=== PATIENT | female | born 1955 | race Caucasian/White ===

== ENCOUNTER 2023-10-30 12:30 | Outpatient (RCR) | payer MEDICARE, OTHER, SELFPAY | END 2023-11-16 16:36 | disposition home or self-care (01) | LOC: PT 12:30 | PROVIDERS: PCP Family Medicine; Visit Provider Family Medicine | DX: G35 Multiple sclerosis (principal) | CPT/HCPCS: 97110; 97162 ==

== ENCOUNTER 2024-06-26 13:40 | Inpatient (IN) | payer MEDICARE, OTHER, SELFPAY ==
[2024-06-26] VITALS (8 sets, daily range): BP systolic 122–129; BP diastolic 72–87; PULSE 62–93; TEMP 36.6–36.7; O2SAT 69–99; BMI 18.8; BMI 18.6
--- OUTSIDE RECORDS SUMMARY | 2024-06-26 13:50 | XMS_ITS | CCD ---
Author Organization [facility] Care Team Providers Care Laundry Folder Name Role Phone Susan Boucher MD Primary Care Provider SUSAN BOUCHER Primary Care Unavailable Tj Garcia Attending Unavailable Tj Garcia Admitting Unavailable DEFRANCE, SUSAN Matute Primary Care Unavailable Susan Gordon Unavailable Tj Garcia Attending Unavailable Tj Garcia Admitting Unavailable Tj Garcia Admitting Unavailable DEFBREANN, SUSAN Matute Primary Care Unavailable Tj Garcia Attending Unavailable SUSAN BOUCHER Attending Unavailable DEFSUSAN CRAIN Referring Unavailable DEFRANCE, SUSAN Matute Primary Care Unavailable DEFRANCE, SUSAN Matute Attending Unavailable DEFRANCE, SUSAN Matute Referring Unavailable DEFRANCE, SUSAN Matute Primary Care Unavailable DEFRANCE, SUSAN Matute Attending Unavailable DEFRANCE, SUSAN Matute Referring Unavailable DEFRANCE, SUSAN Matute Primary Care Unavailable DEFRANCE, SUSAN Matute Attending Unavailable DEFRANCE, SUSAN Matute Referring Unavailable DEFRANCE, SUSAN Matute Primary Care Unavailable DEFRANCE, SUSAN Matute Referring Unavailable DEFRANCE, SUSAN Matute Primary Care Unavailable DEFRANCE, SUSAN Matute Attending Unavailable DEFRANCE, SUSAN Matute Referring Unavailable DEFRANCE, SUSAN Matute Primary Care Unavailable LOOMERICA RAI Attending Unavailable DEFRANCE, SUSAN Matute Referring Unavailable DEFRANCE, SUSAN Matute Primary Care Unavailable Defrance Susan ESQUIVEL Primary Care Provider SUSAN BOUCHER Primary Care Unavailable MARKO DOUGLAS Attending Unavailable DEFBREANN, SUSAN Matute Referring Unavailable DEFRANCE, SUSAN Matute Primary Care Unavailable GLADYS FABIAN Attending Unavailable DEFRANCE, SUSAN Matute Referring Unavailable DEFRANCE, SUSAN Matute Primary Care Unavailable GLADYS FABIAN Attending Unavailable DEFRANCE, SUSAN Matute Referring Unavailable DEFRANCE, SUSAN Matute Primary Care Unavailable DEFRANCE, SUSAN Matute Referring Unavailable DEFRANCE, SUSAN Matute Primary Care Unavailable DEFRANCE, SUSAN Matute Referring Unavailable DEFRANCE, SUSAN Matute Primary Care Unavailable TJ GARCIA Referring Unavailable DEFRANCE, SUSAN Matute Primary Care Unavailable DEFRANCE, SUSAN Matute Referring Unavailable SUSAN BOUCHER Primary Care Unavailable DEFSUSAN CRAIN Referring Unavailable SUSAN BOUCHER Primary Care Unavailable DEFSUSAN CRAIN Primary Care Unavailable Defrance Susan ESQUIVEL Primary Care Provider HERMES MCBRIDE Attending Unavailable HERMES MCBRIDE Attending Unavailable HERMES MCBRIDE Attending Unavailable HERMES MCBRIDE Attending Unavailable Allergies Allergy Classification Reported Allergen(s) Allergy Type Date of Onset Reaction(s) Facility (20 sources) Prochlorperazine; Translations: [PROCHLORPERAZINE] Drug Allergy 10-11-19 18 [facility] (20 sources) Sulfamethoxazole; Translations: [SULFAMETHOXAZOLE] Drug Allergy 03-26-20 [facility] (20 sources) Sulfamethoxazole / Trimethoprim; Translations: [SULFAMETHOXAZOLE-T RIMETHOPRIM] Drug Allergy 03-08-20 Dizziness, Unknown [facility] (1 source) Sulfamethoxazole / Trimethoprim; Translations: [Bactrim] Drug Allergy [facility] (3 sources) Sulfamethoxazole Propensity to adverse reactions 03-26-20 [facility] Healthcare Medications Current Medications Medication Drug Class(es) Dates Sig (Normalized) Sig (Original) aspirin 81 mg delayed release oral tablet (20 sources) Platelet Aggregation Inhibitor, Nonsteroidal Anti-inflammatory Drug Start: 08-23-2023 take 1 tablet by mouth in the morning aspirin 81 mg Take 1 tablet (81 mg total) by mouth in the morning. 08/23/2023 Active atorvastatin 10 mg oral tablet (20 sources) HMG-CoA Reductase Inhibitor Start: 08-08-2022 atorvastatin (LIPITOR) 10 mg tablet TAKE 1 TABLET EVERY NIGHT 90 tablet 2 11/26/2023 Active donepezil hydrochloride 10 mg oral tablet (20 sources) Start: 06-07-2021 donepezil (Aricept) 10 MG tablet Indications: Multiple sclerosis (CMS/HCC) TAKE 1 TABLET EVERY DAY 90 tablet 3 05/27/2024 Active doxycycline hyclate 100 mg oral capsule (5 sources) Tetracycline-clas s Drug Start: 06-18-2024 End: 06-28-2024 take 1 capsule by mouth in the morning, then take 1 capsule by mouth at bedtime doxycycline (VIBRAMYCIN) 100 mg capsule Take 1 capsule (100 mg total) by mouth in the morning and 1 capsule (100 mg total) before bedtime. Do all this for 7 days. 14 capsule 06/21/2024 06/28/2024 Active fluconazole 100 mg oral tablet (20 sources) Azole Antifungal Start: 01-25-2023 fluconazole (DIFLUCAN) 100 mg tablet hydroCHLOROthiazide 25 mg / triamterene 37.5 mg oral capsule (20 sources) Potassium-sparing Diuretic, Thiazide Diuretic Start: 11-27-2023 take 1 capsule by mouth once daily in the morning triamterene-hydro CHLOROthiazide (DYAZIDE) 37.5-25 mg per capsule Take 1 capsule by mouth every morning. 90 capsule 2 11/27/2023 Active Start: 08-20-2023 take 1 capsule by mouth once daily in the morning triamterene-hydroCHLOROthiazide (DYAZIDE ) 37.5-25 mg per capsule Take 1 capsule by mouth every morning. 30 capsule 5 08/20/2023 Active hyoscyamine sulfate 0.125 mg sublingual tablet (20 sources) Start: 05-29-2023 take 1 tablet under the tongue every four hours hyoscyamine (LEVSIN) 0.125 mg SL tablet 1 tablet EVERY 4 HOURS (route: sublingual) 05/29/2023 Active lisinopril 10 mg oral tablet (20 sources) Angiotensin Converting Enzyme Inhibitor Start: 06-18-2024 take 1 tablet by mouth in the morning, then take 1 tablet by mouth at bedtime lisinopriL (PRINIVIL,ZESTRIL) 10 mg tablet Take 1 tablet (10 mg total) by mouth in the morning and 1 tablet (10 mg total) before bedtime. 180 tablet 1 06/18/2024 Active Start: 06-18-2024 take 1 tablet by debora th in the morning, then take 1 tablet by mouth at bedtime lisinopriL (PRINIVIL,ZESTRIL) 10 mg tablet Take 1 tablet (10 mg total) by mouth in the morning and 1 tablet (10 mg total) before bedtime. 180 tablet 1 06/18/2024 Active Start: 06-11-2024 End: 06-18-2024 take 0.5 tablet by mouth in the morning, then take 0.5 tablet by mouth at bedtime lisinopriL (PRINIVIL,ZESTRIL) 20 mg tablet Take 0.5 tablets (10 mg total) by mouth in the morning and 0.5 tablets (10 mg total) before bedtime. 06/11/2024 06/18/2024 Discontinued (Alternate therapy) Start: 11-27-2023 End: 06-11-2024 take 1 tablet by mouth in the morning, then take 1 tablet by mouth at bedtime lisinopriL (PRINIVIL,ZESTRIL) 20 mg tablet Take 1 tablet (20 mg total) by mouth in the morning and 1 tablet (20 mg total) before bedtime. 180 tablet 2 11/27/2023 06/11/2024 Discontinued Start: 08-12-2023 End: 09-03-2023 take 1 tablet by mouth in the morning, then take 1 tablet by mouth at bedtime lisinopriL (PRINIVIL,ZESTRIL) 20 mg tablet Take 1 tablet (20 mg total) by mouth in the morning and 1 tablet (20 mg total) before bedtime. 180 tablet 1 09/03/2023 Active loperamide hydrochloride 2 mg oral capsule (20 sources) Opioid Agonist Start: 08-08-2022 End: 05-14-2024 loperamide (Imodium) 2 MG capsule TAKE 1 CAPSULE IN THE MORNING AND TAKE 1 CAPSULE BEFORE BEDTIME. 08/08/2022 Active 24 hr memantine hydrochloride 28 mg extended release oral capsule (20 sources) N-byrwnj-Z-aspartate Receptor Antagonist Start: 03-09-2024 memantine (NAMENDA XR) 28 mg capsule,sprinkle,ER 24hr TAKE 1 CAPSULE EVERY DAY 90 capsule 1 03/09/2024 Active Start: 04-30-2023 memantine (NAM ENDA XR) 28 mg capsule,sprinkle,ER 24hr TAKE 1 CAPSULE EVERY DAY 90 capsule 1 04/30/2023 Active Start: 12-20-2022 take 1 capsule by [facility] every twenty-four hours in the morning Memantine HCl ER 28 MG capsule sustained-release 24 hr Take 1 capsule by mouth in the morning. 12/20/2022 Active metoprolol tartrate 50 mg oral tablet (20 sources) beta-Adrenergic Heather Start: 02-20-2024 metopr olol tartrate (LOPRESSOR) 50 mg tablet TAKE 1 TABLET IN THE MORNING AND 1 TABLET BEFORE BEDTIME. 180 tablet 3 02/20/2024 Active Start: 08-26-2023 End: 09-27-2023 take 1 tablet by mouth in the morning, then take 1 tablet by mouth at bedtime metoprolol tartrate (LOPRESSOR) 50 mg tablet Take 1 tablet (50 mg total) by mouth in the morning and 1 tablet (50 mg total) before bedtime. 180 tablet 1 09/27/2023 Active Start: 12-20-2022 End: 10-07-2023 take 1 tablet by mouth in the morning metoprolol tartrate (Lopressor) 100 MG tablet Take 1 tablet by mouth in the morning and 1 tablet before bedtime. 12/20/2022 Active mineral oil-hydrophil dorina (mineral oil-hydrophilic petrolatum) ointment (15 sources) Start: 12-03-2023 mineral oil-hydrophil dorina (mineral oil-hydrophilic petrolatum) ointment Indications: Pressure injury of right buttock, stage 2 (CMS-HCC) Apply 1 Application topically in the morning and 1 Application before bedtime. 113 g 12/03/2023 Active pantoprazole 40 mg delayed release oral tablet (20 sources) Proton Pump Inhibitor Start: 10-30-2022 pantoprazole (PROTONIX) 40 mg EC tablet take 1 tablet every day 90 tablet 2 11/26/2023 Active potassium chloride 10 meq extended release oral capsule (20 sources) Start: 09-10-2022 End: 05-14-2024 take 1 capsule by mouth in the morning potassium chloride ER (Micro-K) 10 MEQ ER capsule Take 1 capsule by mouth in the morning and 1 capsule before bedtime. 09/10/2022 Active teriflunomide 14 mg oral tablet (20 sources) Pyrimidine Synthesis Inhibitor Start: 03-31-2024 take 1 tablet by mouth in the morning teriflunomide (AUBAGIO) 14 mg tablet Indications: Multiple sclerosis (CMS-HCC) Take 1 tablet (14 mg total) by mouth in the morning. 90 tablet 1 03/31/2024 Active Start: 08-14-2022 End: 09-02-2023 take 1 tablet by mouth in the morning teriflunomide (AUBAGIO) 14 mg tablet Indications: Multiple sclerosis (CMS-HCC) Take 1 tablet (14 mg total) by mouth in the morning. 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] Onset: 12-03-2023 06-23-2024 Chronic Disorders of lipid metabolism (20 sources) Hyperlipidemia; Translations: [Hyperlipidemia, unspecified] Onset: 10-10-2017 10-10-2017 Chronic Essential hypertension (20 sources) Hypertensive disorder; Translations: [Essential (primary) hypertension] Onset: 08-11-2023 Resolved: 08-12-2023 10-10-2017 Chronic Genitourinary symptoms and ill-defined conditions (20 sources) Suprapubic urinary catheter in situ; Translations: [Other cystostomy status] Onset: 12-19-2020 12-19-2020 Chronic Multiple sclerosis (20 sources) Multiple sclerosis; Translations: [Multiple sclerosis] Onset: 10-10-2017 10-10-2017 Chronic Nutritional deficiencies (20 sources) Deficiency of macronutrients; Translations: [Unspecified severe protein-calorie malnutrition] Onset: 03-09-2019 Resolved: 12-19-2020 12-19-2020 Chronic Other diseases of bladder and urethra (20 sources) Neurogenic bladder; Translations: [Neuromuscular dysfunction of bladder, unspecified] Onset: 12-19-2020 12-19-2020 Chronic Other nervous system disorders (1 source) Other chronic pain; Translations: [Other chronic pain] Onset: 05-19-2024 Chronic Other non-traumatic joint disorders (2 sources) Pain in right knee; Translations: [Pain in joint, lower leg] Onset: 05-19-2024 05-19-2024 Episodic Other screening for suspected conditions (not mental disorders or infectious disease) (2 sources) Encounter for screening mammogram for malignant neoplasm of breast; Translations: [Encounter for screening mammogram for malignant neoplasm of breast] Onset: 04-01-2024 Episodic Unclassified (1 source) Annual Exam Onset: 04-01-2024 Unclassified (1 source) Urinary Catheter Insertion or Check Onset: 06-21-2024 Unclassified (2 sources) Wound Check Onset: 06-21-2024 Past or Other Problems Problem Classification Problem Date Documented Da te Episodic/Chronic Gastrointestinal hemorrhage (20 sources) Gastrointestinal hemorrhage; Translations: [Hematemesis] Onset: 9 Resolved: 1 12-19-2020 Episodic Genitourinary symptoms and ill-defined conditions (4 sources) Unspecified abnormal findings in urine; Translations: [Retention of urine] Onset: 3 02-13-2023 Episodic Malaise and fatigue (20 sources) Asthenia; Translations: [Weakness] Onset: 9 03-08-2019 Episodic Mood disorders (20 sources) Mood disorders Onset: 3 Resolved: 4 05-16-2023 Other female genital disorders (1 source) Vaginal irritation Onset: 4 Episodic Residual codes; unclassified (20 sources) Memory impairment; Translations: [Other amnesia] Onset: 1 12-19-2020 Episodic Residual codes; unclassified (1 source) Other amnesia; Translations: [Other amnesia] Onset: 1 Episodic Urinary tract infections (1 source) Urinary tract infection, site not specified; Translations: [Urinary tract infection, site not specified] Onset: 4 Episodic Results Test Name Value Interpretation Reference Range Facility CBC AND AUTO DIFFon 06-21-20 ABSOLUTE BASOPHIL 0.1 X10E9/L Normal 0.0-0.2 [facility] Comment on above: Performed By: #### C DAVID LAGOS, 1987-11 #### [facility] ([id number]) [address] [place] [address] ABSOLUTE NEUTROPHIL 6.9 X10E9/L High 1.5-6.6 [facility] Comment on above: Performed By: #### C DAVID LAGOS, 1987-11 #### [facility] ([id number]) [address] [place] [address] 02286 Basophils/100 WBC (Bld) 0.7 % Normal [facility] Comment on above: Performed By: #### C DAVID LAGOS, 1987-11 #### [facility] ([id number]) [address] [place] [address] [place] [address] Eosinophils (Bld) [#/Vol] 0.1 10*3/uL Normal 0.0-0.4 [facility] Comment on above: Performed By: #### Vinh LAGOS [facility], 1987-11 #### [facility] ([id number]) [address] [place] [address] 16014 Eosinophils/100 WBC (Bld) 1.3 % Normal [facility] Comment on above: Performed By: #### Vinh LAGOS [facility], 1987-11 #### [facility] ([id number]) [address] [place] [address]674 Erythrocyte distribution width (RBC) [Ratio] 13.4 % Normal 11.5-15.0 [facility] Comment on above: Performed By: #### Vinh LAGOS [facility], 1987-11 #### [facility] ([id number]) [address] [place] [address]342 Hematocrit (Bld) [Volume fraction] 35.1 % Normal 35-47 [facility] Comment on above: Performed By: #### Vinh LAGOS [facility], 1987-11 #### [facility] ([id number]) [address] [place] [address] 04858 Hemoglobin (Bld) [Mass/Vol] 11.5 g/dL Low 11.7-15.5 [facility] Comment on above: Performed By: #### Vinh LAGOS [facility], 1987-11 #### [facility] ([id number]) [address] [place] [address] 80200 Lymphocytes (Bld) [#/Vol] 0.5 10*3/uL Low 1.0-3.5 [facility] Comment on above: Performed By: #### Vinh LAGOS [facility], 1987-11 #### [facility] ([id number]) [address] [place] [address] 27054 Lymphocytes/100 WBC (Bld) 5.5 % Normal [facility] Comment on above: Performed By: #### Vinh LAGOS [facility], 1987-11 #### [facility] ([id number]) [address] [place] [address] 43417 MCH (RBC) [Entitic mass] 29.3 pg Normal 27-34 [facility] Comment on above: Performed By: #### Vinh LAGOS [facility], 1987-11 #### [facility] ([id number]) [address] [place] [address] 59487 MCHC (RBC) [Mass/Vol] 32.7 g/dL Normal 32-36 [facility] Comment on above: Performed By: #### Vinh LAGOS [facility], 1987-11 #### [facility] ([id number]) [address] [place] [address] 11857 MCV (RBC) [Entitic vol] 90 fL Normal 80-100 [facility] Comment on above: Performed By: #### Vinh LAGOS [facility], 1987-11 #### [facility] ([id number]) [address] [place] [address] 36238 Monocytes (Bld) [#/Vol] 0.9 10*3/uL Normal 0-0.9 [facility] Comment on above: Performed By: #### Vinh LAGOS CMP, 1987-11 #### [facility] ([id number]) [address] [place] [address] 74320 Monocytes/100 WBC (Bld) 10.4 % Normal [facility] Comment on above: Performed By: #### Vinh LAGOS CMP, 1987-11 #### [facility] ([id number]) [address] [place] [address] 06163 Neutrophils/100 WBC (Bld) 82.1 % Normal [facility] Comment on above: Performed By: #### Vinh LAGOS CMP, 1987-11 #### [facility] ([id number]) [address] [place] [address] 18687 Platelet mean volume (Bld) [Entitic vol] 8.1 fL Normal 7-12 [facility] Comment on above: Performed By: #### Vinh LAGOS [facility], 1987-11 #### [facility] ([id number]) [address] [place] [address] 34138 Platelets (Bld) [#/Vol] 470 10*3/uL High 150-450 [facility] Comment on above: Performed By: #### Vinh LAGOS [facility], 1987-11 #### [facility] ([id number]) [address] [place] [address] 31417 RBC COUNT 3.92 X10E12/L Normal 3.80-5.20 [facility] Comment on above: Performed By: #### Vinh LAGOS [facility], 1987-11 #### [facility] ([id number]) [address] [place] [address] 51271 WBC (Bld) [#/Vol] 8.4 10*3/uL Normal 4.0-11.0 [facility] Comment on above: Performed By: #### Vinh LAGOS [facility], 1987-11 #### [facility] ([id number]) [address] [place] [address] 55546 COMPREHENSIVE METABOLIC PANE Chace 06-21-2024 Albumin [Mass/Vol] 3.7 g/dL Normal 3.2-5.3 [facility] Comment on above: Performed By: #### 6 30-4 #### [facility] ([id number]) [address], [address] [place] [address] ALP [Catalytic activity/Vol] 90 U/L Normal 39-130 [facility] Comment on above: Performed By: #### 6 30-4 #### [facility] ([id number]) [address], [address] [place] [address] ALT [Catalytic activity/Vol] 13 U/L Normal 0-31 [facility] Comment on above: Performed By: #### 6 30-4 #### [facility] ([id number]) [address], [address] [place] [address] Anion gap [Moles/Vol] 12 mmol/L Normal 5-15 [facility] Comment on above: Performed By: #### 6 30-4 #### [facility] ([id number]) [address], [address] [place] [address] AST [Catalytic activity/Vol] 16 U/L Normal 0-41 [facility] Comment on above: Performed By: #### 6 30-4 #### [facility] ([id number]) [address], [address] [place] [address] Bilirubin [Mass/Vol] 0.5 mg/dL Normal 0.3-1.2 [facility] Comment on above: Performed By: #### 6 30-4 #### [facility] ([id number]) [address], [address] [place] [address] Calcium [Mass/Vol] 9.2 mg/dL Normal 8.5-10.5 [facility] Comment on above: Performed By: #### 6 30-4 #### [facility] ([id number]) [address], [address] [place] [address] Chloride [Moles/Vol] 99 mmol/L Normal 98-109 [facility] Comment on above: Performed By: #### 6 30-4 #### [facility] ([id number]) [address], [address] [place] [address] CO2 [Moles/Vol] 23 mmol/L Normal 22-32 [facility] Comment on above: Performed By: #### 6 30-4 #### [facility] ([id number]) [address], [address] [place] [address] Creatinine [Mass/Vol] 1.72 mg/dL High 0.40-1.00 [facility] Comment on above: Result Comment: METH OD TRACEABLE TO IDMS STANDARD Performed By: #### 6 30-4 #### [facility] ([id number]) [address] [place] [address] GFR/1.73 sq M.predicted among non-blacks MDRD (S/P/Bld) [Vol rate/Area] 32 mL/min/{1.73_m2} Low >59 [facility] Comment on above: Result Comment: Reported eGFR is based on the CKD-EPI 2020 equation that does not use a race coefficient. Performed By: #### 6 30-4 #### [facility] ([id number]) [address] [place] [address] Glucose [Mass/Vol] 103 mg/dL High 65-99 [facility] Comment on above: Performed By: #### 6 30-4 #### [facility] ([id number]) [address] [place] [address] Potassium [Moles/Vol] 4.9 mmol/L Normal 3.5-5.0 [facility] Comment on above: Performed By: #### 6 30-4 #### [facility] ([id number]) [address] [place] [address] Protein [Mass/Vol] 7.1 g/dL Normal 6.0-8.0 [facility] Comment on above: Performed By: #### 6 30-4 #### [facility] ([id number]) [address] [place] [address] Sodium [Moles/Vol] 134 mmol/L Normal 134-146 [facility] Comment on above: Performed By: #### 6 30-4 #### [facility] ([id number]) [address] [place] [address] Urea nitrogen [Mass/Vol] 34 mg/dL High 5-27 [facility] Comment on above: Performed By: #### 6 30-4 #### [facility] ([id number]) [address] [place] [address] CRP [Mass/Vol]on 06-21-2024 C REACTIVE PROTEIN 0.9 mg/dL High 0.000-0.[address] [facility] Comment on above: Performed By: #### 6 30-4 #### [facility] ([id number]) [address], [address] [place] [address] Lactate (P rohini) [Moles/Vol]o n 06-21-2024 LACTATE W/REFLEX 2.0 mmol/L Normal 0.4-2.0 [facility] Comment on above: Result Comment: Result did not trigger repeat Lactate, re-order if needed. Performed By: #### 6 30-4 #### [facility] ([id number]) [address], [address] [place] [address] URINE CULTUREon 06-21-2024 Bacteria identified Cx Nom (U) CULTURE RESULTS 10,000 to 50,000 ORGANISMS/mL ENTEROCOCCUS SPECIES Ampicillin or Amoxicillin is the drug of choice for uncomplicated cystitis caused by enterococci. Cephalosporins are inappropriate. <10,000 ORGANISMS/mL NORMAL URO GENITAL GENA [ S = SUSCEPTIBLE R = RESISTANT I = INTERMEDIATE S-DO = Susceptible-dose dependent NS = Non-suscceptible NO = No Interpretation ] Organism: ENTEROCOCCUS SPECIES Antibiotic Interpretation LAVERNE Status AMPICILLIN S <=2 F LEVOFLOXACIN S 1 F NITROFURANTOIN S <=16 F VANCOMYCIN S 2 F Susceptible [facility] Comment on above: Performed By: #### 6 30-4 #### [facility] ([id number]) [address], [address] [place] [address] URN MACROSCOPIC NURon 2023 BILIRUBIN MARIA E Negative Normal NEG [facility] Comment on above: Performed By: #### N UM #### [facility] ([id number]) [address] [place] [address], [place] [address] BLOOD/HGB MARIA E Trace Abnormal NEG [facility] Comment on above: Performed By: #### N UM #### [facility] ([id number]) [address] [place] [address], [place] [address] GLUCOSE MARIA E Negative Normal NEG [facility] Comment on above: Performed By: #### N UM #### [facility] ([id number]) [address] [place] [address], [place] [address] KETONES MARIA E Negative Normal NEG [facility] Comment on above: Performed By: #### N UM #### [facility] ([id number]) [address] [place] [address], [place] [address] LEUKOCYTE ESTERASE MARIA E Small Abnormal NEG [facility] Comment on above: Performed By: #### N UM #### [facility] ([id number]) [address] [place] [address], [place] [address] NITRITE MARIA E Negative Normal NEG [facility] Comment on above: Performed By: #### N UM #### [facility] ([id number]) [address] [place] [address], [place] [address] PH MARIA E 6.5 Normal 5.0-8.5 [facility] Comment on above: Performed By: #### N UM #### [facility] ([id number]) [address] [place] [address], [place] [address] PROTEIN MARIA E Negative Normal NEG [facility] Comment on above: Performed By: #### N UM #### [facility] ([id number]) [address] [place] [address], [place] [address] SPECIFIC GRAVITY MARIA E 1.015 Normal 1.003-1.035 [facility] Comment on above: Performed By: #### N UM #### [facility] ([id number]) [address] [place] [address] 67917 UROBILINOGEN MARIA E 0.2 eu/dL Normal <1.1 [facility] Comment on above: Performed By: #### N UM #### [facility] ([id number]) [address] [place] [address] 89675 XR FOOT LT MIN 3 VWSon 06-21 XR FOOT LT MIN 3 VWS XR FOOT LT MIN 3 VWS XR FOOT LT MIN 3 VWS IMPRESSION: Clinical Information: r/o osteomyelitis of heel Comparison: None. * No fracture or cortical destruction. Soft tissue loss overlying the heel consistent with ulcer. MRI is more sensitive for the detection of osteomyelitis. Osteopenia and degenerative changes with some soft tissue swelling. Hammertoe deformities. Finalized by Andres Patel MD on 06/21/2024 2:44 PM Normal [facility] URINALYSISon 06-16-2024 Amorphous sediment LM Ql (Urine sed) PRESENT Abnormal NONE [facility] Comment on above: Performed By: #### U A #### [facility] ([id number]) [address] [place] [address] 50196 Bilirubin Ql (U) Negative Normal NEG [facility] Comment on above: Performed By: #### U A #### [facility] ([id number]) [address] [place] [address] 45689 BLOOD/HGB Trace Abnormal NEG [facility] Comment on above: Performed By: #### U A #### [facility] ([id number]) [address] [place] [address] 39732 Color (U) YELLOW Normal YELLOW [facility] Comment on above: Performed By: #### U A #### [facility] ([id number]) [address] [place] [address] 11880 Glucose Ql (U) Negative Normal NEG [facility] Comment on above: Performed By: #### U A #### [facility] ([id number]) [address] [place] [address] [place] [address] Ketones Ql (U) Negative Normal NEG [facility] Comment on above: Performed By: #### U A #### [facility] ([id number]) [address] [place] [address] [place] [address] Leukocyte esterase Test strip Ql (U) MODERATE Abnormal NEG [facility] Comment on above: Performed By: #### U A #### [facility] ([id number]) [address] [place] [address] [place] [address] Nitrite Ql (U) Positive Abnormal NEG [facility] Comment on above: Performed By: #### U A #### [facility] ([id number]) [address] [place] [address] 24788 pH (U) 6.5 [pH] Normal 5.0-8.5 [facility] Comment on above: Performed By: #### U A #### [facility] ([id number]) [address] [place] [address] [place] [address] Protein Ql (U) Trace Abnormal NEG [facility] Comment on above: Performed By: #### U A #### [facility] ([id number]) [address] [place] [address] [place] [address] R.B.CELLS 0 /hpf Normal 0-5 [facility] Comment on above: Performed By: #### U A #### [facility] ([id number]) [address] [place] [address] [place] [address] Specific gravity (U) [Rel density] 1.015 Normal 1.003-1.035 [facility] Comment on above: Performed By: #### U A #### [facility] ([id number]) [address] [place] [address] [place] [address] TURBIDITY HAZY Abnormal CLEAR [facility] Comment on above: Performed By: #### U A #### [facility] ([id number]) [address] [place] [address] 53264 Urinalysis dipstick W Reflex Microscopic panel (U) URINE RECEIVED WITHOUT PRESERVATIVE Normal [facility] Comment on above: Performed By: #### U A #### [facility] ([id number]) [address] [place] [address] 81174 Urobilinogen Qn (U) 0.2 {Bro'U}/dL Normal <1.1 [facility] Comment on above: Performed By: #### U A #### [facility] ([id number]) [address] [place] [address] 52774 W.B.CELLS 25 /hpf High 0-5 [facility] Comment on above: Performed By: #### U A #### [facility] ([id number]) [address] [place] [address] 91890 URINE CULTUREon 06-16-2024 Bacteria identified Cx Nom (U) SPECIMEN NOTES URINE RECEIVED WITHOUT PRESERVATIVE CULTURE RESULTS >100,000 ORGANISMS/mL LACTOSE FERMENTING GRAM NEGATIVE RODS >100,000 ORGANISMS/mL NON LACTOSE FERMENTING GRAM NEGATIVE RODS 10,000 to 50,000 ORGANISMS/mL GRAM POSITIVE COCCI URINE RECEIVED WITHOUT PRESERVATIVE-DELAYS IN TRANSPORT MAY AFFECT RESULTS.INTERPRET WITH CAUTION AND CLINICAL CORRELATION IS RECOMMENDED. Contact laboratory if definitive identifications are clinically indicated. Normal [facility] Comment on above: Performed By: #### 6 30-4 #### [facility] ([id number]) [address], [address] [place] [address] XR KNEE RT 3 VWSon 4 XR KNEE RT 3 VWS XR KNEE RT 3 VWS HISTORY: A 69-year-old female with the history of the fall one week ago. Complaining of the chronic right knee pain. TECHNIQUE: Right knee: 3 views COMPARISON: No relevant prior studies are available for comparison. FINDINGS: There is no evidence of fracture, dislocation or acute bony pathology. There are mild osteoarthritic changes in the knee joint with minimal reduction of the joint space in its medial compartment. Patellofemoral joint is intact. There is no evidence of joint effusion. Minimal calcifications are seen in the medial collateral ligament proximally. There is a osteochondroma or exostosis from the lateral aspect of the proximal tibial diaphysis. IMPRESSION: * No evidence of fracture, joint effusion or acute bony pathology. * Mild osteoarthritis. * Osteochondroma or exostosis on the lateral aspect of the proximal tibial diaphysis near the tibiofibular joint. Finalized by Otto Wong MD on 05/19/2024 5:29 PM [facility] XR Knee - right 3 Viewson HISTORY: A 69-year-old female with the history of the fall one week ago. Complaining of the chronic right knee pain. TECHNIQUE: Right knee: 3 views COMPARISON: No relevant prior studies are available for comparison. FINDINGS: There is no evidence of fracture, dislocation or acute bony pathology. There are mild osteoarthritic changes in the knee joint with minimal reduction of the joint space in its medial compartment. Patellofemoral joint is intact. There is no evidence of joint effusion. Minimal calcifications are seen in the medial collateral ligament proximally. There is a osteochondroma or exostosis from the lateral aspect of the proximal tibial diaphysis. IMPRESSION: * No evidence of fracture, joint effusion or acute bony pathology. * Mild osteoarthritis. * Osteochondroma or exostosis on the lateral aspect of the proximal tibial diaphysis near the tibiofibular joint. Finalized by Otto Wong MD on 05/19/2024 5:29 PM [facility] Otto Wong MD - 05/19/2024 HISTORY: A 69-year-old female with the history of the fall one week ago. Complaining of the chronic right knee pain. TECHNIQUE: Right knee: 3 views COMPARISON: No relevant prior studies are available for comparison. FINDINGS: There is no evidence of fracture, dislocation or acute bony pathology. There are mild osteoarthritic changes in the knee joint with minimal reduction of the joint space in its medial compartment. Patellofemoral joint is intact. There is no evidence of joint effusion. Minimal calcifications are seen in the medial collateral ligament proximally. There is a osteochondroma or exostosis from the lateral aspect of the proximal tibial diaphysis. IMPRESSION: * No evidence of fracture, joint effusion or acute bony pathology. * Mild osteoarthritis. * Osteochondroma or exostosis on the lateral aspect of the proximal tibial diaphysis near the tibiofibular joint. 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 Computer aided detection was utilized. FINDINGS: There are scattered areas of fibroglandular density. There are no suspicious masses, calcifications, or areas of architectural distortion. IMPRESSION: No mammographic evidence of malignancy. BI-RADS: BI-RADS 1 - Negative Recommendation: Routine screening mammogram in 1 year. Finalized by Donal Verdugo MD on 04/15/2024 1:04 PM 1 b MAMM 1 YR Normal [facility] URINALYSISon 11-06-2023 Bilirubin Ql (U) Negative Normal NEG [facility] Comment on above: Performed By: #### U A #### [facility] ([id number]) [address] [place] [address] 53338 BLOOD/HGB Trace Abnormal NEG [facility] Comment on above: Performed By: #### U A #### [facility] ([id number]) [address] [place] [address] 25637 Color (U) YELLOW Normal YELLOW [facility] Comment on above: Performed By: #### U A #### [facility] ([id number]) [address] [place] [address] 94677 Glucose Ql (U) Negative Normal NEG [facility] Comment on above: Performed By: #### U A #### [facility] ([id number]) [address] [place] [address] [place] [address] Ketones Ql (U) Negative Normal NEG [facility] Comment on above: Performed By: #### U A #### [facility] ([id number]) [address] [place] [address] 51202 Leukocyte esterase Test strip Ql (U) Large Abnormal NEG [facility] Comment on above: Performed By: #### U A #### [facility] ([id number]) [address] [place] [address] 20363 Nitrite Ql (U) Positive Abnormal NEG [facility] Comment on above: Performed By: #### U A #### [facility] ([id number]) [address] [place] [address] 89598 pH (U) 6.5 [pH] Normal 5.0-8.5 [facility] Comment on above: Performed By: #### U A #### [facility] ([id number]) [address] [place] [address] 16021 Protein Ql (U) Negative Normal NEG [facility] Comment on above: Performed By: #### U A #### [facility] ([id number]) [address] [place] [address] 62022 R.B.CELLS 1 /hpf Normal 0-5 [facility] Comment on above: Performed By: #### U A #### [facility] ([id number]) [address] [place] [address] 85433 Specific gravity (U) [Rel density] 1.015 Normal 1.003-1.035 [facility] Comment on above: Performed By: #### U A #### [facility] ([id number]) [address] [place] [address] 14030 SQUAMOUS EPITHELIUM 6 /hpf High 0-[address] [facility] Comment on above: Performed By: #### U A #### [facility] ([id number]) [address] [place] [address] 56614 TURBIDITY HAZY Abnormal CLEAR [facility] Comment on above: Performed By: #### U A #### [facility] ([id number]) [address] [place] [address] 81851 Urobilinogen Qn (U) 0.2 {Bro'U}/dL Normal <1.1 [facility] Comment on above: Performed By: #### U A #### [facility] ([id number]) [address] [place] [address] 66287 W.B.CELLS 30 /hpf High 0-5 [facility] Comment on above: Performed By: #### U A #### [facility] ([id number]) [address] [place] [address] 33697 URINE CULTUREon 11-06-2023 Bacteria identified Cx Nom (U) SPECIMEN NOTES URINE RECEIVED WITHOUT PRESERVATIVE CULTURE RESULTS 50,000 to 100,000 ORGANISMS/mL ENTEROBACTER CLOACAE COMPLEX 10,000 to 50,000 ORGANISMS/mL NORMAL URO GENITAL GENA URINE RECEIVED WITHOUT PRESERVATIVE-DELAYS IN TRANSPORT MAY AFFECT RESULTS.INTERPRET WITH CAUTION AND CLINICAL CORRELATION IS RECOMMENDED. Normal [facility] Comment on above: Performed By: #### 6 30-4 #### [facility] ([id number]) [address], [address] [place] [address] Coding Queryon 10-24-2023 Coding Query [id number] [facility] Coding Summaryon 10-24-2023 Coding Summary HTMLBase 64 PqpieergNHj0nAb+PGhlY WQ+ZK7UKRXmN11bbLZozO 4vE8XCGElQBakrTCLXGQj NDvVywqXcKO2otUNiYTEg IC8+LJ1mUVTbKsephPEcz 2E3qUM0L80ipl5lCKguzV V0RYExHlZpowlbn5gxiHo 6IDcuNmluOyBt HBCieS35XYA8uV39Yk33w IVruUPrw6zdqNx9MnNdJG OsFTA6bTwuPQdxg9IoTWU nE54cqZUhw4V7 OBGxyJenhXViAqRzcNK4g J6sNAhzogarm1ratlazFp y3bs10hLTid4B5fWT4U0F ddbM4GNRmaGSb ZijqzTCJuR1vrrmmi5bmp kmmKvXkBMKoZDv4UCk5IK LqjMacYsYeEE04JRI4UKW lskOpM5EaXDJz cXcxByE5s1R1Fn8TZ5OGU jjyV5GUSWRESDdbaBG+PC 31gn95P6MaGncjFac2PIK dOCM8lSC6hL9r TTYfWNvqw5W9xKX2P6Yng dTqyb4hh7slEDWxNAxwH0 6ewPFdb9E1DIWxgAJ2UAI ocUwfQuDvhD49 Oyc+WTQeyVpnw3ToDqgvv 2gjb4jgeTd3DlsqWVJgyf UetEkvLQM7s8CwGi2mVCP oxBT1rVM5uN4s JwTnSgU8RAksN644MaFay EEhMouiK86xT6GalGJ+PH RkHix5KYRrbDcqEX5rA5K hZGRpbmctbGVm aNmbOF3vRHUpcagxCEKqb D6pDYHjG6l8UfQqRkC8IS anN6EaTTQvpdiyEs17sS7 cNgRpKeK9PNwq O0BfnfD7VUBubOLuIZkaY GM7Q07td2N2LGVaJCIrNM W7yDZ5uW3wnIxnbkgjhSM mdDsgdmVydGlj XAdyWSfmS200BSEpfSyyG kNvZGluZyBEYXRlOiAgMD MvMjgvMjAyNDwvdGQ+PHR gKZJ9fMivKWYn vXQbNJrpSx8jgTiwzJnmH A9cJXLgouehQDXcdY3uTS FwlHJwpSdfGS3oDUVbeyq sz559BzRcSAA1 VVVjrMRgW1ImvN2xKdQiL EOnNTVzJ4FexDQdMUluM1 08WQasYtY7OQGqlvPkV2A sLWFsaWduOiB0 c4N0Vo2Jm1DsbdkqU4Kcv FWvCgSdAmruZVx2J7VaGh wvdHI+UK52AUZyEU37BRa 0DVO2eWtfBIyd GMJnL0WzzX1rPwYhWRWsQ GRkOyc+PHRhYmxlIHdpZH RoPScxMDAlJyBzdHlsZT0 zFy6tQSUtPZYl uJongIGoDwJtk8feMUKcI IujWU4dpRisH8PoiAZ1BS Oyy8v2Us67A43wB7GutKE +MAXneHX8mWB0 wW9yVtHwBtE1ZXxqD431S mVfoARsPalxr0zux4evyE j2OmW8HEUsaqHssIvhAIC 1w3VzKv74P46j IHdpZHRoPSIxNSUiIHZhb Qyubl0joM2vDu6+PGNvbC D6xNO2zH9bLfSyPwM2KWs eL788YjRnyBMp Ncdav5xez4akqSv1YbTmD EOhhsCumYnsCXY0f4SuVm 97T4EdpXsal3SqEci5rh1 9zWLvk7G8lJI8 E3GuKNBnwvmkgHXyhWtoT A2oRYJprzkyIPLdsK9dDI SjL7t3QwFkOhR7QUdaB0O zwfQ6ILIkiAGe OFShlTQIjR9ltxlbq8wbl mftNiSkGDTkPWq4LGz4JD XonAxwEyQoOTE2HxS3QHT 5rYApcM2qfNpz gfifzF9vKzy+NCD6gWPbc QTUOL5nOlpadRI+PHRkIH X5mKyyLYlzLACioN1lUNS iZ7v7MrAjDjD5 PHmiE5XouxZ7XUXibBHfC EYmaLEBeV7xfivou1eguc vuCwYxIKLqPVb8UXw3HWE saWduOiBsZWZ0 StK9NZK3nPWepY0spDqnc wlzdD5hPzj+QmlydGggRG M1MJu5G1TnJvd1KQZwaDi vGH7ckXDmEPqn Hj2qoXtejYtbHO9nIKLul ghoy836BbDrt8vtETFqmM YrCDrvKGO3Z32xh5E6FTN tSYQkMPR6cPA2 eV7bcHbtcfbdaLFwaBphk nFzpPlhELvdVAwmZ876IU IehXieZoBfDUc3X1MoOuw 4KKLlpFjwRV8e gWAsKWsvXu1ghIrtjAudK D0tIDRcvigeu929SnGer5 wkYLZzcXHfBCqjNZK1H87 gv2C2ZNMaKMHp IZN3sWV9lV2teWrgiwlpc GVmdDsgdmVydGljYWwtYW hzF297CETrsOxwQwEnpWn 6N5OsBrd3IYOi jAlpEF7jsBMoVXkwVj9yl SxpmJdbUW8wAIZlcfypl6 36PsYuf0laKURypJPxWZj qUYO7I60rk2O4 XLVjBTNuCYR9zMF4kB1er GlnbjogbGVmdDsgdmVydG tbIXkwZJwiC119DIZuoCb nPlBhdGllbnQg MPpfAYe8Q8IeRcpxrRO+P X01OADeFV57oHTyuIHzt5 sidQq4CeHrRZPuFLI9cPj tDMlfh3TeXRRd V06lfGSdc2P8WTZeeYqkl VUrNzOzpWH3uA8pEJelpo fzp9mmtcgfXdsvo8lmtj5 4jW83D23rESrb ZHRoPSIzMCUiIHZhbGlnb d3hiL9bWl8+IZIyaQZ5iK F6qA1vPFZpHbU1LHimS64 9InRvcCIvPjxj i3toj1ffzKh3FdK4LXYlu bUwvWvgMCB1v5UyCf09B4 9sIHdpZHRoPSIyMCUiIHZ ogYmtpn8voM4y Ii8+ASWkqRN6xLA3iN2uV gKnZnL7DHeoM260HaPgnO TzEmfyS46sW4ZujIJ+PHR zLdg8QZOdeTxa NH7fnHCkVTdyBg9mIXF4Z tGgQrFfBZhfE6HnLXHsnb hpeyinuRC1NTBmIKDsiC5 4Hc4raUsoLZCn xMRQnT1bacjeb3neucigB dIzHFRpZJh1JIb7SHMqwA ztXeWxFIM9MdS7BDO4vXE lzC1izHkehkgw gZ0wR6VzUVNpvemeRf78v O5cLoLuKwN7NJalYxe+SE xKXFjqP6mESIbWPIMEDs7 6P6TyNjs5EVQl zYdvMS6msSXhMFuwHs1fq IgijTweKS4yQTYahkadPB MlvI4fATTiiDIigCqdMR0 zHQZjyrofq028 EwKuURE7TKBotYLkN4Ewq I9gYyYaRKEqYEZgY2VzhM DeKYwqE305CWdhQbF1CPD ncfUcH0VkVJUl dAafJhH5k0T7Mf3fZS0vC k0kOSP8FM27YF50lXSpa8 Z8dYY7E9RqIGObgiwkqjg stFD2IBDgBIRq dT25lUHcANojFj3vf2P0p 079DEXsIJJeyK80Ww8ttX ssDYAjsEOLqQ8sohzmw0h vcjogIzAwMDAw OKy4PVq5BWSfsHgsZoKtI CU3ByR2HDY0dAKekV0qcR xrpxgfqX1zEqg+NjggWWV bsiF4P0FoQse4 BMZmlYhqIH6duOIzMMzsP n6fbQbtxCzbUU6mSSNtcf ydJUVdjJ7wKZEbiBVzwWb uDH0kPFDrxzet q854MtBmKLT6QQRznVIlW 9LxnS4bQkRgROJnDFYbM5 EwxJQuVJfmZ503RQubGlK 6MPBvzqTiY1Ud EPOwxBsvEnT3k2B9Pv6DD F5JAJY6I1GeIdx5SMSnlA npGB0mjPZxBAfxUw7mdHd edLuxLN7eAWOu nbxfIONjiJ1aKXVufTScu BnjYK5cUPSoqeifd232Bp GhPRH9NLTdsGBbE2UsfU4 yOiAjMDAwMDAw P5AgsKGvVZivT414YHmdZ eK4YDNnwdHqX7BjJHEriS mfNpD7f5I1Zk2NBNashWG +ZT78qk25E4Gp MojmWlo2JIOeMDT1rSI0k L5uXRByRWiyu3T8oIB4T7 GmusDjti6ju7bvOAUdXCl pR38azOZiy0C5 GSTyrJK6SUFejKhaCxPdk G93Oyc+PNSxuWmlg5HdTi fbz2bbr2aslEx0RuKuBON gdmFsaWduPSJ0 c0MlGm05O65rLYndJURhY QDfQHIjUAQieQwrxn1soT 9wIi8+IUUuwHP4dDF3iX4 tTxCjKjZ5PKpm T798DcKchGHnOavhp8ioz 0lxmWa7NbKcFGBdehBffU zsCJF1r9VyIe34S8AlrUe mk1ScLoh7tx16 nSGsw8U9bPL1C3JoJIBgz sefjWWxnLjbCI6nGTQoxm jjLNWboJ8sEAQfU2y9FyD mDqQ4ZCdaE3Jv qjS1GEIwaLEgHMWccUWDr E3qipipn4gwrkwjYiWtKY NtYVx8NMs5DGUkjJucSeW mICL5DyC9XWU7 pEByhI4udXadnwcbfF7jY yc+IBx9y3mndGZlRB6pqI G4GK88UU15oGChb2X7xZY 3Y7QlAKGfunob jojioQN7PODsCGFyqX46V y8bpKxfGm8jSHWsFBO2MH GciYIrO7TyoP9dKiGnXXQ bSPDhQ2FznSNb DCiqE111HBczErE5JKBxv qBhZ6DzBOEbcJyaNxF5t4 V6Dp5QIJ00QV28PH55mZK zx5G1yKU5I1Zm FVMsjgraxlnyyOM6VBXfE YDamP05Ux8yxJqzMf3gXY PoAMN1LNFofNHfM6HzpA1 yOiAjMDAwMDAw R9TxlZSyOFfpH366UKqsX rZ5DPGnetBdM6WuEHLwuZ ynSoK1e9I1Ab3ZUb78IA0 9IM12mWGwh6Z0 zZE4S6HnAGIgoxckmuaeg AW6RHGgIDAsjM39Le8zoZ dpKi1cXKMpWFI5YPIdfBG lK8BizP2iHaVy SIFjBPXcO4IotUYtQIycQ 779BWclSrP3JHYbgpGxO1 IuYPZddPgkDjQ8k3D7Jq7 CEQdbcbn0O1No PjwvdHI+TL05NBYsYQ67q YPovJOup6yjvSr1VjMiQJ AdSQD5bItaPQsxy6DuZXL pL58zzKPiv0V6 IGN (more content not included)... Normal [facility] URINALYSISon 10-09-2023 Bilirubin Ql (U) Negative Normal NEG [facility] Comment on above: Performed By: #### U A #### [facility] ([id number]) [address] [place] [address] 06991 BLOOD/HGB Trace Abnormal NEG [facility] Comment on above: Performed By: #### U A #### [facility] ([id number]) [address] [place] [address] 33774 Color (U) YELLOW Normal YELLOW [facility] Comment on above: Performed By: #### U A #### [facility] ([id number]) [address] [place] [address] 23879 Glucose Ql (U) Negative Normal NEG [facility] Comment on above: Performed By: #### U A #### [facility] ([id number]) [address] [place] [address] [place] [address] Ketones Ql (U) Negative Normal NEG [facility] Comment on above: Performed By: #### U A #### [facility] ([id number]) [address] [place] [address] 38913 Leukocyte esterase Test strip Ql (U) Large Abnormal NEG [facility] Comment on above: Performed By: #### U A #### [facility] ([id number]) [address] [place] [address] 35678 Nitrite Ql (U) Negative Normal NEG [facility] Comment on above: Performed By: #### U A #### [facility] ([id number]) [address] [place] [address] 62071 pH (U) 6.5 [pH] Normal 5.0-8.5 [facility] Comment on above: Performed By: #### U A #### [facility] ([id number]) [address] [place] [address] 11600 Protein Ql (U) Negative Normal NEG [facility] Comment on above: Performed By: #### U A #### [facility] ([id number]) [address] [place] [address] 81923 R.B.CELLS 1 /hpf Normal 0-5 [facility] Comment on above: Performed By: #### U A #### [facility] ([id number]) [address] [place] [address] 32258 Specific gravity (U) [Rel density] 1.010 Normal 1.003-1.035 [facility] Comment on above: Performed By: #### U A #### [facility] ([id number]) [address] [place] [address] 38469 SQUAMOUS EPITHELIUM 0 to 1 Normal 0-[address] [facility] Comment on above: Performed By: #### U A #### [facility] ([id number]) [address] [place] [address] 46621 TURBIDITY CLEAR Normal CLEAR [facility] Comment on above: Performed By: #### U A #### [facility] ([id number]) [address] [place] [address] 82066 Urobilinogen Qn (U) 0.2 {Bro'U}/dL Normal <1.1 [facility] Comment on above: Performed By: #### U A #### [facility] ([id number]) [address], [place] [address] W.B.CELLS 6 /hpf High 0-5 [facility] Comment on above: Performed By: #### U A #### [facility] ([id number]) [address], [place] [address] URINE CULTUREon 10-09-2023 Bacteria identified Cx Nom (U) SPECIMEN NOTES URINE RECEIVED WITHOUT PRESERVATIVE CULTURE RESULTS >100,000 ORGANISMS/mL ENTEROBACTER CLOACAE COMPLEX >100,000 ORGANISMS/mL ENTEROCOCCUS FAECALIS The urine of patients with catheters usually becomes colonized. Treatment may not be indicated. Correlate these findings with clinical presentation. If sepsis is suspected, contact laboratory for reporting AST results. URINE RECEIVED WITHOUT PRESERVATIVE-DELAYS IN TRANSPORT MAY AFFECT RESULTS.INTERPRET WITH CAUTION AND CLINICAL CORRELATION IS RECOMMENDED. Normal [facility] Comment on above: Performed By: #### 6 30-4 #### [facility] ([id number]) [address], [address] [place] [address] Provider Orderson 09-23-2023 Provider Orders [id number] 1 [id number]#[id number] 0OT[facility] C Urineon 09-13-2023 C Urine >100,000 cfu/ml Enterobacter cloacae , >100,000 cfu/ml Enterococcus faecalis and 50,000 cfu/ml Corynebacterium species (diptheroids) ORGANISM Entclo Entfaeca ---- SUSCEPTIBILITY --- ORGANISM ID: 1 ANTIBIOTIC INTERPRETATION LAVERNE STATUS ORGANISM EntcloEntclo Amik S <=16 Verified Amox/Cla R >16/8 Verified Amp I 16 Verified Amp/Sul S <=8/4 Verified Azt S <=4 Verified Cefaz N/R Verified Cefep S <=8 Verified Cefo S <=2 Verified Ceftaz S <=1 Verified Ceftri S <=1 Verified Cefur S <=4 Verified Ceph R >16 Verified Cipro S <=1 Verified Ertap S <=0.5 Verified Gent S <=2 Verified Imi S <=1 Verified Levo S <=2 Verified Nitro S <=32 Verified Pip/Carter S <=16 Verified Tetra S <=4 Verified Tobra S <=4 Verified Tri/Sulf S <=2/38 Verified ---- SUSCEPTIBILITY --- ORGANISM ID: 2 ANTIBIOTIC INTERPRETATION LAVERNE STATUS ORGANISM EntfaecaEntfaeca Amox/Cla <=4/2 Verified Amp S <=2 Verified Amp/Sul <=8/4 Verified Ceftri >32 Verified Cipro S <=1 Verified Clinda >4 Verified Dapto S 2 Verified Eryth 2 Verified Gent 8 Verified Gent-Syn S <=500 Verified Levo S <=1 Verified Linez S <=1 Verified Nitro S <=32 Verified Ox >2 Verified Pen S 2 Verified Rif S <=1 Verified Tetra R >8 Verified Tri/Sulf <=0.5/9.5 Verified Vanc S 2 Verified Normal [facility] Comment on above: Performed By: #### [id number] ####[facility] (DEFAULT)[address] [place] [address] Coding Summaryon 02-18-2023 Coding Summary HTMLBase 64 PbhheqprLSd6bXl+PGhlY WQ+JM6OXXYbP50vaHQoxO 2uT2ZNGUuAEcgzAXGYTBa MVrIrcqLxED7xaEGqTUQi IC8+FI3rCCFqLyymaZNjg 7Z1tAP4C64oaw4eCQnnlA Q1SRDyEsHhprhxt6fdsGq 6IDcuNmluOyBt QDGmgQ09DTT4fC29Wh11a XLfpTKrp5byxJr5EsCnMN AhRVG8bWikJHyrs0SxTOD zH99zhLZlc4B4 URQtvQpdgAXdRoGmlPA9w M0lEHptydxsx8znyznqTh l9ge96yJQwq2H1yKP5Q2D zxwV9BFHnnAKc CebfdKSMqE4wjcldj6pez faxNxZcCSFsOWu7QAe0SZ UtqGrmReDkEW86MBG4WYD ixxVqA5YlHNEd dEzpMzA8x4L0Wf0KR4DZW smmP4QOYYTTFWkwtUE+PC 49wq18P0OiKbgjHkf0VPS lYNO4kTI3bY8q DZMmDErzg7K4nRC0B1Ajx pOlkv7vh2sdRDPnJItqZ8 9enGRvo7E9URSolVL9ALN ulQimBbLffQ59 Oyc+VACfaEoph1JvNyryr 0vdl9nfkPj9XmbuFWVwvz OjwDitMYZ5r0QkGz3yMAK mxBO1mFA4kA6f LmWmUwF1QIehB821ImUoe EGmLvujJ93fZ3IctTN+PH BpLye3NJGiaKhjGJ8fO7D hZGRpbmctbGVm kUngQQ1mAMBfgrteUWZkw F0lJYUpJ1c5NcTeOzE4UF nsR1NqNOXhstbuEx34rW8 kRnGwOgX8DTpz P5ZrqaU3LLHuyYVlJMpaG AQ6U58cp3S6SHHjMQYaTQ M1vAC7lN0weCtaxhrlqLL mdDsgdmVydGlj UJnxPVdcE055BXVjfYjsE kNvZGluZyBEYXRlOiAgMD cvMjQvMjAyMzwvdGQ+PHR eSJH4pQvcXBEm wWExXYyiKc7xsOzluPsaH N8jEYGyqenlSSMtaS1kSO RumIFqbPopZI7nRSZmlbd wr902DqVlWFR3 ZUGrzOPoI0AuxA7mOvPmO QQrEAHqS3MfwVNtPDmvO3 59YUznZxV7QCVwbmWiO2A sLWFsaWduOiB0 v9Z9Dm2Wz2VkjoxpF4Sgr LTgQjRlKkfmGYg3R9QlAz wvdHI+ZW72OQWyZQ70DXk 5JQQ2tPtgLVna OABjS8CrpM5vBzBxCEPfE GRkOyc+PHRhYmxlIHdpZH RoPScxMDAlJyBzdHlsZT0 qYt7xFQSfMFZc bKyalLQuYjBes9rgESQkR IzoPY2giHnjF7CuoSC1RJ Syj9k0Vh55Q52pQ0XlqER +HHOkhMZ6tZS9 tE0iLdXvTjM4WBhuA642R vYbuETvLsxdz6qjj9jrqV m3UdT8FAUyxzXunMlgVBU 7h2KyMv86I65o IHdpZHRoPSIxNSUiIHZhb Dzivl4dzR5dIa4+PGNvbC T3xOE8dU6vLeMnYyV6PLu tO035FbSzhAVs Gwhxh5xgx3nxuGa0HbHgU PWxedWirPvqHOP3e9GqDp 87Q5WrsJrzm2JpRwv4hp1 6bRTgx2J2lPK9 E1UzANZesytcaNZjsOvrT W6zLUZizibnDLRtmJ8bZF GkY3f7FsRvWgF2GSzfM1F zdjV9PVIytPFi CKIccKNTwN4gfigiy8yyf klaZiQdQARyEPj7QLk2IY UmhHptTyDoYFM0MqP1BPS 9sLCrnC9ndZss rjsohV6kMls+QXC2mFSon IGJMZ1hCqdixZX+PHRkIH M1lKcdIBtuWYUnzR3xUPS tB6h8IuJzReV9 ZNzzB2NrvxD1MHUhnKHjS LEvfMMDbK4qhbjhj9plei drRlCeFNUtYTh9DYh4HVG saWduOiBsZWZ0 VpY9HGA4nPDenC0cxMkze csyeF1gYnk+QmlydGggRG O9FHx2S7SnQlk7OLJixDr gRW2jzCWdPJus En1taKtquWxlGD6hAWJrr kbyr858GvMnz9igXEXbqF VuTJwcMPD8F21dg4S0LWZ rXVTuGAH7vBW3 rB6fzJpxkgljcPNtaWmdn wOjvDhzUJwmPRtuW774CV YlfQhbZfFfQIj3M3RoXaa 4FDXlnEehJC7e zISxGTtpFq4frLfguTxnG C5rAOQjgzhxf252YrRlu4 qqHDWlkBPmDEmjOJT9X94 zw2J6JOKrSCCl WXN3iXK3sV7ygQojhsaix GVmdDsgdmVydGljYWwtYW jbJ451IXCwfPziCqQmpXt 4C3OpOya9TMOu iWejDJ8vjRCtMZowDp2lt TrxiTgaZE8pYKJhjqgpa0 66XuLuk1chQWFwlRHnPZk rILT1V68py5Q3 MLGcQYIlXUR7oEU0pZ8mt GlnbjogbGVmdDsgdmVydG utSFkbRXbeN985QQWoaCb nPlBhdGllbnQg PLxdOJv0E0BaCfqcaZW+P P96IULzFY55vBMnnODbv4 qpxGf0OhMnXWRjHJV3wPc mKVrsc1AnJBBw G78xpAGka9G3WXUsbZtoh MYeLxFtzMC4tM3yKAksem skd2xjvfxkUmobb4cdme6 7wE78A27jBUdm ZHRoPSIzMCUiIHZhbGlnb b0xqP6vAh0+XAAwuUF9xL J7oO1mLAPdMnR1JXdrC98 9InRvcCIvPjxj t7xet9tgvKt8JlD0UWUux yNdoFzeGQA9z9WrGf22O5 9sIHdpZHRoPSIyMCUiIHZ bnCmaer6rjN2s Ii8+VSQhdYX2vZN9cA0sU tWqQwX1ECjoZ186OmExeD FvMrobN70cO8RgsGS+PHR tQvp4NSOsrLwl DN5btAOeNNwjBf9kJAS7V yPeNkScMJwmP9VnOFPvzi yvzqvpgXA0ACUsTQRzuG8 1Re1poGlzWIQx xQUKaQ2sdspzl0epwhbaX oAgRKKyAVu0AGc9OWMhrU fcJyYaVXA5NjH2LGM3aHR zwO8gpSgoxuvr eT9kV1OvXEQqgnzdSw42z V5bRhHqEvE2MBejRyv+SE gXCYcaE1mJXLuEJTJRIx4 0P1MnIay2WBWq mYxpYE2djPQaIObrVt0pe JqpdGmkFC4xGKGskgbaLG CbsV8gDCJjyGRroHsuED0 pWINnakpqo711 VhJfYKL3QYCkcIFkB3Sxw J0gHcNfWBTcXAJaL0SedC PsZEeeZ211ELwhWkF7EBN udvSnB8XeWXGj zOfrJnZ8u6U9Wr2fUZ3lV v4vYMD6WI83KH84vDUud3 P2kPU7O5NyZPBolgzrtgb vqZU0FTYrCTJw sF61iPXyFYzrOz6rc7U1h 170PZFzGNEcbQ15Kl0lbR jiCLOocFRDdD5mymjml8e vcjogIzAwMDAw RZt9TVa8HNBofMtnTaZhP TH0NnF1GTU0gAZadR2vtA fvxxirvM0kFom+NjcgWWV rhgX4K8YcWua2 TWWjwZtmED4xoLLlHHxuP w4wiFcdbMoxEM8ySPUzlp cgUHLtdI7rDMOzsXOchZg wQU1rPWLqaxfl u328DoBcIVX8WIEsvGAmA 1LmdF5yBdWtUUJiKEUtX5 MehLEzOSoyW624NZioOiX 8ZOSoakNeJ9Ak PIZymYjyUyF2k3M4Tn1MU R9TVVY0S2HoIuo4ALSdyK pmXC3eaCWpSRasWd9sjBg emCsnNW4uIDVy ezkuJLMmeN4rIAZebWNwk NhoXF0lMIIffrofc130Hs XzINE4GKRwiTDxI5PbeO0 yOiAjMDAwMDAw F0YroCVsQCsgQ211BKkiB bY2EDSdnbPsV5InQSIfxU oaBlY7s9E2Ow6AAOeaB9C xN4IbfGufmFE+ SA13dx18V2PnDzsjAig0X ZFcSEE7fIO3fT3dOFBpKM pzk5H7qMA2O5TtqfAmph9 ho0meTRRpZVcg D41kqBTqr5W5UGBttXW5M COwqYtcSuPwyX55Qkq+PG UjrMvar5IgNhsww6ipd1q jyVz7SiXiJJHn ukDixVyfMAA9e6TzRb33Y 29sIHdpZHRoPSIzMCUiIH KsdTmupt5zfX4zCj7+PGN gxUU7iNJ4gD8y UjMgZkA2EDpuA504QiQss OFlSujra2qih0kvvEb5Fb YbJZDjvoByoOduHQZ5t2H oHx28Y9MrcSac g8IjVqa8ip66nMSjo5G3x ID0N9UtHXVodbhcwDZjaL shRX0iZYJgcwixUCXdiM7 yTYVkQ3t9SqEg NkU4JSfrW5LynwG6FIUav LRiBNCwwFGGxD2kxwudd6 ylnjkoOlGjCZLzDRz5YKc 0LWFsaWduOiBs TQE2LuN5QPA4fNKunD1qd TrkvlxfpE8cWae+UGh5c2 xmgCPpGE6zbWJ4RT69VF2 7rRMmk1M4vUO0 P6CbSTKxzecdaulhdAA4O TPmHQSnnO07Sg7pcYobEd 6mPXDmFXZ2CYPcfGOgW5L dbG7kZjIwUZKw DWWqO3ZozVOyNOdoS930E FfwVcC5TVVnqpRlD2AnUV FcsXhuFaZ7m5X8Dl0QMT8 5LJ10RE26bXLs t4B5nYT5M5QeRJJsxlwji ccglXI3XFAtEYEsjM27Ks 7jrFieWj4xMZCzNTN0ZAV qoKMiY6EmdS3i WsZqTYBdXNRhK0DiwQHvW JseA267SAvcFmX3POIvnd DoO5JqDNWpyMloKiU4c7R 5Mb6FOz22CH14 DT11zPYah8F3nFA2E5HgG WLgdchepfdnzTP7AYImPD EriI43Fx4gsVofXo7wXBX qQMN5YRTbyPMg E1HvlC3cBtAzALIfYIFdH 7JmbLLiRQchM491HXzjAu C2SKZddxUaU2QcZCYtrGu tExE2r6F4Nn8H VMvagjw8U6YoFzfyyHO+P L23MBWgRS66lOWsfAPax7 vlnUp3CzVzQYLkWTO3hJr sRDaza4IwFLZg Y29 (more content not included)... [facility] Consent Formson 02-13-2023 Consent Forms [id number]. [email or web address] 02-13-2023 Provider Orders [id number] .[id number] [facility] Anesthesia Noteon 02-12-2023 Anesthesia Note Patient: JERICA CALDWELL Age: 67 years Sex: FEMALE : 1955 Associated Diagnoses: None Author: Susan Gordon DO Postoperative Information Post Operative Note: Post Anesthesia Care Unit. Physical Examination VS/Measurements Vital Signs 02/12/2023 12:30 EDT Apical Heart Rate 61 bpm Respiratory Rate 16 br/min Systolic Blood Pressure 156 mmHg HI Diastolic Blood Pressure 99 mmHg HI Mean Arterial Pressure, Cuff 118 mmHg HI SpO2 97 % Oxygen Therapy Room air General: Alert and oriented. Respiratory: Respirations are non-labored. Cardiovascular: Normal rate, Regular rhythm. Neurologic: Alert, Oriented. Review / Management Condition: Stable. Assessment Anesthetic outcome No anesthetic complications noted. Plan Transfer/ Discharge: Patient can be discharged from PACU when criteria met. Condition good. [Electronically Signed on: 02/12/2023 12:46 EDT] Susan Gordon DO [Verified on: 02/12/2023 12:46 EDT] Susan Gordon DO [facility] Anesthesia Note Patient: JERICA CALDWELL Age: 67 years Sex: FEMALE : 1955 Associated Diagnoses: None Author: Susan Gordon DO Preoperative Information Anesthesia history: Patient history: No difficult intubation, No malignant hyperthermia. Family history: No malignant hyperthermia, No prior anesthesia problems. Review of Systems Constitutional: Negative. Eye Ear/Nose/Mouth/Throat Respiratory: No shortness of breath, No cough. Cardiovascular: No chest pain. Gastrointestinal: Pt denies heartburn despite taking pantoprazole., No heartburn. Musculoskeletal: Ambulates with walker.. Neurologic: Alert and oriented X4. Health Status Allergies: Allergic Reactions (All) Severity Not Documented Bactrim- No reactions were documented. Current medications: Home Medications (9) Active atorvastatin 10 mg oral tablet 10 mg = 1 tab(s), PO, Daily Aubagio 14 mg oral tablet 14 mg = 1 tab(s), PO, Daily donepezil 10 mg oral tablet 10 mg = 1 tab(s), PO, Once a day (at bedtime) loperamide 2 mg oral tablet 2 mg = 1 tab(s), PO, BID magnesium oxide 400 mg oral tablet 400 mg = 1 tab(s), PO, BID memantine 28 mg oral capsule, extended release 1 tab(s), PO, Daily metoprolol tartrate 100 mg oral tablet 100 mg = 1 tab(s), PO, BID pantoprazole 40 mg oral granule, delayed release 40 mg = 1 EA, PO, Daily potassium chloride 10 mEq oral capsule, extended release 10 mEq = 1 cap(s), PO, BID Problem list (past medical history): All Problems Memory loss / SNOMED CT 20519433 / Confirmed High blood cholesterol / SNOMED CT 08778518 / Confirmed Hypertension / SNOMED CT 8534012985 / Confirmed Multiple sclerosis / SNOMED CT 28356095 / Confirmed Urinary retention / SNOMED CT 532192721 / Confirmed Bladder spasms / SNOMED CT 480179988 / Confirmed Histories Family History: Entire family history is negative. Procedure history: Cystoscopy (35971410) on 08/04/2019 at 64 Years. Comments: 08/04/2019 12:06 Oneida Gillespie RN With suprapubic cath exchange Aspiration of bladder; with insertion of suprapubic catheter (47424) on 06/30/2019 at 64 Years. Vaginal hysterectomy (942220957). Colonoscopy (679036355). Esophagogastroduodeno scopy (169943635). Social History Electronic Cigarette/Vaping Assessment Electronic Cigarette Use: Never. Electronic Cigarette Use: Never. Electronic Cigarette Use: Never. Alcohol Assessment Use: Past. Comment: none since 1999 Tobacco Assessment Never (less than 100 in lifetime) Tobacco Use:. Never tobacco user Tobacco Use:. Never (less than 100 in lifetime) Tobacco Use:. Substance Abuse Assessment Substance use: Never. . Social & Psychosocial Habits Alcohol 06/16/2019 Alcohol Use: Past Comment: none since 1999 - 06/16/2019 14:46 - Karen Martins RN Substance Abuse 06/16/2019 Substance use: Never Tobacco 06/16/2019 Smoking tobacco use: Never (less than 100 in l 08/04/2019 Smoking tobacco use: Never (less than 100 in l 02/06/2023 Smoking tobacco use: Never tobacco user Electronic Cigarette/Vaping 06/16/2019 Electronic Cigarette Use: Never 08/04/2019 Electronic Cigarette Use: Never 02/06/2023 Electronic Cigarette Use: Never . Physical Examination VS/Measurements Vital Signs (last 24 hrs) Last Charted Heart Rate Peripheral 64 bpm (FEB 12:20) Resp Rate 16 br/min (FEB 12:) SBP H 176 mmHg (FEB 12:20) DBP H 96 mmHg (FEB 12:) Pain assessment: Self-reports no pain. General: Alert and oriented, No acute distress. Airway: Mallampati classification: II (soft palate, fauces, uvula visible). Temporomandibular joint mobility: Good. Mouth: Teeth ( [place] ). Respiratory: Lungs are clear to auscultation. Cardiovascular: Normal rate, Regular rhythm. Neurologic: Alert, Oriented. Review / Management Laboratory Results Plan [place] [employer]#( A) physical status classification: Class III. Anesthetic Preoperative Plan Anesthesia: Monitored anesthesia care. Anesthetic plan, risks, benefits, and alternatives discussed with the patient and/or family. Risks discussed: serious complications. Patient verbalized understanding. Family/Guardian present. Informed consent was given. Consent was signed by the patient. [Electronically Signed on: 02/12/2023 11:21 EDT] Susan Gordon DO [Verified on: 02/12/2023 11:21 EDT] Susan Gordon DO Normal [facility] Inpatient Patient Summaryon 02-12-2023 Inpatient Patient Summary [address] [address] Patient Discharge Instructions Name: KINGAJERICA Matute ADELAIDA : 1955 Patient Address: [address] [place] [address] Primary Care Provider: Name: SUSAN BOUCHER After you are discharged if you find you have any questions, please, call [phone] ext [phone] to speak to a nurse. Discharge Diagnosis: 1:Urinary retention Prescription Information: If you have been given a prescription for narcotics, seek immediate medical attention if you have any difficulty breathing or any sudden status changes such as confusion and sleepiness. If you or anyone you know is experiencing suicidal thoughts, mental health, alcohol and/or drug addiction problems; contact the [facility] 18/02 Crisis Hotline -Text 4HJXC to 492361. If you received any narcotics, sedation, or any other medication that causes drowsiness for the next 24 hours, unless otherwise directed: ? Do not drive a car. ? Do not operate machinery such as power tools, lawn mowers, drills, sewing machines, or stoves ? Avoid alcoholic beverages and drugs for allergies, nerves, or sleep ? Do not make important personal or business decisions or sign any legal documents [facility] would like to thank you for allowing us to assist you with your healthcare needs. The following includes patient education materials and information regarding your injury/illness. JERICA CALDWELL has been given the following list of follow-up instructions, prescriptions, and patient education materials: Follow-up Instructions With: Address: When: Tj Garcia MD Medications During the course of your visit, your medication list was updated with the most current information. The details of those changes are reflected below: Medications to Continue That Have Not Changed Other Medications atorvastatin (atorvastatin 10 mg oral tablet) 1 tab(s) Oral every day. donepezil (donepezil 10 mg oral tablet) 1 tab(s) Oral once a day (at bedtime). loperamide (loperamide 2 mg oral tablet) 1 tab(s) Oral 2 times a day. magnesium oxide (magnesium oxide 400 mg oral tablet) 1 tab(s) Oral 2 times a day. memantine (memantine 28 mg oral capsule, extended release) 1 tab(s) Oral every day. metoprolol (metoprolol tartrate 100 mg oral tablet) 1 tab(s) Oral 2 times a day. pantoprazole (pantoprazole 40 mg oral granule, delayed release) 1 Each Oral every day. potassium chloride (potassium chloride 10 mEq oral capsule, extended release) 1 cap(s) Oral 2 times a day. teriflunomide (Aubagio 14 mg oral tablet) 1 tab(s) Oral every day. It is important to always keep an active list of medications available so that you can share with other providers and manage your medications appropriately. As an additional courtesy, we are also providing you with your final active medications list that you can keep with you. atorvastatin (atorvastatin 10 mg oral tablet) 1 tab(s) Oral every day. donepezil (donepezil 10 mg oral tablet) 1 tab(s) Oral once a day (at bedtime). loperamide (loperamide 2 mg oral tablet) 1 tab(s) Oral 2 times a day. magnesium oxide (magnesium oxide 400 mg oral tablet) 1 tab(s) Oral 2 times a day. memantine (memantine 28 mg oral capsule, extended release) 1 tab(s) Oral every day. metoprolol (metoprolol tartrate 100 mg oral tablet) 1 tab(s) Oral 2 times a day. pantoprazole (pantoprazole 40 mg oral granule, delayed release) 1 Each Oral every day. potassium chloride (potassium chloride 10 mEq oral capsule, extended release) 1 cap(s) Oral 2 times a day. teriflunomide (Aubagio 14 mg oral tablet) 1 tab(s) Oral every day. Take only the medications listed above. Contact your doctor prior to taking any medications not on this list. Diet & Activity Patient Activity Level: Patient Diet: Patient Activity Restrictions: Comment: Patient education materials, if any, will display below Viruses or Bacteria What?s got you sick? Antibiotics only treat bacterial infections. Viral illnesses cannot be treated with antibiotics. When an antibiotic is not prescribed, ask your healthcare professional for tips on how to relieve symptoms and feel better. Usual Cause Illness Viruses Bacteria Antibiotic Needed Cold/Runny Nose NO Bronchitis/Chest Cold (in otherwise healthy children and adults) NO Whooping Cough Yes Flu NO Strep Throat Yes Sore Throat (except strep) NO Fluid in the middle ear (otitis media with effusion) NO Urinary Tract Infection Yes Antibiotics Aren?t Always the Answer www.cdc.gov/getsmart GET SMART Know When Antibiotics Work U.S. Department of Health and Human Services Centers for Disease Control and Prevention March 2014 [facility] MAGR Intraoperative Recordon 02-12-2023 MAGR Intraoperative Record MAGR Intra-Op Record Summary Primary Physician: Tj Garcia MD Finalized Date/Time: 02/12/23 12:00:55 Pt. Name: JERCIA CALDWELL ADELAIDA /Sex: 1955 FEMALE Med Rec #: [id number] Physician: Tj Garcia MD Financial #: [id number] Pt. Type: D Room/Bed: / Admit/Disch: 02/12/23 08:55:44 - Institution: Case Times MAGR Entry 1 Patient In Room Time 02/12/23 11:13:00 Out Room Time 02/12/23 11:31:00 Anesthesia Start Time 02/12/23 11:13:00 Stop Time 02/12/23 11:32:00 Surgery Start Time 02/12/23 11:24:00 Stop Time 02/12/23 11:28:00 Last Modified By: Jenni Stephens RN 02/12/23 12:00:50 Case Attendance MAGR Entry 1 Entry 2 Entry 3 Case Attendee Tj Garcia MD, David DO Long, Barbara RN Role Performed Surgeon - Primary Anesthesiologist of Contract Implementation Analyst Record Time In 02/12/23 11:23:00 02/12/23 11:13:00 02/12/23 11:13:00 Time Out 02/12/23 11:28:00 02/12/23 11:31:00 02/12/23 11:31:00 Procedure Catheter Insertion Catheter Insertion Catheter Insertion Suprapubic Suprapubic Suprapubic Last Modified By: Jenni Stephens RN, Barbara RN Long, Barbara RN 02/12/23 12:00:51 02/12/23 12:00:51 02/12/23 12:00:51 Entry 4 Entry 5 Case Attendee Tracy Seo RN, Brittany E CSFA CST Role Performed Contract Implementation Analyst Scrub Personnel Time In 02/12/23 11:13:00 02/12/23 11:13:00 Time Out 02/12/23 11:31:00 02/12/23 11:31:00 Procedure Catheter Insertion Catheter Insertion Suprapubic Suprapubic Last Modified By: Jenni Stephens RN, Barbara RN 02/12/23 12:00:51 02/12/23 12:00:51 Surgical Procedures MAGR Pre-Care Text: A.20 Verifies operative procedure, surgical site, and laterality Im.150 Develops individualized plan of care Entry 1 Procedure Catheter Insertion Primary Procedure Yes Suprapubic Primary Surgeon Tj Garcia MD Surgeon Comment CYSTO SP TUBE PLACEMENT Start 02/12/23 11:24:00 Stop 02/12/23 11:28:00 Anesthesia Type MAC Surgical Service Urology Wound Class Clean Technique Details Closure Technique Primary Entire procedure No was performed via laparoscope or robotic assistance Last Modified By: Jenni Stephens RN 02/12/23 12:00:27 Post-Care Text: O.730 The patient's care is consistent with the individualized perioperative plan of care General Case Data MAGR Pre-Care Text: A.350.1 Classifies surgical wound Entry 1 Case Information OR MAGR OR 02 Case Level Level 3 Wound Class Clean Specialty Urology ASA Class 3 Diagnosis Preop Diagnosis NEUROPATHIC BLADDER Postop Same As Preop Yes Postop Diagnosis NEUROPATHIC BLADDER Blunt or No Is the procedure No penetrating injury considered occured prior to Emergent/Urgent? the start of the procedure: Last Modified By: Jenni Setphens RN 02/12/23 11:24:47 Post-Care Text: O.760 Patient receives consistent and comparable care regardless of the setting Time Out MAGR Entry 1 Time out date/time 02/12/23 11:23:00 All team members Yes have introduced themselves by name and role Surgeon, Yes Surgeon reviews Yes anesthesia, nurse critical or confirm patient, unexpected steps, site, procedure operative duration, anticipated blood loss Anesthesia team Yes Nursing team Yes reviews any reviews sterility patient-specific (including concerns indicator results) and equipment issues/concerns Antibiotic Antibiotic Yes Administration Time 11:11 prophylaxis given within the last 60 minutes Last Modified By: Jenni Stephens RN 02/12/23 11:23:31 Patient Positioning MAGR Pre-Care Text: A.280 Identifies baseline musculoskeletal status Im.40 Positions the patient Im.80 Applies safety devices Entry 1 Procedure Catheter Insertion Body Position Low Lithotomy Suprapubic Left Arm Position Extended on padded arm Right Arm Position Extended on padded arm board board Left Leg Position Secured in Stirrup Right Leg Position Secured in Stirrup Press Points Checked Yes Positioning Device Safety Strap, Stirrups Outcome Met (O.80) Yes Last Modified By: Jenni Stephens RN 02/12/23 11:19:09 Post-Care Text: E.290 Evaluates musculoskeletal status O.80 Patient is free from signs and symptoms of injury related to positioning Skin Prep MAGR Pre-Care Text: A.30 Verifies allergies Im.270 Performs skin preparation Im.270.1 Implements protective measures to prevent skin and tissue injury due to chemical sources Entry 1 Skin Prep Syntegrity Prep Agents (Im.270) 4% Chlorhexidine Prep By Jenni Stephens RN Gluconate Prep Area (Im.270) Perineum Skin Prep Agent Dry Yes Without Pooling Hair Removal Syntegrity Hair Removal Methods No hair removal performed Outcome Met (O.100) Yes Last Modified By: Jenni Stephens RN 02/12/23 11:19:20 Post-Care Text: E.10 Evaluates for signs and symptoms of physical injury to skin and tissue O.100 Patient is free from signs and symptoms of chemical injury Catheters, Drains & Tubes MAGR Pre-Care Text: A.310 (more content not included)... Normal [facility] MAGR Postoperative Recordon 02-12-2023 MAGR Postoperative Record MAGR Phase II Record Summary Primary Physician: Tj Garcia MD Finalized Date/Time: 02/12/23 12:58:02 Pt. Name: JERICA CALDWELL ADELAIDA Charles/Sex: 1955 FEMALE Med Rec #: [id number] Physician: Tj Garcia MD Financial #: [id number] Pt. Type: D Room/Bed: / Admit/Disch: 02/12/23 08:55:44 - Institution: Phase II Case Times MAGR Pre-Care Text: Patient is free from s/s of injury. Patient remains free from compromised physical state related to surgery or anesthesia. Patient comfort maintained. Patient/family verbalize understanding of discharge instructions. Entry 1 In PACU II 02/12/23 11:35:00 Discharge from PACU 02/12/23 12:55:00 II Last Modified By: Blane Muir RN 02/12/23 12:57:59 Post-Care Text: The patient remains free from s/s of injury. Patient's vital signs stable, circulation maintained, return to preop mental and physical status, opsite/dressing intact, minimal or absent nausea and vomiting, tolerates po intake. Patient verbalizes adequate pain control. Patient/family express understanding of discharge instructions. Finalized By: Blane Muir RN Document Signatures Signed By: Blane Muir RN 02/12/23 12:58 [facility] MAGR Preoperative Recordon 0 02-12-2023 MAGR Preoperative Record MAGR Pre-Op Record Summary Primary Physician: Tj Garcia MD Finalized Date/Time: 02/12/23 11:17:43 Pt. Name: JERICA CALDWELL ADELAIDA SuarezO.B./Sex: 1955 FEMALE Med Rec #: [id number] Physician: Tj Garcia MD Financial #: [id number] Pt. Type: D Room/Bed: / Admit/Disch: 02/12/23 08:55:44 - Institution: Pre-Op Case Times MAGR Pre-Care Text: Patient will be optimally prepared for surgery. Patient is free from s/s of injury. Provide information to patient/family related to plan of care. Verify patient allergies. Confirm identity and verify consent before the operative or invasive procedure. Entry 1 Patient Arrival Time 02/12/23 09:13:00 Preop Departure 02/12/23 11:11:00 Last Modified By: Jenni Stephens RN 02/12/23 11:17:41 Post-Care Text: Patient is prepared mentally and physically and is ready for surgery. The patient remains free from s/s of injury. Patient/family express understanding of plan of care and participate in decisions affecting his or her perioperrative plan of care. Allergies documented appropriately. Patient identifiers and consent correct. General Comments: Pt arrives to psw ambualtory. PT denies cp, sob, cough or flu like symptoms. Pt denies pacemaker/defibilalto r or sleep apnea. Finalized By: Jenni Stephens RN Document Signatures Signed By: Jenni Stephens RN 02/12/23 11:17 [facility] Patient Handouton 02-12-2023 Patient Handout [facility] Progress Note - Nurseon 01-26 Progress Note - Nurse Pt's returned call and verbalized understanding of arrival time at 0915 on saturday02/12/23. Verbalized understanding of medications to take and NPO after midnight. [Electronically Signed on: 02/11/2023 13:50 EDT] Jenni Stephens RN [Verified on: 02/11/2023 13:50 EDT] Jenni Stephens RN [facility] Coding Summaryon 02-08-2023 Coding Summary HTMLBase 64 TywmfjhcHMw1uJm+PGhlY WQ+NG3EQQHbL29afSUceG 2mT2OJCIoWEjfcTGVQLNu GQbRtghMdMW2naNGoEGQw IC8+QG6gVMVjWivglYHkl 5H0dDZ7H75rlx5dLYsldK H5INWuOaZgatglp1tokPg 6IDcuNmluOyBt MJAuzG71ZUC2wS95Ca72r LRuaLCpu2rzwQi1KtVmQD ArYLB8nPpgYWvqu6HdFDV oP87tsAJxb8A4 JAHpkQsgtJQuZoPgfYY3z O0iIDtzfqhzz6brotarGo r2ih20zOAac3E3sMB4W2L xvkT6NAJwbETx AfoynZJXwR3luzbab3sju bxuOxMdNBEiGAf9FRz5VG XrbJixAmLwWN34LTW3NFM quoTdR0AwWBBk xZsaCjN6m9T9Vo5JH8UFT dotG6FKJDBATMuiaPA+PC 86en80T0GxXtjqEec3ICB xRAN2zIK9nK1t IUZxRYgrs2V7rYX1H6Wko fPmbg2eg1ozNCXiBDbbR9 4lhICrh7E5KMIpjDF6DYA tsEmjMpWlxI86 Oyc+QSNdvXdfe8FzKatar 4zku8jtfMk0BkmyKFEqim EofOweMSE9o9IvMg2yHWB koNE9hHO6lM4y OfGoPsS4LBzmG559SrCxv KSjIfrmE26gA7ZdzPT+PH FyRuh2PYEnnXcgWI0qC7U hZGRpbmctbGVm wUmsHJ4cIXOgruecCAKdz K3zQZOsU3d8UhOuUnI2CQ zgB0QbWAUnqopzXp23wK8 hDwSkAsA4UOyf W0YieiZ6JHLckZYnTWlaE NW2P62wh3B1OKBxVWRxMD A7kHB3uD0ytMkxbzqesDJ mdDsgdmVydGlj RDtnASsrZ476HHMfdHtcY kNvZGluZyBEYXRlOiAgMD cvMTQvMjAyMzwvdGQ+PHR sKBK8nAspDCKg xDFlOEfmGu0dbBicwCrkD S3oAADnmhyjKKFrmE8yCJ EzdWWsxMdmGR8bDBMazrf yq428ChJyKNP2 NZPvqKDeA3EweH2tFlYtH ZJiXDFzM9QxfTKgLOdoD7 62VOniOhV1GFLexiNbI3G sLWFsaWduOiB0 k4J2Mx8Cu2XpuxliY0Nuz TTgYkHkBioeWAe4N3RlHt wvdHI+OW94PJGmTP13OMh 3RRQ8hNyoUFct LOMpD8OxtG1yMlBzTFMrY GRkOyc+PHRhYmxlIHdpZH RoPScxMDAlJyBzdHlsZT0 lCf9nDEGzVTNe uAkbwNJaVoPlu8czCKUwS IcsTA9ypGxfY9HxsPZ5SZ Jzf4e6Wi39Z93rM9UmcDP +GXWitER3iDM9 lM7nXpOzPbN1JBveO291X zSboIMzReqsr9cqc6eyvN k0JyE2RHUookHyhAsgXIT 4f2IfBi37M93s IHdpZHRoPSIxNSUiIHZhb Jzdmk6uuO9zJw7+PGNvbC D0qFM8bT4qCbAaZlB2MWb lZ764QsQehBJi Dbtii9ziq6vsdAg2DbFdR KTlhzDkzIjxOMT8o7BeGs 33P9LtdAxyc7TzFep3uu6 8vPMal6H9eSB0 A6UvYOJdmdnkxGHrtCbbN R8nBKAqcvqyIWOcbV8gKR DdH6h5PyLlJpM8XEemY1W kqqT4RABwzXXr EUBrwUKPaQ5itfscv4lnj zpnKpImYWXmFLk7UPx8MB FzsFktRwIdJSB0SwZ4BVA 5mIRqiB5hfJiv cjinsZ3tIzy+BTK3gGOrk MDGSE0yEterdNZ+PHRkIH O4wCtdWIrcWSLdfE1uARC nR6g6GeBsZgF6 XSowC3PylhA5TTEkkWOdZ KFzzUDIfF1jhkskr4vnwi thFhCoGCIkUVr3VXw7OAF saWduOiBsZWZ0 RtK5FPC7qEXvwY1yiZqfb hswxJ0iTjj+QmlydGggRG J0UIo4A3VsSyu0EFSogVc vLP1aaPGdBTqm Im3wbXnpfEojSA5wTSKai cfno886MpUdb9teEZEwgI XrYGcwOVE9U15ok2H9JNH wKGDgVFV1ePY2 yI1krPkamcjozILrnXmau tHfsEgvFPniZBnhL724KX AjlTwuCgHjUGq4C2XxSro 9JQOisYgdSF6u xSMwRCmvAq5gaDufwSpeQ L7yJMXevjpuh757KmWxb7 ixECKcuQOsIJgnLXN3E90 du0F2ENMuLWTu QZV1jAM9yP1crNrwpwxxd GVmdDsgdmVydGljYWwtYW kbC323MEKjsUkiYdNokAg 0W7QaOwd3XCNf cUtpKH5elFMhIGalWi9zj LtyhGvmEW7vYCBgmzzvs4 66MjFdy1cvSIQtiSStVBo qQUC3V69wz5H3 FDWvGSBcGXB4zBW7qN1qc GlnbjogbGVmdDsgdmVydG dqEKevWGtjQ226KFNnxZg nPlBhdGllbnQg YNqfFYn8I4RoQiqsbDC+P Q94VRJmSN40jFTlsLWae3 apnZk8MaBxSCIyEZJ7gFh pEVjlw2RzZVXy X79soNLxx9D9SUMaoEmgj OXzLjAjoNF2vI4hHForar fnr5mvdtreOwffi8nouy3 4tX79H59zSNgk ZHRoPSIzMCUiIHZhbGlnb d1yvX9vTx3+YOAzzNS2tR H9dG8xEFHsFtN7UIlrU76 9InRvcCIvPjxj h8iqg4qskXv1KnR6CMHrg tZlaNeeCFX0h3YqZb63T8 9sIHdpZHRoPSIyMCUiIHZ zuRwnns0zcJ7l Ii8+XVEarML9eBS4oM0gH jOlTaH1ENqyN897FjLnuC BgVjroU11fE6EipAZ+PHR vOsp8HZYooKnv MI0boVUsZVvoEk6jODX9I xOlRaZzTNeeR3MbLTVrqb fwbrjasIJ0XPBvNXIalA9 3Wc7txPauVNBq yHVEdQ8itfuxe5sfkbxmP pJsRZBaXAo2WAf8KCZnmQ inNnIyJAP7JsD3EKK5hYF rjJ9wvXnxhuol uV7cH5KiLJRljzxrRu66v U0nYfBtAtO9QEfzDqu+SE hZHThcS0bXZUsQTKHYAq4 2S9TkFhx7ESNv jMohXC3maHJzAAmeCj9pg RzkoWwwAS8oIMDranxyPO RoaC0uQPEvuVDflLfiDT4 pKOBsdgvpm308 LsCrAQC3JFKydLDjW5Mxz K4xRbFfKFBeOFXjH5EpyR ExUUrxU858QYeuMkL3CLU nurQsH3JaMFIu dXynSwC1v0A6Ci0iDK1uC n0bXCM2AN64OV78aVTlu7 M6qWU7C8TvEPRbobcsmpw vgOA1GIUiXUEh uO19vUQvTNenTi8uy8K2u 272IWTlDDZojZ26Sy0zrJ puVJTmyAWAvQ2xiiyqg9q vcjogIzAwMDAw WOd7AWr9LQTgbOitPlQjK GA5GoC1XHS0fOMbaZ4kiG juslbadB0vFzm+NjcgWWV pzdA0A1SwBpc4 ICJksYmgCW1jsYYmRFpgZ u4aiEdifSeqVT5wCFTukk ikDYZggE6wCKUrzEDsfXn uYF7aKLUedtgb a449LaChUUN7WLQjxZPfB 3XkjY0gDjWmUGKgGSCfD6 BujLPyTKrfL015WNggCsI 4EHRwlqXmH7Pa QPArfKcuVlL2g2D1Mk0WN S8NXAB5U2LmImb9KSDjiO vgVZ4taZUvRJtkBs5doCs roBhiWH0jVBQi uipnAXYskR9hIMFtrEDad KrpMT8zPRWnwrlof759Jx DfSWX5OXWvmLFxE6VkiZ5 yOiAjMDAwMDAw T9SdgFHuUPyzY409OJeiL aH9XOZmatIqT7PfTFGxiE qdDyQ0b8W9Rl6QJXyzjOO +EX37zd28J8Ly SnucTxh5FVVdELV2cDU1n H3nHBNnONmaa4B6dQZ5C1 JeevQvrk0xe1esEFVjIVl yA50ybPRxt9G4 IRIhzBG9OIAxgCxvQeEdr G93Oyc+MNLavPfgi4NiUh dds7ghn8lnpIy0YbNwGWG gdmFsaWduPSJ0 q5HpRh56P17cUCxkRUSmK MZyWSYmNHVxxBtaeg5rgB 9wIi8+XLGgcWB2dJO1dZ4 hGbGqTiN6SYur R294LeFuvMQeBbujf9tpm 5eraMn1HdNbZPXrajXbeQ hvGOO6t8AqRa88R4EtrIs nv7MfNyz1jx95 tJFtk4H6cTE3R6TzWRRzh civmLOjrPgwSP1eWUTkus zfKGGzrL4kVEVsL9v4OvU iGhM5UAbxM8Bx obV0KPRpeBPbSORqrVCWd P3hrgnur1gesspgRvQgVQ OcJDo5JGj2RGNrgJdqZzI lGAJ6LzV3NTU0 vDDenA9dcSoynprevN5mI yc+LJa3i1lbeXYqTS4qqT E5QU84FU83lOXdf7W8cJH 8V2BjWWXfjhot xxfarNU8NRWpQIVbkX50E d6ulRfhBo8wFARdMKT4MP XxdFVoS4LxyP3rIxVgZWY iWTZkM4CnvAJf FLimX075PCncPdE8BPAhy dFoN6DbXEBoaHckNhG0c0 S8Ay4GTG69RW49WM37cSU ez5Q9zXB7P8Ta QBXiwlweadqxcVF8WLTaV HIysC90Hz6zbXnsLc0hYZ UcOTQ3AXMlmXUkE1NhfO6 yOiAjMDAwMDAw Q2QpnSQdMFzrD029FJqrE hQ2UTYumnUzW3RjMRSgyB byCbL3r6S1Fv6FBj25QS4 8VD94uAGig6X9 aWJ3E4SjXFIdappvywuyg JH4GSDkAFNqxR39Jw7wtP mtRh8aOTIpGVE5XOXmgAL xB6NwdS0lZpZk WBXfKALmH5JebXVbCTubB 102KStzDjE2YGOcvzMlA3 UlYBGzmVthWfM7x8W8Ys9 FJKmstwv8D3Gr PjwvdHI+KF16FGRiQD70g PVehTLry7vgxKi2UhFbYC QeZWH1iJbeVNhsb5JdMTN wQ37nkRJdc2Y3 IGN (more content not included)... Normal [facility] .Auto Diff 02-06-2023 Auto [place] % 10 % Normal 08-09 [facility] Comment on above: Performed By: #### 7 [id number], [id number], [id number] ####[facility] (DEFAULT)[address] [place] [address] Baso Abs# 0.0 x10 Normal 0.0-0.2 [facility] Comment on above: Performed By: #### 7 [id number], [id number], [id number] ####[facility] (DEFAULT)[address] [place] [address] 00710 Basophils/100 WBC (Bld) 0.9 % Normal 0.2-2.0 [facility] Comment on above: Performed By: #### 7 [id number], [id number], [id number] ####[facility] (DEFAULT)[address] [place] [address] 06112 Eos Abs# 0.4 x10 Normal 0.0-0.4 [facility] Comment on above: Performed By: #### 7 [id number], [id number], [id number] ####[facility] (DEFAULT)[address] [place] [address] 41523 Eosinophils/100 WBC (Bld) 8.7 % High 0.9-4.0 [facility] Comment on above: Performed By: #### 7 [id number], [id number], [id number] ####[facility] (DEFAULT)[address] [place] [address] 24538 Lymph Abs# 0.9 x10 Low 1.3-2.9 [facility] Comment on above: Performed By: #### 7 [id number], [id number], [id number] ####[facility] (DEFAULT)[address] [place] [address] 10507 Lymphocytes/100 WBC (Bld) 19 % Normal 14-48 [facility] Comment on above: Performed By: #### 7 [id number], [id number], [id number] ####[facility] (DEFAULT)[address] [place] [address]84 [place] Abs# 0.4 x10 Normal 0.0-0.8 [facility] Comment on above: Performed By: #### 7 [id number], [id number], [id number] ####[facility] (DEFAULT)[address] [place] [address] 19531 Neut Abs# 2.8 x10 Normal 1.5-9.2 [facility] Comment on above: Performed By: #### 7 [id number], [id number], [id number] ####[facility] (DEFAULT)[address] [place] [address] 69296 Neutrophils/100 WBC (Bld) 62 % Normal 44-88 [facility] Comment on above: Performed By: #### 7 [id number], [id number], [id number] ####[facility] (DEFAULT)[address] [place] [address] 16143 BMP Standardon 02-06-2023 eGFR Non AA 50 mL/min/1.73m2 Invalid Interpretation Code [facility] Comment on above: Performed By: #### 7 [id number], [id number], [id number] ####[facility] (DEFAULT)[address] [place] [address] 72130 eGFR AA 60 mL/min/1.73m2 Invalid Interpretation Code [facility] Comment on above: Performed By: #### 7 [id number], [id number], [id number] ####[facility] (DEFAULT)[address] [place] [address] 38639 Anion gap [Moles/Vol] 10.9 mmol/L Normal 5.0-19.0 [facility] Comment on above: Performed By: #### 7 [id number], [id number], [id number] ####[facility] (DEFAULT)[address] [place] [address] 39920 Calcium [Mass/Vol] 8.9 mg/dL Normal 8.9-10.3 [facility] Comment on above: Performed By: #### 7 [id number], [id number], [id number] ####[facility] (DEFAULT)[address] [place] [address] 57155 Chloride [Moles/Vol] 104 mmol/L Normal 101-111 [facility] Comment on above: Performed By: #### 7 [id number], [id number], [id number] ####[facility] (DEFAULT)[address] [place] [address] 66201 CO2 [Moles/Vol] 29 mmol/L Normal 21-32 [facility] Comment on above: Performed By: #### 7 [id number], [id number], [id number] ####[facility] (DEFAULT)[address] [place] [address] 31531 Creatinine [Mass/Vol] 1.10 mg/dL Normal 0.60-1.30 [facility] Comment on above: Performed By: #### 7 [id number], [id number], [id number] ####[facility] (DEFAULT)[address] [place] [address] 26302 Glucose [Mass/Vol] 88.0 mg/dL Normal 74.0-118.0 [facility] Comment on above: Performed By: #### 7 [id number], [id number], [id number] ####[facility] (DEFAULT)[address] [place] [address] Osmolality 279 mOsm/L Invalid Interpretation Code [facility] Comment on above: Performed By: #### 7 [id number], [id number], [id number] ####[facility] (DEFAULT)[address] [place] [address] 00297 Potassium [Moles/Vol] 4.9 mmol/L Normal 3.6-5.1 [facility] Comment on above: Performed By: #### 7 [id number], [id number], [id number] ####[facility] (DEFAULT)[address] [place] [address] Sodium [Moles/Vol] 139.0 mmol/L Normal 136.0-144.0 [facility] Comment on above: Performed By: #### 7 [id number], [id number], [id number] ####[facility] (DEFAULT)[address] [place] [address] Urea nitrogen [Mass/Vol] 18 mg/dL Normal 8-26 [facility] Comment on above: Performed By: #### 7 [id number], [id number], [id number] ####[facility] (DEFAULT)[address] [place] [address] Urea nitrogen/Creatinine [Mass ratio] 16.3 mg/mg High 4.6-16.2 [facility] Comment on above: Performed By: #### 7 [id number], [id number], [id number] ####[facility] (DEFAULT)[address] [place] [address] 18868 CBC w/ Auto Diffon 3 Erythrocyte distribution width (RBC) [Ratio] 14.4 % Normal 11.5-15.0 [facility] Comment on above: Performed By: #### 7 [id number], [id number], [id number] ####[facility] (DEFAULT)[address] [place] [address] Hematocrit (Bld) [Volume fraction] 38.4 % Normal 33.7-40.4 [facility] Comment on above: Performed By: #### 7 [id number], [id number], [id number] ####[facility] (DEFAULT)[address] [place] [address] Hemoglobin (Bld) [Mass/Vol] 12.5 g/dL Normal 11.3-15.9 [facility] Comment on above: Performed By: #### 7 [id number], [id number], [id number] ####[facility] (DEFAULT)[address] [place] [address] Man Diff? Auto Invalid Interpretation Code [facility] Comment on above: Performed By: #### 7 [id number], [id number], [id number] ####[facility] (DEFAULT)[address] [place] [address] MCH (RBC) [Entitic mass] 28 pg Normal 24-34 [facility] Comment on above: Performed By: #### 7 [id number], [id number], [id number] ####[facility] (DEFAULT)[address] [place] [address] MCHC (RBC) [Mass/Vol] 33 g/dL Normal 26-37 [facility] Comment on above: Performed By: #### 7 [id number], [id number], [id number] ####[facility] (DEFAULT)[address] [place] [address] MCV (RBC) [Entitic vol] 87 fL Normal 81-100 [facility] Comment on above: Performed By: #### 7 [id number], [id number], [id number] ####[facility] (DEFAULT)[address] [place] [address] Platelet 330 x10 Normal 138-427 [facility] Comment on above: Performed By: #### 7 [id number], [id number], [id number] ####[facility] (DEFAULT)[address] [place] [address] Platelet mean volume (Bld) [Entitic vol] 9.3 fL Normal 6.3-10.2 [facility] Comment on above: Performed By: #### 7 [id number], [id number], [id number] ####[facility] (DEFAULT)[address] [place] [address] RBC 4.40 x10 Normal 3.70-5.30 [facility] Comment on above: Performed By: #### 7 [id number], [id number], [id number] ####[facility] (DEFAULT)[address] [place] [address] WBC 4.6 x10 Normal 3.5-10.5 [facility] Comment on above: Performed By: #### 7 [id number], [id number], [id number] ####[facility] (DEFAULT)[address] [place] [address] Vital Signs Date Time Vital Sign Value Performing Clinician Aliza danielson 05-19-2024 15:16-0400 Diastolic blood pressure 70 mm[Hg] Susan Boucher MD Work Phone: [facility] 05-19-2024 15:16-0400 Heart rate 80 /min Susan Boucher MD Work Phone: [facility] 05-19-2024 15:16-0400 Respiratory rate 16 /min Susan Boucher MD Work Phone: [facility] 05-19-2024 15:16-0400 Systolic blood pressure 126 mm[Hg] Susan Boucher MD Work Phone: [facility] 08-23-2023 10:09-0500 Diastolic blood pressure 110 mm[Hg] Pfpf Nurse [facility] 08-23-2023 10:09-0500 Heart rate 72 /min Pfpf Nurse [facility] 08-23-2023 10:09-0500 Systolic blood pressure 166 mm[Hg] Pfpf Nurse [facility] 08-12-2023 13:56-0500 Diastolic blood pressure 90 mm[Hg] Susan Boucher MD Work Phone: [facility] 08-12-2023 13:56-0500 Heart rate 80 /min Susan Boucher MD Work Phone: [facility] 08-12-2023 13:56-0500 Respiratory rate 16 /min Susan Boucher MD Work Phone: [facility] 08-12-2023 13:56-0500 Systolic blood pressure 166 mm[Hg] Susan Boucher MD Work Phone: [facility] 08-07-2023 13:36-0500 Diastolic blood pressure 90 mm[Hg] Susan Boucher MD Work Phone: [facility] 08-07-2023 13:36-0500 Heart rate 80 /min Susan Boucher MD Work Phone: [facility] 08-07-2023 13:36-0500 Respiratory rate 16 /min Susan Boucher MD Work Phone: [facility] 08-07-2023 13:36-0500 Systolic blood pressure 160 mm[Hg] Susan Boucher MD Work Phone: [facility] Encounters Encounter Date Encounter Type Care Provider Facility Start: 06-23-2024 End: 06-23-2024 ambulatory HERMES MCBRIDE Not Available Start: 06-23-2024 End: 06-23-2024 Bamboo flowsheet Hermes Mcbride DPM Work Phone: [facility] Start: 06-23-2024 End: 06-23-2024 Bamboo flowsheet Hermes Mcbride DPM Work Phone: [facility] Start: 06-23-2024 End: 06-23-2024 Office outpatient visit 25 minutes Hermes Mcbride DPM Work Phone: [facility] Comment on above: 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); Multiple sclerosis (CMS/HCC) Start: 06-22-2024 End: 06-22-2024 Telephone encounter Loretta Davis [facility] Comment on above: Er Follow-up Start: 06-21-2024 End: 06-21-2024 Emergency department patient visit SUSAN BOUCHER [facility] Start: 06-18-2024 End: 06-18-2024 Orders Only Susan Boucher MD Work Phone: [facility] Start: 06-16-2024 End: 06-16-2024 ambulatory [facility] Start: 06-11-2024 End: 06-11-2024 Orders Only Susan Boucher MD Work Phone: [facility] Start: 06-10-2024 End: 06-11-2024 Telephone encounter [facility] Start: 06-09-2024 End: 06-09-2024 Telephone encounter Janet Lee [facility] Start: 06-05-2024 End: 06-08-2024 Telephone encounter Mary Samuel [facility] Comment on above: sooner appointment Start: 06-03-2024 End: 06-04-2024 Telephone encounter Ewa Hudson [facility] Comment on above: Care Navigation Start: 05-27-2024 End: 05-27-2024 Telephone encounter Ewa Husdon [facility] Start: 05-20-2024 End: 05-20-2024 Orders Only Susan Boucher MD Work Phone: [facility] Start: 05-19-2024 End: 05-19-2024 ambulatory SUSAN [facility] Start: 05-19-2024 End: 05-19-2024 Office outpatient visit 15 minutes Susan Boucher MD Work Phone: [facility] Comment on above: Chronic pain of righ t knee (Primary Dx); MS (multiple sclerosis) ([facility]) Start: 05-14-2024 End: 05-14-2024 Refill Susan Boucher MD Work Phone: [facility] Start: 04-23-2024 End: 04-23-2024 ambulatory HERMES MCBRIDE Not Available Start: 04-15-2024 End: 04-15-2024 ambulatory SUSAN [facility] Start: 04-01-2024 End: 04-01-2024 ambulatory [facility] Start: 04-01-2024 Encounter for jasen l adult medical examination without abnormal findings [facility] Start: 01-07-2024 End: 01-07-2024 ambulatory HERMES MCBRIDE Not Available Start: 12-25-2023 End: 12-28-2023 ambulatory GLADYS FABIAN [facility] Start: 12-19-2023 End: 12-28-2023 ambulatory [facility] Start: 12-03-2023 End: 12-03-2023 ambulatory [facility] Start: 11-06-2023 End: 11-06-2023 ambulatory [facility] Start: 10-22-2023 End: 11-27-2023 ambulatory [facility] Start: 10-10-2023 Telephone encounter Janet [facility] Start: 10-09-2023 End: 10-09-2023 ambulatory TJ GARCIA [facility] Start: 10-07-2023 Refill Lis win [facility] Start: 09-27-2023 Refill Janet melissa [facility] Start: 09-24-2023 End: 09-24-2023 ambulatory HERMES MCBRIDE Not Available Start: 09-23-2023 Telephone encounter Anya valiente RN Work Phone: [facility] Start: 09-10-2023 End: 09-11-2023 ambulatory Tj Garcia Facility:[facility] Start: 09-03-2023 Refill Janet melissa [facility] Comment on above: Call Back; terifluno mide (AUBAGIO) 14 mg tablet Start: 09-02-2023 Refill Duyen Nunez CMA [facility] Comment on above: Multiple sclerosis ( [facility] Start: 08-29-2023 Orders Only Erica Thomas MD Work Phone: [facility] Comment on above: Multiple sclerosis ( [facility] Start: 08-26-2023 Telephone encounter [facility] Start: 08-26-2023 End: 08-26-2023 [facility] Start: 08-23-2023 End: 08-23-2023 Clinical Support [facility] Comment on above: BP check (Primary Dx ) Start: 08-23-2023 End: 08-23-2023 Patient encounter status [facility] Start: 08-20-2023 Refill [facility] Start: 08-12-2023 End: 08-12-2023 Office outpatient visit 15 minutes Susan Boucher MD Work Phone: [facility] Comment on above: Hypertension, unspec ified type (Primary Dx); MS (multiple sclerosis) ([facility] Start: 08-12-2023 Telephone encounter Susan Dias MD Work Phone: [facility] Comment on above: Er Follow-up Start: 08-12-2023 End: 08-12-2023 ambulatory [facility] Start: 08-11-2023 End: 08-11-2023 Emergency department patient visit [facility] Start: 08-07-2023 End: 08-07-2023 ambulatory [facility] Start: 08-07-2023 End: 08-07-2023 Office outpatient visit 25 minutes Susan Boucher MD Work Phone: [facility] Comment on above: MS (multiple scleros is) ([facility]) (Primary Dx); Suprapubic catheter ([facility] Other hyperlipidemia; Primary hypertension Start: 07-26-2023 Refill Susan sandra MD Work Phone: [facility] Start: 02-12-2023 End: 02-12-2023 ambulatory [facility] Facility:[facility] Start: 02-06-2023 End: 02-07-2023 ambulatory [facility] Facility:[facility] Procedures Date Procedure Procedure Detail Performing Clinician Start: 05-19-2024 Adult depression scr eening assessment Susan Boucher MD Work Phone: Start: 04-15-2024 Mammography Susan garg MD Work Phone: Start: 04-01-2024 Adult depression scr eening assessment Susan Boucher MD Work Phone: Start: 12-19-2023 Follow-up visit Follow-up SUSAN BOUCEHR Start: 08-12-2023 Adult depression scr eening assessment Susan Boucher MD Work Phone: Start: 08-07-2023 Adult depression scr eening assessment Susan Boucher MD Work Phone: Start: 05-16-2023 Adult depression scr eening assessment Susan Boucher MD Work Phone: Start: 02-21-2023 Mammography Susan garg MD Work Phone: Plan of Treatment Date Care Activity Detail Author Start: 06-21-2025 Adult BMI Screening Adult BMI Screen ing [facility] Start: 06-21-2025 Tobacco Screening Tobacco Screening [facility] Start: 05-19-2025 Depression Screening Depression Scre ening [facility] Start: 05-19-2025 Fall Risk Screening Fall Risk Screen ing [facility] Start: 05-19-2025 Tobacco Screening Tobacco Screening [facility] Start: 04-15-2025 Adult BMI Screening Adult BMI Screen ing [facility] Start: 04-15-2025 Screening for malign ant neoplasm of breast Mammogram [facility] Start: 04-02-2025 End: 04-02-2025 Patient encounter procedure 04/02/2025 3:00 PM EDT [facility] [address] [place] [id number] [facility] Start: 04-01-2025 Depression Screening Depression Scre ening [facility] Start: 04-01-2025 Fall Risk Screening Fall Risk Screen ing [facility] Start: 04-01-2025 Medicare Annual Well ness Visit Medicare Annual Wellness Visit [facility] Start: 04-01-2025 Tobacco Screening Tobacco Screening [facility] Start: 10-21-2024 End: 10-21-2024 Patient encounter procedure 10/21/2024 3:15 PM EDT Procedure Visit [facility] [address] [place] [id number] Hermes Mcbride, DPDinah [address] [place], [place] [address] [facility] Start: 08-26-2024 Tobacco Screening Tobacco Screening [facility] Start: 08-12-2024 Depression Screening Depression Scre ening [facility] Start: 08-12-2024 Fall Risk Screening Fall Risk Screen ing [facility] Start: 08-12-2024 Tobacco Screening Tobacco Screening [facility] Start: 08-11-2024 Tobacco Screening Tobacco Screening [facility] Start: 08-07-2024 Depression Screening Depression Scre ening [facility] Start: 08-07-2024 Fall Risk Screening Fall Risk Screen ing [facility] Start: 08-07-2024 Tobacco Screening Tobacco Screening [facility] Start: 06-23-2024 End: 06-23-2024 Patient encounter procedure 06/23/2024 2:15 PM EST [facility] [address] [place] [address] Erica Thomas MD [address] [place] [address] [facility] Start: 05-16-2024 Depression Screening Depression Scre ening [facility] Start: 05-16-2024 Fall Risk Screening Fall Risk Screen ing [facility] Start: 05-16-2024 Tobacco Screening Tobacco Screening [facility] Start: 03-29-2024 COVID-19 Vaccine ( season) COVID-19 Vaccine () [facility] Start: 03-29-2024 COVID-19 Vaccine ( season) COVID-19 Vaccine ( season) [facility] Start: 03-29-2024 Influenza vaccination P [facility] Start: 03-10-2024 End: 03-10-2024 Patient encounter procedure 03/10/2024 11:00 AM EDT [facility] [address] [place] [address] Erica Thomas MD [address] [place] [address] [facility] Start: 02-22-2024 Adult BMI Screening Adult BMI Screen ing [facility] Start: 02-22-2024 Screening for malign ant neoplasm of breast Mammogram [facility] Start: 02-10-2024 End: 02-10-2024 Patient encounter procedure 02/10/2024 1:00 PM EDT Office Visit [facility] [address] [place] [id number] Susan Boucher MD [address] [place] [address] [facility] Start: 02-05-2024 Medicare Annual Well ness Visit Medicare Annual Wellness Visit [facility] Start: 09-09-2023 End: 09-09-2023 Patient encounter procedure 09/09/2023 1:45 PM EST [facility] [address] [place] [address] Susan Boucher MD [address] [place] [address] [facility] Start: 08-26-2023 End: 08-26-2023 Patient encounter procedure 08/26/2023 11:30 AM EST Office Visit [facility] [address] [place] [address] Erica Thomas MD [address] [facility] [address] [place] [address] [facility] [facility] Start: 08-23-2023 End: 08-23-2023 Clinical Support 08/23/2023 10:00 AM EST Clinical Support [facility] [address] [place] [id number] [facility] Start: 08-12-2023 End: 08-12-2023 Patient encounter procedure 08/12/2023 2:00 PM EST Office [address] [place] [id number] Susan Boucher MD [address] [place], [place] [id number] [facility] Start: 08-07-2023 End: 08-07-2023 Patient encounter procedure 08/07/2023 1:30 PM EST Office Visit [address] [place] [phone] Susan Boucher MD [address] [place] [address] [facility] Start: 07-30-2023 Administration of varicella zoster vaccine Zoster (Shingles) Vaccine (2 of 2) [facility] Start: 03-29-2023 COVID-19 Vaccine ( season) COVID-19 Vaccine ( season) [facility] Start: 03-29-2023 Influenza vaccination Influenza Vacc ine [facility] Start: 2020 Pneumococcal Vaccine : 65+ Years (1 of 1 - PCV) Pneumococcal Vaccine: 65+ Years (1 of 1 - PCV) [facility] Start: 2005 Administration of varicella zoster vaccine Zoster (Shingles) Vaccine (1 of 2) [facility] Start: 1974 DTaP,Tdap and Td Vac cines (1 - Tdap) DTaP,Tdap and Td Vaccines (1 - Tdap) [facility] Start: 1955 Screening for malign ant neoplasm of colon [facility] End: 06-09-2025 Bacteria identified in Urine by Culture Urine Culture Microbiology Routine [place] ([place]) [place] Weakness 1 Occurrences starting 06/09/2024 until 06/09/2025 [facility] Work Phone: Comment on above: 1 Occurrences starti ng 06/09/2024 until 06/09/2025 End: 06-09-2025 Urinalysis Urinalysis (clean catch) Lab Routine MS (multiple sclerosis) [place] 1 Occurrences starting 06/09/2024 until 06/09/2025 [facility] Comment on above: 1 Occurrences starti ng 06/09/2024 until 06/09/2025 Immunizations Immunization Date Immunization Notes Care Provider [facility] 06-04-2023 Influenza Vaccine, Quadrivalent, Adjuvanted Susan Boucher MD Work Phone: [facility] 06-04-2023 zoster vaccine recombinant Susan Boucher MD Work Phone: [facility] 06-04-2023 influenza virus vaccine, unspecified formulation Susan Boucher MD Work Phone: [facility] 06-04-2023 zoster vaccine, unspecified formulation Susan Boucher MD Work Phone: [facility] 05-22-2022 Influenza Vaccine, Quadrivalent, Adjuvanted Susan Boucher MD Work Phone: [facility] 05-22-2022 influenza virus vaccine, unspecified formulation Susan Boucher MD Work Phone: [facility] 10-08-2020 COVID-19, mRNA, LNP- S, PF, 30mcg/0.3mL Dose Susan Boucher MD Work Phone: [facility] 09-17-2020 COVID-19, mRNA, LNP- S, PF, 30mcg/0.3mL Dose Susan Boucher MD Work Phone: [facility] Payers Date Payer Category Payer Managed Care Other (unspecified) [employer] [id number] 2020 Unknown [employer] [place] [employer] [id number] 2020-Present [phone] [address] [place] [address] [id number] 2020 Unknown [id number] 2020 Private Health Insurance [employer] [id number] 2020 Unknown [id number] 2005 Medicare [id number] 2005 Medicare [id number] 1955 Unknown [id number] 2.16.840.1.774368.3.579 .2. 1955 Unknown [id number] 2.840.1.517562.3.579 .2. 1955 Unknown [id number] 2.16840.1.049943.3.579 .2. 1955 Unknown [id number] 2.840.1.563405.3.579 .2.1285 1955 Unknown [id number] 2.840.1.068013.3.579 .2.1285 1955 Unknown [id number] 2.840.1.171499.3.579 .2.1285 1955 Unknown [id number] 2.840.1.667942.3.579 .2.1285 1955 Unknown [id number] .0.1.103582.3.579 .2.1285 1955 Unknown [id number] .840.1.645024.3.579 .2.1285 1955 Unknown [id number] .0.1.580859.3.579 .2.1285 1955 Unknown [id number] .840.1.231260.3.579 .2.1285 1955 Unknown [id number] 840.1.380259.3.579 .2.1285 1955 Unknown [id number] .840.1.776708.3.579 .2.1285 1955 Unknown [id number] .840.1.620811.3.579 .2.1285 1955 Unknown [id number] 2.840.1.067582.3.579 .2.1285 1955 Unknown [id number] 2.840.1.644843.3.579 .2.1285 1955 Unknown [id number] 2.16.840.1.249835.3.579 .2.1286 1955 Unknown [id number] 2.16.840.1.572360.3.579 .2.1286 1955 Unknown [id number] 2.16.840.1.686438.3.579 .2.1286 1955 Unknown [id number] 2.16.840.1.446269.3.579 .2.1286 1955 Unknown [id number] 2.16.840.1.098663.3.579 .2.1259 1955 Unknown [id number] 2.16.840.1.180935.3.579 .2.1259 1955 Unknown [id number] 2.16.840.1.197833.3.579 .2.1259 1955 Unknown [id number] 2.16.840.1.989023.3.579 .2.1259 Social History Date Type Detail Facility Start: 02-04-2023 End: 02-13-2023 Tobacco smoking status NHIS Never smoked tobacco [facility] Start: 02-04-2023 Tobacco use and exposure Smokeless tobacco non-user [facility] Start: 05-16-2023 End: 06-21-2024 Alcohol intake Current non-drinker of alcohol (finding) [facility] Start: 05-16-2023 End: 04-23-2024 History of Social function [facility] Start: 05-16-2023 End: 04-23-2024 Tobacco use panel [facility] Adolescent depressio n screening assessment 0 [facility] Start: 1955 Sex Assigned At Not on file P [facility] Start: 03-03-2015 Sex Female (finding) [facility] Start: 04-23-2024 Alcoholic beverage intake Lifetime non-drinker (finding) [facility] Clinical Notes 02-12-2023 to 06-23-2024 Hermes Mcbride, UMBERTO - 06/23/2024 11:15 AM ESTPatient InstructionsTelephone Encounter - Loretta Davis, [facility] - 06/22/2024 8:04 AM ESTTelephone Encounter - Loretta Davis, [facility] - 06/22/2024 8:04 AM EST Note Date & Type Note Facility 06-23-2024 History of Presen t illness Narrative Images from the original note were not included. Subjective Patient ID: Jerica Caldwell is a 69 y.o. female who presents for No chief complaint on file.. HPI Chief complaint: Recently discovered decubitus ulceration of the left heel. Patient presented to [facility] ED within the past week or so for symptoms of UTI and was placed on doxycycline therapy. At that time; a full-thickness decubitus wound of the left heel was identified; of which the patient was unaware. Radiographs were obtained and unremarkable for acute osseous pathology. Denies injury or trauma. Denies streaking or constitutional symptoms. She does note some discomfort; in spite of peripheral neuropathy associated with MS. First such wound of this nature. There has been no specific treatment to date. Risk factors: Medical comorbidities. MS. Mobility and flexibility restraints. Toenail deformity. Digital and/or shoe trauma and related complications Medications Current Outpatient Medications: atorvastatin (Lipitor) 10 MG tablet, Take 1 tablet by mouth at bedtime., Disp: , Rfl: Aubagio 14 MG tablet, 1 (one) time each day at the same time., Disp: , Rfl: donepezil (Aricept) 10 MG tablet, TAKE 1 TABLET EVERY DAY, Disp: 90 tablet, Rfl: 3 loperamide (Imodium) 2 MG capsule, TAKE 1 CAPSULE IN THE MORNING AND TAKE 1 CAPSULE BEFORE BEDTIME., Disp: , Rfl: Memantine HCl ER 28 MG capsule sustained-release 24 hr, Take 1 capsule by mouth in the morning., Disp: , Rfl: metoprolol tartrate (Lopressor) 100 MG tablet, Take 1 tablet by mouth in the morning and 1 tablet before bedtime., Disp: , Rfl: pantoprazole (ProtoNix) 40 MG EC tablet, Take 1 tablet by mouth in the morning., Disp: , Rfl: potassium chloride ER (Micro-K) 10 MEQ ER capsule, Take 1 capsule by mouth in the morning and 1 capsule before bedtime., Disp: , Rfl: Allergies Sulfamethoxazole and Sulfamethoxazole-trimethoprim Past Surgical History Past Surgical History: Procedure Laterality Date COLONOSCOPY CT ANGIOGRAM ABDOMEN PELVIS 04/26/2019 CT ANGIOGRAM ABDOMEN PELVIS 04/26/2019 CT ANGIOGRAM HEART CORONARY 03/11/2019 CT ANGIOGRAM TAVR 03/11/2019 CT GUIDED TRANSVAGINAL TRANSRECTAL FLUID DRAIN 04/22/2019 CT GUIDED TRANSVAGINAL TRANSRECTAL FLUID DRAIN 04/22/2019 HYSTERECTOMY Family History Family History Problem Relation Name Age of Onset Hyperlipidemia Mother Hyperlipidemia Father Objective General assessment: Alert and oriented. Pleasant disposition. Presents by way of wheelchair. Accompanied by her spouse, Almas. Vascular: DP 2/4 bilateral. PT 2/4 bilateral. CFT brisk all digits. Digital hair growth is present. Temperature: Warm-cool all digits. Unremarkable for ankle edema. Neurologic: tactile and light touch sensation intact Dermatologic: intact. Skin turgor is good. No forefoot or digital discrete keratotic lesions are noted. All digits: None are spared: Toenail dystrophy and clinical mycosis. TDO deformity multiple digits. Web space areas are clean, dry, non-inflamed. Ulceration: Focused exam left heel: Harris stage III full-thickness decubitus wound extending to fascial tissue. Dark discolored fibrous tissue with malodor. Mild serous exudate without pustular drainage. There is no exposed calcaneus. Unremarkable for foreign body. There appears to be a small amount of actively bleeding granulation tissue along the periphery. The wound edges are otherwise raised, thickened and keratotic. The soft tissue envelope is otherwise well-perfused. There are no clinical signs of cellulitis or streaking. Unremarkable for soft tissue swelling or fluctuance. Post-debridement measurements: 06/23/2024: 3.5 x 2.5 x 0.7 cm. Orthopedic: diffuse weakness of the lower extremities without focal deficit. Maintains functional passive ankle, subtalar and first MTP joint range of motion. No distinct forefoot or digital deformities are noted. Radiology: Assessment/Plan Harris stage III full-thickness decubitus ulceration left heel. MS Moderate non-inflamed xerosis bilateral; well-controlled by history. Recently diagnosed UTI; currently on doxycycline. Plan: Review of clinical findings, recent negative x-ray findings (PMH), etiology and contributing/aggravating factors; high-risk nature of the procedure; treatment strategy and objectives. Left foot: Full-thickness excisional sharp debridement as described. Hydrofera blue antimicrobial foam dressing; intact, clean and dry 3 days. Rx: Santyl ointment. Patient will discuss wound care measures with home care nursing which she is currently receiving. Offloading: Spenco heel protective bootie. Multiple forms of offloading the ulcerative site discussed and reviewed. Once converted to clean granular wound; discussed amniotic tissue application. Also pursue non-invasive arterial testing of the lower extremities. Procedure: Left foot: Aseptic technique: #15 scalpel: Sharp, active, selective, full-thickness excisional debridement of decubitus heel wound; to the level of subcutaneous bleeding tissue and fascial tissue; excising devitalized, non-viable, dystrophic, fibrous tissue, dark eschar necrotic tissue and marginal keratotic tissue; reducing wound contamination and bioburden. Actively bleeding wound bed is achieved. Cleansing and irrigation. Hydrofera blue antimicrobial foam dressing applied. This note was created with the assistance of a speech recognition program. While intending to generate a timely document that accurately reflects the content of the visit, no guarantee can be provided that every grammatical or spelling mistake has been or will be identified or corrected. Thank you for your understanding. Hermes Mcbride DPM documented in this encounter [facility] 06-23-2024 Instructions Hermes Mcbride DPM - 06/23/2024 11:15 AM EST Wound care measures as noted documented in this encounter [facility] 06-22-2024 Miscellaneous Notes ED Outreach This documentation is being used for Transition of Care purposes: Yes/No: Yes ED Outreach Date: June 22, 2024 ED Outreach Method: COMMUNICATION METHOD: Telephone ED Outreach Attempt: first ED Outreach Outcome: Contacted Patient Name of ED Facility: [facility] Date of ED Discharge: 06/21/2024 Discharge Diagnosis: Heel ulceration, left ED Chief Complaint: urinary catheter insertion or check, wound check Current Symptom Status: continuing- spoke with spouse, hipaa verified. He states that she is weak this morning. She is currently using the restroom and will be resting this morning. Denies other concerns at this time. Medication Changes Reviewed: yes Medication Questions/Concerns: denies concerns Follow-up PCP Scheduled: will call office back to schedule after seeing podiatry Follow-up Specialist Scheduled: Patient plans to follow up with podiatry for heel ulceration Follow up Testing Scheduled: n/a Patient Contacted Office Prior to ED Visit: No. Patient made aware of on-call provider and same day appointment availability. Additional Comments: Patient will contact the office with additional concerns. documented in this encounter [facility] 06-22-2024 Telephone encounter Note ED Outreach This documentation is being used for Transition of Care purposes: Yes/No: Yes ED Outreach Date: June 22, 2024 ED Outreach Method: COMMUNICATION METHOD: Telephone ED Outreach Attempt: first ED Outreach Outcome: Contacted Patient Name of ED Facility: [facility] Date of ED Discharge: 06/21/2024 Discharge Diagnosis: Heel ulceration, left ED Chief Complaint: urinary catheter insertion or check, wound check Current Symptom Status: continuing- spoke with spouse, hipaa verified. He states that she is weak this morning. She is currently using the restroom and will be resting this morning. Denies other concerns at this time. Medication Changes Reviewed: yes Medication Questions/Concerns: denies concerns Follow-up PCP Scheduled: will call office back to schedule after seeing podiatry Follow-up Specialist Scheduled: Patient plans to follow up with podiatry for heel ulceration Follow up Testing Scheduled: n/a Patient Contacted Office Prior to ED Visit: No. Patient made aware of on-call provider and same day appointment availability. Additional Comments: Patient will contact the office with additional concerns. [facility] 06-18-2024 Miscellaneous Notes Almas requesting refill of Lisinopril 10mg to [facility] documented in this encounter [facility] 06-18-2024 Telephone encounter Note Almas requesting refill of Lisinopril 10mg to [facility] 06-11-2024 History of Presen t illness Narrative Please decrease lisinopril to 10mg , 1/2 of 20mg a day and if rx for 10mg is needed let us know Serial home BP checks as well documented in this encounter [facility] 06-10-2024 Miscellaneous Notes spoke with neurology regarding patient falling more and neurology is suggesting for PCP should possibly adjust BP medications. Please advise Please decrease lisinopril in half to 10mg a day , if pt needs new rx let us know and please do serial bp checks advised documented in this encounter [facility] 06-10-2024 Telephone encounter Note spoke with neurology regarding patient falling more and neurology is suggesting for PCP should possibly adjust BP medications. Please advise [facility] 06-10-2024 Telephone encounter Note Please decrease lisinopril in half to 10mg a day , if pt needs new rx let us know and please do serial bp checks [facility] 06-10-2024 Telephone encounter Note advised [facility] 06-09-2024 Miscellaneous Notes Patient has been falling more often per Home health. Asking for recommendations. Please have HH contact her neurologist about the weakness and I will order UA C&S, can HH collect this? Annmarie advised, they are awaiting a call back from neuro. Will have nurse go out and collect urine. documented in this encounter [facility] 06-09-2024 Telephone encounter Note Patient has been falling more often per Home health. Asking for recommendations. [facility] 06-09-2024 Telephone encounter Note Please have HH contact her neurologist about the weakness and I will order UA C&S, can HH collect this? [facility] 06-09-2024 Telephone encounter Note Annmarie advised, they are awaiting a call back from neuro. Will have nurse go out and collect urine. [facility] 06-05-2024 Miscellaneous Notes Patient Almas called requesting if patient should be seen sooner than upcoming appointment 06/23/2024 due to patient falling 3 times a day . Almas also stated patient will be starting PT 3 times a week also. Please advise Can she come in tomorrow SaturdayJune 09 for an 8:45 a.m. or 9:15 a.m. appointment? Summary: Called patient Per Dr. Thomas, Left a voice mail, Can she come in tomorrow SaturdayJune 09 for an 8:45 a.m. or 9:15 a.m. appointment? Martha RODRIGUEZ documented in this encounter [facility] 06-05-2024 Telephone encounter Note Patient Almas called requesting if patient should be seen sooner than upcoming appointment 06/23/2024 due to patient falling 3 times a day . Almas also stated patient will be starting PT 3 times a week also. Please advise [facility] 06-05-2024 Telephone encounter Note Can she come in tomorrow SaturdayJune 09 for an 8:45 a.m. or 9:15 a.m. appointment? [facility] 06-05-2024 Telephone encounter Note Summary: Called patient Per Dr. Thomas, Left a voice mail, Can she come in tomorrow SaturdayJune 09 for an 8:45 a.m. or 9:15 a.m. appointment? Martha PSC [facility] 06-05-2024 Miscellaneous Notes Erica casas [facility] called to let you know that he seen this pt for the first time today for PT and will see her 3x a week . Family reported to him that she is falling several times a day at home and is very weak , erica advised the family to make a follow up appt with pt's MS dr and wasn't sure if you wanted to see her as well. If so you can call the pt's family Please call pt and offer f/u for next week if they wish but we definitely would recommend f/u MS has a call out to Neurology to see if they can get Johanne in sooner than 06/23/24. He will call us back once he hears back from them documented in this encounter [facility] 06-05-2024 Telephone encounter Note Erica casas [facility] called to let you know that he seen this pt for the first time today for PT and will see her 3x a week . Family reported to him that she is falling several times a day at home and is very weak , erica advised the family to make a follow up appt with pt's MS dr and wasn't sure if you wanted to see her as well. If so you can call the pt's family [facility] 06-05-2024 Telephone encounter Note Please call pt and offer f/u for next week if they wish but we definitely would recommend [facility] Telephone encounter Note has a call out to Neurology to see if they can get Johanne in sooner than 06/23/24. He will call us back once he hears back from them [facility] 06-03-2024 Miscellaneous Notes Contact Type: General Care Coordination Activity Documents sent to [facility]: order, F2F, med list. Your fax has been successfully sent to [phone] at [phone]. referral Jerica Caldwell [phone] From: [email or web address] Spoke with Hoda from [facility] and patient is current with them for monthly catheter changes and therapy will be added. documented in this encounter [facility] 06-03-2024 Telephone encounter Note Contact Type: General Care Coordination Activity Documents sent to [facility]: order, F2F, med list. Your fax has been successfully sent to [phone] at [phone]. referral Jerica Caldwell [phone] From: [email or web address] Work Phone: 06-03-2024 Telephone encounter Note Spoke with Hoda from [facility] and patient is current with them for monthly catheter changes and therapy will be added. [facility] 06-03-2024 Miscellaneous Notes Almas is asking if Home health PT can be ordered for weakness and multiple falls. Kim Proctor Yes , can Anya reach out to them as well and I have placed that order, please arrange notified and Anya will fax order to [employer] documented in this encounter [facility] 06-03-2024 Telephone encounter Note Almas is asking if Home health PT can be ordered for weakness and multiple falls. [facility] Pro[facility] 06-03-2024 Telephone encounter Note Yes , can Anya reach out to them as well and I have placed that order, please arrange [facility] 06-03-2024 Telephone encounter Note notified and Anya will fax order to [employer] [facility] 05-27-2024 Miscellaneous Notes left voicemail stating Johanne has fallen a couple time today and he would like to go ahead with a MRI. I reviewed her recent xray and DTD recommended a referral to ortho not MRI. Left message on vm to call our office. documented in this encounter [facility] 05-27-2024 Telephone encounter Note left voicemail stating Johanne has fallen a couple time today and he would like to go ahead with a MRI. I reviewed her recent xray and DTD recommended a referral to ortho not MRI. Left message on vm to call our office. [facility] 05-19-2024 History of Presen t illness Narrative Images from the original note were not included. [address] [facility] [id number] SUBJECTIVE: Patient ID: Jerica Caldwell is a 69 y.o. female. 69 yo WF with 6 months of awkward knee movements and some crepitance and possible weakness The following portions of the patient's history were reviewed and updated as appropriate: allergies, current medications, past family history, past medical history, past social history, past surgical history and problem list. REVIEW OF SYSTEMS: Review of Systems Musculoskeletal: Positive for arthralgias. PHYSICAL EXAMINATION: Vitals: 05/19/24 1516 BP: 126/70 BP Site: Left Arm BP Postition: Sitting BP CUFF SIZE: M (9-13 inches) Pulse: 80 Resp: 16 Physical Exam Vitals and nursing note reviewed. Constitutional: Appearance: Normal appearance. HENT: Head: Normocephalic and atraumatic. Eyes: Extraocular Movements: Extraocular movements intact. Pupils: Pupils are equal, round, and reactive to light. Cardiovascular: Rate and Rhythm: Normal rate and regular rhythm. Pulses: Normal pulses. Heart sounds: Normal heart sounds. Pulmonary: Effort: Pulmonary effort is normal. Breath sounds: Normal breath sounds. Musculoskeletal: Comments: Arthritic changes knee right Skin: General: Skin is warm and dry. Neurological: Mental Status: She is alert and oriented to person, place, and time. Mental status is at baseline. Psychiatric: Mood and Affect: Mood normal. Behavior: Behavior normal. ASSESSMENT/PLAN: Jerica was seen today for knee problem. Diagnoses and all orders for this visit: Chronic pain of right knee - X-ray knee right 3 views; Future MS (multiple sclerosis) ([facility]) Follow-up: Xray of knee right trial sleeve documented in this encounter [facility] 05-14-2024 Miscellaneous Notes [facility] requesting refill of Loperamide and Potassium documented in this encounter [facility] 05-14-2024 Telephone encounter Note [facility] requesting refill of Loperamide and Potassium [facility] 10-10-2023 Miscellaneous Notes asking if PT can be ordered for patient. States he feels like patient is having muscle weakness in her neck. Please advise. Ptx ordered please arrange documented in this encounter [facility] 10-10-2023 Telephone encounter Note asking if PT can be ordered for patient. States he feels like patient is having muscle weakness in her neck. Please advise. [facility] 10-10-2023 Telephone encounter Note Ptx ordered please arrange [facility] 10-07-2023 Miscellaneous Notes Almas requesting refill of Metoprolol to [facility] documented in this encounter [facility] 10-07-2023 Telephone encounter Note Almas requesting refill of Metoprolol to [facility] 09-27-2023 Miscellaneous Notes [facility]rolol [facility]mg to [facility]. documented in this encounter [facility] 09-27-2023 Telephone encounter Note [facility] to [facility] 09-23-[address] [facility] completed recert visit Saturday09/20/23. Nursing to come monthly and 3 prn for cath management. BP is wnl today. +2 pitting EDEMA to RLE documented in this encounter [facility] 09-23-[address] [facility] completed recert visit Saturday09/20/23. Nursing to come monthly and 3 prn for cath management. BP is wnl today. +2 pitting EDEMA to RLE [facility] Work Phone: 09-03-2023 Miscellaneous Notes Please see 8aweek Message 08/31/23 Almas Caldwell,patient's spouse, states that teriflunomide (AUBAGIO) 14 mg tablet script has not been received by [id number]. Caller states that he would like to know what pharmacy script was sent to and who at the pharmacy Duyen spoke to? Almas has requested a call back. Financial Operations Analyst spoke with Rocío at [facility] and clarified that the script was at the pharmacy. Medication was there, however the pharmacist needed clarification on spelling of Teriflunomide 14mg due to not being able to find the medication in the system. Rocío was able to locate the medication with the corrected spelling and will begin filling it. Rocío did state that due to it being a speciality medication it may be kicked out to a speciality pharmacy. If that were to be the case, Rocío stated that the pharmacy would contact the patient. Financial Operations Analyst left a voicemail for the patients , Almas to call the office for clarification and per patients request. [facility] Telephone encounter Note Please see 8aweek Message 08/31/23 Almas Caldwell,patient's spouse, states that teriflunomide (AUBAGIO) 14 mg tablet script has not been received by [id number]. Caller states that he would like to know what pharmacy script was sent to and who at the pharmacy Duyen spoke to? Almas has requested a call back. [facility]23 Telephone encounter Note Financial Operations Analyst spoke with Rocío at [facility] and clarified that the script was at the pharmacy. Medication was there, however the pharmacist needed clarification on spelling of Teriflunomide 14mg due to not being able to find the medication in the system. Rocío was able to locate the medication with the corrected spelling and will begin filling it. Rocío did state that due to it being a speciality medication it may be kicked out to a speciality pharmacy. If that were to be the case, Rocío stated that the pharmacy would contact the patient. Financial Operations Analyst left a voicemail for the patients Almas to call the office for clarification and per patients request. [facility] 09-03-2023 Miscellaneous Notes Resend to DDM documented in this encounter [facility] 09-03-2023 Telephone encounter Note Resend to DDM [facility] 09-02-2023 History of Presen t illness Narrative PA initiated in [facility] for Teriflunomide. documented in this encounter [facility] 08-26-2023 Miscellaneous Notes states pt BP continues to be 157/97 this morning. 142/89 on Saturday 144/91 on Saturday By adding 50mg of metoprolol bid to the 100mg bid we could help lower the bp, is pt agreeable and to what pharm? Left message for to call office. Patient and agreeable to add 50mg send to [facility] documented in this encounter [facility] 08-26-2023 Telephone encounter Note states pt BP continues to be 157/97 this morning. 142/89 on Saturday 144/91 on Saturday [facility] 08-26-2023 Telephone encounter Note By adding 50mg of metoprolol bid to the 100mg bid we could help lower the bp, is pt agreeable and to what pharm? [facility] 08-26-2023 Telephone encounter Note Left message for to call office. [facility] 08-26-2023 Telephone encounter Note Patient and agreeable to add 50mg send to [facility] 08-23-2023 History of Presen t illness Narrative BP check completed, Increase Lisinopril 20mg to 1 bid, continue Metoprolol 100mg 1 bid and Triamterene/HCTZ 1 qd, monitor BP at home and call next week with readings per v.o. Dr. Boucher and patient and verbalizes understanding. documented in this encounter [facility] 08-20-2023 Miscellaneous Notes Dyazide Rx sent to [facility] documented in this encounter [facility] 08-20-2023 Telephone encounter Note Dyazide Rx sent to [facility] 08-20-2023 Miscellaneous Notes Telecom with regarding BP-still elevated 170/100's. He has increased her Lisinopril to twice a day. Dr. Boucher notified. Add Dyazide 1 a day, continue Lisinopril 20mg 1 bid and Metoprolol 100mg 1 bid and recheck BP in the office on Saturday per v.o. Dr. Hua verbalizes understanding. documented in this encounter [facility] 08-20-2023 Telephone encounter Note Telecom with regarding BP-still elevated 170/100's. He has increased her Lisinopril to twice a day. Dr. Boucher notified. Add Dyazide 1 a day, continue Lisinopril 20mg 1 bid and Metoprolol 100mg 1 bid and recheck BP in the office on Saturday per v.o. Dr. Hua verbalizes understanding. [facility] 08-12-2023 History of Presen t illness Narrative Images from the original note were not included. [address] [facility] [id number] SUBJECTIVE: Patient ID: Jerica Caldwell is a 68 y.o. female. 68 yo WF with sudden elevation of BP oted over last 3 days, bp 200-160/90-100, pt has no c/o's, pt joseph nodistres The following portions of the patient's history were reviewed and updated as appropriate: allergies, current medications, past family history, past medical history, past social history, past surgical history and problem list. REVIEW OF SYSTEMS: Review of Systems Respiratory: Negative. Cardiovascular: Negative. Gastrointestinal: Negative. Genitourinary: Negative. PHYSICAL EXAMINATION: Vitals: 08/12/23 1356 BP: 166/90 BP Site: Left Arm BP Postition: Sitting BP CUFF SIZE: M (9-13 inches) Pulse: 80 Resp: 16 Physical Exam Vitals and nursing note reviewed. Constitutional: Appearance: Normal appearance. HENT: Head: Normocephalic and atraumatic. Eyes: Extraocular Movements: Extraocular movements intact. Pupils: Pupils are equal, round, and reactive to light. Cardiovascular: Rate and Rhythm: Normal rate and regular rhythm. Pulses: Normal pulses. Heart sounds: Normal heart sounds. Pulmonary: Effort: Pulmonary effort is normal. Breath sounds: Normal breath sounds. Neurological: Mental Status: She is alert. Mental status is at baseline. Motor: Weakness present. Psychiatric: Mood and Affect: Mood normal. Behavior: Behavior normal. ASSESSMENT/PLAN: Jerica was seen today for follow-up. Diagnoses and all orders for this visit: Hypertension, unspecified type MS (multiple sclerosis) ([facility]) Other orders - lisinopriL (PRINIVIL,ZESTRIL) 20 mg tablet; Take 1 tablet (20 mg total) by mouth in the morning. Follow-up: Lisinopril 20mg 1 qd Recheck in 28d documented in this encounter [facility] 08-12-2023 Miscellaneous Notes ED Outreach This documentation is being used for Transition of Care purposes: Yes/No: Yes ED Outreach Date: August 12, 2023 ED Outreach Method: COMMUNICATION METHOD: Telephone ED Outreach Attempt: second ED Outreach Outcome: No Answer/Busy Name of ED Facility: [facility] Date of ED Discharge: 08/11/2023 Discharge Diagnosis: Asymptomatic hypertension ED Chief Complaint: Hypertension Current Symptom Status: Medication Changes Reviewed: Medication Questions/Concerns: Follow-up PCP Scheduled: Follow-up Specialist Scheduled: Follow up Testing Scheduled: Patient Contacted Office Prior to ED Visit: yes Additional Comments: Attempted to contact. Unable to leave message on voicemail. Second attempt to contact patient. Will wait for patient to contact the office with any follow up needs. documented in this encounter [facility] 08-12-2023 Telephone encounter Note ED Outreach This documentation is being used for Transition of Care purposes: Yes/No: Yes ED Outreach Date: August 12, 2023 ED Outreach Method: COMMUNICATION METHOD: Telephone ED Outreach Attempt: second ED Outreach Outcome: No Answer/Busy Name of ED Facility: [facility] Date of ED Discharge: 08/11/2023 Discharge Diagnosis: Asymptomatic hypertension ED Chief Complaint: Hypertension Current Symptom Status: Medication Changes Reviewed: Medication Questions/Concerns: Follow-up PCP Scheduled: Follow-up Specialist Scheduled: Follow up Testing Scheduled: Patient Contacted Office Prior to ED Visit: yes Additional Comments: Attempted to contact. Unable to leave message on voicemail. Second attempt to contact patient. Will wait for patient to contact the office with any follow up needs. [facility] 08-12-2023 Miscellaneous Notes Pt needs ER f/u- hypertension Scheduled. documented in this encounter [facility] 08-12-2023 Telephone encounter Note Pt needs ER f/u- hypertension [facility] 08-12-2023 Telephone encounter Note Scheduled. [facility] 08-07-2023 History of Presen t illness Narrative Images from the original note were not included. [address] [facility] [id number] SUBJECTIVE: Patient ID: Jerica Caldwell is a 68 y.o. female. 68 yo WF with 6 month check up, nothing new or different, sees neurology MS and urology The following portions of the patient's history were reviewed and updated as appropriate: allergies, current medications, past family history, past medical history, past social history, past surgical history and problem list. REVIEW OF SYSTEMS: Review of Systems Respiratory: Negative. Cardiovascular: Negative. Gastrointestinal: Negative. Genitourinary: Suprapubic cath functional Neurological: Positive for weakness. PHYSICAL EXAMINATION: Vitals: 08/07/23 1336 BP: 160/90 BP Site: Left Arm BP Postition: Sitting BP CUFF SIZE: M (9-13 inches) Pulse: 80 Resp: 16 Physical Exam Vitals and nursing note reviewed. HENT: Head: Normocephalic and atraumatic. Eyes: Extraocular Movements: Extraocular movements intact. Pupils: Pupils are equal, round, and reactive to light. Cardiovascular: Rate and Rhythm: Normal rate and regular rhythm. Pulses: Normal pulses. Heart sounds: Normal heart sounds. Abdominal: Comments: Functioning suprapubic cath Skin: General: Skin is warm and dry. Neurological: Mental Status: Mental status is at baseline. Psychiatric: Mood and Affect: Mood normal. Behavior: Behavior normal. ASSESSMENT/PLAN: Jerica was seen today for routine check up. Diagnoses and all orders for this visit: MS (multiple sclerosis) ([facility]) Suprapubic catheter ([facility]) Other hyperlipidemia Primary hypertension Follow-up: Labs reviewed Meds reviewed Recheck in6m documented in this encounter [facility] 02-13-2023 Note [id number] [facility] 02-12-2023 Note [facility] SURGERY Clinical Discharge Summary PERSON INFORMATION Name JERICA CALDWELL Age 67 Years 1955 Sex FEMALE Language Malian PCP SUSAN BOUCHER Marital Status Med Service Ambulatory Surgery Acct# Arrival 02/12/2023 08:55:44 Visit Reason SURGERY - CYSTO SP TUBE PLACEMENT Acuity LOS 011 02:57 Address: [facility] [place] [address] Comment: PROVIDER INFORMATION VITALS INFORMATION Vital Sign Triage Latest Temp Oral Temp Temporal Temp Intravascular Temp Axillary Temp Rectal 02 Sat 97 % 96 % Respiratory Rate Peripheral Pulse Rate Apical Heart Rate Blood Pressure / 77 mmHg / 85 mmHg Comment: MEDICAL INFORMATION Allergy Info: Bactrim Prescriptions Given: atorvastatin (atorvastatin 10 mg oral tablet) 1 tab(s) Oral every day. donepezil (donepezil 10 mg oral tablet) 1 tab(s) Oral once a day (at bedtime). loperamide (loperamide 2 mg oral tablet) 1 tab(s) Oral 2 times a day. magnesium oxide (magnesium oxide 400 mg oral tablet) 1 tab(s) Oral 2 times a day. memantine (memantine 28 mg oral capsule, extended release) 1 tab(s) Oral every day. metoprolol (metoprolol tartrate 100 mg oral tablet) 1 tab(s) Oral 2 times a day. pantoprazole (pantoprazole 40 mg oral granule, delayed release) 1 Each Oral every day. potassium chloride (potassium chloride 10 mEq oral capsule, extended release) 1 cap(s) Oral 2 times a day. teriflunomide (Aubagio 14 mg oral tablet) 1 tab(s) Oral every day. Medication List: Medications to Continue That Have Not Changed Other Medications atorvastatin (atorvastatin 10 mg oral tablet) 1 tab(s) Oral every day. donepezil (donepezil 10 mg oral tablet) 1 tab(s) Oral once a day (at bedtime). loperamide (loperamide 2 mg oral tablet) 1 tab(s) Oral 2 times a day. magnesium oxide (magnesium oxide 400 mg oral tablet) 1 tab(s) Oral 2 times a day. memantine (memantine 28 mg oral capsule, extended release) 1 tab(s) Oral every day. metoprolol (metoprolol tartrate 100 mg oral tablet) 1 tab(s) Oral 2 times a day. pantoprazole (pantoprazole 40 mg oral granule, delayed release) 1 Each Oral every day. potassium chloride (potassium chloride 10 mEq oral capsule, extended release) 1 cap(s) Oral 2 times a day. teriflunomide (Aubagio 14 mg oral tablet) 1 tab(s) Oral every day. Medications to Continue That Have Not Changed Other Medications atorvastatin (atorvastatin 10 mg oral tablet) 1 tab(s) Oral every day. donepezil (donepezil 10 mg oral tablet) 1 tab(s) Oral once a day (at bedtime). loperamide (loperamide 2 mg oral tablet) 1 tab(s) Oral 2 times a day. magnesium oxide (magnesium oxide 400 mg oral tablet) 1 tab(s) Oral 2 times a day. memantine (memantine 28 mg oral capsule, extended release) 1 tab(s) Oral every day. metoprolol (metoprolol tartrate 100 mg oral tablet) 1 tab(s) Oral 2 times a day. pantoprazole (pantoprazole 40 mg oral granule, delayed release) 1 Each Oral every day. potassium chloride (potassium chloride 10 mEq oral capsule, extended release) 1 cap(s) Oral 2 times a day. teriflunomide (Aubagio 14 mg oral tablet) 1 tab(s) Oral every day. Medications to Continue That Have Not Changed Other Medications atorvastatin (atorvastatin 10 mg oral tablet) 1 tab(s) Oral every day. donepezil (donepezil 10 mg oral tablet) 1 tab(s) Oral once a day (at bedtime). loperamide (loperamide 2 mg oral tablet) 1 tab(s) Oral 2 times a day. magnesium oxide (magnesium oxide 400 mg oral tablet) 1 tab(s) Oral 2 times a day. memantine (memantine 28 mg oral capsule, extended release) 1 tab(s) Oral every day. metoprolol (metoprolol tartrate 100 mg oral tablet) 1 tab(s) Oral 2 times a day. pantoprazole (pantoprazole 40 mg oral granule, delayed release) 1 Each Oral every day. potassium chloride (potassium chloride 10 mEq oral capsule, extended release) 1 cap(s) Oral 2 times a day. teriflunomide (Aubagio 14 mg oral tablet) 1 tab(s) Oral every day. Comment: Lab and Radiology Results Laboratory or Other Results This Visit (last charted value for your 02/12/2023 visit) No Laboratory or Other Results This Visit DIET & ACTIVITY Patient Activity Level: Patient Diet: Patient Activity Restrictions: DISCHARGE INFORMATION Discharge Disposition: Discharge Location: DEPART REASON INCOMPLETE INFORMATION PATIENT EDUCATION INFORMATION Instructions: Follow up: With: Address: When: Tj Garcia MD DIAGNOSIS 1:Urinary retention Comment: PHYS DOC NOTES [facility] Evaluation note Diagnosis MS (multiple sclerosis) (CMS-HCC)- Primary Multiple sclerosis Suprapubic catheter (CMS-HCC) Other cystostomy status Other hyperlipidemia Primary hypertension Unspecified essential hypertension [facility]* Diagnosis Hypertension, unspecified type- Primary MS (multiple sclerosis) (CMS-HCC) Multiple sclerosis documented in this encounter [facility]* Diagnosis BP check- Primary Screening for hypertension documented in this encounter [facility]* Diagnosis Multiple sclerosis (CMS-HCC) Multiple sclerosis documented in this encounter [facility]* Diagnosis Multiple sclerosis (CMS-HCC) Multiple sclerosis documented in this encounter [facility]* Diagnosis Multiple sclerosis (CMS-HCC) Multiple sclerosis documented in this encounter [facility]* Diagnosis MS (multiple sclerosis) (CMS-HCC)- Primary Multiple sclerosis documented in this encounter [facility]* Diagnosis Chronic pain of right knee- Primary MS (multiple sclerosis) (CMS-HCC) Multiple sclerosis Chronic pain of right knee documented in this encounter [facility]* Diagnosis MS (multiple sclerosis) (CMS-HCC)- Primary Multiple sclerosis documented in this encounter [facility]* Diagnosis MS (multiple sclerosis) (CMS-HCC)- Primary Multiple sclerosis Weakness Other malaise and fatigue documented in this encounter [facility]* Diagnosis 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 [facility] SystemInstructions* Attachments The following attachments cannot be sent through Care Everywhere. * Multiple Sclerosis Discharge Instructions, Adult (Malian) documented in this [facility]St[facility] System[facility]* Attachments The following attachments cannot be sent through Care Everywhere. * High blood pressure in adults ([place]alian) documented in this encounterProSt. [facility] SystemInstructionsNot on file documented in this encounterProSt. [facility] SystemInstructionsNot on file documented in this encounterProMedica Health SystemInstructionsNot on file documented in this encounterPro[facility] SystemInstructionsNot on file documented in this encounterPro[facility] SystemInstructionsNot on file documented in this encounterPro[facility] SystemInstructionsNot on file documented in this encounterPro[facility] SystemInstructionsNot on file documented in this encounterProSt. [facility] SystemInstructionsNot on file documented in this encounterKing[facility] SystemReason for referral (narrative)* Consultation (Routine) - Authorized Specialty Diagnoses / Procedures Referred By Martha matute Referred To Contact Rehabilitation Diagnoses MS (multiple sclerosis) ([facility]) Susan Boucher MD [address] [place] [address] [facility] [address] [place] [address] Referral ID Status Reason Start Date Expiration Date Visits Requested Visits Authorized [id number] Authorized Specialty Services Required 10/10/2023 10/09/2024 1 1 Scheduling Instructions Eval an dtx MS weakness every other day x 2-6 weeks and recommend a home exercise program [facility] Advance Directives No Advanced Directives Records FoundLatest Code Status on File Code Status Date Activated Date Inactivated Comments Full Code 04/22/2019 7:17 PM 04/29/2019 7:51 PM Code Status History Code Status Date Activated Date Inactivated Comments Full Code 04/20/2019 6:13 PM 04/22/2019 3:29 PM Full Code 03/09/2019 2:35 PM 03/14/2019 9:10 PM Latest Code Status on File Code Status Date Activated Date Inactivated Comments Full Code 04/22/2019 7:17 PM 04/29/2019 7:51 PM Code Status History Code Status Date Activated Date Inactivated Comments Full Code 04/20/2019 6:13 PM 04/22/2019 3:29 PM Full Code 03/09/2019 2:35 PM 03/14/2019 9:10 PM Date Activated Date Inactivated Comments 04/22/2019 7:17 PM 04/29/2019 7:51 PM Date Activated Date Inactivated Comments 04/20/2019 6:13 PM 04/22/2019 3:29 PM Date Activated Date Inactivated Comments 03/09/2019 2:35 PM 03/14/2019 9:10 PM Date Activated Date Inactivated Comments 04/22/2019 7:17 PM 04/29/2019 7:51 PM Date Activated Date Inactivated Comments 04/20/2019 6:13 PM 04/22/2019 3:29 PM Date Activated Date Inactivated Comments 03/09/2019 2:35 PM 03/14/2019 9:10 PM Reason for Referral Specialty Diagnoses / Procedures Referred By Martha matute Referred To Contact Diagnoses Multiple sclerosis ([facility]) Erica Thomas MD [address] [facility] [address] [place] [address] Referral ID Status Reason Start Date Expiration Date V isits Requested Visits Authorized [id number] Authorized 1 1 Summary Purpose Family History No Family History Records FoundNo Family History Records FoundNo Family History Records FoundNo Family History Records Found Additional Source Comments Reason for Visit (unrecogniz ed section and content) Reason Comments Med Refill Reason Comments Routine Check up Reason Comments Follow-up ER Reason Onset Date Comments Er Follow-up 08/12/2023 Reason Onset Date Comments Med Refill 08/20/2023 Reason Comments Blood Pressure Check Reason Onset Date Comments Med Refill 08/23/2023 Reason Onset Date Comments Med Refill 09/02/2023 Reason Onset Date Comments Med Refill 09/03/2023 Reason Onset Date Comments Call Back 09/03/2023 teriflunomide (AUBAGIO) 14 mg tablet 09/03/2023 Reason Onset Date Comments Med Refill 09/27/2023 Reason Onset Date Comments Med Refill 10/07/2023 Reason Comments Knee Problem right Reason Onset Date Comments Care Navigation 06/03/2024 Reason Onset Date Comments sooner appointment 06/05/2024 Reason Onset Date Comments Med Refill 06/18/2024 Reason Onset Date Comments Er Follow-up 06/22/2024 Care Teams (unrecognized sec tion and content) Laundry Folder Relationship Specialty Start Date End Date Susan Boucher MD [address] [place] [address] PCP - General Family Medicine 05/14/17 Laundry Folder Relationship Specialty Start Date End Date Susan Boucher MD [address] [place] [address] PCP - [facility] Medicine 05/14/17 Laundry Folder Relationship Specialty Start Date End Date Susan Boucher MD [address] [place] [address] PCP - [facility] 05/14/17 Laundry Folder Relationship Specialty Start Date End Date Susan Boucher MD [address] [place] [address] PCP - [facility] 05/14/17 Laundry Folder Relationship Specialty Start Date End Date Susan Boucher MD [address] [place] [address] PCP - [facility] 05/14/17 Laundry Folder Relationship Specialty Start Date End Date Susan Boucher MD [address] [place] [address] PCP - [facility] 05/14/17 Laundry Folder Relationship Specialty Start Date End Date Susan Boucher MD [address] [place] [address] PCP - [facility] 05/14/17 Laundry Folder Relationship Specialty Start Date End Date Susan Boucher MD [address] [place] [address] PCP - [facility] 05/14/17 Laundry Folder Relationship Specialty Start Date End Date Susan Boucher MD [address] [place] [address] PCP - General Family Medicine 05/14/17 Laundry Folder Relationship Specialty Start Date End Date Susan Boucher MD [address] [place] [address] PCP - General Family Medicine 05/14/17 Laundry Folder Relationship Specialty Start Date End Date Susan Boucher MD [address] [place] [address] PCP - General Family Medicine 05/14/17 Laundry Folder Relationship Specialty Start Date End Date Susan Boucher MD [address] [place] [address] PCP - General Family Medicine 05/14/17 Laundry Folder Relationship Specialty Start Date End Date Susan Boucher MD [address] [place] [address] PCP - General Family Medicine 05/14/17 Lizabeth Campbell RN [facility] Nurse - [employer] 12/18/23 Laundry Folder Relationship Specialty Start Date End Date Susan Boucher MD [address] [place] [address] PCP - General Family Medicine 05/14/17 Lizabeth Campbell RN [facility] Nurse - [employer] 12/18/23 Laundry Folder Relationship Specialty Start Date End Date Susan Boucher MD [address] [place] [address] PCP - General Family Medicine 05/14/17 Lizabeth Campbell RN [facility] Nurse - [employer] 12/18/23 Laundry Folder Relationship Specialty Start Date End Date Susan Boucher MD [address] [place] [address] PCP - General Family Medicine 05/14/17 Lizabeth Campbell RN [facility] Nurse - [employer] 12/18/23 Laundry Folder Relationship Specialty Start Date End Date Susan Boucher MD [address] [place] [address] PCP - General Family Medicine 05/14/17 Lizabeth Campbell RN [facility] Nurse - [employer] 12/18/23 Laundry Folder Relationship Specialty Start Date End Date Susan Boucher MD [address] [place] [address] PCP - General Family Medicine 05/14/17 Lizabeth Campbell RN [facility] Nurse - [employer] 12/18/23 Laundry Folder Relationship Specialty Start Date End Date Susan Boucher MD [address] [place] [address] PCP - General Family Medicine 05/14/17 Lizabeth Campbell RN [facility] Nurse - [employer] 12/18/23 Laundry Folder Relationship Specialty Start Date End Date Susan Boucher MD [address] [place] [address] PCP - General Family Medicine 05/14/17 Lizabeth Campbell RN [facility] Nurse - [employer] 12/18/23 Laundry Folder Relationship Specialty Start Date End Date Susan Boucher MD [address] [place] [address] PCP - General Family Medicine 06/21/24 Lizabeth Campbell RN [facility] Nurse - [employer] 12/18/23 Laundry Folder Relationship Specialty Start Date End Date Susan Boucher MD [address] [place] [address] PCP - General Family Medicine 02/13/23 Laundry Folder Relationship Specialty Start Date End Date Susan Boucher MD [address] [place] [address] PCP - General Family Medicine 02/13/23 INFORMATION SOURCE (unrecogn ized section and content) DATE CREATED AUTHOR 10/25/2023 [facility] DATE CREATED AUTHOR AUTHOR'S ORGANIZ ATION 04/03/2024 [facility] DATE CREATED AUTHOR AUTHOR'S ORGANIZ ATION 06/23/2024 [facility] DATE CREATED AUTHOR AUTHOR'S ORGANIZ ATION 06/26/2024 [facility] Specialists [facility] FOR RECORDS PERTAINING TO PATIENTS WHO ARE OR HAVE BEEN ENROLLED IN A CHEMICAL DEPENDENCY/SUBSTANCEABUSE PROGRAM, SOME INFORMATION MAY BE OMITTED. This clinical summary was aggregated from multiple sources. Caution should be exercised in using it in the provision of clinical care. This summary normalizes information from multiple sources, and as a consequence, information in this document may materially change the coding, format and clinical context of patient data. In addition, data may be omitted in some cases. CLINICAL DECISIONS SHOULD BE BASED ON THE PRIMARY CLINICAL RECORDS. [employer] provides no warranty or guarantee of the accuracy or completeness of information in this document.
--- NOTE | 2024-06-26 14:43 | XR_ITS ---
The [address] [address] Patient Name: JERICA DONATO MRN: [id number] date: 1955 Sex: F Assigned Patient Location: ER Current Patient Location: ER Accession/Order Number: [id number] Exam Date: 06/26/2024 15:17 Report Date: 06/26/2024 16:11 At the request of: JENNIFER SALAZAR Procedure: XR chest 1V XR foot LT min 3V, XR chest 1V 06/26/2024 3:32 PM EST CLINICAL INDICATION: Heel wound COMPARISON: None. TECHNIQUE: 3 views of the left foot. FINDINGS: Left foot The bones are intact. The alignment is anatomic. There are degenerative changes of the joints. There is a soft tissue defect overlying the the posterior calcaneus. CHEST: AP view of the chest. Cardiopulmonary silhouette is within normal limits. No focal parenchymal opacities concerning for consolidation. No pneumothorax or gross pleural effusion. Soft tissues are grossly unremarkable. XR/XR chest 1V IMPRESSION: No acute osseous abnormality. No definite lytic lesions of the calcaneus. Electronically authenticated by: KRYSTAL CID Date: 06/26/2024 16:11
--- NOTE | 2024-06-26 14:43 | ECG_ITS ---
The [facility] Test Date: 2024-06-26 Pat Name: JERICA DONATO Department: Room: - Gender: Female [employer]: : 1955 Requested By: [id number] Order Number: [id number] Reading MD: ANNABELLE HOWARD Measurements Intervals [place] Rate: 80 P: 73 FL: 152 QRS: 58 QRSD: 76 T: 79 QT: 400 QTc: 436 Interpretive Statements 1100 Sinus rhythm [address] depression 9130 borderline ECG No previous ECG available for comparison Electronically Signed On 06-28-2024 7:37:42 EST by ANNABELLE HOWARD
--- NOTE | 2024-06-26 14:43 | CT_ITS ---
The [address] [address] Patient Name: JERIAC DONATO MRN: [id number] date: 1955 Sex: F Assigned Patient Location: ER Current Patient Location: MS Accession/Order Number: [id number] Exam Date: 06/26/2024 15:17 Report Date: 06/26/2024 21:20 At the request of: JENNIFER SALAZAR Procedure: CT head/brain wo con EXAM: CT head/brain wo con HISTORY: Weakness COMPARISON: None available at the time of dictation. TECHNIQUE: Axial unenhanced CT images were obtained through the brain. Individualized dose optimization technique was used for the performed procedure by employing the following: Automated exposure control, adjustment of the mA and/or kV according to patient's size, and/or the use of the iterative construction technique. Coronal and sagittal reformats were performed. FINDINGS: No acute intracranial abnormality. No acute infarct, hemorrhage or mass. No midline shift. Duarte-white matter differentiation is preserved. Periventricular white matter hypodensity, likely chronic white matter ischemic disease. Moderate cerebral volume loss. No acute osseous abnormality. Paranasal sinuses are clear. Mastoid air cells are open. Orbits are normal. CT/CT head/brain wo con IMPRESSION: No acute intracranial abnormality. No acute intracranial infarct visualized by this modality. (MRI is more sensitive). No acute intracranial hemorrhage Electronically authenticated by: WICHO LAWS Date: 06/26/2024 21:20
--- NOTE | 2024-06-26 14:44 | ED.WEAKNESS1 ---
HPI - Weakness General Chief complaint: Weakness Stated complaint: general weakness Time Seen by Provider: 06/26/24 14:36 Source: patient and family Limitations: physical limitation History of Present Illness HPI Narrative: Patient is a 69-year-old female with a history of MS who presents to the emergency department with her and son for evaluation of increasing weakness and multiple falls. She has a chronic wound that is being managed by podiatry in [place] to the back of her left heel. She also has an indwelling suprapubic catheter. She was recently diagnosed with a UTI and started on doxycycline with the idea that there would be antibiotic coverage for both the UTI and the left heel. She denies fevers, chills, nausea, vomiting, chest pain, shortness of breath, cough, congestion, flulike illness. She states she has not had any appetite and reports that she has not been eating and drinking well although she did have some oatmeal for breakfast today. She denies any injuries from falling, no head injury, loss of consciousness, neck or back pain. She denies any areas of pain at this time, she does not feel nauseous. Her states they have a neurologist in [place], they did contact the neurologist who does not feel this is an MS exacerbation and refer the patient to the ER. Patient's son states that up until 1 to 2 weeks ago, the patient was able to ambulate with a walker but she has been too weak to do so recently. Related Data Allergies Allergy/AdvReac Type Severity Reaction Status Date / Time sulfamethoxazole (From Allergy Unknown Unknown Verified 06/26/24 14:03 Bactrim) trimethoprim (From Bactrim) Allergy Unknown Unknown Verified 06/26/24 14:03 Review of Systems ROS Constitutional Denies: fever or chills Ears, nose, mouth, and throat Denies: throat pain or nasal congestion Cardiovascular Denies: chest pain Respiratory Denies: shortness of breath Gastrointestinal Denies: nausea or vomiting Musculoskeletal Denies: back pain or neck pain Integumentary/Breast Denies: rash Neurological Reports: weakness in extremities; Denies: headache or numbness in extremities Hematologic/Lymphatic Denies: easy bruising or easy bleeding Exam Narrative Exam Narrative: Gen.: Awake, alert, in no distress Head: Normocephalic, atraumatic ENT: Moist mucous membranes Respiratory: No respiratory distress, lungs clear bilaterally Cardio: Regular rate and rhythm Gastrointestinal: Abdomen is soft, nondistended and nontender to palpation Extremities: Moves extremities equally, no injuries noted; wound noted to the posterior left heel with no surrounding erythema, induration or purulence noted. Wound is deep into the subcutaneous tissue, no obvious bony exposure Psych: Normal mood and affect Neuro: No focal neuro deficit Skin: Warm, dry Constitutional Vital Signs, click to edit/add: Last Vital Signs Temp 97.8 F 06/26/24 14:00 Pulse 93 H 06/26/24 14:04 Resp 18 06/26/24 14:04 BP 124/86 06/26/24 14:04 Pulse Ox 99 06/26/24 14:04 O2 Del Method Room Air 06/26/24 14:04 Course Vital Signs Vital signs: Vital Signs Temperature 97.8 F 06/26/24 14:00 Temperature 97.8 F 06/26/24 14:00 Pulse Rate 93 H 06/26/24 14:04 Respiratory Rate 18 06/26/24 14:04 Blood Pressure 124/86 06/26/24 14:04 Pulse Oximetry 99 06/26/24 14:04 Oxygen Delivery Method Room Air 06/26/24 14:04 MDM - Weakness MDM Narrative Medical decision making narrative: Patient sent for CTs of the head, chest and x-rays of the left foot to rule out osteomyelitis. No evidence of acute process at this time. Lab studies show leukocytosis with bandemia and elevated lactic acid as well as elevated BUN and creatinine. We do not have old studies to compare to. Catheter urine specimen was negative for UTI. Blood cultures are pending, we do not currently have a source of infection for this patient so Rocephin was given for antibiotic coverage until blood cultures result. Potassium was also noted to be 6.2, redrawn to confirm at 6.1. Insulin and D50 given in the ER. She has no EKG changes, no complaints of chest pain or shortness of breath. She was given IV fluids. She is admitted as an inpatient with telemetry for hyperkalemia, weakness, acute kidney injury and SIRS. Stable at time of admission to hospitalist SHARED APC VISIT, PHYSICIAN ATTESTATION: [id number] I performed a substantive part of the MDM during the patient?s E/M visit. I personally evaluated and examined the patient. I personally made or approved the documented management plan and acknowledge its risk of complications. Medical Records Attestation: I reviewed the patient's medical records. Lab Data Attestation: I reviewed the patient's lab results. Labs: Lab Results 06/26/24 06/26/24 06/26/24 Range/Units 14:43 15:48 16:20 WBC 18.1 H (4.0-11.0) 10^3/uL RBC 4.63 (4.20-5.40) 10^6/uL Hgb 13.3 (12.0-16.0) g/dL Hct 42.0 (36.0-48.0) % MCV 90.7 (81.0-99.0) fL MCH 28.7 (26.7-34.0) pg MCHC 31.7 (29.9-35.2) g/dL RDW 12.8 (11.0-15.0) % Plt Count 551 H (150-450) 10^3/uL MPV 10.2 (9.5-13.5) fL Seg Neuts % (Manual) 90.0 H (43.0-75.0) Band Neutrophils % 2.0 (0-5) % Lymphocytes % (Manual) 2.0 L (20.5-60.0) % Monocytes % (Manual) 6.0 (1.7-12.0) % Eosinophils % (Manual) 0.0 L (0.9-7.0) % Basophils % (Manual) 0.0 L (0.2-2.0) % Neutrophils # (Manual) 16.29 H (1.4-6.5) 10^3/uL Band Neutrophils # 0.4 H (0.0-0.3) 10^3/uL Lymphocytes # (Manual) 0.36 L (1.20-3.80) 10^3/uL Monocytes # (Manual) 1.08 H (0.30-0.80) 10^3/uL Eosinophils # (Manual) 0.00 (0.00-0.70) 10^3/uL Basophils # (Manual) 0.00 (0.00-0.10) 10^3/uL ESR 20 (<=30) mm/hr PT 13.5 H (9.0-11.6) sec INR 1.31 Sodium 139 (136-145) mmol/L Potassium 6.2 H* 6.1 H* (3.5-5.1) mmol/L Chloride 104 (98-107) mmol/L Carbon Dioxide 21.0 (21.0-32.0) mmol/L Anion Gap 20.2 BUN 74.0 H (7.0-18.0) mg/dL Creatinine 2.86 H (0.55-1.02) mg/dL Est GFR ( Amer) 20 L (>=60 mL/min/1.73m^2) Est GFR (Non-Af Amer) 16 L (>=60 mL/min/1.73m^2) BUN/Creatinine Ratio 25.9 Glucose 113 H (74-106) mg/dL Lactate 4.4 H* (0.4-2.0) mmol/L Calcium 9.7 (8.5-10.1) mg/dL Magnesium 2.0 (1.8-2.4) mg/dL Total Bilirubin 0.9 (0.2-1.0) mg/dL AST 31 (15-37) U/L ALT 22 (14-59) U/L Alkaline Phosphatase 159 H (46-116) U/L Troponin I High Sens 17.5 (4.0-51.3) pg/mL C-Reactive Protein 3.45 H (<=0.50) mg/dL Total Protein 7.1 (6.4-8.2) g/dL Albumin 3.4 (3.4-5.0) g/dL Globulin 3.7 g/dL Albumin/Globulin Ratio 0.9 TSH 0.656 (0.358-3.740) uIU/mL Urine Color Lt. yellow (YELLOW) Urine Clarity Clear (CLEAR) Urine pH 5.5 (5.0-9.0) Ur Specific [place] 1.025 (1.005-1.025) Urine Protein Negative (NEG/TRACE) mg/dL Urine Glucose (UA) Negative (NEGATIVE) mg/dL Urine Ketones Negative (NEGATIVE) mg/dL Urine Occult Blood Trace-i (NEGATIVE) Urine Nitrite Negative (NEGATIVE) Urine Bilirubin Negative (NEGATIVE) Urine Urobilinogen 0.2 (0.2-1.0) EU/dL Ur Leukocyte Esterase Negative (NEGATIVE) Imaging Data CT scan - head: Attestation: I have reviewed the pertinent imaging results. Radiologist's impression: ITS Impressions Chest X-Ray 06/26/24 14:43 IMPRESSION: No acute osseous abnormality. No definite lytic lesions of the calcaneus. Electronically authenticated by: KRYSTAL CID Date: 06/26/2024 16:[address] 06/26/24 14:43 IMPRESSION: No acute intracranial abnormality. No acute intracranial infarct visualized by this modality. (MRI is more sensitive). No acute intracranial hemorrhage Electronically authenticated by: WICHO LAWS Date: 06/26/2024 16:19 Foot X-Ray 06/26/24 15:27 IMPRESSION: No acute osseous abnormality. No definite lytic lesions of the calcaneus. Electronically authenticated by: KRYSTAL CID Date: 06/26/2024 16:11 ECG Data Attestation: I personally reviewed and interpreted this ECG as follows: (Normal sinus rhythm at a rate of [address] elevation or ectopy. EKG reviewed by attending physician) Discharge Plan Discharge Chief Complaint: Weakness Clinical Impression: Weakness, Acute kidney injury, Acute hyperkalemia, SIRS (systemic inflammatory response syndrome) Patient Disposition: Admitted As Inpatient Time of Disposition Decision: 16:44 Print Language: Turkish Referrals: SUSAN PERRY [Primary Care Provider] - 1 week
[2024-06-26 14:57] LABS: Hemoglobin 13.3 g/dL (12.0-16.0); Mean Corpuscular HGB Conc 31.7 g/dL (29.9-35.2); Mean Corpuscular Hemoglobin 28.7 pg (26.7-34.0); Mean Corpuscular Volume 90.7 fL (81.0-99.0); Mean Platelet Volume 10.2 fL (9.5-13.5); Platelet Count 551 10^3/uL (150-450); Red Blood Count 4.63 10^6/uL (4.20-5.40); Red Cell Distribution Width 12.8 % (11.0-15.0); White Blood Count 18.1 10^3/uL (4.0-11.0)
[2024-06-26 15:06] LABS: Erythrocyte Sedimentation Rate 20 mm/hr (<=30)
[2024-06-26 15:13] LABS: INR 1.31; Prothrombin Time 13.5 sec (9.0-11.6)
[2024-06-26 15:21] LABS: Lactate/Lactic Acid 4.4 mmol/L (0.4-2.0)
[2024-06-26 15:22] LABS: Band Neutrophils Absolute 0.4 10^3/uL (0.0-0.3); Lymphocytes Absolute Manual 0.36 10^3/uL (1.20-3.80); Monocytes Absolute Manual 1.08 10^3/uL (0.30-0.80); Segmented Neut Absolute Manual 16.29 10^3/uL (1.4-6.5)
[2024-06-26 15:25] LABS: Alanine Aminotransferase 22 U/L (14-59); Albumin Globulin Ratio 0.9; Albumin Level 3.4 g/dL (3.4-5.0); Alkaline Phosphatase 159 U/L (46-116); Anion Gap 20.2; Aspartate Amino Transferase 31 U/L (15-37); BUN Creatinine Ratio 25.9; Bilirubin Total 0.9 mg/dL (0.2-1.0); C Reactive Protein 3.45 mg/dL (<=0.50); Calcium 9.7 mg/dL (8.5-10.1); Chloride 104 mmol/L (98-107); Estimated GFR (African America 20 (>=60 mL/min/1.73m^2); Estimated GFR (Non-African Ame 16 (>=60 mL/min/1.73m^2); Globulin 3.7 g/dL; Glucose 113 mg/dL (74-106); Sodium 139 mmol/L (136-145); Thyroid Stimulating Hormone 0.656 uIU/mL (0.358-3.740); Total Protein 7.1 g/dL (6.4-8.2); Troponin I High Sensitivity 17.5 pg/mL (4.0-51.3)
--- NOTE | 2024-06-26 15:27 | XR_ITS ---
The [address] [address] Patient Name: JERICA DONATO MRN: [id number] date: 1955 Sex: F Assigned Patient Location: ER Current Patient Location: ER Accession/Order Number: [id number] Exam Date: 06/26/2024 15:32 Report Date: 06/26/2024 16:11 At the request of: JENNIFER SALAZAR Procedure: XR foot LT min 3V XR foot LT min 3V, XR chest 1V 06/26/2024 3:32 PM EST CLINICAL INDICATION: Heel wound COMPARISON: None. TECHNIQUE: 3 views of the left foot. FINDINGS: Left foot The bones are intact. The alignment is anatomic. There are degenerative changes of the joints. There is a soft tissue defect overlying the the posterior calcaneus. CHEST: AP view of the chest. Cardiopulmonary silhouette is within normal limits. No focal parenchymal opacities concerning for consolidation. No pneumothorax or gross pleural effusion. Soft tissues are grossly unremarkable. XR/XR foot LT min 3V IMPRESSION: No acute osseous abnormality. No definite lytic lesions of the calcaneus. Electronically authenticated by: KRYSTAL CID Date: 06/26/2024 16:11
[2024-06-26] MEDS: 0.9 % SODIUM CHLORIDE 1,000 ML 999 ML IV (15:35)
[2024-06-26 15:42] LABS: Potassium 6.2 mmol/L (3.5-5.1)
[2024-06-26 16:08] LABS: Potassium 6.1 mmol/L (3.5-5.1)
[2024-06-26] MEDS: DEXTROSE 50 %-WATER 25 GM/50 ML SYRINGE IV (16:28)
[2024-06-26] MEDS: INSULIN REGULAR, HUMAN (100 UNIT/ML) 10 ML MDV 10 UNIT IV (16:28)
[2024-06-26 16:31] LABS: Bilirubin Urine NEGATIVE (NEGATIVE); Blood Urine TRACE-I (NEGATIVE); Clarity Urine CLEAR (CLEAR); Color Urine LT. YELLOW (YELLOW); Glucose Urine UA NEGATIVE (NEGATIVE); Ketones Urine NEGATIVE (NEGATIVE); Leukocyte Esterase Urine NEGATIVE (NEGATIVE); Nitrite Urine NEGATIVE (NEGATIVE); Protein Urine NEGATIVE (NEG/TRACE); Specific Gravity Urine 1.025 (1.005-1.025); Urobilinogen Urine 0.2 EU/dL (0.2-1.0); pH Urine 5.5 (5.0-9.0)
[2024-06-26 16:32] LABS: Urine Microscopic Indicated YES
[2024-06-26 16:46] LABS: RBC Urine 0-2 #/HPF (0-2); WBC Urine 0-2 #/HPF (NONE SEEN)
[2024-06-26 16:47] LABS: Bacteria Urine TRACE #/HPF (NONE SEEN); Cast Seen? SEEN #/LPF (NONE SEEN); Crystals Seen? None Seen #/HPF (None Seen); Hyaline Casts Urine MODERATE; Mucus Urine NONE SEEN (NONE SEEN); Squamous Epithelial Cell Urine FEW #/LPF (NONE/RARE); Urine Culture Indicated NO
[2024-06-26] MEDS: CEFTRIAXONE 2,000 MG in 0.9 % SODIUM CHLORIDE 100 ML 200 MG IV (16:51)
--- OUTSIDE RECORDS SUMMARY | 2024-06-26 18:16 | XMS_ITS | CCD ---
Author Organization [facility] Care Team Providers Care Station Repairer Name Role Phone Susan Boucher MD Primary Care Provider [phone] SUSAN BOUCHER Primary Care Unavailable Tj Garcia Attending Unavailable Tj Garcia Admitting Unavailable DEFRANCE, SUSAN Matute Primary Care Unavailable Susan Gordon Unavailable Tj Garcia Attending Unavailable Tj Garcia Admitting Unavailable jT Garcia Admitting Unavailable DEFBREANN, SUSAN Matute Primary [...] SUSAN Matute Primary Care Unavailable DEFRANCE, SUSAN Matuet Referring Unavailable SUSAN BOUCHER Primary Care Unavailable [...] Prochlorperazine; Translations: [PROCHLORPERAZINE] Drug Allergy 10-11-19 18 [facility] (20 sources) Sulfamethoxazole; Translations: [SULFAMETHOXAZOLE] Drug Allergy 03-26-20 [facility] (20 sources) Sulfamethoxazole / Trimethoprim; Translations: [SULFAMETHOXAZOLE-T RIMETHOPRIM] Drug Allergy 03-08-20 Dizziness, Unknown [facility] (1 source) Sulfamethoxazole / Trimethoprim; Translations: [Bactrim] Drug Allergy [facility] (3 sources) Sulfamethoxazole Propensity to adverse reactions 03-26-20 [facility] Healthcare Medications Current Medications Medication Drug [...] mg extended release oral capsule (20 sources) V-rdtixg-Q-aspartate Receptor Antagonist Start: 03-09-2024 memantine (NAMENDA XR) 28 mg capsule,sprinkle,ER 24hr TAKE 1 CAPSULE EVERY DAY 90 capsule 1 03/09/2024 Active Start: 04-30-2023 memantine (NAM ENDA XR) 28 mg capsule,sprinkle,ER 24hr TAKE 1 CAPSULE EVERY DAY 90 capsule 1 04/30/2023 Active Start: 12-20-2022 take 1 capsule by [facility] every twenty-four hours in the morning Memantine [...] 06-21-20 ABSOLUTE BASOPHIL 0.1 X10E9/L Normal 0.0-0.2 [facility] Comment on above: Performed By: #### C DAVID LAGOS, 1987-11 #### [facility] ([id number]) [address] [place] [address]46 ABSOLUTE NEUTROPHIL 6.9 X10E9/L High 1.5-6.6 [facility] Comment on above: Performed By: #### C DAVID LAGOS, 1987-11 #### [facility] ([id number]) [address] [place] [address] 43567 Basophils/100 WBC (Bld) 0.7 % Normal [facility] Comment on above: Performed By: #### C DAVID LAGOS, 1987-11 #### [facility] ([id number]) [address] [place] [address] [place] [address] Eosinophils (Bld) [#/Vol] 0.1 10*3/uL Normal 0.0-0.4 [facility] Comment on above: Performed By: #### Vinh LAGOS [facility], 1987-11 #### [facility] ([id number]) [address] [place] [address] 24171 Eosinophils/100 WBC (Bld) 1.3 % Normal [facility] Comment on above: Performed By: #### Vinh LAGOS [facility], 1987-11 #### [facility] ([id number]) [address] [place] [address] 11273 Erythrocyte distribution width (RBC) [Ratio] 13.4 % Normal 11.5-15.0 [facility] Comment on above: Performed By: #### Vinh LAGOS [facility], 1987-11 #### [facility] ([id number]) [address] [place] [address] 96988 Hematocrit (Bld) [Volume fraction] 35.1 % Normal 35-47 [facility] Comment on above: Performed By: #### Vinh LAGOS [facility], 1987-11 #### [facility] ([id number]) [address] [place] [address] 92990 Hemoglobin (Bld) [Mass/Vol] 11.5 g/dL Low 11.7-15.5 [facility] Comment on above: Performed By: #### Vinh LAGOS [facility], 1987-11 #### [facility] ([id number]) [address] [place] [address] 79905 Lymphocytes (Bld) [#/Vol] 0.5 10*3/uL Low 1.0-3.5 [facility] Comment on above: Performed By: #### Vinh LAGOS [facility], 1987-11 #### [facility] ([id number]) [address] [place] [address] 98732 Lymphocytes/100 WBC (Bld) 5.5 % Normal [facility] Comment on above: Performed By: #### Vinh LAGOS [facility], 1987-11 #### [facility] ([id number]) [address] [place] [address] 20509 MCH (RBC) [Entitic mass] 29.3 pg Normal 27-34 [facility] Comment on above: Performed By: #### Vinh LAGOS [facility], 1987-11 #### [facility] ([id number]) [address] [place] [address] 44381 MCHC (RBC) [Mass/Vol] 32.7 g/dL Normal 32-36 [facility] Comment on above: Performed By: #### Vinh LAGOS [facility], 1987-11 #### [facility] ([id number]) [address] [place] [address] 90338 MCV (RBC) [Entitic vol] 90 fL Normal 80-100 [facility] Comment on above: Performed By: #### Vinh LAGOS [facility], 1987-11 #### [facility] ([id number]) [address] [place] [address] 94138 Monocytes (Bld) [#/Vol] 0.9 10*3/uL Normal 0-0.9 [facility] Comment on above: Performed By: #### Vinh LAGOS CMP, 1987-11 #### [facility] ([id number]) [address] [place] [address] 91959 Monocytes/100 WBC (Bld) 10.4 % Normal [facility] Comment on above: Performed By: #### Vinh LAGSO CMP, 1987-11 #### [facility] ([id number]) [address] [place] [address] 52123 Neutrophils/100 WBC (Bld) 82.1 % Normal [facility] Comment on above: Performed By: #### Vinh LAGOS CMP, 1987-11 #### [facility] ([id number]) [address] [place] [address] 62732 Platelet mean volume (Bld) [Entitic vol] 8.1 fL Normal 7-12 [facility] Comment on above: Performed By: #### Vinh LAGOS [facility], 1987-11 #### [facility] ([id number]) [address] [place] [address] 86256 Platelets (Bld) [#/Vol] 470 10*3/uL High 150-450 [facility] Comment on above: Performed By: #### Vinh LAGOS [facility], 1987-11 #### [facility] ([id number]) [address] [place] [address] 51515 RBC COUNT 3.92 X10E12/L Normal 3.80-5.20 [facility] Comment on above: Performed By: #### Vinh LAGOS [facility], 1987-11 #### [facility] ([id number]) [address] [place] [address] 55457 WBC (Bld) [#/Vol] 8.4 10*3/uL Normal 4.0-11.0 [facility] Comment on above: Performed By: #### Vinh LAGOS [facility], 1987-11 #### [facility] ([id number]) [address] [place] [address] 67727 COMPREHENSIVE METABOLIC PANE Chace 06-21-2024 Albumin [Mass/Vol] 3.7 g/dL Normal 3.2-5.3 [facility] Comment on above: Performed By: #### 6 30-4 #### [facility] ([id number]) [address], [address] [place] [address] ALP [Catalytic activity/Vol] 90 U/L Normal 39-130 [facility] Comment on above: Performed By: #### 6 30-4 #### [facility] ([id number]) [address], [address] [place] [address] ALT [Catalytic activity/Vol] 13 U/L Normal 0-31 [facility] Comment on above: Performed By: #### 6 30-4 #### [facility] ([id number]) [address] [place] [address] Anion gap [Moles/Vol] 12 mmol/L Normal 5-15 [facility] Comment on above: Performed By: #### 6 30-4 #### [facility] ([id number]) [address], [address] [place] [address] AST [Catalytic activity/Vol] 16 U/L Normal 0-41 [facility] Comment on above: Performed By: #### 6 30-4 #### [facility] ([id number]) [address], [address] [place] [address] Bilirubin [Mass/Vol] 0.5 mg/dL Normal 0.3-1.2 [facility] Comment on above: Performed By: #### 6 30-4 #### [facility] ([id number]) [address] [place] [address] Calcium [Mass/Vol] 9.2 mg/dL Normal 8.5-10.5 [facility] Comment on above: Performed By: #### 6 30-4 #### [facility] ([id number]) [address], [address] [place] [address] Chloride [Moles/Vol] 99 mmol/L Normal 98-109 [facility] Comment on above: Performed By: #### 6 30-4 #### [facility] ([id number]) [address] [place] [address] CO2 [Moles/Vol] 23 mmol/L Normal 22-32 [facility] Comment on above: Performed By: #### 6 30-4 #### [facility] ([id number]) [address] [place] [address] Creatinine [Mass/Vol] 1.72 mg/dL High 0.40-1.00 [facility] Comment on above: Result Comment: METH OD TRACEABLE TO IDMS STANDARD Performed By: #### 6 30-4 #### [facility] ([id number]) [address] [place] [address] GFR/1.73 sq M.predicted among non-blacks MDRD (S/P/Bld) [Vol rate/Area] 32 mL/min/{1.73_m2} Low >59 [facility] Comment on above: Result Comment: Reported eGFR is based on the CKD-EPI 2020 equation that does not use a race coefficient. Performed By: #### 6 30-4 #### [facility] ([id number]) [address] [place] [address] Glucose [Mass/Vol] 103 mg/dL High 65-99 [facility] Comment on above: Performed By: #### 6 30-4 #### [facility] ([id number]) [address] [place] [address] Potassium [Moles/Vol] 4.9 mmol/L Normal 3.5-5.0 [facility] Comment on above: Performed By: #### 6 30-4 #### [facility] ([id number]) [address] [address] [place] [address] Protein [Mass/Vol] 7.1 g/dL Normal 6.0-8.0 [facility] Comment on above: Performed By: #### 6 30-4 #### [facility] ([id number]) [address] [place] [address] Sodium [Moles/Vol] 134 mmol/L Normal 134-146 [facility] Comment on above: Performed By: #### 6 30-4 #### [facility] ([id number]) [address] [place] [address] Urea nitrogen [Mass/Vol] 34 mg/dL High 5-27 [facility] Comment on above: Performed By: #### 6 30-4 #### [facility] ([id number]) [address] [place] [address] CRP [Mass/Vol]on 06-21-2024 C REACTIVE PROTEIN 0.9 mg/dL High 0.000-0.744 [facility] Comment on above: Performed By: #### 6 30-4 #### [facility] ([id number]) [address] [place] [address] Lactate (P rohini) [Moles/Vol]o n 06-21-2024 LACTATE W/REFLEX 2.0 mmol/L Normal 0.4-2.0 [facility] Comment on above: Result Comment: Result did not trigger repeat Lactate, re-order if needed. Performed By: #### 6 30-4 #### [facility] ([id number]) [address] [place] [address] URINE CULTUREon 06-21-2024 Bacteria identified Cx Nom [...] <=16 F VANCOMYCIN S 2 F Susceptible [facility] Comment on above: Performed By: #### 6 30-4 #### [facility] ([id number]) [address] [place] [address] URN MACROSCOPIC NURon 2023 BILIRUBIN MARIA E Negative Normal NEG [facility] Comment on above: Performed By: #### N UM #### [facility] ([id number]) [address] [place] [address], [place] [address] BLOOD/HGB MARIA E Trace Abnormal NEG [facility] Comment on above: Performed By: #### N UM #### [facility] ([id number]) [address] [place] [address], [place] [address] GLUCOSE MARIA E Negative Normal NEG [facility] Comment on above: Performed By: #### N UM #### [facility] ([id number]) [address] [place] [address], [place] [address] KETONES MARIA E Negative Normal NEG [facility] Comment on above: Performed By: #### N UM #### [facility] ([id number]) [address] [place] [address], [place] [address] LEUKOCYTE ESTERASE MARIA E Small Abnormal NEG [facility] Comment on above: Performed By: #### N UM #### [facility] ([id number]) [address] [place] [address], [place] [address] NITRITE MARIA E Negative Normal NEG [facility] Comment on above: Performed By: #### N UM #### [facility] ([id number]) [address] [place] [address], [place] [address] PH MARIA E 6.5 Normal 5.0-8.5 [facility] Comment on above: Performed By: #### N UM #### [facility] ([id number]) [address] [place] [address], [place] [address] PROTEIN MARIA E Negative Normal NEG [facility] Comment on above: Performed By: #### N UM #### [facility] ([id number]) [address] [place] [address], [place] [address] SPECIFIC GRAVITY MARIA E 1.015 Normal 1.003-1.035 [facility] Comment on above: Performed By: #### N UM #### [facility] ([id number]) [address] [place] [address]107 UROBILINOGEN MARIA E 0.2 eu/dL Normal <1.1 [facility] Comment on above: Performed By: #### N UM #### [facility] ([id number]) [address] [place] [address]497 XR FOOT LT MIN 3 VWSon 06-21 [...] Patel MD on 06/21/2024 2:44 PM Normal [facility] URINALYSISon 06-16-2024 Amorphous sediment LM Ql (Urine sed) PRESENT Abnormal NONE [facility] Comment on above: Performed By: #### U A #### [facility] ([id number]) [address] [place] [address] 33391 Bilirubin Ql (U) Negative Normal NEG [facility] Comment on above: Performed By: #### U A #### [facility] ([id number]) [address] [place] [address] 12039 BLOOD/HGB Trace Abnormal NEG [facility] Comment on above: Performed By: #### U A #### [facility] ([id number]) [address] [place] [address] 62092 Color (U) YELLOW Normal YELLOW [facility] Comment on above: Performed By: #### U A #### [facility] ([id number]) [address] [place] [address] 57066 Glucose Ql (U) Negative Normal NEG [facility] Comment on above: Performed By: #### U A #### [facility] ([id number]) [address] [place] [address] [place] [address] Ketones Ql (U) Negative Normal NEG [facility] Comment on above: Performed By: #### U A #### [facility] ([id number]) [address] [place] [address] [place] [address] Leukocyte esterase Test strip Ql (U) MODERATE Abnormal NEG [facility] Comment on above: Performed By: #### U A #### [facility] ([id number]) [address] [place] [address] [place] [address] Nitrite Ql (U) Positive Abnormal NEG [facility] Comment on above: Performed By: #### U A #### [facility] ([id number]) [address] [place] [address] 22326 pH (U) 6.5 [pH] Normal 5.0-8.5 [facility] Comment on above: Performed By: #### U A #### [facility] ([id number]) [address] [place] [address] [place] [address] Protein Ql (U) Trace Abnormal NEG [facility] Comment on above: Performed By: #### U A #### [facility] ([id number]) [address] [place] [address] [place] [address] R.B.CELLS 0 /hpf Normal 0-5 [facility] Comment on above: Performed By: #### U A #### [facility] ([id number]) [address] [place] [address] [place] [address] Specific gravity (U) [Rel density] 1.015 Normal 1.003-1.035 [facility] Comment on above: Performed By: #### U A #### [facility] ([id number]) [address] [place] [address] [place] [address] TURBIDITY HAZY Abnormal CLEAR [facility] Comment on above: Performed By: #### U A #### [facility] ([id number]) [address] [place] [address] 18453 Urinalysis dipstick W Reflex Microscopic panel (U) URINE RECEIVED WITHOUT PRESERVATIVE Normal [facility] Comment on above: Performed By: #### U A #### [facility] ([id number]) [address] [place] [address] 78906 Urobilinogen Qn (U) 0.2 {Bro'U}/dL Normal <1.1 [facility] Comment on above: Performed By: #### U A #### [facility] ([id number]) [address] [place] [address] 33498 W.B.CELLS 25 /hpf High 0-5 [facility] Comment on above: Performed By: #### U A #### [facility] ([id number]) [address] [place] [address]40[address] URINE CULTUREon 06-16-2024 Bacteria identified Cx Nom (U) SPECIMEN NOTES URINE RECEIVED WITHOUT PRESERVATIVE CULTURE RESULTS >100,000 ORGANISMS/mL LACTOSE FERMENTING GRAM NEGATIVE RODS >100,000 ORGANISMS/mL NON LACTOSE FERMENTING GRAM NEGATIVE RODS 10,000 to 50,000 ORGANISMS/mL GRAM POSITIVE COCCI URINE RECEIVED WITHOUT PRESERVATIVE-DELAYS IN TRANSPORT MAY AFFECT RESULTS.INTERPRET WITH CAUTION AND CLINICAL CORRELATION IS RECOMMENDED. Contact laboratory if definitive identifications are clinically indicated. Normal [facility] Comment on above: Performed By: #### 6 30-4 #### [facility] ([id number]) [address] [place] [address] XR KNEE RT 3 VWSon 4 XR [...] Otto Wong MD on 05/19/2024 5:29 PM [facility] XR Knee - right 3 Viewson [...] Otto Wong MD on 05/19/2024 5:29 PM [facility] Otto Wong MD - 05/19/2024 [...] Otto Wong MD on 05/19/2024 5:29 PM [facility] Radiology Study observation (narrative) [facility] - right 3 ViewsOrder ed By: Otto Wong on 05-19-2024 [facility] Work Phone: MAMM SCREENING BILATERAL W C bottle cleaner 04-15-2024 MAMM SCREENING BILATERAL W CAD MAMM SCREENING BILATERAL W CAD JERICA SON KINGA 1955 [id number] EXAM: MAMM SCREENING BILATERAL W CAD, 04/15/2024 [...] PM 1 b MAMM 1 YR Normal [facility] URINALYSISon 11-06-2023 Bilirubin Ql (U) Negative Normal NEG [facility] Comment on above: Performed By: #### U A #### [facility] ([id number]) [address] [place] [address] 11265 BLOOD/HGB Trace Abnormal NEG [facility] Comment on above: Performed By: #### U A #### [facility] ([id number]) [address] [place] [address] 82344 Color (U) YELLOW Normal YELLOW [facility] Comment on above: Performed By: #### U A #### [facility] ([id number]) [address] [place] [address] 14945 Glucose Ql (U) Negative Normal NEG [facility] Comment on above: Performed By: #### U A #### [facility] ([id number]) [address] [place] [address] [place] [address] Ketones Ql (U) Negative Normal NEG [facility] Comment on above: Performed By: #### U A #### [facility] ([id number]) [address] [place] [address] 72371 Leukocyte esterase Test strip Ql (U) Large Abnormal NEG [facility] Comment on above: Performed By: #### U A #### [facility] ([id number]) [address] [place] [address] 84731 Nitrite Ql (U) Positive Abnormal NEG [facility] Comment on above: Performed By: #### U A #### [facility] ([id number]) [address] [place] [address] 31615 pH (U) 6.5 [pH] Normal 5.0-8.5 [facility] Comment on above: Performed By: #### U A #### [facility] ([id number]) [address] [place] [address] 48614 Protein Ql (U) Negative Normal NEG [facility] Comment on above: Performed By: #### U A #### [facility] ([id number]) [address] [place] [address] 10739 R.B.CELLS 1 /hpf Normal 0-5 [facility] Comment on above: Performed By: #### U A #### [facility] ([id number]) [address] [place] [address] 33466 Specific gravity (U) [Rel density] 1.015 Normal 1.003-1.035 [facility] Comment on above: Performed By: #### U A #### [facility] ([id number]) [address] [place] [address] SQUAMOUS EPITHELIUM 6 /hpf High 0-5 [facility] Comment on above: Performed By: #### U A #### [facility] ([id number]) [address] [place] [address] 89411 TURBIDITY HAZY Abnormal CLEAR [facility] Comment on above: Performed By: #### U A #### [facility] ([id number]) [address] [place] [address] 21910 Urobilinogen Qn (U) 0.2 {Bro'U}/dL Normal <1.1 [facility] Comment on above: Performed By: #### U A #### [facility] ([id number]) [address] [place] [address] 91590 W.B.CELLS 30 /hpf High 0-5 [facility] Comment on above: Performed By: #### U A #### [facility] ([id number]) [address] [place] [address] URINE CULTUREon 11-06-2023 Bacteria identified Cx Nom (U) SPECIMEN NOTES URINE RECEIVED WITHOUT PRESERVATIVE CULTURE RESULTS 50,000 to 100,000 ORGANISMS/mL ENTEROBACTER CLOACAE COMPLEX 10,000 to 50,000 ORGANISMS/mL NORMAL URO GENITAL GENA URINE RECEIVED WITHOUT PRESERVATIVE-DELAYS IN TRANSPORT MAY AFFECT RESULTS.INTERPRET WITH CAUTION AND CLINICAL CORRELATION IS RECOMMENDED. Normal [facility] Comment on above: Performed By: #### 6 30-4 #### [facility] ([id number]) [address], [address] [place] [address] Coding Queryon 10-24-2023 Coding Query [id number]. [id number] [facility] Coding Summaryon 10-24-2023 Coding Summary HTMLBase 64 RppedttgPRd4jWe+PGhlY WQ+OO8PWLUjL85rfOVfuO 2fR7RFXAjYDiuyJKWRPLf QCaZzrcUxVW1odGLsVVLq IC8+CD5jFOEkSagftPOfz 3M8eRM9N20rbf7yNThumC B3ZJDpBdVwixnic5naaId 6IDcuNmluOyBt ITNvbJ74RFV4yK21Ja99u QItjYPgi4wdwFa2MaGaIV XtXZB8jAdpTJyvr1VvOAR jK56aaOGzh7R0 CZQrgFgzcJFwJfZfqPT7b E3yHQmirdlgm3vmdusxWi a2jd01jQOem7Z0pDY1K0M zqrB8LVYtnDKd LczrwZDZrZ3yddifu6swp lbqBmCyJBNaABh3FHj4BE XrhBqaHkJhQN41VTE7YMD vymYaB9DeHXEp iQcdMwZ5s7H4Qk2TU5WRN aaaP0XOXYMTHQdcmAX+PC 77yk95L1JbIhwfWgg2SIQ uKYK4aGG8aM0q LRRqYDqjl0H9iIL6Z5Zps pTtof5sh0jdUUXuRQnmH0 5ooETep8K5MSNbvDS0JBB coTenBqIjdV87 Oyc+UNDncZsho6IxVmwkx 5wqd3vvfVr0HncpXPXyfs GneBtoGEW1a8ZoJi1mAKR dgPC5tRD0tA1o ZzXpCtX1EXmzH447JqNea IIqVfzbR85gL8PzkRB+PH XrPnu7ZCFffApeMC8wI9V hZGRpbmctbGVm pDqiQI4wYIAuyzsmBVKud R4bIARxS1b8PeWvDuR5SV paR4ZvREQrzvzsXm37pV9 qAjGzBhL7FFjd I0YaacI7LVZrsGTxSXljQ LF0J62ub8R3KPGmDIJrPL B6lHY7pT3woDspdrjqjCK mdDsgdmVydGlj XFqvHCcdJ878JTQmxAddF kNvZGluZyBEYXRlOiAgMD MvMjgvMjAyNDwvdGQ+PHR lGHT0eAqrVEHx nUFsPWujZt3bvFfwbEitZ C3tFXCelzkaLKBtxL8qJM EpvOXecKjoMX9kPNShogj hj287BzZsHID0 SKCvvWKlK4TzyH1mHzWuT CHvZRDaL4WptTNsBFnfA2 41IRqiYcW3CSWmtaIsJ5T sLWFsaWduOiB0 k0S6Sq2Xt3DkgcysS3Eqk OJnXxDoYtkbTCb5H8XbBu wvdHI+ZE52KBUiXI68AOy 7SAL2xFqvLPoi ZRYiV1OtxC2yFkAuMHWfY GRkOyc+PHRhYmxlIHdpZH RoPScxMDAlJyBzdHlsZT0 iBt4lHZJfWNKc iSlalKFpNuTgi2ndSLYqP LsfEM5ctYuhA8AllIH5AN Gja3t6Vy43P62aW1QvgVO +EAFksJJ9yDV3 mX2hQtXrMbH0EGzvM790F vEkcYLsSnzvz9isr4kgmP j2BlP8HDUuzyGdpEekLLH 8z8HuEa14D93l IHdpZHRoPSIxNSUiIHZhb Wpgci6jqE5iRq3+PGNvbC B5aHB7yP9jHdCsBcP3KJq eO268QdZqrZYt Mmwjb2ira8sclXt9NrNrM TJpnnRlxNoeIDH0u1RvKa 27P5VzrEsvz8GqLep2lo6 2wYXpn4I3fFL6 N9WgRERpfqbztWCoiWxpY L0xNLHnwvdgMQNprB6rTC KqD2i0FqIjWwS2GRjmU0J bftM6EQGriKSi PZXyvTRXjO3bleuqg9ope sleNuRsDGKiZHp2TIg4PG DueEunOoLjVQQ8DsR1WSA 3eOPddL1whXsj nhknrI2wAdg+ECD0rDXqb JZHOS2oFiuetEI+PHRkIH P6gQzhDTciSGWkrI4sGSD kL3s7JbPcVpU0 ZAnqZ4HmzeA9FQFeaRIwA PEbjPISlO1rhafcc5tncc dhXeYfZHNqWYb6SBa8IOM saWduOiBsZWZ0 XnH5ODU6zCTlrU7xiYnfs bcdpS1bTdx+QmlydGggRG Q2DFi4Z8XpXsq2WGRwpRq nBL7jfUFkNNkt Ff6mqRwbcJjuHK2iNXNys pcmp029VtKrj1gtCWScrE JgSHleDSE8J16ya2J4WKM rCJNkWLF1kKE5 bV0tsThtsubuqIIhfEjig uPibZvoWWhmVNyvA112BZ CiiLhrKfZmBHf5W9YeRht 4CEShbJvtPH7t mBWfMCwpRf9foKolbUjkR V9yRISyekevm831SfQuj0 ikQXKmqSPoBBlrIDK9O53 ql2N9VJNjKHNo QIK1wNI9aR6rrTvzfirjn GVmdDsgdmVydGljYWwtYW qqL275BNEuoHilSuJzhNj 6S2UgIdy9IQDn dSeyWG6ehZDqBIldDe0ev JcbjQqhVR4mVJRwdnbhs3 72ZiQdk5jzOGAkkZMfNDd fPZX8I31pr9J0 FZAiUEGjEGI6rOH7aF9vl GlnbjogbGVmdDsgdmVydG ipHDbgSRfkG133YOCafFj nPlBhdGllbnQg BFbiEOd0B5JsImpjtXW+P I01YGHzQA68wACfbEKhe9 fhyBu5ScXiFAKeSFF2eUp bMWfgo9HwGWPb A48wbEEhy4U2PXMtmTeyu RFrHcHqyGX1dK3lZRrmll vma7bvwhsdAvetb8fucg4 9aS96I70wIToh ZHRoPSIzMCUiIHZhbGlnb d5xtT8bBg9+ZGTrmYE8qE I8eE0xOXTgRhP4ZZckW81 9InRvcCIvPjxj l4ofl6okoPo4ZsX1DBGfg oWotPzwNLK3f6KaDu68Q9 9sIHdpZHRoPSIyMCUiIHZ yrSogrv9gjA6w Ii8+JYGffNG7hOP5mQ2dO xSfHvB3MKcmQ444JlIzvL MtIniqZ22nK3XhdJD+PHR oVxy2RGBwrVky EF6xuCUfCAtaYi2fTWO2P mPyCuMpQAgqJ9ZfIESfrd sfhylcwIH4AONfZUAqfR9 1Dw4rsHqyMRTb zUYWzS1lcseqo2bdacivC dBcRQReDIs3QRn5QNNkaK acYtMgMGI0IxU0AYW4aLE ueZ8tcJnekort cI9zM8IvUZJvnnzmRq03k B3fGwFuIsE0RFbcIeu+SE rUODjkW9qHNTbSFQIPJe7 3P5KgKfm0RNSy dMsnLD9ndAZiOCzrOl0og PxpaXoiMA6lJXBgflsbIE YggP2fCSYeuIDxqJsdOV3 dOOLgiqnlp895 EsGyPEF4AHTbwNPiA2Lmq I3cRhHuDAGqZLJrK1OgbS JcAMwbN870PZcbVkD3KCM dpbSaA0WmKFQw aSuqVkL3c6Q6Bk3kCP3wM c0aKNG9UJ10FN22eGLek8 Y0dFG9K5OhJMFmhyoiqgh lnCQ3QYDiYPKz zS17oRRnTLyeLz5tf9K9c 292ACJoMAMlfU00St6qpE kzBRWosVZXcI5lgfhut3l vcjogIzAwMDAw CPr7ECn9NZCnoKfhNfDsO CL3IcB6KRQ5uUBshC1eqQ epmahzoV2kEsz+NjggWWV tmfW7E9FrXyn1 GKBxuKrgHG8uxGXzHIdwG z4cxOjlrNhzSQ0sWBElic npFAXkqA2lEQMyoUMfbOz yWN2eEFTwthxa g367QjGsVVW7RSSwyHYdG 5AwwC1uSaUcHYVeOCGfH7 YkwJWyRMinW050MKnpRsL 2JOBmhrLwS3Vp HCHejUbxErZ6v9E6Iv2EZ M1IFWQ6K3KkHpx4ZXAazK puXT4ssBTfPZzrLn5geWi nzNwwCB6xYRTl yhkjXQCexS6qOPPirRTtd IylPK7pPZMfeeshl495Ti ItZOU3SYXotYWcX1PbhE8 yOiAjMDAwMDAw L4QmhYRxCGzhX232HJniM rS3LEYmlyPuF8MxOFXqgF qdTtH9y4D4Hq1WERrezTH +NW61vy31D1Bz QljaMve6GDNeWZJ7tZC8c L1hCOAvDFoql2C8wVX8P0 WzqaYdqn4kb9thNVPkYWr pV15njITth4D6 NAKphKL0OQIxrYehZzYnd G93Oyc+ISLiaVlud2HwZs pnp4jsl8xghRz5NoToQHI gdmFsaWduPSJ0 j4MoFu23U86kNGdkSYUtK JWuKVNvTHPcxAbhaa9btO 9wIi8+JBKarQX6vXI7eD2 nFpJnSiF0BOcf Q929WbQzhWYzPceoj2kbe 4mrtFk6RoAdMAZuspOacV fnCLV2g3OhJg31Y1ZnhVc em7YrZgt1xo50 qSDeq3Y0zCM8Z6AsBFEsh azwmMMkyGvtNV4nTRNttk jyOLTmqN1uSQUhP2h0JlR tBtN7PUxbT7Pn chE5VDHrxQBpRSAekMCLg O5senygk3ogqsfsPnXxLW HmJRg3ANb8ZPVeoDgpWuU bMLG7IsO9GSS3 xIBnkD4dgCncecasjR2wK yc+MGx0u3oohOGmQB1mvH V9UC87ZF63fKNeo4E6qPC 6E1TrCORepecp ayaafHT8TUIxTEWjkI59X y5wrNcfMa3oLMNuLAM6XQ GgxUQcH1TuqL6pUeGsNBM nCSEbO4LbnWXv PQlmS477MDahZcK3WIJoi uGqW8EyHCHtpFskNqX3o1 P0Hc9EBE06YX93PM14vRZ fn1F2pFL2N4Oj UEGrzvxfblxhxBE5DDOsR HFssN96Zk9vzFyxQl6zWP UwUGN2YQTbdWGvX0OuwI1 yOiAjMDAwMDAw G6EvpFCkUXtsP053EUayP eU5JUTihnVaF1DvGRLfgJ azZeF4w5Y8Qf6SEc90RG7 1UB75vCSzn6X0 zSS2C5MoTURbbriqebxii VR9RYYxWWHwvY72Rr9naU neCj8bYXFnVVI7FZGgjSL dO7NiqG4rFsXw PQXkQSBiR5CwmQRuBTyeY 456CCplDfV2ZCKheaRpJ2 CtNVCzgIdcPoY4r0T4Fm6 HHSfsnnh2Z7Qs PjwvdHI+KV79WIUzFC92s ASohJDmt3depUi6ZnXfNL WbFED5nGswWFoqt6ZhUFM aG98giDAdk6T0 IGN (more content not included)... Normal [facility] URINALYSISon 10-09-2023 Bilirubin Ql (U) Negative Normal NEG [facility] Comment on above: Performed By: #### U A #### [facility] ([id number]) [address] [place] [address] BLOOD/HGB Trace Abnormal NEG [facility] Comment on above: Performed By: #### U A #### [facility] ([id number]) [address] [place] [address] 22233 Color (U) YELLOW Normal YELLOW [facility] Comment on above: Performed By: #### U A #### [facility] ([id number]) [address] [place] [address] 64471 Glucose Ql (U) Negative Normal NEG [facility] Comment on above: Performed By: #### U A #### [facility] ([id number]) [address] [place] [address] [place] [address] Ketones Ql (U) Negative Normal NEG [facility] Comment on above: Performed By: #### U A #### [facility] ([id number]) [address] [place] [address] 17855 Leukocyte esterase Test strip Ql (U) Large Abnormal NEG [facility] Comment on above: Performed By: #### U A #### [facility] ([id number]) [address] [place] [address] 23748 Nitrite Ql (U) Negative Normal NEG [facility] Comment on above: Performed By: #### U A #### [facility] ([id number]) [address] [place] [address] 27650 pH (U) 6.5 [pH] Normal 5.0-8.5 [facility] Comment on above: Performed By: #### U A #### [facility] ([id number]) [address] [place] [address] 52984 Protein Ql (U) Negative Normal NEG [facility] Comment on above: Performed By: #### U A #### [facility] ([id number]) [address] [place] [address] 14126 R.B.CELLS 1 /hpf Normal 0-5 [facility] Comment on above: Performed By: #### U A #### [facility] ([id number]) [address] [place] [address] 43851 Specific gravity (U) [Rel density] 1.010 Normal 1.003-1.035 [facility] Comment on above: Performed By: #### U A #### [facility] ([id number]) [address] [place] [address] SQUAMOUS EPITHELIUM 0 to 1 Normal 0-5 [facility] Comment on above: Performed By: #### U A #### [facility] ([id number]) [address] [place] [address] 22652 TURBIDITY CLEAR Normal CLEAR [facility] Comment on above: Performed By: #### U A #### [facility] ([id number]) [address] [place] [address] 95257 Urobilinogen Qn (U) 0.2 {Bro'U}/dL Normal <1.1 [facility] Comment on above: Performed By: #### U A #### [facility] ([id number]) [address] [facility] [address], [place] [address] W.B.CELLS 6 /hpf High 0-5 [facility] Comment on above: Performed By: #### U A #### [facility] ([id number]) [address] [facility] [address], [place] [address] URINE CULTUREon 10-09-2023 Bacteria identified Cx Nom [...] CAUTION AND CLINICAL CORRELATION IS RECOMMENDED. Normal [facility] Comment on above: Performed By: #### 6 30-4 #### [facility] ([id number]) [address] [facility] [facility], [address] [place] [address] Provider Orderson 09-23-2023 Provider Orders [id number]#[id number] 0OTGTIFF [facility] C Urineon 09-13-2023 C Urine >100,000 [...] <=0.5/9.5 Verified Vanc S 2 Verified Normal [facility] Comment on above: Performed By: #### [id number] ####[facility] (DEFAULT)[address] [place] [address] Coding Summaryon 02-18-2023 Coding Summary HTMLBase 64 WvouafwiJIc8tUh+PGhlY WQ+JX8TMZMtL18sjXMieM 7kS7ZYZYkJCazbPTEWYVi RToMhfqDmVH4wrJMyZCLc IC8+CR8mKQMcIkavpIPhy 7N4vOU2G57nit3uQEzjdW O1DYCiFoSwmvzkw5jpuDa 6IDcuNmluOyBt BCXmaY21GBI1vY00Ab02v VMyuANks9fvsCu8DwHfLD FpEWG2qPjiWRmjg8RjPOX hB95jqGBhy5K6 JTHvwLwsbTMiUaSlnNA0q F6zMResvfbcx0yetkhhWw w6ne51xHPoj2K6xCO0Z6P pjyH0XSZunFCc WfndsIZGwK0uzrhxt0her wqtQoLyMXUzBUv6QSx4LF KtrJtxXgFzLF65ZUY0IFG grtXuN3ZmWMTb xPmsDcS0f3E3Jz1FJ4DAT ltzE1YEBQQOECajtDM+PC 15hd48A4LiPddfOwn5SYF mWHJ4xGQ2cS1d KDJjLZsao0H4kYH4F7Ily lHvab3uu5joKXQpNSfmY4 3jiIZeh8S4HZUspUB4TJF diRfzQtDdcG55 Oyc+NBJmqTqpq2AsRuvso 0qno2cjzBw5KsxhAIItww TqgDtfQNA0i6BnVe6bSJR ekMX7rIV2uU0f WlOmYvI6QPltQ512FaBcq JBkSknjE22iD5ImaNR+PH OuRmj1RLOenCecDG7sQ0M hZGRpbmctbGVm iCpcTQ9nYLGgcfnvQOAxl O6eRZWuT3t7TwNzEiJ8SU suA8XeYEMzifehQq82lV3 gWmNiBxN1DXpx T0XcgbT6OTNalPDxBAcnR TC4D20ut3F6RTUkXIAaOJ R4vPM6rD7voAdholgszHR mdDsgdmVydGlj IMzjSBvoF438SSHdrPxuR kNvZGluZyBEYXRlOiAgMD cvMjQvMjAyMzwvdGQ+PHR wIDN7dQemZWSj sAAmFLguFo9tiWnbdGdnR E1iYXRcdaaoDPXjjK7pGE EpoYPnlSpvSE8pHGAokso go570TvWjAVZ7 KHAvoSEiO3VkxM5cCeGrA WGpXAUsF0WnlSHcGMqwP5 77VSiyPdL0HFKhjdJsE7H sLWFsaWduOiB0 j8T3Fr3Xy1XsnhzbP0Pyo FWwOaSeFolwCLc9S3NhAw wvdHI+YB77LZJfQU41YAz 9PVV9cKmtSKui CJViT2UvuQ1zMeIaQEFuU GRkOyc+PHRhYmxlIHdpZH RoPScxMDAlJyBzdHlsZT0 rLa6dZPIcLTEv bYurrFZsIgTnt7esLVDmY AdqFE2grNglU4BoyAF3RQ Wzz9h4Vz69F64vZ7LvoLN +VBYmsTR2lFS4 vB4kTfPqYyM6XLbcA997K gVrnEZjSlsof8fos2zyiP c3QrR4ICDgyjKxrRdiTGY 4f0YeKq51O19j IHdpZHRoPSIxNSUiIHZhb Lyfvz7pdW9aIc4+PGNvbC J6zIM9uW6tJvHhZtU8UIb kU839AsEyiHXd Memhq0cbo0prbFb4MuNeC FKmidOpbUwnJVV3m9PuTd 78G6YupAqil1JqZbd1mr4 8mEZll5H2wRB9 O4ZnJNExculeuEPgmKzfF N8bFURnganqJPJtxB4fSH CjX5c4PpOxJwH5QWrmQ8G yyoT6ASVpjQGb NXBvzAGUyU4fzgbde3dhh gyxOeJyJGLeHGl3VTk4ZV GopGguSsTvVXS6OmK9PLY 4iPCueD9qtOft saaqeB2pVqw+MNS0iURoc FNUVP5qLczieLB+PHRkIH S2jFhfIFsbDBXxkX4pPHV jD0e4VkCpQrB3 PHzeR6FzwcH0LCRciUMoV LWvoSVDyK7btsltm1hiek xiQtEzBMNlAVj0BOt1JGS saWduOiBsZWZ0 XwU6FKB7rMQlzT1fyKmdm nhliR1fWbt+QmlydGggRG J9JBv9E1WrSao3OSVzvYv yUI9yaRDeQVpb Nl1sxErvmSucDR9gDXIpj zjrb614JiIzg3spSDKxmV SeHOcmKIK1C54ev7M8LMB iLJZnJHM6zFK7 xI8keUtudjzouIMmvQesm hNveKeoAOchKZtzN327QT JwrWsqIoHzJRn7Q0MoTrg 7IYCdjAcmJL2j rMYlBDsmQc3jmWfatCdjD C9zRDBzvkbmj939VdQjg3 llOQOqtUVjOPirJUM6Q58 mr2H5INYqTQQl VBS5yFI4nK9tvWbcbdxyz GVmdDsgdmVydGljYWwtYW afG237DBDmbQdwLoObxSg 7B8DmSek8OXEo kNttMJ0mwNVuWUcvRm3js BfmiFiqJP6uZYRpbvaas5 37EgAeq0diTNVjlBInIXi qXKS7P52xk4I8 GTPkZSChCST2dYB7qM0nl GlnbjogbGVmdDsgdmVydG hhWLhnBYnqR179UNQzgSa nPlBhdGllbnQg UUymTEq9D7ToXzsylQI+P D11SFRsWM56bTZesRQin8 hhrGa3ArJfOSCnNVM9pWz zAGuve5XsEUBn F41maZIcy9G5OMUkvEjlc PCtRcYxkTF2rV3nNPmkcb zhz7iggqciHksqw1ovbr8 5xX33K14zOPfa ZHRoPSIzMCUiIHZhbGlnb f0qdZ8iJv2+FKTkwYQ2nG E0bN2sODArZrR0MJmeG41 9InRvcCIvPjxj x8fqy9nnpVc3TdE3MCElo lXicRznFQQ3a1VnIj11L0 9sIHdpZHRoPSIyMCUiIHZ bjPawbv2mhN6x Ii8+PODatHF7aLN6wG8eO rVeAhY6IJxeQ638AxZcrH BqVivqH94rT9AbeKV+PHR kWfn7VDFxbAhj OA4wyKRcZIesXn4jLXO5R mSqIxGcEKutD8CeDBHahv psltfiyPN3WBJzMIYftW0 1Iy6rnCgjWRLp yJSFqV5zntvuu2ftjqamF kOrUJJpBEp0HGg8YDXgsE axQzSuNIC2KfJ5MHS7mWB vpD8xnDndyvfa bL0gE1JtFOGbwljcKz88t U3uGrLfXwE6MCluEkt+SE dWLIxtF8oBNDjGDFGCWh6 8G6EwFwr8GFDs bDkjWS4ggGVeLFqfJu2yr GlepTblKQ0jMGCbfdufSG RphK5aUPDxwSNykXdjYS8 jSMWccuffc055 ZxCiDZZ3SEEyfSIkP7Pch K8tWfZbHVBzGWIhS8EtqG ZwMWmqN122MSbeRfO7DVQ lwmLqG1EgUNCk xPwwEhR4f0V7Yl8jHW0zJ x6iFMO2SO27AX07wGQgz7 C5wDI4I2NrRVMsimvjibd veJG4QDIeDJRs wB17cDGcDKdnNa7ch0O5u 369IPCaYCFpyR37Lf0snU jvWRPfpRRDjN0vdkfcz7y vcjogIzAwMDAw FUd1OQj2CLKxmZioMqJfX EE6CpN6CSM1eWPinH5joJ hwhtpzxO3pEmf+NjcgWWV yatF3O7YaMzu4 XNUggCliCD8wkGGcMMftX a6arZqopVsxYQ2vNVOdjc dhXQDxnS9tUOAyjZEjzDr sHC9qKYYggedy m306FtSfHSB1HSNrgSCvC 2YpuX5bRwJnNNYvDHYoU7 BruVMnDSvkJ091HVpnTjA 8HJYefoCxQ6Mc QTWhsXozTyL1t4H4Ww3FO I5UXWS9D3StXhy6ADKqsB tvFZ9hkVOfMNvqJw3qdXw pzZqoUA3vBAGd gyapPFQntR7cCHPofTIyf UfdNP5bXZFutxqcu001Ej IuZKP8MBWelILlP4GovT7 yOiAjMDAwMDAw G9TjeGFwMHtaV719XFvbQ oK9HEIjweJtN9GzTMFwsI bkQsW9x3L2Wz0WCQslO7P uD7DcnLzkgWW+ YH37xx37F4AkFrkxEag6J OUtULF2vEE8yO2xYSBePG esb3U0qNA3U1HpgzGhag0 mj4uzHSKyEQza D57nfVCxc7U0KAJbaEU3N LMnsBsrRrGdfN39Ncc+PG ZhxPcgx5ZuScesi1dvr2u fvLv0HpIcHNWc sqVokPbvLPI3w8NpOn09K 29sIHdpZHRoPSIzMCUiIH TwwDhcaf4mrV6pBv5+PGN zkAO8qTX6vF4l CnGbZqZ6NPjfG866NhBab ZArUdngq5mhl2cztPq1Of YhDYFtlvInwJeeZXX8k7B yPp77K0EtjRpi l7RmLzf3je46lBGto1E4i IV0M9OjCEHknnaueZHmeA lvHI3eZANaizhwJHFwdG9 vOPMbA2q2LrHy QdQ7KNffH3PsilH9BSDjv RMoQJTlmHTVjB6wzokmc2 rnwdiuSwAxBUMgWOm9EKd 0LWFsaWduOiBs IQO6JgE4ZRV7pDPweT9ao QxsewnkcI2dMog+UGh5c2 sbwIDtFM5llRM9RN83AZ7 3fMTst4Q6rWB0 R9FqFRBrhjcmegkvpGS6O SRxDSPwmU42An2wnNnnCu 5qMOVtOZT2GJRbqSSsW4G nkX8oOvCpBXXf QTCwU6LeyKPbKIjoD396W LsnLsP4ILGurnFwI7ZcCQ QomScvNeF7g2R0Mn0QAN4 6FK50AJ15kWHi a6A7oDJ1A5MwVMNlfjyel wiqsPH0XBJbZCGayS67Om 4iySkoHm7yUANvECY1TTM dfGTjB1ZrqT1s MqZcQIQgMUDbU6UteQPqY TxaK997CJxtKkD5INIzan LeY9HsJVGloAsjNsQ3y4H 8Oq8IYe76ZN89 KC07mHXli6X7eSC8M4JoD NGyyfzhwemecIV1RDUtJO OyiR03Qd5nsPbiVq3zGEP wVPR2WPXuxZIr N3XwdQ8vPuRsSRRlGNKuJ 4VaiAMtQNttQ021PNgoNf Q0WQRlryCzC6UfUOKwwEu kFlF6o2H2Bd1Q AEahcuz9L4TcUqoieCJ+P C96RHMuNT73aVTrsUYrk0 rgkAf8FjHsHSRrEUR7cCl uAMrte7KfJPCf Y29 (more content not included)... [facility] Consent Formson 02-13-2023 Consent Forms [id number]#1. [facility] Orderson 02-13-2023 Provider Orders [id number] .[id number] [facility] Anesthesia Noteon 02-12-2023 Anesthesia Note Patient: [...] on: 02/12/2023 12:46 EDT] Susan Gordon DO [facility] Anesthesia Note Patient: JERICA CALDWELL Age: [...] All Problems Memory loss / SNOMED CT 46088758 / Confirmed High blood cholesterol / SNOMED CT 94107461 / Confirmed Hypertension / SNOMED CT 4291016057 / Confirmed Multiple sclerosis / SNOMED CT 85493225 / Confirmed Urinary retention / SNOMED CT 873121002 / Confirmed Bladder spasms / SNOMED CT 956592188 / Confirmed Histories Family History: Entire family history is negative. Procedure history: Cystoscopy ([id number]) on 08/04/2019 at 64 Years. Comments: 08/04/2019 12:06 Oneida Gillespie RN With suprapubic cath exchange Aspiration of bladder; with insertion of suprapubic catheter (22761) on 06/30/2019 at 64 Years. Vaginal hysterectomy (668222121). Colonoscopy (830136556). Esophagogastroduodeno scopy (904379911). Social History Electronic Cigarette/Vaping Assessment Electronic Cigarette [...] Temporomandibular joint mobility: Good. Mouth: Teeth ( Kinder ). Respiratory: Lungs are clear to auscultation. Cardiovascular: Normal rate, Regular rhythm. Neurologic: Alert, Oriented. Review / Management Laboratory Results Plan [place] [employer]#( A) physical status classification: [...] 02/12/2023 11:21 EDT] Susan Gordon DO Normal [facility] Inpatient Patient Summaryon 02-12-2023 Inpatient Patient Summary [address] [address] Patient Discharge Instructions Name: KINGAJERICA Matute ADELAIDA : 1955 Patient Address: [address] [place] [id number] Primary Care Provider: Name: SUSAN BOUCHER After you are discharged if you find you have any questions, please, call [phone] ext [phone] to speak to a nurse. Discharge Diagnosis: 1:Urinary retention Prescription Information: If you have been given a prescription for narcotics, seek immediate medical attention if you have any difficulty breathing or any sudden status changes such as confusion and sleepiness. If you or anyone you know is experiencing suicidal thoughts, mental health, alcohol and/or drug addiction problems; contact the [facility] 18/02 Crisis Hotline -Text 4HIPO to 218906. If you received any narcotics, sedation, or [...] business decisions or sign any legal documents [facility] would like to thank you for [...] for Disease Control and Prevention March 2014 [facility] MAGR Intraoperative Recordon 02-12-2023 MAGR Intraoperative Record MAGR Intra-Op Record Summary Primary Physician: Tj Garcia MD Finalized Date/Time: 02/12/23 12:00:55 Pt. Name: JERICA CALDWELL ADELAIDA /Sex: 1955 FEMALE Med Rec #: [id number] Physician: Tj Garcia MD Financial #: [id number] Pt. Type: D Room/Bed: / Admit/Disch: 02/12/23 [...] Role Performed Surgeon - Primary Anesthesiologist of Advanced Clinical Specialist Record Time In 02/12/23 11:23:00 02/12/23 11:13:00 02/12/23 11:13:00 Time Out 02/12/23 11:28:00 02/12/23 11:31:00 02/12/23 11:31:00 Procedure Catheter Insertion Catheter Insertion Catheter Insertion Suprapubic Suprapubic Suprapubic Last Modified By: Jenni Stephens RN, Barbara RN Long, Barbara RN 02/12/23 12:00:51 02/12/23 12:00:51 02/12/23 12:00:51 Entry 4 Entry 5 Case Attendee Tracy Seo RN, Brittany E CSFA CST Role Performed Advanced Clinical Specialist Scrub Personnel Time In 02/12/23 11:13:00 02/12/23 [...] of the procedure: Last Modified By: Jenni Stephens RN 02/12/23 11:24:47 Post-Care Text: O.760 Patient [...] Text: A.310 (more content not included)... Normal [facility] MAGR Postoperative Recordon 02-12-2023 MAGR Postoperative Record MAGR Phase II Record Summary Primary Physician: Tj Garcia MD Finalized Date/Time: 02/12/23 12:58:02 Pt. Name: JERICA CALDWELL ADELAIDA Charles/Sex: 1955 FEMALE Med Rec #: [id number] Physician: Tj Garcia MD Financial #: [id number] Pt. Type: D Room/Bed: / Admit/Disch: 02/12/23 [...] Signed By: Blane Muir RN 02/12/23 12:58 [facility] MAGR Preoperative Recordon 0 02-12-2023 MAGR Preoperative Record MAGR Pre-Op Record Summary Primary Physician: Tj Garcia MD Finalized Date/Time: 02/12/23 11:17:43 Pt. Name: JERICA CALDWELL ADELAIDA SuarezO.B./Sex: 1955 FEMALE Med Rec #: [id number] Physician: Tj Garcia MD Financial #: [id number] Pt. Type: D Room/Bed: / Admit/Disch: 02/12/23 [...] Signed By: Jenni Stephens RN 02/12/23 11:17 [facility] Patient Handouton 02-12-2023 Patient Handout [facility] Progress Note - Nurseon 01-26 Progress Note - Nurse Pt's returned call and verbalized understanding of arrival time at 0915 on saturday02/12/23. Verbalized understanding of medications to take and NPO after midnight. [Electronically Signed on: 02/11/2023 13:50 EDT] Jenni Stephens RN [Verified on: 02/11/2023 13:50 EDT] Jenni Stephens RN [facility] Coding Summaryon 02-08-2023 Coding Summary HTMLBase 64 TwxiionkAZh9aBu+PGhlY WQ+PC8GMYYpE92zuMRjgT 9nL4RNHQvPYmmmPRYWREx NOrAjklXaWV4luTFmRWIm IC8+XI8jMWWgKzfihQRxt 9D7fUI2J44pcb9iCOdlpR G0XEQtVlFwelpci2deeSt 6IDcuNmluOyBt PJZiyD18HKO8hV11Vp10h SAzsVLjw9azgMq1JuJxDX AtVOT1mCmsIVbgp3WgLQR bE48giQBvq3F0 DKXbfFqllXGiWcLivUD7a I2eZOlgwirxm2jecymqAa e6lm09tXOay9U9vTW3Q3S eirQ1XHZzlCNg GtctwSJGdO7whrxwk8kfd qrjOdMrZXRvWXc1QFz4GD SscKgdZoAsJW44ZMM8RFH abgWtX4UlNDIg fJhcWbM9b5N8Vr3PS8RWW xmgG4LDBNFNMNxctAU+PC 82cy79Y0OiFwyaYzb0JGA fFTT9xAB7iO8b MIKiCYanl9M8jGY8K7Fah kRzow5sh7ygICWvMYywA5 9ckEVdm1T4QNNxxJC8JLY aoDmcYwWomU95 Oyc+NJPuaJess2IqZyrdh 3fxq7miqWi5DxmrYPCxfd GhfXltQKG8g9NoKe6vPTE tlEW5dWP2oC3p IfYuVdQ7KKsgC329DiLzg TNuEfdpC85tZ5LwoPG+PH WdVbp4RBWvfBzsDU7aV5A hZGRpbmctbGVm qZlcNV3qMJLrndicJUWgl Z7lLGEoT1n1GmVyBfD4BF bzF1RaPUNdvetuFs11fB8 aAvUoDmA8OWmg W2UcvuL2WEPqyNKlZNvkT WN8K11rx3S5TNPvYFErPD D3pPC3yP4tmKbjfkwqpGG mdDsgdmVydGlj LOdfFOidR833WOJkaBkxH kNvZGluZyBEYXRlOiAgMD cvMTQvMjAyMzwvdGQ+PHR pITL2mJgdDLSx xMQkIGfpZg4tyXbyqCnmM O6bRREpfpkuWSRqlM0tTE KriIVleYndVH2aFAXezfr gp293EyIdAFI0 VMPiiETrK4LjjI0cKjQrM YNmILYnU5HwxCEwJMmmU6 29FVcaIxY7PAVczgFdC8S sLWFsaWduOiB0 v1Q4Qu7Xf5BcupyjI7Kku LIsDkRzYbmuTFf5W5GmPm wvdHI+RP20CCVnTV88CJc 4BTA9oIvaDPju KYGnF2PrcA6gPzIeQOYzR GRkOyc+PHRhYmxlIHdpZH RoPScxMDAlJyBzdHlsZT0 jQy6nSJScPEDn wRmknOSbXlSeo3slPRZfO OscIL5exUlhO6UonBH1WO Ghe8n3Kt47K89zY1NcsJP +TTQliCC7nGB2 dD7aCnVwVeD5GNduT986U wOxcTSgIeima1bba2aloL o5WoS9SQLexdDuzZynZHT 9d6RgHm29L06w IHdpZHRoPSIxNSUiIHZhb Xyzfv0lmU0sLi9+PGNvbC Z1bJT7jR4qSxWzMcW3ZGv wO933ZpRurZEf Tlbpg8cix1rhgZt7YeSjO PXgejVebVuaJYM4a1EtOp 46B0ZizAfie2DkDhr4hh1 2oFGmp3P5tZH7 A8BuICAylxaxtHDpbLbbF Z6cFEYzsiuiPGQjaC9fNA NyL3b3MsRrEuJ1BVulT9T sshN6ENLbpPXe KELzmMFMcT0lldwtm3vsb tuyYbUdWZSnFFi1SAb9PF PiuDyaGjIkZQX0FwW0LRQ 4qSAtjI7jpShw liwowU3xHvc+DIV6oCRju LWJDM8jZhlcsAH+PHRkIH V9hNldYCabERYyjM9oGSG jF6g7BfBtMyQ3 PBozU4QfcrT0XQQawSOnU MRskDCSbA7mulghf2nvpz jzZbZuUVOcYUr6GNh3CKI saWduOiBsZWZ0 VpY7KYW1cSOzhI3enScsn qycjA4tPje+QmlydGggRG A5SQm9V9XgQcn2RJQkgKg cAB6lbARnFKje Iu9jfZixrCimTR3dNEFfo lwap833IqBqx0dcTQWlrX LpATlmBHJ2R82tn4X7KJF yRMAbWLO8qMV6 wC9isKndunzbpFQxrKudo cOvoWpvHRetPDawR118BM FdzNbhVkFxOLg8B6RoJlw 1WMXqxEqyBG7q uJFeJCkcVi0xpYplqHmfR Y8sPCDcemiju052YeZgj2 vdHJFqiMUhBQqrCRP2U05 yl2Z3CLBaSQPn NHY8uPT0zS0ayNmodlymo GVmdDsgdmVydGljYWwtYW beA195DEHgaYdzQbDisIr 1B3CqVtl4WKXd hLaiFE2hgZAmPLxiGe9ak TwnjMejUG4iJJMqovlxg2 28BeWoz1wiMKVjfWEsJJm jUSP7K42mh6F6 JAWhPOUpYZH9pYS0sA7ac GlnbjogbGVmdDsgdmVydG ikQOlwWYuoY923IGOpsZl nPlBhdGllbnQg CPulRLc5O3XhFxxvtTQ+P E97ZHEkYI96qOMzoQWpb0 gzaXb3IyEpBJDbLMV5mSb lRVypr0EbBDKs S15rjMJgx5F0JGArcHtuu OJzDoBcoWK3uI2wEZckzt yxi0wsvoomOqbnh7szsz5 5uH72C04zEOaf ZHRoPSIzMCUiIHZhbGlnb g7irF1tXi0+WHOkxDN5pC W8pE3iMGCkZbS5UOeuT23 9InRvcCIvPjxj o6zxp7norHq8ZcR3MKHdk pHouZrgBPC7b6EkGy83C3 9sIHdpZHRoPSIyMCUiIHZ wtHyygp9ftN1k Ii8+IMIuyBO0jJL3cJ5iA vSdWrL2PRemP795BcBlxY VqJmeaW63uT9ZfkDE+PHR wBhu6ZOSgaNyv UI4lmKJrVDihBe9pYHN1M eYiBbEzHTbcX5TpXEVdya zuteqqeQQ3FMFwTYGfzJ2 5Gw0vcQzoOFWl nJAReJ2wabwnr9anqheyX qRvUIQeNPc8TZg6DAQxwU kgGlUtRKP1QqP8PCA0rXA ovW6elYqpvhcs mJ6pO6MlEYMkcwvdDh11q O4bTbUiZjH3YBxkIcr+SE hRXRzgI8jINUfNNPCCNe4 2R4ZaBnd0ENRe cTaaIZ9bwREcJUrzRc7fc XbrqEspSG7pJAUfdbgvZH RvmC5uMZAuhUIgwWjkGX8 pLPFppmfag404 UjCpAAP0MEDxtUYzW6Gjp A0dTeAwPEQjTHCvO7XamZ NvKFqfL318PNzaLpE7GKG djkNbT6WkOSPr cMhfZcY5s9Z8Bb7fCO8yW r3hFLO6SL21AA78dLFeh0 W0qZS3E5GrURLcracebtj snRE8XCEdARZh gI31dOMmYWrdFe7xi0R0k 730VXLcKVHopU86Yc9ffP yhVDMzuWIGsR3aimxfx0v vcjogIzAwMDAw YQf8IXu0XDJjaDatUcQlT UD1YfQ2VDU6ePKkrT5tfR lkeskqwA1yCvo+NjcgWWV ojhD6C0WeSie2 ZMNzkWbuRS6qpMWkUTvyQ a1iiVwqjCruAM1wKJXtxn lkUPJdfN7iAMNhxFPyqMa yRL2rTENrosvs v372YbSlFLJ4SFEjxMUhC 3PulZ3uRyWfGTGdLRLpZ1 IckAXkQGezF398PFiuRpL 2PQGbpyMrW0Ny MHFzqNnhOeQ4k9C3Zw9OY A6YZNG2X3DtQuc2TPMyuL qhAV9sgMRrTLewIm3vcEz jwIgsPG3eMSZj ubynQTVvaT5zSBGwgIFie IgmVP5eANZvwvwtt469Gq AdLPG0YUZtjNUmT5YoaZ0 yOiAjMDAwMDAw Y9ArzMOxDFqzJ407UQhxU cP1SKGqqnSpU3KkCJBrwB lpAnA6n7L0Qb8VEGhyxPB +ZY65nr80Y8Gs LsixYwy6HCWyAYI3iQJ3a K0dSRWeLCstl2O3cTV2O9 VyyeDkmf9uo8lhHHDjOGp bG63dxZPlx4R7 KVDdvJM7RIObiUhdCxObz G93Oyc+GMUlbOucp4YyGy pfi7dpx0qhhYa9OfYkESY gdmFsaWduPSJ0 o5DoTa59Z29kRJcgKIKmJ XQxLQRuAXGzbDhozi1iwF 9wIi8+OUSkcGT4hHM3tB4 eNwJpWuA7ZHso Q805MbXduYBvAxsmi6wrc 8bovVo7SdRoIROweoSamQ oiNAU6m5JxUw20A6ZeiVx md0VcWcx5bz83 iHUpv9U9jOS2Z7IfQVFks qyxoMUgrLphTA0lLLStvs kjQRUqpS3gZGDhW3x3NbY hQtO2ENzgO4Gk rfT8IBZplWYlKDBjoNFJs N1ryncpg8qcmmxqFySoVH VbZSa7MUr2XFJqkWrrCnZ yOPX2KcE8EBQ3 cEUpyR9yiQcfvxgweK5bR yc+YWi4l9qidPJwBT6joT X8EC03AN55kUZbq0T8qAV 2P4XqMAVyowpt laabcVS1BJDrRXOndY59U f0orHhnJj5hEYUaNXW8UM OziTAwC6CraD3jZaBtQKL eCRJoP2YvhMPi CVfkK893VMvaRsQ8CPYhe uYtY6LkTUXksDnvLeK6w9 H0Iv7OBD20GN28HO08mXT vx6L1qEH8E6Co LFKsaniyrawriZU4GIRkM MZosD92Aq3kpZboGt5zHZ VvLPM2IBJswNYiR2LxnY9 yOiAjMDAwMDAw E5ExrXGaGRrfI026ZDkxE lI9FNRkysFiX7NnQKAivX djAbL7a9K9Ew5BFg65WQ0 7HT94pIPwb4T3 wGE7I1CdKOMijefjwswvq OA7RQTyJBHcmJ06Qb0owM yxKb6mFBEaJMW1SMOahTM pZ5ElvA3qUeYn KYChYWCvB5HlzDJuCMdgK 381YYxzLlO2GNPdyeRmD0 YnNFRpkOeyTkK1b6H9Tz7 GELdtkik5M2Mw PjwvdHI+RM47EPLiDM49l JDneEJxh6xobIf1PmJsHW IbXGH6qTpyBYykl1HfDVO [id number] IGN (more content not included)... Normal [facility] .Auto Diff 02-06-2023 Auto Sauk % 10 % Normal 08-09 [facility] Comment on above: Performed By: #### 7 [id number] ####[facility] (DEFAULT)[address] [place] [address] Baso Abs# 0.0 x10 Normal 0.0-0.2 [facility] Comment on above: Performed By: #### 7 [id number], [id number] ####[facility] (DEFAULT)[address] [place] [address] 49641 Basophils/100 WBC (Bld) 0.9 % Normal 0.2-2.0 [facility] Comment on above: Performed By: #### 7 [id number], [id number] ####[facility] (DEFAULT)[address] [place] [address] 16844 Eos Abs# 0.4 x10 Normal 0.0-0.4 [facility] Comment on above: Performed By: #### 7 [id number], [id number], [id number] ####[facility] (DEFAULT)[address] [place] [address] 94136 Eosinophils/100 WBC (Bld) 8.7 % High 0.9-4.0 [facility] Comment on above: Performed By: #### 7 [id number], [id number], [id number] ####[facility] (DEFAULT)[address] [place] [address] 49901 Lymph Abs# 0.9 x10 Low 1.3-2.9 [facility] Comment on above: Performed By: #### 7 [id number], [id number], [id number] ####[facility] (DEFAULT)[address] [place] [address] 56068 Lymphocytes/100 WBC (Bld) 19 % Normal 14-48 [facility] Comment on above: Performed By: #### 7 [id number], [id number], [id number] ####[facility] (DEFAULT)[address] [place] [address] 20619 Sauk Abs# 0.4 x10 Normal 0.0-0.8 [facility] Comment on above: Performed By: #### 7 [id number], [id number], [id number] ####[facility] (DEFAULT)[address] [place] [address] 33800 Neut Abs# 2.8 x10 Normal 1.5-9.2 [facility] Comment on above: Performed By: #### 7 [id number], [id number], [id number] ####[facility] (DEFAULT)[address] [place] [address] 87470 Neutrophils/100 WBC (Bld) 62 % Normal 44-88 [facility] Comment on above: Performed By: #### 7 [id number], [id number], [id number] ####[facility] (DEFAULT)[address] [place] [address] 12809 BMP Standardon 02-06-2023 eGFR Non AA 50 mL/min/1.73m2 Invalid Interpretation Code [facility] Comment on above: Performed By: #### 7 [id number], [id number], [id number] ####[facility] (DEFAULT)[address] [place] [address] 57802 eGFR AA 60 mL/min/1.73m2 Invalid Interpretation Code [facility] Comment on above: Performed By: #### 7 [id number], [id number], [id number] ####[facility] (DEFAULT)[address] [place] [address] 99014 Anion gap [Moles/Vol] 10.9 mmol/L Normal 5.0-19.0 [facility] Comment on above: Performed By: #### 7 [id number], [id number], [id number] ####[facility] (DEFAULT)[address] [place] [address] 73068 Calcium [Mass/Vol] 8.9 mg/dL Normal 8.9-10.3 [facility] Comment on above: Performed By: #### 7 [id number], [id number], [id number] ####[facility] (DEFAULT)[address] [place] [address]7890 Chloride [Moles/Vol] 104 mmol/L Normal 101-111 [facility] Comment on above: Performed By: #### 7 [id number], [id number], [id number] ####[facility] (DEFAULT)[address] [place] [address] 53068 CO2 [Moles/Vol] 29 mmol/L Normal 21-32 [facility] Comment on above: Performed By: #### 7 [id number], [id number], [id number] ####[facility] (DEFAULT)[address] [place] [address] 12830 Creatinine [Mass/Vol] 1.10 mg/dL Normal 0.60-1.30 [facility] Comment on above: Performed By: #### 7 [id number], [id number], [id number] ####[facility] (DEFAULT)[address] [place] [address] 51057 Glucose [Mass/Vol] 88.0 mg/dL Normal 74.0-118.0 [facility] Comment on above: Performed By: #### 7 [id number], [id number], [id number] ####[facility] (DEFAULT)[address] [place] [address] Osmolality 279 mOsm/L Invalid Interpretation Code [facility] Comment on above: Performed By: #### 7 [id number], [id number], [id number] ####[facility] (DEFAULT)[address] [place] [address]9735 Potassium [Moles/Vol] 4.9 mmol/L Normal 3.6-5.1 [facility] Comment on above: Performed By: #### 7 [id number], [id number], [id number] ####[facility] (DEFAULT)[address] [place] [address] Sodium [Moles/Vol] 139.0 mmol/L Normal 136.0-144.0 [facility] Comment on above: Performed By: #### 7 [id number], [id number], [id number] ####[facility] (DEFAULT)[address] [place] [address] Urea nitrogen [Mass/Vol] 18 mg/dL Normal 8-26 [facility] Comment on above: Performed By: #### 7 [id number], [id number], [id number] ####[facility] (DEFAULT)[address] [place] [address] Urea nitrogen/Creatinine [Mass ratio] 16.3 mg/mg High 4.6-16.2 [facility] Comment on above: Performed By: #### 7 [id number], [id number], [id number] ####[facility] (DEFAULT)[address] [place] [address] 14210 CBC w/ Auto Diffon 3 Erythrocyte distribution width (RBC) [Ratio] 14.4 % Normal 11.5-15.0 [facility] Comment on above: Performed By: #### 7 [id number], [id number], [id number] ####[facility] (DEFAULT)[address] [place] [address] Hematocrit (Bld) [Volume fraction] 38.4 % Normal 33.7-40.4 [facility] Comment on above: Performed By: #### 7 [id number], [id number], [id number] ####[facility] (DEFAULT)[address] [place] [address] Hemoglobin (Bld) [Mass/Vol] 12.5 g/dL Normal 11.3-15.9 [facility] Comment on above: Performed By: #### 7 [id number], [id number], [id number] ####[facility] (DEFAULT)[address] [place] [address] Man Diff? Auto Invalid Interpretation Code [facility] Comment on above: Performed By: #### 7 [id number], [id number], [id number] ####[facility] (DEFAULT)[address] [place] [address] MCH (RBC) [Entitic mass] 28 pg Normal 24-34 [facility] Comment on above: Performed By: #### 7 [id number], [id number], [id number] ####[facility] (DEFAULT)[address] [place] [address] MCHC (RBC) [Mass/Vol] 33 g/dL Normal 26-37 [facility] Comment on above: Performed By: #### 7 [id number], [id number], [id number] ####[facility] (DEFAULT)[address] [place] [address] MCV (RBC) [Entitic vol] 87 fL Normal 81-100 [facility] Comment on above: Performed By: #### 7 [id number], [id number], [id number] ####[facility] (DEFAULT)[address] [place] [address] Platelet 330 x10 Normal 138-427 [facility] Comment on above: Performed By: #### 7 [id number], [id number], [id number] ####[facility] (DEFAULT)[address] [place] [address] Platelet mean volume (Bld) [Entitic vol] 9.3 fL Normal 6.3-10.2 [facility] Comment on above: Performed By: #### 7 [id number], [id number], [id number] ####[facility] (DEFAULT)[address] [place] [address] RBC 4.40 x10 Normal 3.70-5.30 [facility] Comment on above: Performed By: #### 7 [id number], [id number], [id number] ####[facility] (DEFAULT)[address] [place] [address] WBC 4.6 x10 Normal 3.5-10.5 [facility] Comment on above: Performed By: #### 7 [id number], [id number], [id number] ####[facility] (DEFAULT)[address] [place] [address] Vital Signs Date Time Vital Sign Value Performing Clinician Aliza danielson 05-19-2024 15:16-0400 Diastolic blood pressure 70 mm[Hg] Susan Boucher MD Work Phone: [facility] 05-19-2024 15:16-0400 Heart rate 80 /min Susan Boucher MD Work Phone: [facility] 05-19-2024 15:16-0400 Respiratory rate 16 /min Susan Boucher MD Work Phone: [facility] 05-19-2024 15:16-0400 Systolic blood pressure 126 mm[Hg] Susan Boucher MD Work Phone: [facility] 08-23-2023 10:09-0500 Diastolic blood pressure 110 mm[Hg] Pfpf Nurse [facility] 08-23-2023 10:09-0500 Heart rate 72 /min Pfpf Nurse [facility] 08-23-2023 10:09-0500 Systolic blood pressure 166 mm[Hg] Pfpf Nurse [facility] 08-12-2023 13:56-0500 Diastolic blood pressure 90 mm[Hg] Susan Boucher MD Work Phone: [facility] 08-12-2023 13:56-0500 Heart rate 80 /min Susan Boucher MD Work Phone: [facility] 08-12-2023 13:56-0500 Respiratory rate 16 /min Susan Boucher MD Work Phone: [facility] 08-12-2023 13:56-0500 Systolic blood pressure 166 mm[Hg] Susan Boucher MD Work Phone: [facility] 08-07-2023 13:36-0500 Diastolic blood pressure 90 mm[Hg] Susan Boucher MD Work Phone: [facility] 08-07-2023 13:36-0500 Heart rate 80 /min Susan Boucher MD Work Phone: [facility] 08-07-2023 13:36-0500 Respiratory rate 16 /min Susan Boucher MD Work Phone: [facility] 08-07-2023 13:36-0500 Systolic blood pressure 160 mm[Hg] Susan Boucher MD Work Phone: [facility] Encounters Encounter Date Encounter Type Care Provider Facility Start: 06-23-2024 End: 06-23-2024 ambulatory HERMES MCBRIDE Not Available Start: 06-23-2024 End: 06-23-2024 Bamboo flowsheet Hermes Mcbride DPM Work Phone: [facility] Start: 06-23-2024 End: 06-23-2024 Bamboo flowsheet Hermes Mcbride DPM Work Phone: [facility] Start: 06-23-2024 End: 06-23-2024 Office outpatient visit 25 minutes Hermes Mcbride DPM Work Phone: [facility] Comment on above: 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); Multiple sclerosis (CMS/HCC) Start: 06-22-2024 End: 06-22-2024 Telephone encounter [facility] Comment on above: Er Follow-up Start: 06-21-2024 End: 06-21-2024 Emergency department patient visit SUSAN BOUCHER [facility] Start: 06-18-2024 End: 06-18-2024 Orders Only Susan Boucher MD Work Phone: [facility] Start: 06-16-2024 End: 06-16-2024 ambulatory [facility] Start: 06-11-2024 End: 06-11-2024 Orders Only Susan Boucher MD Work Phone: [facility] Start: 06-10-2024 End: 06-11-2024 [facility] Start: 06-09-2024 End: 06-09-2024 [facility] Start: 06-05-2024 End: 06-08-2024 Telephone encounter Mary [facility] Comment on above: sooner appointment Start: 06-03-2024 End: 06-04-2024 Telephone encounter [facility] Comment on above: Care Navigation Start: 05-27-2024 End: 05-27-2024 Telephone encounter [facility] Start: 05-20-2024 End: 05-20-2024 Orders Only Susan Boucher MD Work Phone: [facility] Start: 05-19-2024 End: 05-19-2024 ambulatory SUSAN [facility] Start: 05-19-2024 End: 05-19-2024 Office outpatient visit 15 minutes Susan Boucher MD Work Phone: [facility] Comment on above: Chronic pain of righ t knee (Primary Dx); MS (multiple sclerosis) ([facility] Start: 05-14-2024 End: 05-14-2024 Refill Susan Boucher MD Work Phone: [facility] Start: 04-23-2024 End: 04-23-2024 ambulatory HERMES MCBRIDE Not Available Start: 04-15-2024 End: 04-15-2024 ambulatory SUSAN [facility] Start: 04-01-2024 End: 04-01-2024 ambulatory [facility] Start: 04-01-2024 Encounter for jasen l adult medical examination without abnormal findings [facility] Start: 01-07-2024 End: 01-07-2024 ambulatory HERMES MCRBIDE Not Available Start: 12-25-2023 End: 12-28-2023 ambulatory GLADYS FABIAN [facility] Start: 12-19-2023 End: 12-28-2023 ambulatory [facility] Start: 12-03-2023 End: 12-03-2023 ambulatory [facility] Start: 11-06-2023 End: 11-06-2023 ambulatory [facility] Start: 10-22-2023 End: 11-27-2023 ambulatory [facility] Start: 10-10-2023 Telephone encounter Janet Garcia [facility] Start: 10-09-2023 End: 10-09-2023 ambulatory TJ GARCIA [facility] Start: 10-07-2023 Refill Lis win [facility] Start: 09-27-2023 Refill Janet melissa [facility] Start: 09-24-2023 End: 09-24-2023 ambulatory HERMES MCBRIDE Not Available Start: 09-23-2023 Telephone encounter Anya valiente RN Work Phone: [facility] Start: 09-10-2023 End: 09-11-2023 ambulatory Tj Garcia Facility:[facility] Start: 09-03-2023 Refill Janet melissa [facility] Comment on above: Call Back; terifluno mide (AUBAGIO) 14 mg tablet Start: 09-02-2023 Refill Duyen Nunez CMA [facility] Comment on above: Multiple sclerosis ( [facility] Start: 08-29-2023 Orders Only Erica Thomas MD Work Phone: [facility] Comment on above: Multiple sclerosis ( [facility] Start: 08-26-2023 Telephone encounter [facility] Start: 08-26-2023 End: 08-26-2023 [facility] Start: 08-23-2023 End: 08-23-2023 Clinical Support [facility] Comment on above: BP check (Primary Dx ) Start: 08-23-2023 End: 08-23-2023 Patient encounter [facility] Start: 08-20-2023 Refill Lis [facility] Start: 08-12-2023 End: 08-12-2023 Office outpatient visit 15 minutes Susan Boucher MD Work Phone: [facility] Comment on above: Hypertension, unspec ified type (Primary Dx); MS (multiple sclerosis) [place] Start: 08-12-2023 Telephone encounter Susan Dias MD Work Phone: [facility] Comment on above: Er Follow-up Start: 08-12-2023 End: 08-12-2023 ambulatory [facility] Start: 08-11-2023 End: 08-11-2023 Emergency department patient visit [facility] Start: 08-07-2023 End: 08-07-2023 ambulatory [facility] Start: 08-07-2023 End: 08-07-2023 Office outpatient visit 25 minutes Susan Boucher MD Work Phone: [facility] Comment on above: MS (multiple scleros is) [place] (Primary Dx); Suprapubic catheter [place] Other hyperlipidemia; Primary hypertension Start: 07-26-2023 Refill Susan sandra MD Work Phone: [facility] Start: 02-12-2023 End: 02-12-2023 ambulatory [facility] Facility:[facility] Start: 02-06-2023 End: 02-07-2023 ambulatory [facility] Facility:[facility] Procedures Date Procedure Procedure Detail Performing Clinician Start: 05-19-2024 Adult depression scr eening assessment Susan Boucher MD Work Phone: Start: 04-15-2024 Mammography Susan garg MD Work Phone: Start: 04-01-2024 Adult depression scr eening assessment Susan Boucher MD Work Phone: Start: 12-19-2023 Follow-up visit Follow-up SUSAN BOUCHER Start: 08-12-2023 Adult depression scr eening assessment Susan Boucher MD Work Phone: Start: 08-07-2023 Adult depression scr eening assessment Susan Boucher MD Work Phone: Start: 05-16-2023 Adult depression scr eening assessment Susan Boucher MD Work Phone: Start: 02-21-2023 Mammography Susan garg MD Work Phone: Plan of Treatment Date Care Activity Detail Author Start: 06-21-2025 Adult BMI Screening Adult BMI Screen ing [facility] Start: 06-21-2025 Tobacco Screening Tobacco Screening [facility] Start: 05-19-2025 Depression Screening Depression Scre ening [facility] Start: 05-19-2025 Fall Risk Screening Fall Risk Screen ing [facility] Start: 05-19-2025 Tobacco Screening Tobacco Screening [facility] Start: 04-15-2025 Adult BMI Screening Adult BMI Screen ing [facility] Start: 04-15-2025 Screening for malign ant neoplasm of breast Mammogram [facility] Start: 04-02-2025 End: 04-02-2025 Patient encounter procedure 04/02/2025 3:00 PM EDT [facility] [address] [place] [address] [facility] Start: 04-01-2025 Depression Screening Depression Scre ening [facility] Start: 04-01-2025 Fall Risk Screening Fall Risk Screen ing [facility] Start: 04-01-2025 Medicare Annual Well ness Visit Medicare Annual Wellness Visit [facility] Start: 04-01-2025 Tobacco Screening Tobacco Screening [facility] Start: 10-21-2024 End: 10-21-2024 Patient encounter procedure 10/21/2024 3:15 PM EDT Procedure Visit [facility] [address] [place] [id number] Hermes Mcbride, DPDinah [address] [place], [place] [id number] [facility] Start: 08-26-2024 Tobacco Screening Tobacco Screening [facility] Start: 08-12-2024 Depression Screening Depression Scre ening [facility] Start: 08-12-2024 Fall Risk Screening Fall Risk Screen ing [facility] Start: 08-12-2024 Tobacco Screening Tobacco Screening [facility] Start: 08-11-2024 Tobacco Screening Tobacco Screening [facility] Start: 08-07-2024 Depression Screening Depression Scre ening [facility] Start: 08-07-2024 Fall Risk Screening Fall Risk Screen ing [facility] Start: 08-07-2024 Tobacco Screening Tobacco Screening [facility] Start: 06-23-2024 End: 06-23-2024 Patient encounter procedure 06/23/2024 2:15 PM EST [facility] [address] [place] [address] Erica Thomas MD [address] [place] [address] [facility] Start: 05-16-2024 Depression Screening Depression Scre ening [facility] Start: 05-16-2024 Fall Risk Screening Fall Risk Screen ing [facility] Start: 05-16-2024 Tobacco Screening Tobacco Screening [facility] Start: 03-29-2024 COVID-19 Vaccine ( season) COVID-19 Vaccine () [facility] Start: 03-29-2024 COVID-19 Vaccine ( season) COVID-19 Vaccine ( season) [facility] Start: 03-29-2024 Influenza vaccination [facility] Start: 03-10-2024 End: 03-10-2024 Patient encounter procedure 03/10/2024 11:00 AM EDT [facility] [address] [place] [address] Erica Thomas MD [address] [place] [address] [facility] Start: 02-22-2024 Adult BMI Screening Adult BMI Screen ing [facility] Start: 02-22-2024 Screening for malign ant neoplasm of breast Mammogram [facility] Start: 02-10-2024 End: 02-10-2024 Patient encounter procedure 02/10/2024 1:00 PM EDT Office Visit [facility] [address] [place] [phone] Susan Boucher MD [address] [place] [address] [facility] Start: 02-05-2024 Medicare Annual Well ness Visit Medicare Annual Wellness Visit [facility] Start: 09-09-2023 End: 09-09-2023 Patient encounter procedure 09/09/2023 1:45 PM EST [facility] [address] [place] [address] Susan Boucher MD [address] [place] [address] [facility] Start: 08-26-2023 End: 08-26-2023 Patient encounter procedure 08/26/2023 11:30 AM EST Office Visit [facility] [address] [place] [address] Erica Thomas MD [address] [facility] [address] [place] [address] [facility] Start: 08-23-2023 End: 08-23-2023 Clinical Support 08/23/2023 10:00 AM EST Clinical Support [facility] [address] [place] [address] [facility] Start: 08-12-2023 End: 08-12-2023 Patient encounter procedure 08/12/2023 2:00 PM EST [address] [phone] Susan Boucher MD [address] [place], [place] [id number] [facility] Start: 08-07-2023 End: 08-07-2023 Patient encounter procedure 08/07/2023 1:30 PM EST Office [address] [address] Susan Boucher MD [address] [place] [address] [facility] Start: 07-30-2023 Administration of varicella zoster vaccine Zoster (Shingles) Vaccine (2 of 2) [facility] Start: 03-29-2023 COVID-19 Vaccine ( season) COVID-19 Vaccine ( season) [facility] Start: 03-29-2023 Influenza vaccination Influenza Vacc ine [facility] Start: 2020 Pneumococcal Vaccine : 65+ Years (1 of 1 - PCV) Pneumococcal Vaccine: 65+ Years (1 of 1 - PCV) [facility] Start: 2005 Administration of varicella zoster vaccine Zoster (Shingles) Vaccine (1 of 2) [facility] Start: 1974 DTaP,Tdap and Td Vac cines (1 - Tdap) DTaP,Tdap and Td Vaccines (1 - Tdap) [facility] Start: 1955 Screening for malign ant neoplasm of colon [facility] End: 06-09-2025 Bacteria identified in Urine by Culture Urine Culture Microbiology Routine MS (multiple sclerosis) ([facility] Weakness 1 Occurrences starting 06/09/2024 until 06/09/2025 [facility] Work Phone: Comment on above: 1 Occurrences starti ng 06/09/2024 until 06/09/2025 End: 06-09-2025 Urinalysis Urinalysis (clean catch) Lab Routine MS (multiple sclerosis) ([facility] 1 Occurrences starting 06/09/2024 until 06/09/2025 [facility] Comment on above: 1 Occurrences starti ng 06/09/2024 until 06/09/2025 Immunizations Immunization Date Immunization Notes Care Provider Fa [facility] 06-04-2023 Influenza Vaccine, Quadrivalent, Adjuvanted Susan Boucher MD Work Phone: [facility] 06-04-2023 zoster vaccine recombinant Susan Boucher MD Work Phone: [facility] 06-04-2023 influenza virus vaccine, unspecified formulation Susan Boucher MD Work Phone: [facility] 06-04-2023 zoster vaccine, unspecified formulation Susan Boucher MD Work Phone: [facility] 05-22-2022 Influenza Vaccine, Quadrivalent, Adjuvanted Susan Boucher MD Work Phone: [facility] 05-22-2022 influenza virus vaccine, unspecified formulation Susan Boucher MD Work Phone: [facility] 10-08-2020 COVID-19, mRNA, LNP- S, PF, 30mcg/0.3mL Dose Susan Boucher MD Work Phone: [facility] 09-17-2020 COVID-19, mRNA, LNP- S, PF, 30mcg/0.3mL Dose Susan Boucher MD Work Phone: [facility] Payers Date Payer Category Payer Managed Care Other (unspecified) [employer] [id number] 2020 Unknown [employer] [place] [employer] [id number] 2020-Present [phone] [address] [place] [address] [id number] 2020 Unknown [id number] 2020 Private Health Insurance [employer] [id number] 2020 Unknown [id number] 2005 Medicare [id number] 2005 Medicare [id number] 1955 Unknown [id number] 2.16.840.1.016930.3.579 .2. 1955 Unknown [id number] 2.840.1.973835.3.579 .2. 1955 Unknown [id number] 2.16840.1.347248.3.579 .2. 1955 Unknown [id number] 2.840.1.954690.3.579 .2.1285 1955 Unknown [id number] 2.840.1.431069.3.579 .2.1285 1955 Unknown [id number] 2.840.1.644095.3.579 .2.1285 1955 Unknown [id number] 2.840.1.369378.3.579 .2.1285 1955 Unknown [id number] .0.1.035508.3.579 .2.1285 1955 Unknown [id number] .840.1.278740.3.579 .2.1285 1955 Unknown [id number] .0.1.860185.3.579 .2.1285 1955 Unknown [id number] .840.1.448224.3.579 .2.1285 1955 Unknown [id number] 840.1.343222.3.579 .2.1285 1955 Unknown [id number] .840.1.028522.3.579 .2.1285 1955 Unknown [id number] .840.1.047930.3.579 .2.1285 1955 Unknown [id number] 2.840.1.694416.3.579 .2.1285 1955 Unknown [id number] 2.840.1.210313.3.579 .2.1285 1955 Unknown [id number] 2.16.840.1.890793.3.579 .2.1286 1955 Unknown [id number] 2.16.840.1.199058.3.579 .2.1286 1955 Unknown [id number] 2.16.840.1.897083.3.579 .2.1286 1955 Unknown [id number] 2.16.840.1.549145.3.579 .2.1286 1955 Unknown [id number] 2.16.840.1.359568.3.579 .2.1259 1955 Unknown [id number] 2.16.840.1.807852.3.579 .2.1259 1955 Unknown [id number] 2.16.840.1.879866.3.579 .2.1259 1955 Unknown [id number] 2.16.840.1.919910.3.579 .2.1259 Social History Date Type Detail Facility Start: 02-04-2023 End: 02-13-2023 Tobacco smoking status NHIS Never smoked tobacco [facility] Start: 02-04-2023 Tobacco use and exposure Smokeless tobacco non-user [facility] Start: 05-16-2023 End: 06-21-2024 Alcohol intake Current non-drinker of alcohol (finding) [facility] Start: 05-16-2023 End: 04-23-2024 History of Social function [facility] Start: 05-16-2023 End: 04-23-2024 Tobacco use panel [facility] Adolescent depressio n screening assessment 0 [facility] Start: 1955 Sex Assigned At Not on file [facility] Start: 03-03-2015 Sex Female (finding) [facility] Start: 04-23-2024 Alcoholic beverage intake Lifetime non-drinker (finding) [facility] Healthcare Clinical Notes 02-12-2023 to 06-23-2024 Hermes Mcbride, UMBERTO - 06/23/2024 11:15 AM ESTPatient InstructionsTelephone Encounter - Loretta Davis, [facility] - 06/22/2024 8:04 AM ESTTelephone Encounter - Loretta Davis, [facility] - 06/22/2024 8:04 AM EST Note Date & Type Note Facility 06-23-2024 History of Presen t illness Narrative Images from the original note were not included. Subjective Patient ID: Jerica Caldwell is a 69 y.o. female who presents for No chief complaint on file.. HPI Chief complaint: Recently discovered decubitus ulceration of the left heel. Patient presented to [facility] ED within the past week or so [...] Hermes Mcbride DPM documented in this encounter [facility] 06-23-2024 Instructions Hermes Mcbride DPM - 06/23/2024 11:15 AM EST Wound care measures as noted documented in this encounter [facility] 06-22-2024 Miscellaneous Notes ED Outreach This documentation is being used for Transition of Care purposes: Yes/No: Yes ED Outreach Date: June 22, 2024 ED Outreach Method: COMMUNICATION METHOD: Telephone ED Outreach Attempt: first ED Outreach Outcome: Contacted Patient Name of ED Facility: [facility] Date of ED Discharge: 06/21/2024 [...] with additional concerns. documented in this encounter [email or web address] 06-22-2024 Telephone encounter Note ED Outreach This documentation is being used for Transition of Care purposes: Yes/No: Yes ED Outreach Date: June 22, 2024 ED Outreach Method: COMMUNICATION METHOD: Telephone ED Outreach Attempt: first ED Outreach Outcome: Contacted Patient Name of ED Facility: [facility] Date of ED Discharge: 06/21/2024 [...] will contact the office with additional concerns. [email or web address] 06-18-2024 Miscellaneous Notes Almas requesting refill of Lisinopril 10mg to [facility] documented in this encounter [facility] 06-18-2024 Telephone encounter Note Almas requesting refill of Lisinopril 10mg to [facility] 06-11-2024 History of Presen t illness Narrative Please decrease lisinopril to 10mg , 1/2 of 20mg a day and if rx for 10mg is needed let us know Serial home BP checks as well documented in this encounter [facility] 06-10-2024 Miscellaneous Notes spoke with neurology regarding patient falling more and neurology is suggesting for PCP should possibly adjust BP medications. Please advise Please decrease lisinopril in half to 10mg a day , if pt needs new rx let us know and please do serial bp checks advised documented in this encounter [facility] 06-10-2024 Telephone encounter Note spoke with neurology regarding patient falling more and neurology is suggesting for PCP should possibly adjust BP medications. Please advise [facility] 06-10-2024 Telephone encounter Note Please decrease lisinopril in half to 10mg a day , if pt needs new rx let us know and please do serial bp checks [facility] 06-10-2024 Telephone encounter Note advised [email or web address] 06-09-2024 Miscellaneous Notes Patient has been falling more often per Home health. Asking for recommendations. Please have HH contact her neurologist about the weakness and I will order UA C&S, can HH collect this? Annmarie advised, they are awaiting a call back from neuro. Will have nurse go out and collect urine. documented in this encounter [email or web address] 06-09-2024 Telephone encounter Note Patient has been falling more often per Home health. Asking for recommendations. [email or web address] 06-09-2024 Telephone encounter Note Please have HH contact her neurologist about the weakness and I will order UA C&S, can HH collect this? [email or web address] 06-09-2024 Telephone encounter Note Annmarie advised, they are awaiting a call back from neuro. Will have nurse go out and collect urine. [email or web address] 06-05-2024 Miscellaneous Notes Patient Almas called requesting [...] appointment? Martha RODRIGUEZ documented in this encounter [facility] 06-05-2024 Telephone encounter Note Patient Almas called requesting if patient should be seen sooner than upcoming appointment 06/23/2024 due to patient falling 3 times a day . Almas also stated patient will be starting PT 3 times a week also. Please advise [facility] 06-05-2024 Telephone encounter Note Can she come in tomorrow SaturdayJune 09 for an 8:45 a.m. or 9:15 a.m. appointment? [facility] 06-05-2024 Telephone encounter Note Summary: Called patient Per Dr. Thomas, Left a voice mail, Can she come in tomorrow SaturdayJune 09 for an 8:45 a.m. or 9:15 a.m. appointment? Martha PSC [facility] 06-05-2024 Miscellaneous Notes Erica casas [facility] called to let you know that he [...] back from them documented [facility] this encounter [facility] 06-05-2024 Telephone encounter Note Erica casas [facility] called to let you know that he [...] so you can call the pt's family [facility] 06-05-2024 Telephone encounter Note Please call pt and offer f/u for next week if they wish but we definitely would recommend f/u [facility] 06-05-2024 Telephone encounter Note has a call out to Neurology to see if they can get Johanne in sooner than 06/23/24. He will call us back once he hears back from them [facility] 06-03-2024 Miscellaneous Notes Contact Type: General Care Coordination Activity Documents sent to [facility]: order, F2F, med list. Your fax has been successfully sent to [phone] at [phone]. referral Jerica Caldwell [phone] From: [email or web address] Spoke with Hoda from [facility] and patient is current with them for monthly catheter changes and therapy will be added. documented in this encounter [facility] 06-03-2024 Telephone encounter Note Contact Type: General Care Coordination Activity Documents sent to [facility]: order, F2F, med list. Your fax has been successfully sent to [phone] at [phone]. referral Jerica Caldwell [phone] From: [email or web address] Work Phone: 06-03-2024 Telephone encounter Note Spoke with Hoda from [facility] and patient is current with them for monthly catheter changes and therapy will be added. [facility] 06-03-2024 Miscellaneous Notes Almas is asking if Home health PT can be ordered for weakness and multiple falls. Kim Proctor Yes , can Anya reach out to them as well and I have placed that order, please arrange notified and Anya will fax order to [facility] Proctor documented in this encounter [facility] 06-03-2024 Telephone encounter Note Almas is asking if Home health PT can be ordered for weakness and multiple falls. Wilmanyung Proctor [facility] 06-03-2024 Telephone encounter Note Yes , can Anya reach out to them as well and I have placed that order, please arrange [facility] 06-03-2024 Telephone encounter Note notified and Anya will fax order to [facility]mn[facility] Esthela [facility] 05-27-2024 Miscellaneous Notes left voicemail stating Johanne has fallen a couple time today and he would like to go ahead with a MRI. I reviewed her recent xray and DTD recommended a referral to ortho not MRI. Left message on vm to call our office. documented in this encounter [facility] 05-27-2024 Telephone encounter Note left voicemail stating Johanne has fallen a couple time today and he would like to go ahead with a MRI. I reviewed her recent xray and DTD recommended a referral to ortho not MRI. Left message on vm to call our office. [facility] 05-19-2024 History of Presen t illness Narrative Images from the original note were not included. [address] [facility] [address] SUBJECTIVE: Patient ID: Jerica Caldwell is [...] right 3 views; Future MS (multiple sclerosis) ([facility]) Follow-up: Xray of knee right trial sleeve documented in this encounter [facility] 05-14-2024 Miscellaneous Notes [facility] requesting refill of Loperamide and Potassium documented in this encounter [facility] 05-14-2024 Telephone encounter Note [facility] requesting refill of Loperamide and Potassium [facility] 10-10-2023 Miscellaneous Notes asking if PT can be ordered for patient. States he feels like patient is having muscle weakness in her neck. Please advise. Ptx ordered please arrange documented in this encounter [facility] 10-10-2023 Telephone encounter Note asking if PT can be ordered for patient. States he feels like patient is having muscle weakness in her neck. Please advise. [facility] 10-10-2023 Telephone encounter Note Ptx ordered please arrange [facility] 10-07-2023 Miscellaneous Notes Almas requesting refill of Metoprolol to [facility] documented in this encounter [facility] 10-07-2023 Telephone encounter Note Almas requesting refill of Metoprolol to [facility] 09-27-2023 Miscellaneous Notes [facility]rolol [facility] to [facility]. documented in this encounter [facility] 09-27-2023 Telephone encounter Note [facility] to [facility] 09-23-2023 Miscellaneous Notes [facility] completed recert visit Saturday09/20/23. Nursing to come monthly and 3 prn for cath management. BP is wnl today. +2 pitting EDEMA to RLE documented in this encounter [facility] 09-23-2023 Telephone encounter Note [facility] completed recert visit Saturday09/20/23. Nursing to come monthly and 3 prn for cath management. BP is wnl today. +2 pitting EDEMA to RLE [facility] Work Phone: 09-03-2023 Miscellaneous Notes Please see [employer] Message 08/31/23 Almas aCldwell,patient's spouse, states that teriflunomide (AUBAGIO) 14 mg tablet script has not been received by [id number]. Caller states that he would like to know what pharmacy script was sent to and who at the pharmacy Duyen spoke to? Almas has requested a call back. Assistant [employer] Of [employer] spoke with Rocío at [facility] and clarified that the script was at [...] that the pharmacy would contact the patient. [employer] left a voicemail for the patients , Almas to call the office for clarification and per patients request. documented in this encounter [facility]23 Telephone encounter Note Please see [employer] Message 08/31/23 Almas Caldwell,patient's spouse, states that teriflunomide (AUBAGIO) 14 mg tablet script has not been received by [id number]. Caller states that he would like to know what pharmacy script was sent to and who at the pharmacy Duyen spoke to? Almas has requested a call back. [facility]23 Telephone encounter Note Assistant [employer] spoke with Rocío at [facility] and clarified that the script was at [...] that the pharmacy would contact the patient. [employer] left a voicemail for the patients Almas to call the office for clarification and per patients request. [facility] 09-03-2023 Miscellaneous Notes Resend to DDM documented in this encounter [facility] 09-03-2023 Telephone encounter Note Resend to DDM [facility] 09-02-2023 History of Presen t illness Narrative PA initiated in [facility] for Teriflunomide. documented in this encounter [facility] 08-26-2023 Miscellaneous Notes states pt BP continues to be 157/97 this morning. 142/89 on Saturday 144/91 on Saturday By adding 50mg of metoprolol bid to the 100mg bid we could help lower the bp, is pt agreeable and to what pharm? Left message for to call office. Patient and agreeable to add 50mg send to [facility] documented in this encounter [facility] 08-26-2023 Telephone encounter Note states pt BP continues to be 157/97 this morning. 142/89 on Saturday 144/91 on Saturday [facility] 08-26-2023 Telephone encounter Note By adding 50mg of metoprolol bid to the 100mg bid we could help lower the bp, is pt agreeable and to what pharm? [facility] 08-26-2023 Telephone encounter Note Left message for to call office. [facility] 08-26-2023 Telephone encounter Note Patient and agreeable to add 50mg send to [facility] 08-23-2023 History of Presen t illness Narrative BP check completed, Increase Lisinopril 20mg to 1 bid, continue Metoprolol 100mg 1 bid and Triamterene/HCTZ 1 qd, monitor BP at home and call next week with readings per v.o. Dr. Boucher and patient and verbalizes understanding. documented in this encounter [facility] 08-20-2023 Miscellaneous Notes Dyazide Rx sent to [facility] documented in this encounter [facility] 08-20-2023 Telephone encounter Note Dyazide Rx sent to [facility] 08-20-2023 Miscellaneous Notes Telecom with regarding BP-still elevated 170/100's. He has increased her Lisinopril to twice a day. Dr. Boucher notified. Add Dyazide 1 a day, continue Lisinopril 20mg 1 bid and Metoprolol 100mg 1 bid and recheck BP in the office on Saturday per v.o. Dr. Hua verbalizes understanding. documented in this encounter [facility] 08-20-2023 Telephone encounter Note Telecom with regarding BP-still elevated 170/100's. He has increased her Lisinopril to twice a day. Dr. Boucher notified. Add Dyazide 1 a day, continue Lisinopril 20mg 1 bid and Metoprolol 100mg 1 bid and recheck BP in the office on Saturday per v.o. Dr. Hua verbalizes understanding. [facility] 08-12-2023 History of Presen t illness Narrative Images from the original note were not included. [address] [facility] [address] SUBJECTIVE: Patient ID: Jerica Caldwell is [...] visit: Hypertension, unspecified type MS (multiple sclerosis) ([facility]) Other orders - lisinopriL (PRINIVIL,ZESTRIL) 20 mg tablet; Take 1 tablet (20 mg total) by mouth in the morning. Follow-up: Lisinopril 20mg 1 qd Recheck in 28d documented in this encounter [facility] 08-12-2023 Miscellaneous Notes ED Outreach This documentation is being used for Transition of Care purposes: Yes/No: Yes ED Outreach Date: August 12, 2023 ED Outreach Method: COMMUNICATION METHOD: Telephone ED Outreach Attempt: second ED Outreach Outcome: No Answer/Busy Name of ED Facility: [facility] Date of ED Discharge: 08/11/2023 Discharge Diagnosis: [...] follow up needs. documented in this encounter [facility] 08-12-2023 Telephone encounter Note ED Outreach This documentation is being used for Transition of Care purposes: Yes/No: Yes ED Outreach Date: August 12, 2023 ED Outreach Method: COMMUNICATION METHOD: Telephone ED Outreach Attempt: second ED Outreach Outcome: No Answer/Busy Name of ED Facility: [facility] Date of ED Discharge: 08/11/2023 Discharge Diagnosis: [...] the office with any follow up needs. [facility] 08-12-2023 Miscellaneous Notes Pt needs ER f/u- hypertension Scheduled. documented in this encounter [facility] 08-12-2023 Telephone encounter Note Pt needs ER f/u- hypertension [facility] 08-12-2023 Telephone encounter Note Scheduled. [facility] 08-07-2023 History of Presen t illness Narrative Images from the original note were not included. [address] [facility] [address] SUBJECTIVE: Patient ID: Jerica Caldwell is [...] orders for this visit: MS (multiple sclerosis) ([facility]) Suprapubic catheter ([facility]) Other hyperlipidemia Primary hypertension Follow-up: Labs reviewed Meds reviewed Recheck in6m documented in this encounter [facility] 02-13-2023 Note [id number] [facility] 02-12-2023 Note [facility] SURGERY Clinical Discharge Summary PERSON INFORMATION Name JERICA CALDWELL Age 67 Years 1955 Sex FEMALE Language Cuban PCP SUSAN BOUCHER Marital Status Med Service Ambulatory Surgery Acct# Arrival 02/12/2023 08:55:44 Visit Reason SURGERY - CYSTO SP TUBE PLACEMENT Acuity LOS 011 02:57 Address: [facility] [place] [id number] Comment: PROVIDER INFORMATION VITALS INFORMATION Vital Sign [...] DIAGNOSIS 1:Urinary retention Comment: PHYS DOC NOTES [facility] Evaluation note Diagnosis MS (multiple sclerosis) (CMS-HCC)- Primary Multiple sclerosis Suprapubic catheter (CMS-HCC) Other cystostomy status Other hyperlipidemia Primary hypertension Unspecified essential hypertension documented in this encounter [facility] System[facility]* Diagnosis Hypertension, unspecified type- Primary MS (multiple sclerosis) (CMS-HCC) Multiple sclerosis documented in this encounter [facility]* Diagnosis BP check- Primary Screening for hypertension documented in this encounter [facility]* Diagnosis Multiple sclerosis (CMS-HCC) Multiple sclerosis documented in this encounter [facility]* Diagnosis Multiple sclerosis (CMS-HCC) Multiple sclerosis documented in this encounter [facility]* Diagnosis Multiple sclerosis (CMS-HCC) Multiple sclerosis documented in this encounter [facility]* Diagnosis MS (multiple sclerosis) (CMS-HCC)- Primary Multiple sclerosis documented in this encounter [facility]* Diagnosis Chronic pain of right knee- Primary MS (multiple sclerosis) (CMS-HCC) Multiple sclerosis Chronic pain of right knee documented in this encounter [facility]* Diagnosis MS (multiple sclerosis) (CMS-HCC)- Primary Multiple sclerosis documented in this encounter [facility]* Diagnosis MS (multiple sclerosis) (CMS-HCC)- Primary Multiple sclerosis Weakness Other malaise and fatigue documented in this encounter [facility]* Diagnosis Stage III pressure ulcer of left heel (CMS/HCC)- Primary Multiple sclerosis (CMS/HCC) Multiple sclerosis documented in this encounter [facility] HealthcareInstructionsNot on filedocumented in this encounterProProm[facility] SystemInstructions* Attachments The following attachments cannot be sent through Care Everywhere. * Multiple Sclerosis Discharge Instructions, Adult (Cuban) documented in this encounterPro[facility] SystemInstructions* Attachments The following attachments cannot be sent through Care Everywhere. * High blood pressure in adults (Cuban) documented in this encounterProPromed[facility] SystemInstructionsNot on file documented in this encounterProPromedica [facility] SystemInstructionsNot on file documented in this encounterProMedica Health SystemInstructionsNot on file documented in this encounterPro[facility] SystemInstructionsNot on file documented in this encounterProT[facility] SystemInstructionsNot on file documented in this encounterProT[facility] SystemInstructionsNot on file documented in this encounterProT[facility] [place] [facility] SystemInstructionsNot on file documented in this encounterProPromedica [facility] SystemInstructionsNot on file documented in [facility]Tr[facility] SystemReason for referral (narrative)* Consultation (Routine) - Authorized Specialty Diagnoses / Procedures Referred By Martha matute Referred To Contact Rehabilitation Diagnoses MS (multiple sclerosis) ([facility]) Susan Boucher MD [address] [facility] [place] [address] [facility] [address] [place] [address] Referral ID Status Reason Start Date Expiration Date Visits Requested Visits Authorized [id number] Authorized Specialty Services Required 10/10/2023 10/09/2024 1 1 Scheduling Instructions Eval an dtx MS weakness every other day x 2-6 weeks and recommend a home exercise program [facility] Advance Directives No Advanced Directives Records FoundLatest [...] matute Referred To Contact Diagnoses Multiple sclerosis ([facility]) Erica Thomas MD [address] [facility] [address] [place] [address] Referral ID Status Reason Start Date Expiration Date V isits Requested Visits Authorized [id number] Authorized 1 1 Summary Purpose Family History [...] Care Teams (unrecognized sec tion and content) Station Repairer Relationship Specialty Start Date End Date Susan Boucher MD [address] [place] [address] PCP - General Family Medicine 05/14/17 Station Repairer Relationship Specialty Start Date End Date Susan Boucher MD [address] [place] [address] PCP - [facility] Medicine 05/14/17 Station Repairer Relationship Specialty Start Date End Date Susan Boucher MD [address] [place] [address] PCP - [facility] 05/14/17 Station Repairer Relationship Specialty Start Date End Date Susan Boucher MD [address] [place] [address] PCP - [facility] 05/14/17 Station Repairer Relationship Specialty Start Date End Date Susan Boucher MD [address] [place] [address] PCP - [facility] 05/14/17 Station Repairer Relationship Specialty Start Date End Date Susan Boucher MD [address] [place] [address] PCP - [facility] 05/14/17 Station Repairer Relationship Specialty Start Date End Date Susan Boucher MD [address] [place] [address] PCP - [facility] 05/14/17 Station Repairer Relationship Specialty Start Date End Date Susan Boucher MD [address] [place] [address] PCP - [facility] 05/14/17 Station Repairer Relationship Specialty Start Date End Date Susan Boucher MD [address] [place] [address] PCP - General Family Medicine 05/14/17 Station Repairer Relationship Specialty Start Date End Date Susan Boucher MD [address] [place] [address] PCP - General Family Medicine 05/14/17 Station Repairer Relationship Specialty Start Date End Date Susan Boucher MD [address] [place] [address] PCP - General Family Medicine 05/14/17 Station Repairer Relationship Specialty Start Date End Date Susan Boucher MD [address] [place] [address] PCP - General Family Medicine 05/14/17 Station Repairer Relationship Specialty Start Date End Date Susan Boucher MD [address] [place] [address] PCP - General Family Medicine 05/14/17 Lizabeth Campbell RN [facility] Nurse - [employer] 12/18/23 Station Repairer Relationship Specialty Start Date End Date Susan Boucher MD [address] [place] [address] PCP - General Family Medicine 05/14/17 Lizabeth Campbell RN [facility] Nurse - [employer] 12/18/23 Station Repairer Relationship Specialty Start Date End Date Susan Boucher MD [address] [place] [address] PCP - General Family Medicine 05/14/17 Lizabeth Campbell RN [facility] Nurse - [employer] 12/18/23 Station Repairer Relationship Specialty Start Date End Date Susan Boucher MD [address] [place] [address] PCP - General Family Medicine 05/14/17 Lizabeth Campbell RN [facility] Nurse - [employer] 12/18/23 Station Repairer Relationship Specialty Start Date End Date Susan Boucher MD [address] [place] [address] PCP - General Family Medicine 05/14/17 Lizabeth Campbell RN [facility] Nurse - [employer] 12/18/23 Station Repairer Relationship Specialty Start Date End Date Susan Boucher MD [address] [place] [address] PCP - General Family Medicine 05/14/17 Lizabeth Campbell RN [facility] Nurse - [employer] 12/18/23 Station Repairer Relationship Specialty Start Date End Date Susan Boucher MD [address] [place] [address] PCP - General Family Medicine 05/14/17 Lizabeth Campbell RN [facility] Nurse - [employer] 12/18/23 Station Repairer Relationship Specialty Start Date End Date Susan Boucher MD [address] [place] [address] PCP - General Family Medicine 05/14/17 Lizabeth Campbell RN [facility] Nurse - [employer] 12/18/23 Station Repairer Relationship Specialty Start Date End Date Susan Boucher MD [address] [place] [address] PCP - General Family Medicine 06/21/24 Lizabeth Campbell RN [facility] Nurse - [employer] 12/18/23 Station Repairer Relationship Specialty Start Date End Date Susan Boucher MD [address] [place] [address] PCP - General Family Medicine 02/13/23 Station Repairer Relationship Specialty Start Date End Date Susan Boucher MD [address] [place] [address] PCP - General Family Medicine 02/13/23 INFORMATION SOURCE (unrecogn ized section and content) DATE CREATED AUTHOR 10/25/2023 [facility] DATE CREATED AUTHOR AUTHOR'S ORGANIZ ATION 04/03/2024 [facility] DATE CREATED AUTHOR AUTHOR'S ORGANIZ ATION 06/23/2024 [facility] DATE CREATED AUTHOR AUTHOR'S ORGANIZ ATION 06/26/2024 [facility] FOR RECORDS PERTAINING TO PATIENTS WHO [...] BE BASED ON THE PRIMARY CLINICAL RECORDS. [employer] provides no warranty or guarantee of the accuracy or completeness of information in this document.
[2024-06-26 18:18] LABS: Lactate/Lactic Acid 3.7 mmol/L (0.4-2.0)
[2024-06-26] MEDS: 0.9 % SODIUM CHLORIDE 1,000 ML 1000 ML IV (18:56)
[2024-06-26 20:16] LABS: Anion Gap 15.3; BUN Creatinine Ratio 27.9; Calcium 7.8 mg/dL (8.5-10.1); Carbon Dioxide 20.7 mmol/L (21.0-32.0); Chloride 111 mmol/L (98-107); Estimated GFR (African America 24 (>=60 mL/min/1.73m^2); Estimated GFR (Non-African Ame 20 (>=60 mL/min/1.73m^2); Sodium 142 mmol/L (136-145)
[2024-06-26 20:20] LABS: Glucose 46 mg/dL (74-106)
[2024-06-26 20:44] LABS: Glucometer 44 mg/dL (74-106)
[2024-06-26 21:10] LABS: Glucometer 47 mg/dL (74-106)
[2024-06-26 21:39] LABS: Glucometer 81 mg/dL (74-106)
[2024-06-26] MEDS: ATORVASTATIN CALCIUM 10 MG TABLET PO (21:48)
[2024-06-26] MEDS: HEPARIN SODIUM (PORCINE) 5,000 UNIT/ML VIAL 5000 UNIT SUBQ (21:48)
[2024-06-26] MEDS: ONDANSETRON PF 4 MG/2 ML VIAL IV (21:48)
[2024-06-26] MEDS: LOPERAMIDE HCL 2 MG CAPSULE PO (21:48)
[2024-06-26] MEDS: ACETAMINOPHEN 325 MG TABLET 650 MG PO (21:48)
[2024-06-26] MEDS: HYOSCYAMINE SULFATE 0.125 MG TAB.SUBL PO (21:48)
[2024-06-26] MEDS: METOPROLOL TARTRATE 50 MG TABLET PO (21:49)
[2024-06-26] MEDS: METOPROLOL TARTRATE 100 MG TABLET PO (21:49)
[2024-06-26] MEDS: OXYCODONE HCL 5 MG TABLET PO (21:49)
[2024-06-26 22:25] LABS: Glucometer 127 mg/dL (74-106)
[2024-06-26] MEDS: LACTATED RINGER'S SOLUTION 1,000 ML 150 ML IV (22:30)
[2024-06-26 23:13] LABS: Lactate/Lactic Acid 3.8 mmol/L (0.4-2.0)
[2024-06-27] VITALS (20 sets, daily range): BP systolic 108–143; BP diastolic 68–85; PULSE 54–120; TEMP 36.3–36.8; O2SAT 92–100
[2024-06-27] MEDS: LACTATED RINGER'S SOLUTION 1,000 ML 150 ML IV ×4 (04:04→23:44)
[2024-06-27] MEDS: OMEPRAZOLE 40 MG CAPSULE.DR PO (06:09)
[2024-06-27] MEDS: ONDANSETRON PF 4 MG/2 ML VIAL IV ×2 (06:09→20:35)
[2024-06-27] MEDS: OXYCODONE HCL 5 MG TABLET PO ×2 (06:09→20:36)
[2024-06-27] MEDS: HYOSCYAMINE SULFATE 0.125 MG TAB.SUBL PO ×3 (06:09→20:35)
[2024-06-27 06:10] LABS: Basophils Absolute Auto 0.1 10^3/uL (0.0-0.1); Basophils Percent Auto 0.5 % (0.2-2.0); Eosinophils Absolute Auto 0.1 10^3/uL (0.0-0.7); Eosinophils Percent Auto 0.9 % (0.9-7.0); Hematocrit 30.3 % (36.0-48.0); Hemoglobin 9.7 g/dL (12.0-16.0); Immature Granulocytes Abs Auto 0.11 10^3/uL (0.00-0.03); Immature Granulocytes Pct Auto 0.8 % (0.0-0.5); Lymphocytes Absolute Auto 1.1 10^3/uL (1.2-3.8); Lymphocytes Percent Auto 7.8 % (20.5-60.0); Mean Corpuscular Hemoglobin 29.3 pg (26.7-34.0); Mean Corpuscular Volume 91.5 fL (81.0-99.0); Mean Platelet Volume 10.4 fL (9.5-13.5); Monocytes Absolute Auto 1.2 10^3/uL (0.3-0.8); Monocytes Percent Auto 8.5 % (1.7-12.0); Neutrophils Absolute Auto 11.6 10^3/uL (1.4-6.5); Neutrophils Percent Auto 81.5 % (43.0-75.0); Platelet Count 319 10^3/uL (150-450); Red Blood Count 3.31 10^6/uL (4.20-5.40); Red Cell Distribution Width 12.9 % (11.0-15.0); White Blood Count 14.2 10^3/uL (4.0-11.0)
[2024-06-27 06:16] LABS: Glucometer 65 mg/dL (74-106)
[2024-06-27 06:36] LABS: Alanine Aminotransferase 15 U/L (14-59); Albumin Globulin Ratio 0.9; Albumin Level 2.3 g/dL (3.4-5.0); Alkaline Phosphatase 118 U/L (46-116); Anion Gap 14.7; Aspartate Amino Transferase 23 U/L (15-37); BUN Creatinine Ratio 28.4; Bilirubin Total 0.4 mg/dL (0.2-1.0); Calcium 8.3 mg/dL (8.5-10.1); Carbon Dioxide 20.4 mmol/L (21.0-32.0); Chloride 110 mmol/L (98-107); Estimated GFR (African America 27 (>=60 mL/min/1.73m^2); Estimated GFR (Non-African Ame 22 (>=60 mL/min/1.73m^2); Globulin 2.7 g/dL; Glucose 83 mg/dL (74-106); Potassium 5.1 mmol/L (3.5-5.1); Sodium 140 mmol/L (136-145)
[2024-06-27 07:47] LABS: Lactate/Lactic Acid 1.5 mmol/L (0.4-2.0)
[2024-06-27 08:28] LABS: Internal Control Within Normal Limits; Occult Blood Negative
[2024-06-27] MEDS: HEPARIN SODIUM (PORCINE) 5,000 UNIT/ML VIAL 5000 UNIT SUBQ ×2 (09:16→20:35)
[2024-06-27] MEDS: DONEPEZIL HCL 10 MG TABLET PO (09:17)
[2024-06-27] MEDS: METOPROLOL TARTRATE 50 MG TABLET PO ×2 (09:17→20:36)
[2024-06-27] MEDS: METOPROLOL TARTRATE 100 MG TABLET PO ×2 (09:17→20:36)
[2024-06-27] MEDS: ASPIRIN 81 MG TABLET.DR PO (09:17)
[2024-06-27] MEDS: LOPERAMIDE HCL 2 MG CAPSULE PO ×2 (09:17→20:36)
[2024-06-27] MEDS: MEMANTINE HCL 28 MG CAP XR PO (09:17)
[2024-06-27] MEDS: TERIFLUNOMIDE 14 MG 14 EACH PO (09:17)
--- NOTE | 2024-06-27 10:46 | US_ITS ---
[address] [address] Patient Name: JERICA DONATO MRN: [id number] date: 1955 Sex: F Assigned Patient Location: [place] Current Patient Location: Accession/Order Number: [id number] Exam Date: 06/27/2024 13:20 Report Date: 06/28/2024 06:23 At the request of: SHAIKH LORAINE Procedure: US renal BI EXAMINATION: US renal BI HISTORY: JAN, evaluate renal kidney anatomy COMPARISON: No relevant comparison available. TECHNIQUE: Ultrasound examination was performed of the kidneys and urinary bladder. FINDINGS: RIGHT KIDNEY: No evidence of pelvocaliectasis, mass, or calculi. Normal parenchymal echogenicity. Mild cortical thinning, 8 mm. Color Doppler demonstrates blood flow within the kidney. Kidney: 7.3 x 4.3 x 4.5 cm LEFT KIDNEY: No evidence of pelvocaliectasis, mass, or calculi. Normal parenchymal echogenicity. Mild cortical thinning, 9 mm. Color Doppler demonstrates blood flow within the kidney. Kidney: 8.9 x 4.5 x 5.67 m BLADDER: Fair catheter within nondistended urinary bladder. US/US renal BI IMPRESSION: 1. Mild cortical thinning bilaterally, likely age related. 2. No appreciable stones, mass, or obstructive uropathy. 3. Limited evaluation of the nondistended urinary bladder. Fair catheter was in place. Electronically authenticated by: HERMES CLARK Date: 06/28/2024 06:23
[2024-06-27 11:37] LABS: C. Difficile PCR NEGATIVE
--- NOTE | 2024-06-27 14:13 | PM.HP ---
HPI H&P: HPI History of Present Illness Chief complaint: WEAKNESS HYPERKALEMIA ACUTE KIDNEY INJURY SIRS Narrative: 69-year-old female with past medical history of multiple sclerosis has had progressive decline in functional status and worsening generalized weakness especially in her lower extremities over past 4 weeks. She previously could ambulate using a walker but lately she has not been able to walk and for past couple of days she has not been able to get out of bed. She was evaluated in [place] ER and was discharged from ER after initial workup did not reveal anything significant. About 2 weeks ago she was prescribed oral doxycycline for UTI and left heel pressure ulcer. Patient's MS has previously been well-controlled for which he is currently on teriflunomide. Patient denies nausea, vomiting, constipation, diarrhea. She denies fever or any respiratory symptoms. When she presented to ER last evening, she was found to have acute kidney injury, hyperkalemia and leukocytosis along with abnormal UA consistent with UTI. She had an x-ray of her left heel that was unremarkable and negative for osteomyelitis. Patient was treated with IV hydration along with IV insulin for acute kidney injury/hyperkalemia. Overnight she became hypoglycemic and required IV dextrose. Earlier today when I evaluated her, she was still considerably weak and was unable to get up or ambulate by herself. She has no other active symptoms to offer. She has not had an MRI of her brain or spine for MS for a few years now. Opioid HPI Opioid Management Most Recent Pain and Opioid Data: Last Pain Scale 0 06/27/24 11:30 06/27/24 Last Pain Assessment 06/27/24 14:15 Last MAR Pain Assessment 06/27/24 07:41 Last ORT Total Score 0 06/26/24 18:30 06/26/24 Last ORT Risk Category Low Risk 06/26/24 18:30 06/26/24 Review of Systems ROS Status of ROS 10 or more systems reviewed and unremarkable except as noted in history and below [facility] Medical History (Updated 06/27/24 @ 14:41 by Shaikh Jose C MD) Hyperlipidemia ?E78.5 - Hyperlipidemia, unspecified (ICD-10) Hypertension ?I10 - Essential (primary) hypertension (ICD-10) Heart palpitations ?R00.2 - Palpitations (ICD-10) Multiple sclerosis ?G35 - Multiple sclerosis (ICD-10) Surgical History (Updated 06/26/24 @ 18:55 by Lisa Herndon RN) H/O: hysterectomy ?Z90.710 - Acquired absence of both cervix and uterus (ICD-10) Family History (Updated 06/26/24 @ 18:29 by Lisa Herndon RN) Mother Family history of myocardial infarction Family history of hypertension Father Family history of CHF (congestive heart failure) Social History (Updated 06/26/24 @ 18:30 by Lisa Herndon RN) Within the past year, how often did you have a drink containing alcohol: never Score interpretation: A score less than 3 is consistent with normal alcohol consumption. Smoking status: Never smoker Non-prescribed substance use: denies use Highest level of school completed/degree received: high school graduate Little interest or pleasure in doing things: not at all Feeling down, depressed, or hopeless: not at all Meds Home Medications and Allergies Home Medications ?Medication ?Instructions ?Recorded ?Confirmed ?Type aspirin 81 mg tablet,delayed 81 mg PO DAILY 06/26/24 06/26/24 History release (Adult Low Dose Aspirin) atorvastatin 10 mg tablet 10 mg PO DAILY 06/26/24 06/26/24 History donepezil 10 mg tablet 10 mg PO DAILY 06/26/24 06/26/24 History hyoscyamine sulfate 0.125 mg tablet 0.125 mg PO TID 06/26/24 06/26/24 History lisinopril 10 mg tablet 10 mg PO BID 06/26/24 06/26/24 History loperamide 2 mg capsule 2 mg PO Q12H 06/26/24 06/26/24 History memantine 28 mg capsule 28 mg PO DAILY 06/26/24 06/26/24 History sprinkle,extended release 24hr metoprolol tartrate 100 mg tablet 100 mg PO Q12H 06/26/24 06/26/24 History metoprolol tartrate 50 mg tablet 50 mg PO Q12H 06/26/24 06/26/24 History pantoprazole 40 mg tablet,delayed 40 mg PO DAILY 06/26/24 06/26/24 History release potassium chloride 10 mEq 10 meq PO BID 06/26/24 06/26/24 History capsule,extended release teriflunomide 14 mg tablet 14 mg PO QAM 06/26/24 06/26/24 History triamterene 37.5 1 cap PO DAILY 06/26/24 06/26/24 History mg-hydrochlorothiazide 25 mg capsule Allergies Allergy/AdvReac Type Severity Reaction Status Date / Time sulfamethoxazole (From Allergy Unknown Unknown Verified 06/26/24 14:03 Bactrim) trimethoprim (From Bactrim) Allergy Unknown Unknown Verified 06/26/24 14:03 Exam Constitutional Vital Signs, click to edit/add: Last Vital Signs Temp 97.8 F 06/27/24 12:13 Pulse 62 06/27/24 12:13 Resp 16 06/27/24 12:13 BP 138/68 06/27/24 12:13 Pulse Ox 92 L 06/27/24 12:13 O2 Del Method Room Air 06/27/24 12:13 Documenting provider has reviewed patient's vital signs: yes Common normals: no apparent distress and oriented x3 General appearance: cooperative HENMT Common normals: normocephalic and head/scalp atraumatic Head and scalp: normocephalic and atraumatic Eye Common normals: conjunctivae normal and no scleral icterus Conjunctiva: conjunctiva(e) normal Respiratory Common normals: normal respiratory effort and clear to auscultation bilaterally Effort & inspection: able to speak in complete sentences Auscultation: clear to auscultation bilaterally Cardio Common normals: regular rate, S1 normal heart sound and S2 normal heart sound Rate: regular rate Heart sounds: S1 normal and S2 normal GI Common normals: Normal to inspection, nondistended, normoactive bowel sounds present, soft to palpation, non-tender and no hepatosplenomegaly Palpation: soft and no hepatosplenomegaly Extremity Other: left heel ulcer - healthy granulation tissue, no discharge. No signs of infection Neuro Common normals: oriented x3 and moves all extremities Gait (neuro): unable to assess gait Other: B/l LE weakness - power is only about 2-3/5. No rigidity, muscle tone appears decreased. No weakness on UE b/l Psych Common normals: mental status grossly normal, denies hallucinations, denies homicidal ideation and denies suicidal ideation Results Labs Labs: Short CBC 06/26/24 06/27/24 Range/Units 14:43 05:43 WBC 18.1 H 14.2 H (4.0-11.0) 10^3/uL Hgb 13.3 9.7 L (12.0-16.0) g/dL Hct 42.0 30.3 L (36.0-48.0) % Plt Count 551 H 319 (150-450) 10^3/uL BMP 06/26/24 06/26/24 06/26/24 14:43 15:48 19:43 Sodium 139 142 Potassium 6.2 H* 6.1 H* 5.0 Chloride 104 111 H Carbon Dioxide 21.0 20.7 L BUN 74.0 H 67.0 H Creatinine 2.86 H 2.40 H Glucose 113 H 46 L* Calcium 9.7 7.8 L 06/27/24 05:43 Sodium 140 Potassium 5.1 Chloride 110 H Carbon Dioxide 20.4 L BUN 63.0 H Creatinine 2.22 H Glucose 83 Calcium 8.3 L Liver Function 06/26/24 06/27/24 Range/Units 14:43 05:43 Total Bilirubin 0.9 0.4 (0.2-1.0) mg/dL AST 31 23 (15-37) U/L ALT 22 15 (14-59) U/L Alkaline Phosphatase 159 H 118 H (46-116) U/L Albumin 3.4 2.3 L (3.4-5.0) g/dL Urine 06/26/24 Range/Units 16:20 Urine Color Lt. yellow (YELLOW) Urine Clarity Clear (CLEAR) Urine pH 5.5 (5.0-9.0) Ur Specific [place] 1.025 (1.005-1.025) Urine Protein Negative (NEG/TRACE) mg/dL Urine Glucose (UA) Negative (NEGATIVE) mg/dL Assessment and Plan Assessment and Plan (1) Acute kidney injury: Assessment and Plan: Normal renal function at baseline. Presented with Cr of 2.8 , Improved to 2.2 with IV hydration Renal US ordered. Likely pre renal (2) Generalized weakness: Assessment and Plan: Due to dehydration/UTI. Tele neuro consulted for their input on its relationship to her hx of MS. PT/OT eval (3) UTI (urinary tract infection): Assessment and Plan: On IV rocephin. F.u urine cx. Qualifiers: Urinary tract infection type: acute cystitis Hematuria presence: without hematuria Qualified Code(s): N30.00 - Acute cystitis without hematuria (4) Acute hyperkalemia: Assessment and Plan: Due to JAN. Resolved. Hold triamterene and lisinopril (5) Lactic acidosis: Assessment and Plan: Lactate was 4.4 on arrival, improved with hydration. (6) Inability to walk: Assessment and Plan: B/l LE weakness, decreased strength. UE strength is normal No numbness/tingling. Tele neuro consulted. No acute finding on CTH (7) Multiple sclerosis: Assessment and Plan: Previously well controlled and patient was ambulatory with a Walker. Tele neuro consult. (8) Hypertension: Assessment and Plan: Hold triamterene, HCTZ and Lisinopril due to JAN BP stable. C/w lopressor. Qualifiers: Hypertension type: primary hypertension Qualified Code(s): I10 - Essential (primary) hypertension (9) Hyperlipidemia: Assessment and Plan: c/w statin Qualifiers: Hyperlipidemia type: unspecified Qualified Code(s): E78.5 - Hyperlipidemia, unspecified (10) Ulcer of right heel: Assessment and Plan: XR - negative. No evidence of infection. Had debridement as outpatient last week. Pressure ulcer due to inability to ambulate. Qualifiers: Non-pressure ulcer stage: with fat layer exposed Qualified Code(s): L97.412 - Non-pressure chronic ulcer of right heel and midfoot with fat layer exposed Urinary Catheter Management Urinary Catheter Management Suprapubic: Cath placed during this visit: no
[2024-06-27] MEDS: CEFTRIAXONE 1,000 MG in 0.9 % SODIUM CHLORIDE 50 ML 100 MG IV (17:09)
[2024-06-27 20:03] LABS: Glucometer 73 mg/dL (74-106)
[2024-06-27] MEDS: ATORVASTATIN CALCIUM 10 MG TABLET PO (20:36)
[2024-06-27 22:15] LABS: Glucometer 55 mg/dL (74-106)
[2024-06-28] VITALS (22 sets, daily range): BP systolic 138–153; BP diastolic 80–91; PULSE 55–106; TEMP 36.6–37.8; O2SAT 95–100
[2024-06-28 00:25] LABS: Glucometer 87 mg/dL (74-106)
[2024-06-28] MEDS: OMEPRAZOLE 40 MG CAPSULE.DR PO (05:20)
[2024-06-28] MEDS: HYOSCYAMINE SULFATE 0.125 MG TAB.SUBL PO ×3 (05:20→21:05)
[2024-06-28 06:17] LABS: Basophils Absolute Auto 0.1 10^3/uL (0.0-0.1); Basophils Percent Auto 0.6 % (0.2-2.0); Eosinophils Absolute Auto 0.3 10^3/uL (0.0-0.7); Eosinophils Percent Auto 2.3 % (0.9-7.0); Hematocrit 29.8 % (36.0-48.0); Hemoglobin 9.7 g/dL (12.0-16.0); Immature Granulocytes Abs Auto 0.05 10^3/uL (0.00-0.03); Immature Granulocytes Pct Auto 0.4 % (0.0-0.5); Lymphocytes Absolute Auto 0.8 10^3/uL (1.2-3.8); Lymphocytes Percent Auto 6.7 % (20.5-60.0); Mean Corpuscular HGB Conc 32.6 g/dL (29.9-35.2); Mean Corpuscular Hemoglobin 29.2 pg (26.7-34.0); Mean Corpuscular Volume 89.8 fL (81.0-99.0); Mean Platelet Volume 10.9 fL (9.5-13.5); Monocytes Absolute Auto 1.1 10^3/uL (0.3-0.8); Monocytes Percent Auto 9.2 % (1.7-12.0); Neutrophils Absolute Auto 9.2 10^3/uL (1.4-6.5); Neutrophils Percent Auto 80.8 % (43.0-75.0); Platelet Count 327 10^3/uL (150-450); Red Blood Count 3.32 10^6/uL (4.20-5.40); Red Cell Distribution Width 12.9 % (11.0-15.0); White Blood Count 11.4 10^3/uL (4.0-11.0)
[2024-06-28 06:43] LABS: Alanine Aminotransferase 15 U/L (14-59); Albumin Globulin Ratio 0.8; Albumin Level 2.1 g/dL (3.4-5.0); Alkaline Phosphatase 124 U/L (46-116); Anion Gap 12.9; Aspartate Amino Transferase 22 U/L (15-37); BUN Creatinine Ratio 26.1; Bilirubin Total 0.6 mg/dL (0.2-1.0); Calcium 8.3 mg/dL (8.5-10.1); Carbon Dioxide 22.5 mmol/L (21.0-32.0); Chloride 108 mmol/L (98-107); Estimated GFR (African America 37 (>=60 mL/min/1.73m^2); Estimated GFR (Non-African Ame 31 (>=60 mL/min/1.73m^2); Globulin 2.5 g/dL; Glucose 72 mg/dL (74-106); Potassium 4.4 mmol/L (3.5-5.1); Sodium 139 mmol/L (136-145); Total Protein 4.6 g/dL (6.4-8.2)
[2024-06-28] MEDS: LACTATED RINGER'S SOLUTION 1,000 ML 150 ML IV (06:51)
[2024-06-28] MEDS: HEPARIN SODIUM (PORCINE) 5,000 UNIT/ML VIAL 5000 UNIT SUBQ ×2 (09:16→21:05)
[2024-06-28] MEDS: LOPERAMIDE HCL 2 MG CAPSULE PO ×2 (09:17→21:04)
[2024-06-28] MEDS: METOPROLOL TARTRATE 50 MG TABLET PO ×2 (09:17→21:05)
[2024-06-28] MEDS: MEMANTINE HCL 28 MG CAP XR PO (09:17)
[2024-06-28] MEDS: METOPROLOL TARTRATE 100 MG TABLET PO ×2 (09:17→21:05)
[2024-06-28] MEDS: ASPIRIN 81 MG TABLET.DR PO (09:17)
[2024-06-28] MEDS: DONEPEZIL HCL 10 MG TABLET PO (09:17)
--- NOTE | 2024-06-28 13:23 | P.IMPN_ITS ---
Progress Note: A&P Assessment and Plan (1) Acute kidney injury: Assessment and Plan: Normal renal fx at baseline. Presented with serum cr of 2.8. Improved to 1.5 Likely pre renal. Monitor UO, serum cr. (2) Generalized weakness: Assessment and Plan: Feels a little better but still considerably weak. PT/OT. (3) UTI (urinary tract infection): Assessment and Plan: on IV rocephin. F/.u urine cx. Qualifiers: Urinary tract infection type: catheter-associated UTI Indwelling urinary catheter type: cystostomy catheter Encounter type: subsequent encounter Qualified Code(s): T83.510D - Infection and inflammatory reaction due to cystostomy catheter, subsequent encounter; N39.0 - Urinary tract infection, site not specified (4) Acute hyperkalemia: Assessment and Plan: Presented with Potassium of 6.1. Likely due to JAN. Resolved. (5) Lactic acidosis: Assessment and Plan: Due to dehydration. Improved. (6) Inability to walk: Assessment and Plan: PT/OT eval. (7) Multiple sclerosis: Assessment and Plan: Neuro consult for possible MS exacerbation. (8) Hypertension: Assessment and Plan: IV hydralazine as needed. Hold lisinopril/hctz and triamterene for now. Qualifiers: Hypertension type: primary hypertension Qualified Code(s): I10 - Essential (primary) hypertension (9) Hyperlipidemia: Assessment and Plan: c/w lipitor. Qualifiers: Hyperlipidemia type: unspecified Qualified Code(s): E78.5 - Hyperlipidemia, unspecified (10) Ulcer of right heel: Assessment and Plan: pressure ulcer. no concern for infection. wound consult. 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 BMI of only 18, patient reports anorexia, poor PO intake for sometime and that she has lost considerable weight. Added ensure, prostat. Internal Medicine - PN: Subj Subjective Interval history: Seen and examined. Reports anorexia, poor PO intake. No overnight events. Exam Constitutional Vital Signs, click to edit/add: Last Vital Signs Temp 97.9 F 06/28/24 12:05 Pulse 78 06/28/24 12:05 Resp 16 06/28/24 12:05 BP 145/80 H 06/28/24 12:05 Pulse Ox 99 06/28/24 12:05 O2 Del Method Room Air 06/28/24 12:05 Documenting provider has reviewed patient's vital signs: yes Common normals: no apparent distress and oriented x3 General appearance: cooperative Respiratory Common normals: normal respiratory effort and clear to auscultation bilaterally Effort & inspection: able to speak in complete sentences Auscultation: clear to auscultation bilaterally Cardio Common normals: regular rate, S1 normal heart sound and S2 normal heart sound Rate: regular rate Heart sounds: S1 normal and S2 normal GI Common normals: soft to palpation, non-tender and no hepatosplenomegaly Palpation: soft and no hepatosplenomegaly Other: SP catheter in place. Extremity Other: left heel ulcer - healthy granulation tissue, no discharge. No signs of infection Neuro Common normals: oriented x3 and moves all extremities Gait (neuro): unable to assess gait Other: B/l LE weakness - power is only about 2-3/5. No rigidity, muscle tone appears decreased. No weakness on UE b/l Psych Common normals: mental status grossly normal, denies hallucinations, denies homicidal ideation and denies suicidal ideation Internal Medicine - PN: Obj Da Labs Labs: Laboratory Results - last 24 hr 06/27/24 06/27/24 06/28/24 20:02 22:14 00:21 WBC RBC Hgb Hct MCV MCH MCHC RDW Plt Count MPV Neut % (Auto) Lymph % (Auto) [place] % (Auto) Eos % (Auto) Baso % (Auto) Neut # (Auto) Lymph # (Auto) [place] # (Auto) Eos # (Auto) Baso # (Auto) Abs Immat Gran (auto) Imm/Tot Granulo (auto) Sodium Potassium Chloride Carbon Dioxide Anion Gap BUN Creatinine Est GFR ( Amer) Est GFR (Non-Af Amer) BUN/Creatinine Ratio Glucose Calcium Total Bilirubin AST ALT Alkaline Phosphatase Total Protein Albumin Globulin Albumin/Globulin Ratio POC Glucose 73 L 55 L 87 06/28/24 05:37 WBC 11.4 H RBC 3.32 L Hgb 9.7 L Hct 29.8 L MCV 89.8 MCH 29.2 MCHC 32.6 RDW 12.9 Plt Count 327 MPV 10.9 Neut % (Auto) 80.8 H Lymph % (Auto) 6.7 L [place] % (Auto) 9.2 Eos % (Auto) 2.3 Baso % (Auto) 0.6 Neut # (Auto) 9.2 H Lymph # (Auto) 0.8 L [place] # (Auto) 1.1 H Eos # (Auto) 0.3 Baso # (Auto) 0.1 Abs Immat Gran (auto) 0.05 H Imm/Tot Granulo (auto) 0.4 Sodium 139 Potassium 4.4 Chloride 108 H Carbon Dioxide 22.5 Anion Gap 12.9 BUN 43.0 H Creatinine 1.65 H Est GFR ( Amer) 37 L Est GFR (Non-Af Amer) 31 L BUN/Creatinine Ratio 26.1 Glucose 72 L Calcium 8.3 L Total Bilirubin 0.6 AST 22 ALT 15 Alkaline Phosphatase 124 H Total Protein 4.6 L Albumin 2.1 L Globulin 2.5 Albumin/Globulin Ratio 0.8 POC Glucose Urinary Catheter Management Urinary Catheter Management Suprapubic: Cath placed during this visit: no
[2024-06-28] MEDS: TERIFLUNOMIDE 14 MG 14 EACH PO (13:34)
[2024-06-28] MEDS: ENSURE ORIGINAL 237 ML BOTTLE PO ×2 (14:04→21:04)
[2024-06-28] MEDS: PROSTAT 15 GM PROTEIN/100 CAL 30 ML LIQUID PACKET PO ×2 (14:04→21:04)
[2024-06-28] MEDS: CEFTRIAXONE 1,000 MG in 0.9 % SODIUM CHLORIDE 50 ML 100 MG IV (17:39)
[2024-06-28] MEDS: ATORVASTATIN CALCIUM 10 MG TABLET PO (21:05)
[2024-06-29] VITALS (15 sets, daily range): BP systolic 82–138; BP diastolic 56–81; PULSE 57–94; TEMP 36.5–36.6; O2SAT 94–99; BMI 18.6
[2024-06-29 04:58] LABS: Glucometer 65 mg/dL (74-106)
[2024-06-29] MEDS: HYOSCYAMINE SULFATE 0.125 MG TAB.SUBL PO ×3 (05:45→22:14)
[2024-06-29] MEDS: OMEPRAZOLE 40 MG CAPSULE.DR PO (05:45)
[2024-06-29 06:19] LABS: Basophils Absolute Auto 0.1 10^3/uL (0.0-0.1); Basophils Percent Auto 0.9 % (0.2-2.0); Eosinophils Absolute Auto 0.2 10^3/uL (0.0-0.7); Eosinophils Percent Auto 2.7 % (0.9-7.0); Hematocrit 29.8 % (36.0-48.0); Hemoglobin 9.6 g/dL (12.0-16.0); Immature Granulocytes Abs Auto 0.03 10^3/uL (0.00-0.03); Immature Granulocytes Pct Auto 0.4 % (0.0-0.5); Lymphocytes Absolute Auto 0.8 10^3/uL (1.2-3.8); Lymphocytes Percent Auto 10.2 % (20.5-60.0); Mean Corpuscular HGB Conc 32.2 g/dL (29.9-35.2); Mean Corpuscular Hemoglobin 28.7 pg (26.7-34.0); Mean Corpuscular Volume 89.2 fL (81.0-99.0); Mean Platelet Volume 11.1 fL (9.5-13.5); Monocytes Absolute Auto 0.9 10^3/uL (0.3-0.8); Monocytes Percent Auto 11.1 % (1.7-12.0); Neutrophils Absolute Auto 6.1 10^3/uL (1.4-6.5); Neutrophils Percent Auto 74.7 % (43.0-75.0); Platelet Count 331 10^3/uL (150-450); Red Blood Count 3.34 10^6/uL (4.20-5.40); Red Cell Distribution Width 13.1 % (11.0-15.0); White Blood Count 8.1 10^3/uL (4.0-11.0)
[2024-06-29 06:47] LABS: Alanine Aminotransferase 16 U/L (14-59); Albumin Globulin Ratio 0.8; Alkaline Phosphatase 146 U/L (46-116); Aspartate Amino Transferase 18 U/L (15-37); BUN Creatinine Ratio 28.3; Bilirubin Total 0.6 mg/dL (0.2-1.0); Calcium 7.7 mg/dL (8.5-10.1); Chloride 110 mmol/L (98-107); Estimated GFR (African America 43 (>=60 mL/min/1.73m^2); Estimated GFR (Non-African Ame 36 (>=60 mL/min/1.73m^2); Globulin 2.4 g/dL; Glucose 78 mg/dL (74-106); Sodium 144 mmol/L (136-145); Total Protein 4.4 g/dL (6.4-8.2)
--- NOTE | 2024-06-29 08:50 | W.PM.WC ---
Wound Consult Note Assessment and Plan (1) Acute kidney injury: (2) Generalized weakness: (3) UTI (urinary tract infection): Qualifiers: Urinary tract infection type: catheter-associated UTI Indwelling urinary catheter type: cystostomy catheter Encounter type: subsequent encounter Qualified Code(s): T83.510D - Infection and inflammatory reaction due to cystostomy catheter, subsequent encounter; N39.0 - Urinary tract infection, site not specified (4) Acute hyperkalemia: (5) Lactic acidosis: (6) Inability to walk: (7) Multiple sclerosis: (8) Hypertension: Qualifiers: Hypertension type: primary hypertension Qualified Code(s): I10 - Essential (primary) hypertension (9) Hyperlipidemia: Qualifiers: Hyperlipidemia type: unspecified Qualified Code(s): E78.5 - Hyperlipidemia, unspecified (10) Ulcer of right heel: Qualifiers: Non-pressure ulcer stage: with fat layer exposed Qualified Code(s): L97.412 - Non-pressure chronic ulcer of right heel and midfoot with fat layer exposed (11) Severe protein-calorie malnutrition: Plan Consult: Left heel pressure ulcer Patient evaluated for left heel pressure ulcer that she is unsure of duration. She states it started as a small area and has continued to worsen. She has seen a court usher in [place] once that she can recall and states she has been using triple antibiotic ointment to the area. Upon assessment, patient has an unstageable pressure ulcer to her left posterior heel that measures 3.4cmx2.4cmxundetermined. There is 50% pink tissue and 50% soft yellow, limon slough to the distal wound bed. Unable to determine depth at this point. There is no erythema, odor, and patient denies pain. The area of slough is soft, moist. Patient is wearing cloth off loading booties bilaterally. The remainder of her skin is intact at this time. She is at high risk for continued skin breakdown due to her decreased mobility. Recommendations: Santyl ointment to left heel (nickel thickness) ulcer daily. Cover with adaptic/gauze/kerlix. Continue off loading boots Monitor at risk areas of pressure for any skin breakdown Consult podiatry for physican assessment Orders in chart Please call [phone] for any questions or concerns. Bill Colin RN, CWON
[2024-06-29] MEDS: HEPARIN SODIUM (PORCINE) 5,000 UNIT/ML VIAL 5000 UNIT SUBQ ×2 (09:05→22:14)
[2024-06-29] MEDS: DONEPEZIL HCL 10 MG TABLET PO (09:05)
[2024-06-29] MEDS: METOPROLOL TARTRATE 50 MG TABLET PO (09:05)
[2024-06-29] MEDS: PROSTAT 15 GM PROTEIN/100 CAL 30 ML LIQUID PACKET PO ×2 (09:05→22:15)
[2024-06-29] MEDS: MEMANTINE HCL 28 MG CAP XR PO (09:06)
[2024-06-29] MEDS: LOPERAMIDE HCL 2 MG CAPSULE PO ×2 (09:06→22:14)
[2024-06-29] MEDS: ASPIRIN 81 MG TABLET.DR PO (09:06)
[2024-06-29] MEDS: METOPROLOL TARTRATE 100 MG TABLET PO (09:06)
[2024-06-29] MEDS: TERIFLUNOMIDE 14 MG 14 EACH PO (09:06)
[2024-06-29] MEDS: ENSURE ORIGINAL 237 ML BOTTLE PO (09:07)
--- NOTE | 2024-06-29 09:40 | MR_ITS ---
The [address] [address] Patient Name: JERICA DONATO MRN: [id number] date: 1955 Sex: F Assigned Patient Location: MS Current Patient Location: MS Accession/Order Number: [id number] Exam Date: 06/29/2024 10:40 Report Date: 06/29/2024 13:37 At the request of: SHAIKH LORAINE Procedure: MR thoracic spine wo/w con HISTORY: The patient has a history of multiple sclerosis and has had a flareup of symptoms. Evaluate for acute focus of demyelination in the cervical and thoracic spinal cord. MRI cervical spine without and with contrast 06/29/2024. MRI thoracic spine without and with contrast 06/29/2024. COMPARISON: None. TECHNIQUE: Multiplanar, multisequence MRI images of the cervical and thoracic spine were obtained prior to and following the intravenous administration of gadolinium. FINDINGS: Cervical spine: Several images are degraded by motion artifact. There is a mild rotatory levoconvex scoliosis of the cervical spine. There is severe discogenic disease with mild adjacent type I Modic endplate change at the C6-C7 level. There is moderate discogenic disease at the C4-C5 and C5-C6 level. There is ankylosis of the left C4-C5 facet joint. The bone marrow signal intensity appears age appropriate. The craniovertebral junction appears grossly within normal limits. There are small patchy foci of increased T2/STIR signal intensity seen within the edith at the edge of the [id number] on the sagittal images, but these areas do not appear to enhance on the postcontrast sagittal images. C2-C3 level: No significant disc protrusion, spinal canal stenosis, or foraminal narrowing is seen. C3-C4 level: No significant disc protrusion, spinal canal stenosis, or foraminal narrowing is seen. C4-C5 level: No significant disc protrusion, spinal canal stenosis, or foraminal narrowing is seen. C5-C6 level: There is a small posterior disc bulge combining with ligament flavum hypertrophy to cause mild spinal canal stenosis. Uncovertebral arthropathy appears to cause mild bilateral foraminal narrowing. C6-C7 level: There is a moderate-sized central disc extrusion with mild cranial and caudal migration of 5 mm. This causes moderate to severe spinal canal stenosis with mild indentation on the anterior aspect of the spinal cord. No foraminal narrowing is seen. C7-T1 level: There is a small central disc protrusion without significant spinal canal stenosis. No foraminal narrowing. There are small subtle linear foci of mild increased T2 signal intensity involving the posterolateral aspect of the cervical spinal cord at the C1 level and within the anterior aspect of the spinal cord at the C3 vertebral body level. However, no abnormal enhancement is identified in these regions or elsewhere in the cervical spinal cord. There is no abnormal enhancement of the thecal sac. Thoracic spine: A few images are slightly degraded by motion artifact. There is a mild rotatory levoconvex scoliosis of the thoracic spine. There is a small layering left pleural effusion and a small layering trace right pleural effusion. There is mild multilevel discogenic disease of the thoracic spine. No compression fracture or subluxation is seen. The bone marrow signal intensity appears age appropriate. No significant disc protrusion, spinal canal stenosis, or foraminal narrowing is seen. There is a subtle linear focus of increased T2 signal intensity within the right side of the spinal cord at the T4-T5 level and there is a subtle linear focus of increased T2 signal intensity within the posterolateral left side of the spinal cord at the T5-T6 level. No abnormal enhancement is identified in these regions or elsewhere in the thoracic spinal cord. There is no abnormal enhancement of the thoracic spinal cord. MR/MR thoracic spine wo/w con IMPRESSION: 1. There is multilevel discogenic disease of the cervical spine with mild spinal canal stenosis at the C5-C6 level and there is a moderate size central disc extrusion at the C6-C7 level causing moderate to severe spinal canal stenosis with mild indentation on the anterior aspect of the spinal cord. No other spinal canal stenosis of the cervical spine is seen. 2. There are patchy linear foci of increased T2 signal intensity within the cervical and thoracic spinal cord as described above, but no evidence of abnormal enhancement is seen in these regions or elsewhere in the spinal cord to suggest a focus of acute demyelination. 3. There is multilevel discogenic disease of the thoracic spine without evidence of significant spinal canal stenosis or foraminal narrowing. 4. There is a small layering left pleural effusion and a trace layering right pleural effusion which are of indeterminate etiology. Electronically authenticated by: PATRICA COLINDRES Date: 06/29/2024 13:37
--- NOTE | 2024-06-29 09:40 | MR_ITS ---
The [address] [address] Patient Name: JERICA DONATO MRN: [id number] date: 1955 Sex: F Assigned Patient Location: MS Current Patient Location: MS Accession/Order Number: [id number] Exam Date: 06/29/2024 12:45 Report Date: 06/30/2024 14:22 At the request of: SHAIKH LORAINE Procedure: MR head/brain wo/w con EXAM: MR head/brain wo/w con HISTORY: ms flare up COMPARISON: MR brain 04/29/2015. MRI cervical and thoracic spine 06/29/2024 TECHNIQUE: Multiplanar multisequence MR imaging of the brain was performed with and without intravenous contrast. FINDINGS: Calvarium/skull base: No focal marrow replacing lesion suggestive of neoplasm. Orbits: Grossly unremarkable. Paranasal sinuses: Imaged portions clear Brain: No restricted diffusion. There is redemonstration of extensive abnormal T2 FLAIR signal hyperintensity involving the supratentorial white matter with lesser involvement of the central pontine white matter. Prominent periventricular involvement is noted with relative paucity of white matter involving the bilateral parietal lobes. There is no substantial interval progression compared to 2014 when allowing for motion artifact on the current study. Many lesions demonstrate intrinsic low T1 signal intensity. No associated postcontrast enhancement. No mass effect, hemorrhage, or hydrocephalus. Grossly normal flow-related signal in the major intracranial arteries and dural sinuses. MR/MR head/brain wo/w con IMPRESSION: No substantial interval change in appearance of the brain parenchyma compared to 04/29/2015 with extensive abnormal T2 FLAIR signal involving the supratentorial white matter many of which demonstrate low-dose T1 signal consistent with burned out lesions relating to multiple sclerosis. There is associated relative volume loss and white matter involving the parietal white matter. No overt evidence for active demyelination given slightly suboptimal exam. Electronically authenticated by: BRITTNEY BRIAN Date: 06/30/2024 14:22
--- NOTE | 2024-06-29 09:40 | MR_ITS ---
The [address] [address] Patient Name: JERICA DONATO MRN: [id number] date: 1955 Sex: F Assigned Patient Location: MS Current Patient Location: MS Accession/Order Number: [id number] Exam Date: 06/29/2024 10:40 Report Date: 06/29/2024 13:37 At the request of: SHAIKH LORAINE Procedure: MR cervical spine wo/w con HISTORY: The patient has a history of multiple sclerosis and has had a flareup of symptoms. Evaluate for acute focus of demyelination in the cervical and thoracic spinal cord. MRI cervical spine without and with contrast 06/29/2024. MRI thoracic spine without and with contrast 06/29/2024. COMPARISON: None. TECHNIQUE: Multiplanar, multisequence MRI images of the cervical and thoracic spine were obtained prior to and following the intravenous administration of gadolinium. FINDINGS: Cervical spine: Several images are degraded by motion artifact. There is a mild rotatory levoconvex scoliosis of the cervical spine. There is severe discogenic disease with mild adjacent type I Modic endplate change at the C6-C7 level. There is moderate discogenic disease at the C4-C5 and C5-C6 level. There is ankylosis of the left C4-C5 facet joint. The bone marrow signal intensity appears age appropriate. The craniovertebral junction appears grossly within normal limits. There are small patchy foci of increased T2/STIR signal intensity seen within the edith at the edge of the [id number] on the sagittal images, but these areas do not appear to enhance on the postcontrast sagittal images. C2-C3 level: No significant disc protrusion, spinal canal stenosis, or foraminal narrowing is seen. C3-C4 level: No significant disc protrusion, spinal canal stenosis, or foraminal narrowing is seen. C4-C5 level: No significant disc protrusion, spinal canal stenosis, or foraminal narrowing is seen. C5-C6 level: There is a small posterior disc bulge combining with ligament flavum hypertrophy to cause mild spinal canal stenosis. Uncovertebral arthropathy appears to cause mild bilateral foraminal narrowing. C6-C7 level: There is a moderate-sized central disc extrusion with mild cranial and caudal migration of 5 mm. This causes moderate to severe spinal canal stenosis with mild indentation on the anterior aspect of the spinal cord. No foraminal narrowing is seen. C7-T1 level: There is a small central disc protrusion without significant spinal canal stenosis. No foraminal narrowing. There are small subtle linear foci of mild increased T2 signal intensity involving the posterolateral aspect of the cervical spinal cord at the C1 level and within the anterior aspect of the spinal cord at the C3 vertebral body level. However, no abnormal enhancement is identified in these regions or elsewhere in the cervical spinal cord. There is no abnormal enhancement of the thecal sac. Thoracic spine: A few images are slightly degraded by motion artifact. There is a mild rotatory levoconvex scoliosis of the thoracic spine. There is a small layering left pleural effusion and a small layering trace right pleural effusion. There is mild multilevel discogenic disease of the thoracic spine. No compression fracture or subluxation is seen. The bone marrow signal intensity appears age appropriate. No significant disc protrusion, spinal canal stenosis, or foraminal narrowing is seen. There is a subtle linear focus of increased T2 signal intensity within the right side of the spinal cord at the T4-T5 level and there is a subtle linear focus of increased T2 signal intensity within the posterolateral left side of the spinal cord at the T5-T6 level. No abnormal enhancement is identified in these regions or elsewhere in the thoracic spinal cord. There is no abnormal enhancement of the thoracic spinal cord. MR/MR cervical spine wo/w con IMPRESSION: 1. There is multilevel discogenic disease of the cervical spine with mild spinal canal stenosis at the C5-C6 level and there is a moderate size central disc extrusion at the C6-C7 level causing moderate to severe spinal canal stenosis with mild indentation on the anterior aspect of the spinal cord. No other spinal canal stenosis of the cervical spine is seen. 2. There are patchy linear foci of increased T2 signal intensity within the cervical and thoracic spinal cord as described above, but no evidence of abnormal enhancement is seen in these regions or elsewhere in the spinal cord to suggest a focus of acute demyelination. 3. There is multilevel discogenic disease of the thoracic spine without evidence of significant spinal canal stenosis or foraminal narrowing. 4. There is a small layering left pleural effusion and a trace layering right pleural effusion which are of indeterminate etiology. Electronically authenticated by: PATRICA COLINDRES Date: 06/29/2024 13:37
--- NOTE | 2024-06-29 09:42 | PM.CN ---
Consult Note: [facility] Data of Consult Consult date: 06/29/24 Requesting Physician: Shaikh Jose C MD Primary Care Provider: SUSAN PERRY Consult Narrative Reason for consult: Left heel ulcer Narrative: Patient is a 69-year-old female with MS admitted for weakness, hyperkalemia and UTI. She was found to have a posterior left heel ulcer which she states she has had forever. She is known to Dr. Mcbride in [place]. She relates that she is feeling improved since being admitted and currently relates to poor appetite and continued weakness. She denies signs/symptoms of infection to her left heel and is unable to recall what dressings, topicals or local wound care she has attempted other than triple antibiotic which she has been using most recently. She has no other complaints regarding her feet cc:: CC: Shaikh Jose C MD Review of Systems ROS Status of ROS 10 or more systems reviewed and unremarkable except as noted in history and below [facility] Medical History (Updated 06/29/24 @ 10:08 by Jett Mcfarland DPM) Hyperlipidemia ?E78.5 - Hyperlipidemia, unspecified (ICD-10) Hypertension ?I10 - Essential (primary) hypertension (ICD-10) Heart palpitations ?R00.2 - Palpitations (ICD-10) Multiple sclerosis ?G35 - Multiple sclerosis (ICD-10) Surgical History (Updated 06/26/24 @ 18:55 by Lisa Herndon RN) H/O: hysterectomy ?Z90.710 - Acquired absence of both cervix and uterus (ICD-10) Family History (Updated 06/26/24 @ 18:29 by Lisa Herndon RN) Mother Family history of myocardial infarction Family history of hypertension Father Family history of CHF (congestive heart failure) Social History (Updated 06/26/24 @ 18:30 by Lisa Herndon RN) Within the past year, how often did you have a drink containing alcohol: never Score interpretation: A score less than 3 is consistent with normal alcohol consumption. Smoking status: Never smoker Non-prescribed substance use: denies use Highest level of school completed/degree received: high school graduate Little interest or pleasure in doing things: not at all Feeling down, depressed, or hopeless: not at all Meds Home Medications and Allergies Home Medications ?Medication ?Instructions ?Recorded ?Confirmed ?Type aspirin 81 mg tablet,delayed 81 mg PO DAILY 06/26/24 06/26/24 History release (Adult Low Dose Aspirin) atorvastatin 10 mg tablet 10 mg PO DAILY 06/26/24 06/26/24 History donepezil 10 mg tablet 10 mg PO DAILY 06/26/24 06/26/24 History hyoscyamine sulfate 0.125 mg tablet 0.125 mg PO TID 06/26/24 06/26/24 History lisinopril 10 mg tablet 10 mg PO BID 06/26/24 06/26/24 History loperamide 2 mg capsule 2 mg PO Q12H 06/26/24 06/26/24 History memantine 28 mg capsule 28 mg PO DAILY 06/26/24 06/26/24 History sprinkle,extended release 24hr metoprolol tartrate 100 mg tablet 100 mg PO Q12H 06/26/24 06/26/24 History metoprolol tartrate 50 mg tablet 50 mg PO Q12H 06/26/24 06/26/24 History pantoprazole 40 mg tablet,delayed 40 mg PO DAILY 06/26/24 06/26/24 History release potassium chloride 10 mEq 10 meq PO BID 06/26/24 06/26/24 History capsule,extended release teriflunomide 14 mg tablet 14 mg PO QAM 06/26/24 06/26/24 History triamterene 37.5 1 cap PO DAILY 06/26/24 06/26/24 History mg-hydrochlorothiazide 25 mg capsule Allergies Allergy/AdvReac Type Severity Reaction Status Date / Time sulfamethoxazole (From Allergy Unknown Unknown Verified 06/26/24 14:03 Bactrim) trimethoprim (From Bactrim) Allergy Unknown Unknown Verified 06/26/24 14:03 Exam Narrative Exam Narrative: Left posterior heel ulcer with mixed eschar and fibrotic tissue bed which measures 3.5 x 2.5 cm. No surrounding erythema or purulence. Wound is tender to direct palpation but no other signs of infection. Muscle strength is equal and symmetric bilaterally and seemingly weak in all planes. Pedal pulses are faintly palpable with absent digital hair. No calf pain on squeeze Constitutional Vital Signs, click to edit/add: Last Vital Signs Temp 97.7 F 06/29/24 05:01 Pulse 86 06/29/24 08:00 Resp 18 06/29/24 05:01 BP 138/79 06/29/24 05:01 Pulse Ox 97 06/29/24 08:00 O2 Del Method Room Air 06/29/24 05:01 Results Labs Labs: Short CBC 06/29/24 Range/Units 05:24 WBC 8.1 (4.0-11.0) 10^3/uL Hgb 9.6 L (12.0-16.0) g/dL Hct 29.8 L (36.0-48.0) % Plt Count 331 (150-450) 10^3/uL BMP 06/29/24 05:24 Sodium 144 Potassium 4.0 Chloride 110 H Carbon Dioxide 27.0 BUN 41.0 H Creatinine 1.45 H Glucose 78 Calcium 7.7 L Liver Function 06/29/24 Range/Units 05:24 Total Bilirubin 0.6 (0.2-1.0) mg/dL AST 18 (15-37) U/L ALT 16 (14-59) U/L Alkaline Phosphatase 146 H (46-116) U/L Albumin 2.0 L (3.4-5.0) g/dL Assessment and Plan Assessment and Plan (1) Acute kidney injury: (2) Generalized weakness: (3) UTI (urinary tract infection): Qualifiers: Urinary tract infection type: catheter-associated UTI Indwelling urinary catheter type: cystostomy catheter Encounter type: subsequent encounter Qualified Code(s): T83.510D - Infection and inflammatory reaction due to cystostomy catheter, subsequent encounter; N39.0 - Urinary tract infection, site not specified (4) Acute hyperkalemia: (5) Lactic acidosis: (6) Inability to walk: (7) Multiple sclerosis: (8) Hypertension: Qualifiers: Hypertension type: primary hypertension Qualified Code(s): I10 - Essential (primary) hypertension (9) Hyperlipidemia: Qualifiers: Hyperlipidemia type: unspecified Qualified Code(s): E78.5 - Hyperlipidemia, unspecified (10) Severe protein-calorie malnutrition: (11) Ulcer of left heel and midfoot with fat layer exposed: Assessment and Plan: Ulcer to left heel which appears to be full-thickness but depth cannot be adequately determined Plan Patient seen and evaluated. Patient education provided and all questions answered to her satisfaction. I agree with our wound nurse, Betty Colin RN regarding POC - daily santyl with dry dressing change Patient is known to Dr. Mcbride in [place] and would like to follow-up with him; he was notified of patient's admission and local wound care If patient does not respond to offloading and Santyl then patient may require operative debridement which can be done as an outpatient Patient is a fall risk and may WBAT to left foot (ulcer is posterior) Please call with updates
--- NOTE | 2024-06-29 10:07 | REH.PTDLY ---
Physical Therapy Daily Note PT Daily Note/Assess Start: 06/27/24 13:00 Freq: Status: Active Protocol: Document 06/29/24 09:58 LU (Rec: 06/29/24 10:06 [id number]) Physical Therapy Daily Note/Assessment Time In 09:35 Time Out 09:55 Subjective Pt agreeable to sit up in chair. No new complaints, having MRI's done today Therapeutic Exercise Minutes (minutes) 6 Therapeutic Exercise Units 0 Therapeutic Exercise Treatment Instructed in B LE seated exs 10x ea with R LE being weaker compared to L LE with smaller ROM noted. Instructed in LAQ, marching, and hip abd 10x ea with cues and demo Therapeutic Activity Minutes (minutes) 9 Therapeutic Activity Units 1 Therapeutic Activity Comments Supine to sit transfers Mod A. Sit to stand transfer with pt having UEs on RW and bed slightly elevated Min A x2. Attempted to ambulate around the bed to chair, but pt limited by pain in L heel. Pt lies supine and then sits on opposite side of bed Mod A x2. Stand pivot transfer Min-Mod A x2 with cues for pt to shift weight forward as she tends to lean back a little too far at times. Pt has wound on back of L heel that hurts with weight bearing. Cues for pt to keep weight on toes to avoid discomfort. Cues for pt to reach back for chair, with Min A to guide hand to arm rest. Total Therapy Minutes 15 Total Physical Therapy Units 1 Daily Note Summary Pt requires 2 assist today due to weakness. Dr. Mcfarland enters room, and states it is fine for her to weight bear thru the L foot as pt tolerates, as wound is not on the bottom of heel. Pt will need rehab for improved strength as she has had an increase in falls over the last few weeks and continues to be a fall risk as this time .
--- NOTE | 2024-06-29 10:50 | CM.NOTE ---
Rounds made with Dr. Woodall, discussed plan of care with pt and . Pt will have MRI today and PT and OT will evaluate pt. Pt verbalizes that her thinks she would benefit from inpt skilled therapy at discharge d/t progressive weakness. Pt lives at home with and uses walker at home, prior to admission was able to perform ADL's with some increased weakness.
--- NOTE | 2024-06-29 10:57 | CM.NOTE ---
Pt also states she is active with [facility] services at this time.
--- NOTE | 2024-06-29 11:25 | CM.NOTE ---
Important Message From Medicare discussed with pt, pt verbalizes understanding and signs paper. Original given to pt and copy placed in pt's chart.
--- NOTE | 2024-06-29 11:50 | PM.IMPN1 ---
Progress Note: A&P Assessment and Plan (1) Acute kidney injury: Assessment and Plan: Normal renal fx at baseline. Presented with serum cr of 2.8. Improved to 1.45 Likely pre renal. Monitor UO, serum cr. (2) Generalized weakness: Assessment and Plan: Feels a little better but still considerably weak. PT/OT. Suspected MS exacerbation. (3) UTI (urinary tract infection): Assessment and Plan: on IV rocephin. F/.u urine cx. Qualifiers: Urinary tract infection type: catheter-associated UTI Indwelling urinary catheter type: cystostomy catheter Encounter type: subsequent encounter Qualified Code(s): T83.510D - Infection and inflammatory reaction due to cystostomy catheter, subsequent encounter; N39.0 - Urinary tract infection, site not specified (4) Acute hyperkalemia: Assessment and Plan: Presented with Potassium of 6.1. Likely due to JAN. Resolved. (5) Lactic acidosis: Assessment and Plan: Due to dehydration. Improved. (6) Inability to walk: Assessment and Plan: PT/OT eval. Suspected MS flare up. (7) Multiple sclerosis: Assessment and Plan: Neuro consult for possible MS exacerbation. Recommended MR brain/cervical and thoracic spine. Started on IV solumedrol 1 g daily. Awaiting MRI results. (8) Hypertension: Assessment and Plan: IV hydralazine as needed. Hold lisinopril/hctz and triamterene for now. Qualifiers: Hypertension type: primary hypertension Qualified Code(s): I10 - Essential (primary) hypertension (9) Hyperlipidemia: Assessment and Plan: c/w lipitor. Qualifiers: Hyperlipidemia type: unspecified Qualified Code(s): E78.5 - Hyperlipidemia, unspecified (10) Severe protein-calorie malnutrition: Assessment and Plan: Poor PO intake, eats than 20% of daily energy requirement. BMI of only 18, patient reports anorexia, poor PO intake for sometime and that she has lost considerable weight. Added ensure, prostat. (11) Ulcer of right heel: Assessment and Plan: Evaluated by podaitry. dressing with santyl. No concern for infection. 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 No overnight events. Overall feels better but still complaining of generalized weakness, that is worse in b/l LE. Unable to ambulate and more or less bed bound since her symptoms onset. Exam Constitutional Vital Signs, click to edit/add: Last Vital Signs Temp 97.7 F 06/29/24 05:01 Pulse 94 H 06/29/24 09:56 Resp 18 06/29/24 05:01 BP 138/79 06/29/24 05:01 Pulse Ox 97 06/29/24 09:56 O2 Del Method Room Air 06/29/24 05:01 Documenting provider has reviewed patient's vital signs: yes Common normals: no apparent distress and oriented x3 General appearance: cooperative Respiratory Common normals: normal respiratory effort and clear to auscultation bilaterally Effort & inspection: able to speak in complete sentences Auscultation: clear to auscultation bilaterally Cardio Common normals: regular rate, S1 normal heart sound and S2 normal heart sound Rate: regular rate Heart sounds: S1 normal and S2 normal GI Common normals: soft to palpation, non-tender and no hepatosplenomegaly Palpation: soft and no hepatosplenomegaly Other: SP catheter in place. Extremity Other: left heel ulcer - healthy granulation tissue, no discharge. No signs of infection Neuro Common normals: oriented x3 and moves all extremities Gait (neuro): unable to assess gait Other: B/l LE weakness - power is only about 3/5. No rigidity, muscle tone appears decreased. No weakness on UE b/l Psych Common normals: mental status grossly normal, denies hallucinations, denies homicidal ideation and denies suicidal ideation Internal Medicine - PN: Obj Da Labs Labs: Laboratory Results - last 24 hr 06/29/24 06/29/24 04:56 05:24 WBC 8.1 RBC 3.34 L Hgb 9.6 L Hct 29.8 L MCV 89.2 MCH 28.7 MCHC 32.2 RDW 13.1 Plt Count 331 MPV 11.1 Neut % (Auto) 74.7 Lymph % (Auto) 10.2 L [place] % (Auto) 11.1 Eos % (Auto) 2.7 Baso % (Auto) 0.9 Neut # (Auto) 6.1 Lymph # (Auto) 0.8 L [place] # (Auto) 0.9 H Eos # (Auto) 0.2 Baso # (Auto) 0.1 Abs Immat Gran (auto) 0.03 Imm/Tot Granulo (auto) 0.4 Sodium 144 Potassium 4.0 Chloride 110 H Carbon Dioxide 27.0 Anion Gap 11.0 BUN 41.0 H Creatinine 1.45 H Est GFR ( Amer) 43 L Est GFR (Non-Af Amer) 36 L BUN/Creatinine Ratio 28.3 Glucose 78 Calcium 7.7 L Total Bilirubin 0.6 AST 18 ALT 16 Alkaline Phosphatase 146 H Total Protein 4.4 L Albumin 2.0 L Globulin 2.4 Albumin/Globulin Ratio 0.8 POC Glucose 65 L Urinary Catheter Management Urinary Catheter Management Suprapubic: Cath placed during this visit: no
--- NOTE | 2024-06-29 12:13 | SWNOTE1 ---
SW spoke to case management and pt will need SNF and is agreeable and would like her to go as well. Pt would like SW to call . SW called and left a message.
[2024-06-29] MEDS: METHYLPREDNISOLONE SOD SUCC/PF 1,000 MG in 0.9 % SODIUM CHLORIDE 100 ML 108 MG IV (12:37)
--- NOTE | 2024-06-29 12:59 | SWNOTE1 ---
TAYE spoke to on the phone and he would like [facility] as first choice and [facility]. TAYE sent email to [facility] and she will have an opening today and waiting to find out when the rest of the openings will be. TAYE sent referral to Zayda at [facility]. Referral sent to [facility]. Referral included face sheet, ED note, H&P, provider notes, case management report, wound consult, nursing notes, diagnostic imaging, med list, and PT/OT notes.
[2024-06-29] MEDS: CEFTRIAXONE 1,000 MG in 0.9 % SODIUM CHLORIDE 50 ML 100 MG IV (13:34)
[2024-06-29] MEDS: 0.9 % SODIUM CHLORIDE 250 ML 10 ML IV (13:34)
--- NOTE | 2024-06-29 14:10 | SWNOTE1 ---
TAYE did receive call from [facility] and pt is current with them. TAYE advised [facility] that the plan is for pt to go to SNF and SW will keep them updated.
--- NOTE | 2024-06-29 15:31 | CM.NOTE ---
Pt requesting to speak with Case Management, pt has questions regarding if [facility] has accepted. Discussed with pt the new referral process and still waiting for reply from [facility] if they would be able to accept. Pt and verbalize understanding.
[2024-06-29] MEDS: ATORVASTATIN CALCIUM 10 MG TABLET PO (22:14)
[2024-06-30] VITALS (16 sets, daily range): BP systolic 135–170; BP diastolic 54–100; PULSE 58–101; TEMP 36.4–37.2; O2SAT 90–96
[2024-06-30] MEDS: HYOSCYAMINE SULFATE 0.125 MG TAB.SUBL PO ×3 (05:32→21:43)
[2024-06-30] MEDS: OMEPRAZOLE 40 MG CAPSULE.DR PO (05:32)
[2024-06-30 05:55] LABS: Immature Granulocytes Abs Auto 0.02 10^3/uL (0.00-0.03); Immature Granulocytes Pct Auto 0.4 % (0.0-0.5); Lymphocytes Absolute Auto 0.4 10^3/uL (1.2-3.8); Lymphocytes Percent Auto 7.2 % (20.5-60.0); Mean Corpuscular HGB Conc 33.3 g/dL (29.9-35.2); Mean Corpuscular Hemoglobin 29.2 pg (26.7-34.0); Mean Corpuscular Volume 87.7 fL (81.0-99.0); Mean Platelet Volume 10.8 fL (9.5-13.5); Monocytes Absolute Auto 0.1 10^3/uL (0.3-0.8); Monocytes Percent Auto 2.3 % (1.7-12.0); Neutrophils Absolute Auto 4.4 10^3/uL (1.4-6.5); Neutrophils Percent Auto 90.1 % (43.0-75.0); Platelet Count 326 10^3/uL (150-450); Red Blood Count 3.42 10^6/uL (4.20-5.40); White Blood Count 4.8 10^3/uL (4.0-11.0)
[2024-06-30 06:25] LABS: Alanine Aminotransferase 16 U/L (14-59); Albumin Globulin Ratio 0.8; Alkaline Phosphatase 151 U/L (46-116); Anion Gap 11.1; Aspartate Amino Transferase 16 U/L (15-37); BUN Creatinine Ratio 30.7; Bilirubin Total 0.5 mg/dL (0.2-1.0); Calcium 7.7 mg/dL (8.5-10.1); Carbon Dioxide 27.8 mmol/L (21.0-32.0); Chloride 109 mmol/L (98-107); Estimated GFR (African America 45 (>=60 mL/min/1.73m^2); Estimated GFR (Non-African Ame 37 (>=60 mL/min/1.73m^2); Globulin 2.5 g/dL; Glucose 130 mg/dL (74-106); Potassium 3.9 mmol/L (3.5-5.1); Sodium 144 mmol/L (136-145); Total Protein 4.5 g/dL (6.4-8.2)
[2024-06-30] MEDS: LOPERAMIDE HCL 2 MG CAPSULE PO ×2 (08:25→21:43)
[2024-06-30] MEDS: MEMANTINE HCL 28 MG CAP XR PO (08:25)
[2024-06-30] MEDS: PROSTAT 15 GM PROTEIN/100 CAL 30 ML LIQUID PACKET PO ×2 (08:25→21:43)
[2024-06-30] MEDS: DONEPEZIL HCL 10 MG TABLET PO (08:25)
[2024-06-30] MEDS: METOPROLOL TARTRATE 50 MG TABLET PO ×2 (08:25→21:43)
[2024-06-30] MEDS: ASPIRIN 81 MG TABLET.DR PO (08:25)
[2024-06-30] MEDS: HEPARIN SODIUM (PORCINE) 5,000 UNIT/ML VIAL 5000 UNIT SUBQ ×2 (08:25→21:43)
[2024-06-30] MEDS: ENSURE ORIGINAL 237 ML BOTTLE PO (08:25)
[2024-06-30] MEDS: COLLAGENASE CLOSTRIDIUM HIST. 250 UNITS/GM 30 GRAM TUBE 1 APPLIC TOPICAL (08:25)
[2024-06-30] MEDS: METOPROLOL TARTRATE 100 MG TABLET PO ×2 (08:25→21:43)
[2024-06-30] MEDS: TERIFLUNOMIDE 14 MG 14 EACH PO (08:27)
--- NOTE | 2024-06-30 10:47 | P.IMPN_ITS ---
Progress Note: A&P Assessment and Plan (1) Acute kidney injury: Assessment and Plan: Improved with IV hydration. Likely pre renal. (2) Generalized weakness: Assessment and Plan: Feels a little better but still considerably weak. PT/OT. Suspected MS exacerbation. (3) UTI (urinary tract infection): Assessment and Plan: on IV rocephin. F/.u urine cx. Qualifiers: Urinary tract infection type: catheter-associated UTI Indwelling urinary catheter type: cystostomy catheter Encounter type: subsequent encounter Qualified Code(s): T83.510D - Infection and inflammatory reaction due to cystostomy catheter, subsequent encounter; N39.0 - Urinary tract infection, site not specified (4) Acute hyperkalemia: Assessment and Plan: Likely due to JAN. Resolved. (5) Lactic acidosis: Assessment and Plan: Due to dehydration. Improved. (6) Inability to walk: Assessment and Plan: Suspected MS flare up. PT/OT eval b/l LE weakness, R>L (7) Multiple sclerosis: Assessment and Plan: Neuro consult for possible MS exacerbation. Recommended MR brain/cervical and thoracic spine- Multilevel degenerative changes noted in cervical/thoracic spine. No abnormal/focus of acute demyelination. MRI brain pending. Will d/w Neuro after MRI is done. (8) Hypertension: Assessment and Plan: IV hydralazine as needed. Hold lisinopril/hctz and triamterene for now. Qualifiers: Hypertension type: primary hypertension Qualified Code(s): I10 - Essential (primary) hypertension (9) Hyperlipidemia: Assessment and Plan: c/w lipitor. Qualifiers: Hyperlipidemia type: unspecified Qualified Code(s): E78.5 - Hyperlipidemia, unspecified (10) Severe protein-calorie malnutrition: Assessment and Plan: Poor PO intake, eats than 20% of daily energy requirement. BMI of only 18, patient reports anorexia, poor PO intake for sometime and that she has lost considerable weight. Added ensure, prostat. (11) Ulcer of right heel: Assessment and Plan: Evaluated by podaitry. dressing with santyl. No concern for infection. 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 No overnight events. Still complaining of b/l LE weakness. RLE >LLE. MRI brain scheduled today at 1 Exam Constitutional Vital Signs, click to edit/add: Last Vital Signs Temp 98.9 F 06/30/24 08:29 Pulse 101 H 06/30/24 09:59 Resp 18 06/30/24 08:29 BP 136/79 06/30/24 08:29 Pulse Ox 96 06/30/24 08:29 O2 Del Method Room Air 06/30/24 08:29 Documenting provider has reviewed patient's vital signs: yes Common normals: no apparent distress and oriented x3 General appearance: cooperative Respiratory Common normals: normal respiratory effort and clear to auscultation bilaterally Effort & inspection: able to speak in complete sentences Auscultation: clear to auscultation bilaterally Cardio Common normals: regular rate, S1 normal heart sound and S2 normal heart sound Rate: regular rate Heart sounds: S1 normal and S2 normal GI Common normals: soft to palpation, non-tender and no hepatosplenomegaly Palpation: soft and no hepatosplenomegaly Other: SP catheter in place. Extremity Other: left heel ulcer - healthy granulation tissue, no discharge. No signs of infection Neuro Common normals: oriented x3 and moves all extremities Gait (neuro): unable to assess gait Other: B/l LE weakness - power is only about 2-3/5 RLE, LLE power is 4/5. No rigidity, muscle tone appears decreased. No weakness on UE b/l Psych Common normals: mental status grossly normal, denies hallucinations, denies lin icidal ideation and denies suicidal ideation Internal Medicine - PN: Obj Da Labs Labs: Laboratory Results - last 24 hr 06/30/24 05:24 WBC 4.8 RBC 3.42 L Hgb 10.0 L Hct 30.0 L MCV 87.7 MCH 29.2 MCHC 33.3 RDW 13.0 Plt Count 326 MPV 10.8 Neut % (Auto) 90.1 H Lymph % (Auto) 7.2 L [place] % (Auto) 2.3 Eos % (Auto) 0.0 L Baso % (Auto) 0.0 L Neut # (Auto) 4.4 Lymph # (Auto) 0.4 L [place] # (Auto) 0.1 L Eos # (Auto) 0.0 Baso # (Auto) 0.0 Abs Immat Gran (auto) 0.02 Imm/Tot Granulo (auto) 0.4 Sodium 144 Potassium 3.9 Chloride 109 H Carbon Dioxide 27.8 Anion Gap 11.1 BUN 43.0 H Creatinine 1.40 H Est GFR ( Amer) 45 L Est GFR (Non-Af Amer) 37 L BUN/Creatinine Ratio 30.7 Glucose 130 H Calcium 7.7 L Total Bilirubin 0.5 AST 16 ALT 16 Alkaline Phosphatase 151 H Total Protein 4.5 L Albumin 2.0 L Globulin 2.5 Albumin/Globulin Ratio 0.8 Urinary Catheter Management Urinary Catheter Management Suprapubic: Cath placed during this visit: no
--- NOTE | 2024-06-30 10:49 | REH.PTDLY ---
Physical Therapy Daily Note PT Daily Note/Assess Start: 06/27/24 13:00 Freq: Status: Active Protocol: Document 06/30/24 10:42 LU (Rec: 06/30/24 10:49 LU [id number]) Physical Therapy Daily Note/Assessment Time In 09:52 Time Out 10:07 Subjective Pt agreeable to sit in chair. Pt reports still no appetite. Pt does need to be cleaned up prior to rx though as she did have a bowel movement. Nurses aide comes into assist with this. Therapeutic Exercise Minutes (minutes) 5 Therapeutic Exercise Units 0 Therapeutic Exercise Treatment Instructed in seated exs 10x ea with pt struggling to perform heel/toe raises. L LE continues to have greater ROM compared to R LE with LAQ and marching. Hip add squeezes performed as well for strength . Therapeutic Activity Minutes (minutes) 10 Therapeutic Activity Units 1 Therapeutic Activity Comments Assist with rolling side to side in bed. Pt requires Mod A with supine to sit transfers. Sit to stand transfers Mod A x2 with first attempt being unsuccessful. Cues for pt to keep knees bent and feet back upon standing, with therapist blocking feet from sliding forward. Pt stand Min A x2 when feet positioned properly. Cues for pt to side step and then pivot to chair. Pt takins small shuffled steps, while limiting weight bearing into L heel due to discomfort. Min- MOd A x 2 with transfer to chair, assist becoming heavier as pt fatigues. Cues to prevent pt from sitting too soon. Mod A to guide pt into chair as pt does not reach back for chair arms. Total Therapy Minutes 15 Total Physical Therapy Units 1 Daily Note Summary Pt fatigues very easily during rx with transfers/gait. Requires 2 assist for safety with transfer as pt tends to lean back while looking down at feet when ambulating. Cues to correct. Pt will need SNF stay at [facility] to improve strength and mobility prior to returning home.
--- NOTE | 2024-06-30 11:05 | CM.NOTE ---
Rounds made with Dr. Woodall, pt to have MRI around 1:[address] Woodall will discuss plan of care with neurology. Possible discharge this afternoon to [facility].
--- NOTE | 2024-06-30 13:32 | CM.NOTE ---
Spoke with [facility] via e-mail and they are unable to accept pt with Santyl ointment d/t cost. Called and spoke with Betty from wound care and would interchange for [facility]. Inocencio Woodall and he is okay with the interchange for wound care.
[2024-06-30] MEDS: CEFTRIAXONE 1,000 MG in 0.9 % SODIUM CHLORIDE 50 ML 100 MG IV (14:11)
--- NOTE | 2024-06-30 14:47 | CM.NOTE ---
[facility] not able to take pt, roommate tested positive for COVID and no other beds available. Pt[facility] 2nd choice is [facility], called and spoke with admissions and they have no avaiable beds.
--- NOTE | 2024-06-30 15:05 | CM.NOTE ---
3rd choice is [facility] after reviewing [employer] 5 star rating. Called admissions at [facility] they do have bed availability, Case Management referral, Physician notes, and face sheet faxed.
[2024-06-30 16:09] LABS: Ova + Parasite Exam Final report (.)
[2024-06-30] MEDS: ATORVASTATIN CALCIUM 10 MG TABLET PO (21:43)
[2024-07-01] VITALS (9 sets, daily range): BP systolic 146–175; BP diastolic 89–97; PULSE 62–79; TEMP 36.4–36.7; O2SAT 94–95
[2024-07-01] MEDS: HYOSCYAMINE SULFATE 0.125 MG TAB.SUBL PO (05:41)
[2024-07-01] MEDS: OMEPRAZOLE 40 MG CAPSULE.DR PO (05:41)
[2024-07-01 06:09] LABS: Alanine Aminotransferase 18 U/L (14-59); Albumin Globulin Ratio 0.9; Albumin Level 2.2 g/dL (3.4-5.0); Alkaline Phosphatase 144 U/L (46-116); Anion Gap 12.4; Aspartate Amino Transferase 13 U/L (15-37); BUN Creatinine Ratio 37.4; Bilirubin Total 0.4 mg/dL (0.2-1.0); Carbon Dioxide 26.6 mmol/L (21.0-32.0); Chloride 109 mmol/L (98-107); Estimated GFR (African America 43 (>=60 mL/min/1.73m^2); Estimated GFR (Non-African Ame 35 (>=60 mL/min/1.73m^2); Globulin 2.5 g/dL; Glucose 123 mg/dL (74-106); Sodium 144 mmol/L (136-145); Total Protein 4.7 g/dL (6.4-8.2)
[2024-07-01] MEDS: COLLAGENASE CLOSTRIDIUM HIST. 250 UNITS/GM 30 GRAM TUBE 1 APPLIC TOPICAL (08:47)
[2024-07-01] MEDS: HEPARIN SODIUM (PORCINE) 5,000 UNIT/ML VIAL 5000 UNIT SUBQ (08:47)
[2024-07-01] MEDS: PROSTAT 15 GM PROTEIN/100 CAL 30 ML LIQUID PACKET PO (08:47)
[2024-07-01] MEDS: DONEPEZIL HCL 10 MG TABLET PO (08:47)
[2024-07-01] MEDS: ENSURE ORIGINAL 237 ML BOTTLE PO (08:47)
[2024-07-01] MEDS: ASPIRIN 81 MG TABLET.DR PO (08:47)
[2024-07-01] MEDS: METOPROLOL TARTRATE 50 MG TABLET PO (08:47)
[2024-07-01] MEDS: METOPROLOL TARTRATE 100 MG TABLET PO (08:47)
[2024-07-01] MEDS: LOPERAMIDE HCL 2 MG CAPSULE PO (08:47)
[2024-07-01] MEDS: MEMANTINE HCL 28 MG CAP XR PO (08:47)
[2024-07-01] MEDS: TERIFLUNOMIDE 14 MG 14 EACH PO (08:48)
--- NOTE | 2024-07-01 09:52 | SWNOTE1 ---
Pt's requesting to speak to SW. SW stopped in to speak with pt and . They spoke with family and family does not recommend she goes there for rehab. Pt's would like SW to look in to one of the [facility], either [facility] or [facility]. [facility] is first choice. SW did explain that they may not have a bed and options may be limited. Pt's also asked about going to a facility for a few days and then transferring to another facility. SW explained that many facilities do not like to do that as it is a waste of resources for them. He voiced understanding. SW to call [facility]. SW called and spoke to Marion at [facility] and they do have a bed open today and will review referral Referral sent to [facility]. Referral included face sheet, ED note, H&P, provider notes, case management report, wound consult, podiatry consult, nursing notes, diagnostic imaging, med list, and PT/OT notes.
--- NOTE | 2024-07-01 10:28 | SWNOTE1 ---
[facility] able [facility] accept. TAYE let pt and know. SW was going to have family transport pt, but speaking with nurse it will be more safe to do wheelchair with trips. TAYE called trips and set up transport for 12:00. TAYE notified nurse, doctor, [facility], and pt/pt's . SW to send orders once completed. TAYE completed HENS. TAYE took packet to the floor.
--- NOTE | 2024-07-01 10:32 | PM.DS1 ---
DS: Providers Provider Date of admission: 06/26/24 18:05 Primary care physician: SUSAN PERRY Admitting clinician: Shaikh Jose C Attending physician on admission: Shaikh Jose C Consults: 06/26/24 17:03 Consult to Wound Care Routine Consulting Provider: Bill Colin Reason for consultation: Leg Wound Occupational Therapy Eval and Treat Routine Reason for consultation: Ambulatory dysfunction/weakness Physical Therapy Eval and Treat Routine Reason for consultation: Ambulatory dysfunction/weakness 06/27/24 10:47 Consult to TeleNeurology Routine Reason for consultation: Hx of MS, generalized weakness, inability to ambulate 06/29/24 Consult to Podiatry Routine Consulting Provider: Jett Mcfarland Reason for consultation: left heel pressure ulcer -- Dr. Mcfarland has been notified Has provider been notified: Yes Attending physician on discharge: Shaikh Jose C Discharging clinician: Shaikh Jose C Anticipated date of discharge: 07/01/24 DS: Diagnosis Discharge Diagnosis (1) Acute kidney injury: (2) Generalized weakness: (3) UTI (urinary tract infection): Qualifiers: Urinary tract infection type: catheter-associated UTI Indwelling urinary catheter type: cystostomy catheter Encounter type: subsequent encounter Qualified Code(s): T83.510D - Infection and inflammatory reaction due to cystostomy catheter, subsequent encounter; N39.0 - Urinary tract infection, site not specified (4) Acute hyperkalemia: (5) Lactic acidosis: (6) Inability to walk: (7) Multiple sclerosis: (8) Hypertension: Qualifiers: Hypertension type: primary hypertension Qualified Code(s): I10 - Essential (primary) hypertension (9) Hyperlipidemia: Qualifiers: Hyperlipidemia type: unspecified Qualified Code(s): E78.5 - Hyperlipidemia, unspecified (10) Severe protein-calorie malnutrition: (11) Ulcer of right heel: Qualifiers: Non-pressure ulcer stage: with fat layer exposed Qualified Code(s): L97.412 - Non-pressure chronic ulcer of 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 She previously could ambulate using a walker but lately she has not been able to walk and for past couple of days she has not been able to get out of bed. She was evaluated in [place] [facility] and was discharged from ER after initial workup did not reveal anything significant. About 2 weeks ago she was prescribed oral doxycycline for UTI and left heel pressure ulcer. When she presented to ER, she was found to have acute kidney injury, hyperkalemia and leukocytosis along with abnormal UA consistent with UTI. She had an x-ray of her left heel that was unremarkable and negative for osteomyelitis. Patient was treated with IV hydration along with IV insulin for acute kidney injury/hyperkalemia. Overnight she became hypoglycemic and required IV dextrose. Her renal function improved during the course of admission. She was evaluated by Neurology for possible MS exacerbation. MR brain/Cervical and Thoracic spine did not reveal any new/active demyelinating lesions but revealed multilevel degenerative disc disease in cervical and thoracic spine. It is quite possible that her symptoms are due to thoracic and or possibly lumbar myelopathy.(MRI Lumbar was not done while she was inpatient). She was also evaluated by Podiatry for his left heel wound. Wound care was recommended. She did start to feel subjectively better but still had considerable generalized weakness, worse in B/L LE and RLE is worse than LLE. Her anti hypertensive were with held due to JAN/hyperkalemia. Her BP was reasonably controlled w/o them. I will resume her lisinopril but stop HCTZ/triamterene. She will need outpatient f/u by her PCP to monitor/follow up on BP. Patient was evaluated by PT/OT. She was recommended to go to SNF upon discharge to continue with PT/OT. Pt is medically stable for discharge. She will be discharged on oral ceftin for UTI. She will need f/u with Neurology as outpatient. She [facility] be contacted by [facility] for Neuro[facility] eval as outpatient. She has multiple comorbidities, poor functional status and will need close f/u by her PCP. Status at Discharge Functional status at discharge: uses cane/walker Overall status at discharge: patient is progressing back to baseline Time Spent with Patient Time attestation: Total time spent providing and/or coordinating discharge services: Time spent: greater than 30 minutes Exam Constitutional Vital Signs, click to edit/add: Last Vital Signs Temp 97.5 F L 07/01/24 08:52 Pulse 79 07/01/24 09:44 Resp 18 07/01/24 08:52 BP 175/97 H 07/01/24 08:52 Pulse Ox 94 L 07/01/24 09:20 O2 Del Method Room Air 07/01/24 09:20 Documenting provider has reviewed patient's vital signs: yes Common normals: no apparent distress and oriented x3 General appearance: cooperative Respiratory Common normals: normal respiratory effort and clear to auscultation bilaterally Effort & inspection: able to speak in complete sentences Auscultation: clear to auscultation bilaterally Cardio Common normals: regular rate, S1 normal heart sound and S2 normal heart sound Rate: regular rate Heart sounds: S1 normal and S2 normal Extremity Other: left heel ulcer - healthy granulation tissue, no discharge. No signs of infection Neuro Common normals: oriented x3 and moves all extremities Gait (neuro): unable to assess gait Other: B/l LE weakness - power is only about 2-3/5 RLE, LLE power is 4/5. No rigidity, muscle tone appears decreased. No weakness on UE b/l Psych Common normals: mental status grossly normal, denies hallucinations, denies homicidal ideation and denies suicidal ideation DS: Data Data Completed and Pending Labs on day of discharge: Labs from last 24 hours 07/01/24 06/26/24 05:47 21:47 Sodium 144 Potassium 4.0 Chloride 109 H Carbon Dioxide 26.6 Anion Gap 12.4 BUN 55.0 H Creatinine 1.47 H Est GFR ( Amer) 43 L Est GFR (Non-Af Amer) 35 L BUN/Creatinine Ratio 37.4 Glucose 123 H Calcium 8.0 L Total Bilirubin 0.4 AST 13 L ALT 18 Alkaline Phosphatase 144 H Total Protein 4.7 L Albumin 2.2 L Globulin 2.5 Albumin/Globulin Ratio 0.9 Stool Ova & Parasites Comment Stool O & P Status Final report Preliminary micro results at discharge 06/26/24 15:40 Blood Culture Result 2 - Preliminary Blood - Right Hand NO GROWTH AT 36-48 HOURS. FINAL TO FOLLOW. 06/26/24 15:30 Blood Culture Result 1 - Preliminary Blood - Left Antecubital NO GROWTH AT 36-48 HOURS. FINAL TO FOLLOW. Discharge Plan Discharge Disposition: Xfer SNF Discharge Medications: New cefuroxime axetil 500 mg tablet 500 mg PO BID 5 Days Qty: 10 0RF Continued metoprolol tartrate 100 mg tablet 100 mg PO Q12H metoprolol tartrate 50 mg tablet 50 mg PO Q12H loperamide 2 mg capsule 2 mg PO Q12H potassium chloride 10 mEq capsule, extended release 10 meq PO BID lisinopril 10 mg tablet 10 mg PO BID hyoscyamine sulfate 0.125 mg tablet 0.125 mg PO TID pantoprazole 40 mg tablet,delayed release (DR/EC) 40 mg PO DAILY teriflunomide 14 mg tablet 14 mg PO QAM aspirin [Adult Low Dose Aspirin] 81 mg tablet,delayed release (DR/EC) 81 mg PO DAILY memantine 28 mg capsule,sprinkle,ER 24hr 28 mg PO DAILY donepezil 10 mg tablet 10 mg PO DAILY atorvastatin 10 mg tablet 10 mg PO DAILY Discontinued triamterene-hydrochlorothiazid 37.5-25 mg capsule 1 cap PO DAILY 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 Forms: Portal Instructions Follow Up Appointments: f/u with PCP in one week F/u with Neurology in 2-4 weeks
--- NOTE | 2024-07-01 10:54 | SWNOTE1 ---
TAYE faxed over [place] med rec to [facility].
--- NOTE | 2024-07-01 12:30 | CM.NOTE ---
Rounds made with Dr. Woodall. Discussed labs and MRI results with Jacquie. Jacquie verbalized understanding. Jacquie and family decided they did not want to go to [facility] for SNF. Discussed other SNF options and Jacquie said we could check with [facility] or [facility]. Plan is for Jacquie to be discharged to SNF today.
== END 2024-07-01 12:14 | DRG 698 ==
LOC: ER 16:47 → MS 18:13
PROVIDERS: Physician Assistant; Registered Nurse; Admitting Provider Internal Medicine; Emergency Provider Emergency Medicine; PCP Family Medicine; Visit Provider Internal Medicine
DX: T83.510A Infection and inflammatory reaction due to cystostomy catheter, initial encounter (principal); E43 Unspecified severe protein-calorie malnutrition; N17.9 Acute kidney failure, unspecified; E87.20 Acidosis, unspecified; Z68.1 Body mass index [BMI] 19.9 or less, adult; N39.0 Urinary tract infection, site not specified; R53.1 Weakness; E87.5 Hyperkalemia; G35 Multiple sclerosis; R26.2 Difficulty in walking, not elsewhere classified; I10 Essential (primary) hypertension; E78.5 Hyperlipidemia, unspecified; Z79.899 Other long term (current) drug therapy; Z87.440 Personal history of urinary (tract) infections; Z90.710 Acquired absence of both cervix and uterus; Z79.82 Long term (current) use of aspirin; E86.0 Dehydration; R63.0 Anorexia; L89.620 Pressure ulcer of left heel, unstageable; Z91.81 History of falling; E16.2 Hypoglycemia, unspecified; M51.34 Other intervertebral disc degeneration, thoracic region; M50.30 Other cervical disc degeneration, unspecified cervical region; M48.02 Spinal stenosis, cervical region
CPT/HCPCS: 36415; 70450; 70553; 71045; 72156; 72157; 73630; 76775; 80048; 80053; 81001; 83605; 83735; 84132; 84443; 84484; 85007; 85025; 85027; 85610; 85652; 86140; 87040; 87045; 87046; 87177; 87209; 87427; 87493; 93005; 94761; 96365; 96375; 97163; 97165; 97530; 97535; 99285; A9575; G0328; J0696; J1644; J1817; J2405; J2919

== ENCOUNTER 2024-08-18 11:17 | Inpatient (IN) | payer MEDICARE, OTHER, SELFPAY ==
[2024-08-18] VITALS (24 sets, daily range): BP systolic 107–187; BP diastolic 73–98; PULSE 80–99; TEMP 36.7–38.8; O2SAT 90–98; BMI 24.2; BMI 18.5
--- NOTE | 2024-08-18 11:17 | XR_ITS ---
The [address] [address] Patient Name: JERICA DONATO MRN: [id number] date: 1955 Sex: F Assigned Patient Location: ED.MAIN Current Patient Location: ED.MAIN Accession/Order Number: [id number] Exam Date: 08/18/2024 11:45 Report Date: 08/18/2024 12:01 At the request of: RODRIGO JUDGE Procedure: XR chest 1V EXAMINATION: XR chest 1V HISTORY: ams COMPARISON: XR chest 06/26/2024 FINDINGS: LUNGS: No significant pulmonary parenchymal abnormalities. VASCULATURE: No increased pulmonary vasculature. PLEURA: No pneumothorax, effusion, or pleural thickening. CARDIAC: No cardiomegaly or cardiac silhouette abnormality. MEDIASTINUM: No visible mass or adenopathy. BONES: Old healed right fourth rib fracture. OTHER: Negative. XR/XR chest 1V IMPRESSION: 1. No acute cardiopulmonary process. Electronically authenticated by: HERMES CLARK Date: 08/18/2024 12:01
--- NOTE | 2024-08-18 11:17 | ECG_ITS ---
The [facility] Test Date: 2024-08-18 Pat Name: JERICA DONATO Department: Room: - Gender: Female [employer] T[employer]per: : 1955 Requested By: MICHELLE MICHEL Order Number: [id number] Reading MD: ANNABELLE HOWARD Measurements Intervals [place] Rate: 97 P: 46 [place]: 144 QRS: 69 QRSD: 68 T: 79 QT: 338 QTc: 392 Interpretive Statements 1100 Sinus rhythm 1470 with occasional supraventricular premature complexes 9140 abnormal rhythm ECG Electronically Signed On 08-18-2024 20:53:54 EST by ANNABELLE HOWARD
--- NOTE | 2024-08-18 11:17 | CT_ITS ---
The [address] [address] Patient Name: JERCIA DONATO MRN: [id number] date: 1955 Sex: F Assigned Patient Location: ED.MAIN Current Patient Location: ED.MAIN Accession/Order Number: [id number] Exam Date: 08/18/2024 11:17 Report Date: 08/18/2024 11:35 At the request of: RODRIGO JUDGE Procedure: CT stroke head/brain wo con NONCONTRAST HEAD CT COMPARISON: 06/26/2024. CLINICAL HISTORY: Facial droop. TECHNIQUE: Routine noncontrast images of the brain obtained. CT examination of the head without IV contrast. Dose reduction techniques were achieved by using: automated exposure control and/or adjustment of mA and /or kV according to patient size and/or use of iterative reconstruction technique. FINDINGS: Paranasal sinuses and mastoid air cells are clear. Intraorbital contents are unremarkable. No acute bony abnormality. Intracranially, there is no evidence of hemorrhage, mass effect, or midline shift. Moderate brain atrophy redemonstrated. Chronic small vessel ischemic changes in the periventricular white matter.. CT/CT stroke head/brain wo con IMPRESSION: No acute intracranial abnormality. Brain atrophy unchanged. Electronically authenticated by: GUERITA COURTNEY Date: 08/18/2024 11:35
[2024-08-18] MEDS: DEXTROSE 50 %-WATER 25 GM/50 ML SYRINGE IV (11:29)
--- NOTE | 2024-08-18 11:30 | ED.AMS1 ---
HPI - Altered Mental Status General Chief Complaint: Altered Mental Status Stated Complaint: GENERAL WEAKNESS Time Seen by Provider: 08/18/24 11:29 Source: patient Mode of arrival: ambulance Limitations: no limitations History of Present Illness HPI narrative: The patient have history of MS and suprapubic indwelling catheter is coming to us after she has been noted to have altered mental status by the [place] [facility] facility staff, send last known well at 7 AM, the EMS was called and assessment was done for possible stroke although the patient did not have any specific weakness, she was more of a confused and not having any motivation on my examination and not having any slurred speech but the patient keep repeating the same sentence(mostly saying absolutely for everything). Patient initially mentioned that she have no complaint but she also mentioned that she was feeling weak when asked and review of system Related Data Home Medications ?Medication ?Instructions ?Recorded ?Confirmed aspirin 81 mg tablet,delayed 81 mg PO DAILY 06/26/24 08/18/24 release (Adult Low Dose Aspirin) atorvastatin 10 mg tablet 10 mg PO .QHS 06/26/24 08/18/24 donepezil 10 mg tablet 10 mg PO DAILY 06/26/24 08/18/24 hyoscyamine sulfate 0.125 mg tablet 0.125 mg PO TID 06/26/24 08/18/24 lisinopril 10 mg tablet 10 mg PO BID 06/26/24 08/18/24 loperamide 2 mg capsule 2 mg PO Q12H 06/26/24 08/18/24 memantine 28 mg capsule 28 mg PO DAILY 06/26/24 08/18/24 sprinkle,extended release 24hr metoprolol tartrate 100 mg tablet 100 mg PO Q12H 06/26/24 08/18/24 metoprolol tartrate 50 mg tablet 50 mg PO Q12H 06/26/24 08/18/24 pantoprazole 40 mg tablet,delayed 40 mg PO DAILY 06/26/24 08/18/24 release potassium chloride 10 mEq 10 meq PO BID 06/26/24 08/18/24 capsule,extended release teriflunomide 14 mg tablet 14 mg PO QAM 06/26/24 08/18/24 triamterene 37.5 1 cap PO DAILY 08/18/24 08/18/24 mg-hydrochlorothiazide 25 mg capsule Allergies Allergy/AdvReac Type Severity Reaction Status Date / Time sulfamethoxazole (From Allergy Unknown Unknown Verified 08/18/24 11:25 Bactrim) trimethoprim (From Bactrim) Allergy Unknown Unknown Verified 08/18/24 11:25 Review of Systems ROS Status of ROS 10 or more systems reviewed and unremarkable except as noted in history and below [facility] Medical History (Updated 08/18/24 @ 12:26 by Kim Kline MD) Fall ?W19.XXXA - Unspecified fall, initial encounter (ICD-10) GERD (gastroesophageal reflux disease) ?K21.9 - Gastro-esophageal reflux disease without esophagitis (ICD-10) Hyperkalemia ?E87.5 - Hyperkalemia (ICD-10) Acute kidney failure ?N17.9 - Acute kidney failure, unspecified (ICD-10) Ulcer of left heel and midfoot with fat layer exposed ?L97.422 - Non-pressure chronic ulcer of left heel and midfoot with fat layer exposed (ICD-10) Severe protein-calorie malnutrition ?E43 - Unspecified severe protein-calorie malnutrition (ICD-10) UTI (urinary tract infection) ?N39.0 - Urinary tract infection, site not specified (ICD-10) Ulcer of right heel ?L97.419 - Non-pressure chronic ulcer of right heel and midfoot with unspecified severity (ICD-10) Inability to walk ?R26.2 - Difficulty in walking, not elsewhere classified (ICD-10) SIRS (systemic inflammatory response syndrome) ?R65.10 - Systemic inflammatory response syndrome (SIRS) of non-infectious origin without acute organ dysfunction (ICD-10) Weakness ?R53.1 - Weakness (ICD-10) Hyperlipidemia ?E78.5 - Hyperlipidemia, unspecified (ICD-10) Hypertension ?I10 - Essential (primary) hypertension (ICD-10) Heart palpitations ?R00.2 - Palpitations (ICD-10) Multiple sclerosis ?G35 - Multiple sclerosis (ICD-10) Surgical History (Updated 06/26/24 @ 18:55 by Lisa Herndon RN) H/O: hysterectomy ?Z90.710 - Acquired absence of both cervix and uterus (ICD-10) Family History (Updated 06/26/24 @ 18:29 by Lisa Herndon RN) Mother Family history of myocardial infarction Family history of hypertension Father Family history of CHF (congestive heart failure) Social History (Updated 06/26/24 @ 18:30 by Lisa Herndon RN) Within the past year, how often did you have a drink containing alcohol: never Score interpretation: A score less than 3 is consistent with normal alcohol consumption. Smoking status: Never smoker Non-prescribed substance use: denies use Highest level of school completed/degree received: high school graduate Little interest or pleasure in doing things: not at all Feeling down, depressed, or hopeless: not at all Exam Narrative Exam Narrative: Nurses notes and vital signs reviewed and patient is not hypoxic. General: Well-appearing and in no apparent distress. Skin: Warm, dry, no pallor noted. No rash. Head: Normocephalic, atraumatic. Neck: Supple, non-tender. Eye: Pupils are equal, round and EOMI. No scleral icterus Cardiovascular: Regular Rate and Rhythm without murmur, gallop or rub. Respiratory: No accessory muscle use or respiratory distress. Lungs are clear to auscultation, no wheezing, rales or rhonchi Chest Wall: no tenderness Back: No midline thoracic or lumbar vertebral tenderness. No CVA tenderness Musculoskeletal: normal ROM, no calf or popliteal tenderness, the patient have a healing ulcer on the posterior aspect of the left foot heel that is healing well its almost 3 cm stage II no signs of infection, GI: Abdomen is soft, non-distended. Normal bowel sounds. No masses appreciated. No tenderness to palpation. No rebound, guarding, or rigidity noted. Suprapubic catheter in place no signs of infection around the entrance Fair catheter shows a turbid urine Neurological: A&O x2, No cranial nerve dysfunction observed. Patient moving sporadically her upper and lower extremity although less likely on the right side, moves all extremities. She is not following command fully NIH score upon arrival around 1130 is 2 for right leg weakness which according to the family at the bedside she also had some weakness of the arm from the MS Constitutional Vital Signs, click to edit/add: Last Vital Signs Temp 100.6 F H 08/18/24 11:18 Pulse 98 H 08/18/24 11:18 Resp 18 08/18/24 11:18 BP 187/98 H 08/18/24 11:18 Pulse Ox 98 08/18/24 11:49 O2 Del Method Room Air 08/18/24 11:49 Course Vital Signs Vital signs: Vital Signs Temperature 100.6 F H 08/18/24 11:18 Pulse Rate 98 H 08/18/24 11:18 Respiratory Rate 18 08/18/24 11:18 Blood Pressure 187/98 H 08/18/24 11:18 Pulse Oximetry 98 08/18/24 11:18 Temperature 100.6 F H 08/18/24 11:18 Pulse Rate 98 H 08/18/24 11:18 Respiratory Rate 18 08/18/24 11:18 Blood Pressure 187/98 H 08/18/24 11:18 Pulse Oximetry 98 08/18/24 11:49 Oxygen Delivery Method Room Air 08/18/24 11:49 MDM - Altered Mental Status MDM Narrative Medical decision making narrative: I reviewed the patient medical record and she did not have a significantly elevated blood pressure in the last few days It was also noted that the patient EKG upon presentation EKG showing sinus tachycardia with a heart rate of 97 Patient white blood cell was elevated at 14--- urinalysis positive for UTI and the patient had a culture obtained started on ceftriaxone COVID and flu test are negative CT head shows no acute pathology The patient presentation with a second to metabolic reason of altered mental status especially with the blood sugar initially was 65 and she was provided with some dextrose after which her mental status was better and she was more oriented The patient chemistry showing no acute significant pathology There is some hypomagnesemia and that why provide the patient with IV magnesium Patient will be admitted to be managed for UTI causing altered mental status Patient case was discussed with and he agreed with above-mentioned plan Also family at the bedside had their questions answered and plan explained Lab Data Labs: Lab Results 08/18/24 08/18/24 08/18/24 Range/Units 11:22 11:26 11:35 WBC 14.2 H (4.0-11.0) 10^3/uL RBC 3.77 L (4.20-5.40) 10^6/uL Hgb 10.9 L (12.0-16.0) g/dL Hct 35.4 L (36.0-48.0) % MCV 93.9 (81.0-99.0) fL MCH 28.9 (26.7-34.0) pg MCHC 30.8 (29.9-35.2) g/dL RDW 15.9 H (11.0-15.0) % Plt Count 370 (150-450) 10^3/uL MPV 10.2 (9.5-13.5) fL Neut % (Auto) 88.3 H (43.0-75.0) % Lymph % (Auto) 2.7 L (20.5-60.0) % [place] % (Auto) 5.5 (1.7-12.0) % Eos % (Auto) 2.3 (0.9-7.0) % Baso % (Auto) 0.8 (0.2-2.0) % Neut # (Auto) 12.6 H (1.4-6.5) 10^3/uL Lymph # (Auto) 0.4 L (1.2-3.8) 10^3/uL [place] # (Auto) 0.8 (0.3-0.8) 10^3/uL Eos # (Auto) 0.3 (0.0-0.7) 10^3/uL Baso # (Auto) 0.1 (0.0-0.1) 10^3/uL Abs Immat Gran (auto) 0.06 H (0.00-0.03) 10^3/uL Imm/Tot Granulo (auto) 0.4 (0.0-0.5) % PT 11.1 (9.0-11.6) sec INR 1.05 Sodium 144 (136-145) mmol/L Potassium 4.9 (3.5-5.1) mmol/L Chloride 106 (98-107) mmol/L Carbon Dioxide 27.8 (21.0-32.0) mmol/L Anion Gap 15.1 BUN 25.0 H (7.0-18.0) mg/dL Creatinine 1.07 H (0.55-1.02) mg/dL Est GFR ( Amer) >60 (>=60 mL/min/1.73m^2) Est GFR (Non-Af Amer) 51 L (>=60 mL/min/1.73m^2) BUN/Creatinine Ratio 23.4 Glucose 97 (74-106) mg/dL Lactate 1.2 (0.4-2.0) mmol/L Calcium 8.7 (8.5-10.1) mg/dL Magnesium 1.6 L (1.8-2.4) mg/dL Total Bilirubin 0.7 (0.2-1.0) mg/dL AST 23 (15-37) U/L ALT 16 (14-59) U/L Alkaline Phosphatase 95 (46-116) U/L Troponin I High Sens 31.0 (4.0-51.3) pg/mL Total Protein 6.4 (6.4-8.2) g/dL Albumin 3.1 L (3.4-5.0) g/dL Globulin 3.3 g/dL Albumin/Globulin Ratio 0.9 Urine Color Lt. yellow (YELLOW) Urine Clarity Cloudy A (CLEAR) Urine pH 6.5 (5.0-9.0) Ur Specific [place] 1.015 (1.005-1.025) Urine Protein Trace (NEG/TRACE) mg/dL Urine Glucose (UA) >=1000 A (NEGATIVE) mg/dL Urine Ketones Negative (NEGATIVE) mg/dL Urine Occult Blood Moderate A (NEGATIVE) Urine Nitrite Positive A (NEGATIVE) Urine Bilirubin Negative (NEGATIVE) Urine Urobilinogen 0.2 (0.2-1.0) EU/dL Ur Leukocyte Esterase Moderate A (NEGATIVE) Urine RBC 5-10 A (0-2) #/HPF Urine WBC >100 A (NONE SEEN) #/HPF Ur Squamous Epith Cells Few A (NONE/RARE) #/LPF Urine Bacteria Large A (NONE SEEN) #/HPF Urine Mucus Small A (NONE SEEN) Ur Culture Indicated? Yes Influenza Type A Ag Influenza Type B Ag RSV Antigen (NOT DETECTE) SARS-CoV-2 Ag (CV2AG) (NEGATIVE) POC Glucose 64 L (74-106) mg/dL 08/18/24 08/18/24 08/18/24 Range/Units 11:37 11:41 12:00 WBC (4.0-11.0) 10^3/uL RBC (4.20-5.40) 10^6/uL Hgb (12.0-16.0) g/dL Hct (36.0-48.0) % MCV (81.0-99.0) fL MCH (26.7-34.0) pg MCHC (29.9-35.2) g/dL RDW (11.0-15.0) % Plt Count (150-450) 10^3/uL MPV (9.5-13.5) fL Neut % (Auto) (43.0-75.0) % Lymph % (Auto) (20.5-60.0) % [place] % (Auto) (1.7-12.0) % Eos % (Auto) (0.9-7.0) % Baso % (Auto) (0.2-2.0) % Neut # (Auto) (1.4-6.5) 10^3/uL Lymph # (Auto) (1.2-3.8) 10^3/uL [place] # (Auto) (0.3-0.8) 10^3/uL Eos # (Auto) (0.0-0.7) 10^3/uL Baso # (Auto) (0.0-0.1) 10^3/uL Abs Immat Gran (auto) (0.00-0.03) 10^3/uL Imm/Tot Granulo (auto) (0.0-0.5) % PT (9.0-11.6) sec INR Sodium (136-145) mmol/L Potassium (3.5-5.1) mmol/L Chloride (98-107) mmol/L Carbon Dioxide (21.0-32.0) mmol/L Anion Gap BUN (7.0-18.0) mg/dL Creatinine (0.55-1.02) mg/dL Est GFR ( Amer) (>=60 mL/min/1.73m^2) Est GFR (Non-Af Amer) (>=60 mL/min/1.73m^2) BUN/Creatinine Ratio Glucose (74-106) mg/dL Lactate (0.4-2.0) mmol/L Calcium (8.5-10.1) mg/dL Magnesium (1.8-2.4) mg/dL Total Bilirubin (0.2-1.0) mg/dL AST (15-37) U/L ALT (14-59) U/L Alkaline Phosphatase (46-116) U/L Troponin I High Sens (4.0-51.3) pg/mL Total Protein (6.4-8.2) g/dL Albumin (3.4-5.0) g/dL Globulin g/dL Albumin/Globulin Ratio Urine Color (YELLOW) Urine Clarity (CLEAR) Urine pH (5.0-9.0) Ur Specific [place] (1.005-1.025) Urine Protein (NEG/TRACE) mg/dL Urine Glucose (UA) (NEGATIVE) mg/dL Urine Ketones (NEGATIVE) mg/dL Urine Occult Blood (NEGATIVE) Urine Nitrite (NEGATIVE) Urine Bilirubin (NEGATIVE) Urine Urobilinogen (0.2-1.0) EU/dL Ur Leukocyte Esterase (NEGATIVE) Urine RBC (0-2) #/HPF Urine WBC (NONE SEEN) #/HPF Ur Squamous Epith Cells (NONE/RARE) #/LPF Urine Bacteria (NONE SEEN) #/HPF Urine Mucus (NONE SEEN) Ur Culture Indicated? Influenza Type A Ag Negative Influenza Type B Ag Negative RSV Antigen Not detected (NOT DETECTE) SARS-CoV-2 Ag (CV2AG) Negative (NEGATIVE) POC Glucose 168 H (74-106) mg/dL Discharge Plan Discharge Chief Complaint: Altered Mental Status Clinical Impression: Altered mental status, Hypoglycemia, Bacterial UTI, Hypomagnesemia Patient Disposition: Admitted As Inpatient Time of Disposition Decision: 12:27
[2024-08-18 11:31] LABS: Glucometer 64 mg/dL (74-106)
[2024-08-18 11:36] LABS: Basophils Absolute Auto 0.1 10^3/uL (0.0-0.1); Basophils Percent Auto 0.8 % (0.2-2.0); Eosinophils Absolute Auto 0.3 10^3/uL (0.0-0.7); Eosinophils Percent Auto 2.3 % (0.9-7.0); Hematocrit 35.4 % (36.0-48.0); Hemoglobin 10.9 g/dL (12.0-16.0); Immature Granulocytes Abs Auto 0.06 10^3/uL (0.00-0.03); Immature Granulocytes Pct Auto 0.4 % (0.0-0.5); Lymphocytes Absolute Auto 0.4 10^3/uL (1.2-3.8); Lymphocytes Percent Auto 2.7 % (20.5-60.0); Mean Corpuscular HGB Conc 30.8 g/dL (29.9-35.2); Mean Corpuscular Hemoglobin 28.9 pg (26.7-34.0); Mean Corpuscular Volume 93.9 fL (81.0-99.0); Mean Platelet Volume 10.2 fL (9.5-13.5); Monocytes Absolute Auto 0.8 10^3/uL (0.3-0.8); Monocytes Percent Auto 5.5 % (1.7-12.0); Neutrophils Absolute Auto 12.6 10^3/uL (1.4-6.5); Neutrophils Percent Auto 88.3 % (43.0-75.0); Platelet Count 370 10^3/uL (150-450); Red Blood Count 3.77 10^6/uL (4.20-5.40); Red Cell Distribution Width 15.9 % (11.0-15.0); White Blood Count 14.2 10^3/uL (4.0-11.0)
[2024-08-18 11:38] LABS: Glucometer 168 mg/dL (74-106)
[2024-08-18 11:50] LABS: INR 1.05; Prothrombin Time 11.1 sec (9.0-11.6)
[2024-08-18 11:51] LABS: Anion Gap 15.1
[2024-08-18 11:52] LABS: Lactate/Lactic Acid 1.2 mmol/L (0.4-2.0)
[2024-08-18 11:52] LABS: Bilirubin Urine NEGATIVE (NEGATIVE); Blood Urine MODERATE (NEGATIVE); Color Urine LT. YELLOW (YELLOW); Glucose Urine UA >=1000 mg/dL (NEGATIVE); Ketones Urine NEGATIVE (NEGATIVE); Leukocyte Esterase Urine MODERATE (NEGATIVE); Nitrite Urine POSITIVE (NEGATIVE); Protein Urine TRACE mg/dL (NEG/TRACE); Specific Gravity Urine 1.015 (1.005-1.025); Urobilinogen Urine 0.2 EU/dL (0.2-1.0); pH Urine 6.5 (5.0-9.0)
[2024-08-18 11:53] LABS: Alanine Aminotransferase 16 U/L (14-59); Albumin Globulin Ratio 0.9; Albumin Level 3.1 g/dL (3.4-5.0); Alkaline Phosphatase 95 U/L (46-116); Aspartate Amino Transferase 23 U/L (15-37); BUN Creatinine Ratio 23.4; Bilirubin Total 0.7 mg/dL (0.2-1.0); Calcium 8.7 mg/dL (8.5-10.1); Carbon Dioxide 27.8 mmol/L (21.0-32.0); Chloride 106 mmol/L (98-107); Estimated GFR (African America >60 (>=60 mL/min/1.73m^2); Estimated GFR (Non-African Ame 51 (>=60 mL/min/1.73m^2); Globulin 3.3 g/dL; Glucose 97 mg/dL (74-106); Magnesium 1.6 mg/dL (1.8-2.4); Potassium 4.9 mmol/L (3.5-5.1); Sodium 144 mmol/L (136-145); Total Protein 6.4 g/dL (6.4-8.2)
[2024-08-18 11:55] LABS: Clarity Urine CLOUDY (CLEAR); Urine Microscopic Indicated YES
[2024-08-18 12:00] LABS: WBC Urine >100 #/HPF (NONE SEEN)
[2024-08-18 12:03] LABS: Bacteria Urine LARGE #/HPF (NONE SEEN); Mucus Urine SMALL (NONE SEEN); Squamous Epithelial Cell Urine FEW #/LPF (NONE/RARE); Urine Culture Indicated YES
[2024-08-18 12:10] LABS: Influenza Virus A Antigen Negative; Influenza Virus B Antigen Negative; Internal Control Within Normal Limits; Respiratory Syncytial Virus Not Detected (NOT DETECTE)
[2024-08-18 12:16] LABS: Internal Control Within Normal Limits; SARS-CoV-2 Ag NEGATIVE (NEGATIVE)
[2024-08-18] MEDS: MAGNESIUM SULFATE IN WATER 2 GM/50 ML PREMIX IV (12:31)
[2024-08-18] MEDS: CEFTRIAXONE 1,000 MG in 0.9 % SODIUM CHLORIDE 50 ML 100 MG IV (12:47)
--- NOTE | 2024-08-18 13:55 | PM.HP ---
HPI H&P: HPI History of Present Illness Chief complaint: AMS UTI Narrative: 69-year-old female with history of multiple risk status most with the treatment plan presented to ER with change in mental status/confusion and slurred speech. She is currently at [facility] for acute rehab and was sent to ER for concern for possible stroke. Workup in ER was consistent with metabolic encephalopathy and sepsis secondary to urinary tract infection. She had a CT head that did not reveal any acute intracranial finding. She was admitted for IV hydration and IV antibiotics. At the time of my evaluation, patient was still quite confused and was unable to engage in a meaningful conversation. She was intermittently following commands but I was unable to perform a detailed neurological exam. She has bilateral lower extremity weakness with right lower extremity being more weak than the left because of multiple sclerosis. She is out of tPA window and given her presentation-I suspect it is highly unlikely that her symptoms are from acute ischemic stroke. I will treat her for urinary tract infection with IV Rocephin along with IV hydration for sepsis. Opioid HPI Opioid Management Most Recent Pain and Opioid Data: Last Pain Scale 0 06/28/24 18:20 06/28/24 Last ORT Total Score 0 06/26/24 18:30 06/26/24 Last ORT Risk Category Low Risk 06/26/24 18:30 06/26/24 Review of Systems ROS Status of ROS unobtainable due to mental status [facility] Medical History Fall ?W19.XXXA - Unspecified fall, initial encounter (ICD-10) GERD (gastroesophageal reflux disease) ?K21.9 - Gastro-esophageal reflux disease without esophagitis (ICD-10) Hyperkalemia ?E87.5 - Hyperkalemia (ICD-10) Acute kidney failure ?N17.9 - Acute kidney failure, unspecified (ICD-10) Ulcer of left heel and midfoot with fat layer exposed ?L97.422 - Non-pressure chronic ulcer of left heel and midfoot with fat layer exposed (ICD-10) Severe protein-calorie malnutrition ?E43 - Unspecified severe protein-calorie malnutrition (ICD-10) UTI (urinary tract infection) ?N39.0 - Urinary tract infection, site not specified (ICD-10) Ulcer of right heel ?L97.419 - Non-pressure chronic ulcer of right heel and midfoot with unspecified severity (ICD-10) Inability to walk ?R26.2 - Difficulty in walking, not elsewhere classified (ICD-10) SIRS (systemic inflammatory response syndrome) ?R65.10 - Systemic inflammatory response syndrome (SIRS) of non-infectious origin without acute organ dysfunction (ICD-10) Weakness ?R53.1 - Weakness (ICD-10) Hyperlipidemia ?E78.5 - Hyperlipidemia, unspecified (ICD-10) Hypertension ?I10 - Essential (primary) hypertension (ICD-10) Heart palpitations ?R00.2 - Palpitations (ICD-10) Multiple sclerosis ?G35 - Multiple sclerosis (ICD-10) Surgical History H/O: hysterectomy ?Z90.710 - Acquired absence of both cervix and uterus (ICD-10) Family History Mother Family history of myocardial infarction Family history of hypertension Father Family history of CHF (congestive heart failure) Social History Within the past year, how often did you have a drink containing alcohol: never Score interpretation: A score less than 3 is consistent with normal alcohol consumption. Smoking status: Never smoker Non-prescribed substance use: denies use Highest level of school completed/degree received: high school graduate Little interest or pleasure in doing things: not at all Feeling down, depressed, or hopeless: not at all Meds Home Medications and Allergies Home Medications ?Medication ?Instructions ?Recorded ?Confirmed ?Type aspirin 81 mg tablet,delayed 81 mg PO DAILY 06/26/24 08/18/24 History release (Adult Low Dose Aspirin) atorvastatin 10 mg tablet 10 mg PO .QHS 06/26/24 08/18/24 History donepezil 10 mg tablet 10 mg PO DAILY 06/26/24 08/18/24 History hyoscyamine sulfate 0.125 mg tablet 0.125 mg PO TID 06/26/24 08/18/24 History lisinopril 10 mg tablet 10 mg PO BID 06/26/24 08/18/24 History loperamide 2 mg capsule 2 mg PO Q12H 06/26/24 08/18/24 History memantine 28 mg capsule 28 mg PO DAILY 06/26/24 08/18/24 History sprinkle,extended release 24hr metoprolol tartrate 100 mg tablet 100 mg PO Q12H 06/26/24 08/18/24 History metoprolol tartrate 50 mg tablet 50 mg PO Q12H 06/26/24 08/18/24 History pantoprazole 40 mg tablet,delayed 40 mg PO DAILY 06/26/24 08/18/24 History release potassium chloride 10 mEq 10 meq PO BID 06/26/24 08/18/24 History capsule,extended release teriflunomide 14 mg tablet 14 mg PO QAM 06/26/24 08/18/24 History triamterene 37.5 1 cap PO DAILY 08/18/24 08/18/24 History mg-hydrochlorothiazide 25 mg capsule Allergies Allergy/AdvReac Type Severity Reaction Status Date / Time sulfamethoxazole (From Allergy Unknown Unknown Verified 08/18/24 11:25 Bactrim) trimethoprim (From Bactrim) Allergy Unknown Unknown Verified 08/18/24 11:25 Exam Constitutional Vital Signs, click to edit/add: Last Vital Signs Temp 100.6 F H 08/18/24 11:18 Pulse 92 H 08/18/24 13:00 Resp 22 H 08/18/24 13:00 BP 143/93 H 08/18/24 12:01 Pulse Ox 97 08/18/24 12:50 O2 Del Method Room Air 08/18/24 11:49 Documenting provider has reviewed patient's vital signs: yes Common normals: no apparent distress General appearance: cooperative and ill appearing Orientation/consciousness: Yes confused [facility] Common normals: normocephalic and head/scalp atraumatic Head and scalp: normocephalic and atraumatic Eye Common normals: conjunctivae normal and no scleral icterus Conjunctiva: conjunctiva(e) normal Respiratory Common normals: normal respiratory effort and clear to auscultation bilaterally Effort & inspection: able to speak in complete sentences Auscultation: clear to auscultation bilaterally Cardio Common normals: regular rate, S1 normal heart sound and S2 normal heart sound Rate: regular rate Heart sounds: S1 normal and S2 normal GI Common normals: soft to palpation, non-tender and no hepatosplenomegaly Palpation: soft and no hepatosplenomegaly Other: Suprapubic catheter in place Neuro Speech: abnormal speech Gait (neuro): unable to assess gait Other: B/l LE weakness - power is only about 2/5 RLE, LLE power is 3-4/5. No rigidity, muscle tone appears decreased. No weakness on UE b/l Psych Attention/concentration: attention grossly impaired and concentration grossly impaired Memory/cognition: memory grossly impaired and cognition grossly impaired Insight: poor Judgement: poor Results Labs Labs: Short CBC 08/18/24 Range/Units 11:26 WBC 14.2 H (4.0-11.0) 10^3/uL Hgb 10.9 L (12.0-16.0) g/dL Hct 35.4 L (36.0-48.0) % Plt Count 370 (150-450) 10^3/uL BMP 08/18/24 11:26 Sodium 144 Potassium 4.9 Chloride 106 Carbon Dioxide 27.8 BUN 25.0 H Creatinine 1.07 H Glucose 97 Calcium 8.7 Liver Function 08/18/24 Range/Units 11:26 Total Bilirubin 0.7 (0.2-1.0) mg/dL AST 23 (15-37) U/L ALT 16 (14-59) U/L Alkaline Phosphatase 95 (46-116) U/L Albumin 3.1 L (3.4-5.0) g/dL Urine 08/18/24 Range/Units 11:35 Urine Color Lt. yellow (YELLOW) Urine Clarity Cloudy A (CLEAR) Urine pH 6.5 (5.0-9.0) Ur Specific [place] 1.015 (1.005-1.025) Urine Protein Trace (NEG/TRACE) mg/dL Urine Glucose (UA) >=1000 A (NEGATIVE) mg/dL Assessment and Plan Assessment and Plan (1) Sepsis: Assessment and Plan: SIRS criteria (WBC>13K, HR> 90, RR> 20) Due to UTI. Normal Lactate. Will order one L IVF bolus and start on LR at 125 ml/hr after bolus Qualifiers: Sepsis type: sepsis due to unspecified organism Sepsis acute organ dysfunction status: with acute organ dysfunction Severe sepsis acute organ dysfunction type: encephalopathy Severe sepsis shock status: without septic shock Qualified Code(s): A41.9 - Sepsis, unspecified organism; R65.20 - Severe sepsis without septic shock; G93.41 - Metabolic encephalopathy (2) Metabolic encephalopathy: Assessment and Plan: CTH - no acute finding. Likely due to UTI. If no improvement, will consider MRI. (3) UTI (urinary tract infection): Assessment and Plan: Started on Rocephin. F./u urine cx. Qualifiers: Urinary tract infection type: catheter-associated UTI Indwelling urinary catheter type: cystostomy catheter Encounter type: subsequent encounter Qualified Code(s): T83.510D - Infection and inflammatory reaction due to cystostomy catheter, subsequent encounter; N39.0 - Urinary tract infection, site not specified (4) Multiple sclerosis: Assessment and Plan: C/w home medications. Overall weak or worse than baseline, likely due to acute illness (5) Hypertension: Assessment and Plan: Stable BP. c/w home medications Qualifiers: Hypertension type: primary hypertension Qualified Code(s): I10 - Essential (primary) hypertension (6) Hyperlipidemia: Assessment and Plan: c/w lipitor Qualifiers: Hyperlipidemia type: unspecified Qualified Code(s): E78.5 - Hyperlipidemia, unspecified
--- NOTE | 2024-08-18 14:00 | SWNOTE1 ---
SW reached out to [facility] at [facility] and pt is from [facility] skilled.
[2024-08-18] MEDS: 0.9 % SODIUM CHLORIDE 1,000 ML 1000 ML IV (14:56)
[2024-08-18] MEDS: HYDRALAZINE HCL 20 MG/ML VIAL 10 MG IVP (14:57)
[2024-08-18] MEDS: ACETAMINOPHEN 325 MG TABLET 650 MG PO ×2 (14:58→22:01)
[2024-08-18] MEDS: HYOSCYAMINE SULFATE 0.125 MG TAB.SUBL PO (15:14)
[2024-08-18] MEDS: LACTATED RINGER'S SOLUTION 1,000 ML 125 ML IV (16:06)
[2024-08-18] MEDS: LISINOPRIL 10 MG TABLET PO (22:01)
[2024-08-18] MEDS: POTASSIUM CHLORIDE 10 MEQ ER TABLET PO (22:01)
[2024-08-18] MEDS: ENOXAPARIN SODIUM 40 MG/0.4 ML SYRINGE SUBQ (22:02)
[2024-08-18] MEDS: LOPERAMIDE HCL 2 MG CAPSULE PO (22:02)
[2024-08-18] MEDS: ATORVASTATIN CALCIUM 10 MG TABLET PO (22:02)
[2024-08-18] MEDS: METOPROLOL TARTRATE 50 MG TABLET PO (22:02)
[2024-08-19] VITALS (8 sets, daily range): BP systolic 115–155; BP diastolic 70–86; PULSE 90–102; TEMP 36.7–37.8; O2SAT 91–96
[2024-08-19 00:01] LABS: Enterococcus faecalis NOT DETECTED (NOT DETECTE); Enterococcus faecium NOT DETECTED (NOT DETECTE); Listeria monocytogenes NOT DETECTED (NOT DETECTE); Staphylococcus spp. NOT DETECTED (NOT DETECTE)
[2024-08-19 00:02] LABS: A. calcoaceticus-baumannii Cpx NOT DETECTED (NOT DETECTE); Bacteroides fragilis NOT DETECTED (NOT DETECTE); Candida albicans NOT DETECTED (NOT DETECTE); Candida auris NOT DETECTED (NOT DETECTE); Candida glabrata NOT DETECTED (NOT DETECTE); Candida krusei NOT DETECTED (NOT DETECTE); Candida parapsilosis NOT DETECTED (NOT DETECTE); Candida tropicalis NOT DETECTED (NOT DETECTE); Cryptococcus neoformans/gattii NOT DETECTED (NOT DETECTE); Enterobacter cloacae complex NOT DETECTED (NOT DETECTE); Haemophilus influenzae NOT DETECTED (NOT DETECTE); Klebsiella aerogenes NOT DETECTED (NOT DETECTE); Klebsiella pneumoniae group NOT DETECTED (NOT DETECTE); Neisseria meningitidis NOT DETECTED (NOT DETECTE); Proteus spp. NOT DETECTED (NOT DETECTE); Pseudomonas aeruginosa NOT DETECTED (NOT DETECTE); Salmonella spp. NOT DETECTED (NOT DETECTE); Serratia marcescens NOT DETECTED (NOT DETECTE); Staphylococcus epidermidis NOT DETECTED (NOT DETECTE); Staphylococcus lugdunensis NOT DETECTED (NOT DETECTE); Stenotrophomonas maltophilia NOT DETECTED (NOT DETECTE); Streptococcus agalactiae NOT DETECTED (NOT DETECTE); Streptococcus pneumoniae NOT DETECTED (NOT DETECTE); Streptococcus pyogenes NOT DETECTED (NOT DETECTE); Streptococcus spp. NOT DETECTED (NOT DETECTE)
[2024-08-19] MEDS: HYOSCYAMINE SULFATE 0.125 MG TAB.SUBL PO ×4 (00:05→21:36)
[2024-08-19] MEDS: LACTATED RINGER'S SOLUTION 1,000 ML 125 ML IV ×2 (00:06→09:06)
[2024-08-19 01:29] LABS: IMP NOT DETECTED (NOT DETECTE); KPC NOT DETECTED (NOT DETECTE); NDM NOT DETECTED (NOT DETECTE); OXA-48-like NOT DETECTED (NOT DETECTE); mcr-1 NOT DETECTED (NOT DETECTE)
[2024-08-19 01:30] LABS: Source BLOOD; VIM NOT DETECTED (NOT DETECTE)
[2024-08-19 01:32] LABS: CTX-M DETECTED (NOT DETECTE); Enterobacterales DETECTED (NOT DETECTE)
[2024-08-19] MEDS: OMEPRAZOLE 40 MG CAPSULE.DR PO (05:39)
[2024-08-19] MEDS: ACETAMINOPHEN 325 MG TABLET 650 MG PO ×2 (05:52→23:54)
--- OUTSIDE RECORDS SUMMARY | 2024-08-19 06:08 | XMS_ITS | CCD ---
Author Organization [facility] Care Team Providers Care Urology Surgeon Name Role Phone Susan Boucher MD Primary Care Provider [phone] SUSAN BOUCHER Primary Care Unavailable Tj Garcia Attending Unavailable Tj Garcia Admitting Unavailable DEFRANCE, SUSAN Matute Primary Care Unavailable Susan Gordon Unavailable Tj Garcia Attending Unavailable Tj Garcia Admitting Unavailable Tj Garcia Admitting Unavailable DEFRANCE, SUSAN Matute Primary Care Unavailable Tj Garcia Attending Unavailable Susan Boucher MD Primary Care Provider [phone] SUSAN BOUCHER Primary Care Unavailable MARKO DOUGLAS Attending Unavailable DEFRANCESUSAN Referring Unavailable DEFRANCE, SUSAN Matute Primary Care Unavailable GLADYS FABIAN Attending Unavailable DEFRANCE, SUSAN Matute Referring Unavailable DEFRANCE, SUSAN Matute Primary Care Unavailable GLADYS FABIAN Attending Unavailable DEFSUSAN CRAIN Referring Unavailable DEFRANCE, SUSAN Matute Primary Care Unavailable DEFRANCE, SUSAN Matute Referring Unavailable DEFRANCE, SUASN Matute Primary Care Unavailable DEFRANCE, SUSAN Matute Referring Unavailable DEFRANCE, SUSAN Matute Primary Care Unavailable TJ GARCIA Referring Unavailable DEFRANCE, SUSAN Matute Primary Care Unavailable DEFRANCE, SUSAN Matute Referring Unavailable DEFRANCE, SUSAN Matute Primary Care Unavailable DEFRANCE, SUSAN Matute Referring Unavailable DEFRANCE, SUSAN Matute Primary Care Unavailable DEFRANCE, SUSAN Matute Primary Care Unavailable Defrance Susan ESQUIVEL Primary Care Provider HERMES MCBRIDE Attending Unavailable RUSHER, HERMES Salvador Attending Unavailable RUSHER, HERMES Salvador Attending Unavailable RUSHER, HERMES Salvador Attending Unavailable DEFRANCE, SUSAN Matute Attending Unavailable DEFRANCE, [...] Unavailable DEFRANCE, SUSAN Matute Primary Care Unavailable ERICA JENKINS Attending Unavailable DEFRANCE, SUSAN Matute Referring Unavailable DEFRANCE, SUSAN Matute Primary Care Unavailable DEFRANCE, SUSAN Matute Primary Care Unavailable VANESSA CHRISTIANSEN Consulting Unavailable INPATIENT, TELENEUROLOGY Consulting Unavail able DEFRANCE, SUSAN Matute Referring Unavailable DEFRANCE, SUSAN Matute Primary Care Unavailable DEFRANCE, SUSAN Matute Referring Unavailable DEFRANCE, SUSAN Matute Primary Care Unavailable Allergies Allergy Classification Reported Allergen(s) Allergy Type Date of Onset Reaction(s) Facility (20 sources) Prochlorperazine; Translations: [PROCHLORPERAZINE] Drug Allergy 10-11-19 18 [facility] (20 sources) Sulfamethoxazole; Translations: [SULFAMETHOXAZOLE] Drug Allergy 03-26-20 19 [facility] (20 sources) Sulfamethoxazole / Trimethoprim; Translations: [SULFAMETHOXAZOLE-T RIMETHOPRIM] Drug Allergy 03-08-20 19 Dizziness, Unknown [facility] (1 source) Sulfamethoxazole / Trimethoprim; Translations: [Bactrim] Drug Allergy [facility] (5 sources) Sulfamethoxazole Propensity to adverse reactions 03-26-20 [facility] Medications Current Medications Medication Drug Class(es) [...] 1 TABLET EVERY DAY 90 tablet 3 07/31/2023 Active doxycycline hyclate 100 mg oral capsule [...] (20 sources) Potassium-sparing Diuretic, Thiazide Diuretic Start: 07-06-2024 triamterene-hydro CHLOROthiazide (DYAZIDE) 37.5-25 mg per capsule TAKE 1 CAPSULE EVERY MORNING 90 capsule 07/06/2024 Active Start: 11-27-2023 End: 07-06-2024 take 1 capsule by mouth once daily in the morning triamterene-hydroCHLOROthiazide (DYAZIDE ) 37.5-25 mg per capsule Take 1 capsule by mouth every morning. 90 capsule 2 11/27/2023 07/06/2024 Discontinued Start: 08-20-2023 take 1 capsule by mouth [...] Opioid Agonist Start: 08-08-2022 End: 05-14-2024 loperamide (IMODIUM) 2 mg capsule TAKE 1 CAPSULE IN THE MORNING AND TAKE 1 CAPSULE BEFORE BEDTIME. 180 capsule 1 05/14/2024 Active 24 hr memantine hydrochloride 28 mg extended release oral capsule (20 sources) X-qaleao-C-aspartate Receptor Antagonist Start: 03-09-2024 memantine (NAMENDA XR) 28 mg capsule,sprinkle,ER 24hr TAKE 1 CAPSULE EVERY DAY 90 capsule 1 03/09/2024 Active Start: 04-30-2023 memantine (NAM ENDA XR) 28 mg capsule,sprinkle,ER 24hr TAKE 1 CAPSULE EVERY DAY 90 capsule 1 04/30/2023 Active Start: 12-20-2022 take 1 capsule by [facility] every twenty-four hours in the morning Memantine [...] by mouth at bedtime metoprolol tartrate (LOPRESSOR) 100 mg tablet Take 1 tablet (100 mg total) by mouth in the morning and 1 tablet (100 mg total) before bedtime. 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; Translations: [Pressure ulcer of left heel, stage 3] Onset: 12-03-2023 06-23-2024 Chronic Disorders of lipid [...] Translations: [Multiple sclerosis] Onset: 10-10-2017 10-10-2017 Chronic Mycoses (1 source) Onychomycosis due to dermatophyte ; Translations: [Tinea unguium] 04-23-2024 Episodic Other connective tissue disease (2 sources) Pain in toe; Translations: [Pain in right toe(s)] 04-23-2024 Episodic Other diseases of bladder and urethra (20 sources) Neurogenic bladder; Translations: [Neuromuscular dysfunction of bladder, unspecified] Onset: 12-19-2020 12-19-2020 Chronic Other nervous system disorders (2 sources) Other chronic pain; Translations: [Other chronic pain] Onset: 05-19-2024 Chronic Other non-traumatic joint disorders (3 sources) Pain in right knee; Translations: [Pain in joint, lower leg] Onset: 05-19-2024 05-19-2024 Episodic Other skin disorders (1 source) Dystrophia unguium; Translations: [Nail dystrophy] 04-23-2024 Episodic Residual codes; unclassified (1 source) Pain, unspecified; Translations: [Pain, unspecified] Onset: 06-30-2024 Episodic Spondylosis; intervertebral disc disorders; other back problems (1 source) Pain in thoracic spine; Translations: [Pain in thoracic spine] Onset: 06-29-2024 Episodic Unclassified (1 source) Urinary Catheter Insertion or Check Onset: 06-21-2024 Unclassified (2 sources) Wound Check Onset: 06-21-2024 Unclassified (1 source) Knee Problem Onset: 05-19-2024 Unclassified (1 source) Annual Exam Onset: 04-01-2024 Past or Other Problems Problem Classification Problem Date Documented Da te Episodic/Chronic Gastrointestinal hemorrhage (20 sources) Gastrointestinal hemorrhage; Translations: [Hematemesis] Onset: 9 Resolved: 1 12-19-2020 Episodic Genitourinary symptoms and ill-defined conditions (6 sources) Unspecified abnormal findings in urine; Translations: [Retention of urine] Onset: 3 02-13-2023 Episodic Malaise and fatigue (20 sources) Asthenia; Translations: [Weakness] Onset: 9 03-08-2019 Episodic Mood disorders (20 sources) Mood disorders Onset: 3 Resolved: 4 05-16-2023 Nutritional deficiencies (20 sources) Deficiency of macronutrients; Translations: [Unspecified severe protein-calorie malnutrition] Onset: 9 Resolved: 1 12-19-2020 Chronic Other female genital disorders (1 source) Vaginal irritation Onset: 4 Episodic Other screening for suspected conditions (not mental disorders or infectious disease) (2 sources) Encounter for screening mammogram for malignant neoplasm of breast; Translations: [Encounter for screening mammogram for malignant neoplasm of breast] Onset: 4 Episodic Residual codes; unclassified (20 sources) Memory impairment; Translations: [Other amnesia] Onset: 1 12-19-2020 Episodic Residual codes; unclassified (1 source) Other amnesia; Translations: [Other amnesia] Onset: 1 Episodic Urinary tract infections (1 source) Urinary tract infection, site not specified; Translations: [Urinary tract infection, site not specified] Onset: 4 Episodic Results Test Name Value Interpretation Reference Range Facility CBC AND AUTO DIFFon 06-21- 24 ABSOLUTE BASOPHIL 0.1 X10E9/L Normal 0.0-0.[address] [facility] Comment on above: Performed By: #### Vinh LAGOS [facility], 1987-11 #### [facility] ([id number]) [address] [place] [address] 80344 ABSOLUTE NEUTROPHIL 6.9 X10E9/L High 1.5-6.6 [facility] Comment on above: Performed By: #### Vinh LAGOS [facility], 1987-11 #### [facility] ([id number]) [address] [place] [address] 87906 Basophils/100 WBC (Bld) 0.7 % Normal [facility] Comment on above: Performed By: #### Vinh LAGOS [facility], 1987-11 #### [facility] ([id number]) [address] [place] [address] 14095 Eosinophils (Bld) [#/Vol] 0.1 10*3/uL Normal 0.0-0.4 [facility] Comment on above: Performed By: #### Vinh LAGOS [facility], 1987-11 #### [facility] ([id number]) [address] [place] [address] 23471 Eosinophils/100 WBC (Bld) 1.3 % Normal [facility] Comment on above: Performed By: #### Vinh LAGOS [facility], 1987-11 #### [facility] ([id number]) [address] [place] [address] 94209 Erythrocyte distribution width (RBC) [Ratio] 13.4 % Normal 11.5-15.0 [facility] Comment on above: Performed By: #### Vinh LAGOS [facility], 1987-11 #### [facility] ([id number]) [address] [place] [address] 48187 Hematocrit (Bld) [Volume fraction] 35.1 % Normal 35-47 [facility] Comment on above: Performed By: #### Vinh LAGOS [facility], 1987-11 #### [facility] ([id number]) [address] [place] [address] 36278 Hemoglobin (Bld) [Mass/Vol] 11.5 g/dL Low 11.7-15.5 [facility] Comment on above: Performed By: #### Vinh LAGOS [facility], 1987-11 #### [facility] ([id number]) [address] [place] [address] 37279 Lymphocytes (Bld) [#/Vol] 0.5 10*3/uL Low 1.0-3.5 [facility] Comment on above: Performed By: #### Vinh LAGOS [facility], 1987-11 #### [facility] ([id number]) [address] [place] [address] 02289 Lymphocytes/100 WBC (Bld) 5.5 % Normal [facility] Comment on above: Performed By: #### Vinh LAGOS [facility], 1987-11 #### [facility] ([id number]) [address] [place] [address] 78887 MCH (RBC) [Entitic mass] 29.3 pg Normal 27-34 [facility] Comment on above: Performed By: #### Vinh LAGOS [facility], 1987-11 #### [facility] ([id number]) [address] [place] [address] 20834 MCHC (RBC) [Mass/Vol] 32.7 g/dL Normal 32-36 [facility] Comment on above: Performed By: #### Vinh LAGOS [facility], 1987-11 #### [facility] ([id number]) [address] [place] [address] 71727 MCV (RBC) [Entitic vol] 90 fL Normal 80-100 [facility] Comment on above: Performed By: #### Vinh LAGOS [facility], 1987-11 #### [facility] ([id number]) [address] [place] [address] 21731 Monocytes (Bld) [#/Vol] 0.9 10*3/uL Normal 0-0.9 [facility] Comment on above: Performed By: #### Vinh LAGOS [facility], 1987-11 #### [facility] ([id number]) [address] [place] [address] 05716 Monocytes/100 WBC (Bld) 10.4 % Normal [facility] Comment on above: Performed By: #### Vinh LAGOS [facility], 1987-11 #### [facility] ([id number]) [address] [place] [address] 41882 Neutrophils/100 WBC (Bld) 82.1 % Normal [facility] Comment on above: Performed By: #### Vinh LAGOS [facility], 1987-11 #### [facility] ([id number]) [address] [place] [address] 57649 Platelet mean volume (Bld) [Entitic vol] 8.1 fL Normal 7-12 [facility] Comment on above: Performed By: #### Vinh LAGOS [facility], 1987-11 #### [facility] ([id number]) [address] [place] [address] 01126 Platelets (Bld) [#/Vol] 470 10*3/uL High 150-450 [facility] Comment on above: Performed By: #### Vinh LAGOS [facility], 1987-11 #### [facility] ([id number]) [address] [place] [address] 45018 RBC COUNT 3.92 X10E12/L Normal 3.80-5.20 [facility] Comment on above: Performed By: #### Vinh LAGOS [facility], 1987-11 #### [facility] ([id number]) [address] [place] [address] 24091 WBC (Bld) [#/Vol] 8.4 10*3/uL Normal 4.0-11.[address] [facility] Comment on above: Performed By: #### C BCA, CMP, 1987- #### [facility] ([id number]) [address] [place] [address], [place] [address] COMPREHENSIVE METABOLIC PANE Chace 06-21-2024 Albumin [Mass/Vol] 3.7 g/dL Normal 3.2-5.[address] [facility] Comment on above: Performed By: #### 6 30-4 #### [facility] ([id number]) [address], [address] [place] [address] ALP [Catalytic activity/Vol] 90 U/L Normal 39-130 [facility] Comment on above: Performed By: #### 6 30-4 #### [facility] ([id number]) [address], [address] [place] [address] ALT [Catalytic activity/Vol] 13 U/L Normal 0-31 [facility] Comment on above: Performed By: #### 6 30-4 #### [facility] ([id number]) [address], [address] [place] [address] Anion gap [Moles/Vol] 12 mmol/L Normal 5-15 [facility] Comment on above: Performed By: #### 6 30-4 #### [facility] ([id number]) [address], [address] [place] [address] AST [Catalytic activity/Vol] 16 U/L Normal 0-41 [facility] Comment on above: Performed By: #### 6 30-4 #### [facility] ([id number]) [address], [address] [place] [address] Bilirubin [Mass/Vol] 0.5 mg/dL Normal 0.3-1.2 [facility] Comment on above: Performed By: #### 6 30-4 #### [facility] ([id number]) [address], [address] [place] [address] Calcium [Mass/Vol] 9.2 mg/dL Normal 8.5-10.[address] [facility] Comment on above: Performed By: #### 6 30-4 #### [facility] ([id number]) [address], [address] [place] [address] Chloride [Moles/Vol] 99 mmol/L Normal 98-109 [facility] Comment on above: Performed By: #### 6 30-4 #### [facility] ([id number]) [address], [address] [place] [address] CO2 [Moles/Vol] 23 mmol/L Normal 22-32 [facility] Comment on above: Performed By: #### 6 30-4 #### [facility] ([id number]) [address], [address] [place] [address] Creatinine [Mass/Vol] 1.72 mg/dL High 0.40-1.00 [facility] Comment on above: Result Comment: METH OD TRACEABLE TO IDMS STANDARD Performed By: #### 6 30-4 #### [facility] ([id number]) [address] [address] [place] [address] GFR/1.73 sq M.predicted among non-blacks MDRD (S/P/Bld) [Vol rate/Area] 32 mL/min/{1.73_m2} Low >59 [facility] Comment on above: Result Comment: Reported eGFR is based on the CKD-EPI 1 equation that does not use a race coefficient. Performed By: #### 6 30-4 #### [facility] ([id number]) [address], [address] [place] [address] Glucose [Mass/Vol] 103 mg/dL High 65-[address] [facility] Comment on above: Performed By: #### 6 30-4 #### [facility] ([id number]) [address], [address] [place] [address] Potassium [Moles/Vol] 4.9 mmol/L Normal 3.5-5.0 [facility] Comment on above: Performed By: #### 6 30-4 #### [facility] ([id number]) [address], [address] [place] [address] Protein [Mass/Vol] 7.1 g/dL Normal 6.0-8.[address] [facility] Comment on above: Performed By: #### 6 30-4 #### [facility] ([id number]) [address], [address] [place] [address] Sodium [Moles/Vol] 134 mmol/L Normal 134-[address] [facility] Comment on above: Performed By: #### 6 30-4 #### [facility] ([id number]) [address], [address] [place] [address] Urea nitrogen [Mass/Vol] 34 mg/dL High 5-27 [facility] Comment on above: Performed By: #### 6 30-4 #### [facility] ([id number]) [address], [address] [place] [address] CRP [Mass/Vol]on 06-21-2024 C REACTIVE PROTEIN 0.9 mg/dL High 0.000-0.744 [facility] Comment on above: Performed By: #### 6 30-4 #### [facility] ([id number]) [address], [address] [place] [address] Lactate (P rohini) [Moles/Vol]o n 06-21-2024 LACTATE W/REFLEX 2.0 mmol/L Normal 0.4-2.0 [facility] Comment on above: Result Comment: Result did not trigger repeat Lactate, re-order if needed. Performed By: #### 6 30-4 #### [facility] ([id number]) [address], [address] [place] [address] URINE CULTUREon 06-21-2024 Bacteria identified Cx Nom [...] <=16 F VANCOMYCIN S 2 F Susceptible [facility] Comment on above: Performed By: #### 6 30-4 #### [facility] ([id number]) [address] [place] [address], [address] [place] [address] URN MACROSCOPIC NURon 2023 BILIRUBIN MARIA E Negative Normal [facility] Comment on above: Performed By: #### N UM #### [facility] ([id number]) [address] [place] [address] 73318 BLOOD/HGB MARIA E Trace Abnormal NEG [facility] Comment on above: Performed By: #### N UM #### [facility] ([id number]) [address] [place] [address] 88631 GLUCOSE MARIA E Negative Normal [facility] Comment on above: Performed By: #### N UM #### [facility] ([id number]) [address] [place] [address] 44954 KETONES MARIA E Negative Normal NEG [facility] Comment on above: Performed By: #### N UM #### [facility] ([id number]) [address] [place] [address] 57931 LEUKOCYTE ESTERASE MARIA E Small Abnormal NEG [facility] Comment on above: Performed By: #### N UM #### [facility] ([id number]) [address] [place] [address] 26643 NITRITE MARIA E Negative Normal NEG [facility] Comment on above: Performed By: #### N UM #### [facility] ([id number]) [address] [place] [address] 08536 PH MARIA E 6.5 Normal 5.0-8.5 [facility] Comment on above: Performed By: #### N UM #### [facility] ([id number]) [address] [place] [address] 77288 PROTEIN MARIA E Negative Normal NEG [facility] Comment on above: Performed By: #### N UM #### [facility] ([id number]) [address] [place] [address] 01255 SPECIFIC GRAVITY MARIA E 1.015 Normal 1.003-1.035 [facility] Comment on above: Performed By: #### N UM #### [facility] ([id number]) [address] [place] [address] 23977 UROBILINOGEN MARIA E 0.2 eu/dL Normal <1.1 [facility] Comment on above: Performed By: #### N UM #### [facility] ([id number]) [address] [place] [address] 57466 XR FOOT LT MIN 3 VWSon 06-21 [...] Patel MD on 06/21/2024 2:44 PM Normal [facility] URINALYSISon 06-16-2024 Amorphous sediment LM Ql (Urine sed) PRESENT Abnormal NONE [facility] Comment on above: Performed By: #### U A #### [facility] ([id number]) [address] [place] [address] 06803 Bilirubin Ql (U) Negative Normal NEG [facility] Comment on above: Performed By: #### U A #### [facility] ([id number]) [address] [place] [address] 04459 BLOOD/HGB Trace Abnormal NEG [facility] Comment on above: Performed By: #### U A #### [facility] ([id number]) [address] [place] [address] 52952 Color (U) YELLOW Normal YELLOW [facility] Comment on above: Performed By: #### U A #### [facility] ([id number]) [address] [place] [address] 35523 Glucose Ql (U) Negative Normal NEG [facility] Comment on above: Performed By: #### U A #### [facility] ([id number]) [address] [place] [address] 01182 Ketones Ql (U) Negative Normal NEG [facility] Comment on above: Performed By: #### U A #### [facility] ([id number]) [address] [place] [address] 37513 Leukocyte esterase Test strip Ql (U) MODERATE Abnormal NEG [facility] Comment on above: Performed By: #### U A #### [facility] ([id number]) [address] [place] [address] 58759 Nitrite Ql (U) Positive Abnormal NEG [facility] Comment on above: Performed By: #### U A #### [facility] ([id number]) [address] [place] [address] 22012 pH (U) 6.5 [pH] Normal 5.0-8.5 [facility] Comment on above: Performed By: #### U A #### [facility] ([id number]) [address] [place] [address] 73178 Protein Ql (U) Trace Abnormal NEG [facility] Comment on above: Performed By: #### U A #### [facility] ([id number]) [address] [place] [address] 49675 R.B.CELLS 0 /hpf Normal 0-5 [facility] Comment on above: Performed By: #### U A #### [facility] ([id number]) [address] [place] [address] 15865 Specific gravity (U) [Rel density] 1.015 Normal 1.003-1.035 [facility] Comment on above: Performed By: #### U A #### [facility] ([id number]) [address] [place] [address] 51354 TURBIDITY HAZY Abnormal CLEAR [facility] Comment on above: Performed By: #### U A #### [facility] ([id number]) [address] [place] [address] 57824 Urinalysis dipstick W Reflex Microscopic panel (U) URINE RECEIVED WITHOUT PRESERVATIVE Normal [facility] Comment on above: Performed By: #### U A #### [facility] ([id number]) [address] [place] [address] 83818 Urobilinogen Qn (U) 0.2 {Bro'U}/dL Normal <1.1 [facility] Comment on above: Performed By: #### U A #### [facility] ([id number]) [address] [place] [address] 69318 W.B.CELLS 25 /hpf High 0-5 [facility] Comment on above: Performed By: #### U A #### [facility] ([id number]) [address] [place] [address] 57206 URINE CULTUREon 11-19-2024 Bacteria identified Cx Nom (U) SPECIMEN NOTES URINE RECEIVED WITHOUT PRESERVATIVE CULTURE RESULTS >100,000 ORGANISMS/mL LACTOSE FERMENTING GRAM NEGATIVE RODS >100,000 ORGANISMS/mL NON LACTOSE FERMENTING GRAM NEGATIVE RODS 10,000 to 50,000 ORGANISMS/mL GRAM POSITIVE COCCI URINE RECEIVED WITHOUT PRESERVATIVE-DELAYS IN TRANSPORT MAY AFFECT RESULTS.INTERPRET WITH CAUTION AND CLINICAL CORRELATION IS RECOMMENDED. Contact laboratory if definitive identifications are clinically indicated. Normal [facility] Comment on above: Performed By: #### 6 30-4 #### [facility] ([id number]) [address], [address] [place] [address] XR KNEE RT 3 VWSon 4 XR [...] Otto Wong MD on 05/19/2024 5:29 PM Normal [facility] XR Knee - right 3 Viewson HISTORY: [...] Otto Wong MD on 05/19/2024 5:29 PM [facility] MD - 05/19/2024 HISTORY: A [...] Otto Wong MD on 05/19/2024 5:29 PM [facility] [facility] Radiology Study observation (narrative) [facility] XR Knee - right 3 ViewsOrder ed By: Otto Wong on 05-19-2024 [facility] Work Phone: MAMM SCREENING BILATERAL W C visual stylist 04-15-2024 MAMM SCREENING BILATERAL W CAD MAMM SCREENING BILATERAL W CAD JERICA SON KINGA 1955 [id number] EXAM: MAMM SCREENING BILATERAL W CAD, 04/15/2024 [...] PM 1 b MAMM 1 YR Normal [facility] URINALYSISon 11-06-2023 Bilirubin Ql (U) Negative Normal NEG [facility] Comment on above: Performed By: #### U A #### [facility] ([id number]) [address] [place] [address] 79963 BLOOD/HGB Trace Abnormal NEG [facility] Comment on above: Performed By: #### U A #### [facility] ([id number]) [address] [place] [address] 57801 Color (U) YELLOW Normal YELLOW [facility] Comment on above: Performed By: #### U A #### [facility] ([id number]) [address] [place] [address] 32952 Glucose Ql (U) Negative Normal NEG [facility] Comment on above: Performed By: #### U A #### [facility] ([id number]) [address] [place] [address] 26523 Ketones Ql (U) Negative Normal NEG [facility] Comment on above: Performed By: #### U A #### [facility] ([id number]) [address] [place] [address] 16291 Leukocyte esterase Test strip Ql (U) Large Abnormal NEG [facility] Comment on above: Performed By: #### U A #### [facility] ([id number]) [address] [place] [address] 69102 Nitrite Ql (U) Positive Abnormal NEG [facility] Comment on above: Performed By: #### U A #### [facility] ([id number]) [address] [place] [address] 95855 pH (U) 6.5 [pH] Normal 5.0-8.5 [facility] Comment on above: Performed By: #### U A #### [facility] ([id number]) [address] [place] [address] 87717 Protein Ql (U) Negative Normal NEG [facility] Comment on above: Performed By: #### U A #### [facility] ([id number]) [address] [place] [address] 10323 R.B.CELLS 1 /hpf Normal 0-5 [facility] Comment on above: Performed By: #### U A #### [facility] ([id number]) [address] [place] [address] 37117 Specific gravity (U) [Rel density] 1.015 Normal 1.003-1.035 [facility] Comment on above: Performed By: #### U A #### [facility] ([id number]) [address] [place] [address] 99034 SQUAMOUS EPITHELIUM 6 /hpf High 0-5 [facility] Comment on above: Performed By: #### U A #### [facility] ([id number]) [address] [place] [address] [place] [address] TURBIDITY HAZY Abnormal CLEAR [facility] Comment on above: Performed By: #### U A #### [facility] ([id number]) [address] [place] [address] 53869 Urobilinogen Qn (U) 0.2 {Bro'U}/dL Normal <1.1 [facility] Comment on above: Performed By: #### U A #### [facility] ([id number]) [address] [place] [address] W.B.CELLS 30 /hpf High 0-5 [facility] Comment on above: Performed By: #### U A #### [facility] ([id number]) [address] [place] [address] URINE CULTUREon 11-06-2023 Bacteria identified Cx Nom (U) SPECIMEN NOTES URINE RECEIVED WITHOUT PRESERVATIVE CULTURE RESULTS 50,000 to 100,000 ORGANISMS/mL ENTEROBACTER CLOACAE COMPLEX 10,000 to 50,000 ORGANISMS/mL NORMAL URO GENITAL GENA URINE RECEIVED WITHOUT PRESERVATIVE-DELAYS IN TRANSPORT MAY AFFECT RESULTS.INTERPRET WITH CAUTION AND CLINICAL CORRELATION IS RECOMMENDED. Normal [facility] Comment on above: Performed By: #### 6 30-4 #### [facility] ([id number]) [address] [address], [address] [place] [address] Coding Queryon 10-24-2023 Coding Query [id number]#1. [id number] [facility] Coding Summaryon 10-24-2023 Coding Summary HTMLBase 64 MciaowftCHz3sMj+PGhlY WQ+UV1AYWZuG26cqFCvnF 9lH2DMRZeEVgzhPKHNDAc KTcPfwrIrNL3mzSWsZTNl IC8+GQ9vTSQnOrchnVOnk 6W5mGK0E49jbj4mTBynuM R0YYBpWkNrnnxge2adzNz 6IDcuNmluOyBt GSJeeS96ZIJ8pZ85Dv35a EAsvAJiv3txjSv8MnAvTG YuXZE3rKwsDDyyq4VbBJW rT44dhDWgt1C8 MNAgeRfswVSyDmGpnKW6v G7hNCdyjryol6ajewlsSb j5zo10rAHdw5H6oNE3Y1Y ruoK8FFMjyXRx NbamwIZQfB1lydcxw2lne jgzMhYgHGKcVKl6RJs7IE DihUffKkZnCG87WXI6GDE zexRdJ2PrHTHo eJmxQxF7w9C4Vo7BG6MJM dfaB8RUOQLHHYfbpJO+PC 82wq89Q7KbCpknBsc4VNQ bWAI5bZJ9eE2w TXWnYMrvs3F6sCI6T9Vom gKawf2pu7cuVSQzGCpfF0 7kkBCvv3K4SJMkhAC6TSJ gzSpoCeRasT18 Oyc+QMWmbAknm4CmUivqt 3hrr1ossLc4HfgjNUHcsr RraDhsIGP8r9UxWn7gCRA htOO8wXH1yR2j AvRcHlH0WAqtD518BkJrb CSiKzajJ58yA8NngIB+PH TaPhl1WPRxnDjbLG7jN9H hZGRpbmctbGVm pCjvQL7iNYFymetcCVXei G8zDXDqC6v8GoNdNlO7YM rfU7RuQUWcbemmTz54fI6 gJiVqBlK1BJpg R5HikjW3MUFkgBKxMVezK VJ4M21ra7U3IGBoWTRvWX Z4wRO6jM9poIcirhgcyAH mdDsgdmVydGlj UGpjFNhfA189AVLjtMiiC kNvZGluZyBEYXRlOiAgMD MvMjgvMjAyNDwvdGQ+PHR dSFX2xWrnGXEq hCTpJVjlBh7ciYpzuIsbE W2oVGSeiaosRFKrhV6iAV RhnWRwmUzgAJ9kBUHsuhi ok512PyOdXQM5 CHJkxNJtL5GqnS3nEdKhR WXxLHShD0FbwGAoAJhdE4 74PPjvAvP3QTJsxuVaE3Z sLWFsaWduOiB0 q4D2Dr6Wv6WxggalD6Hpt KCaElOcYljbPOv8O6SmCb wvdHI+XN72WRFpPU16PLr 7BDC1wBmnYHgg SOQsA1EqeO6mJvKyKFRrO GRkOyc+PHRhYmxlIHdpZH RoPScxMDAlJyBzdHlsZT0 sWs8dEXMyDQCo xDygzFRuDjQzp1xgPKDfC BuyZX2abWuwO4RfkMC9MB Tiz4f7Sv64J93aZ0PtmRS +ZHIrpCU7nJN5 kS4dOwToIzT3OGyxC569E nIgdPTyDyjft7zys1ngrK r1QuW6LPQaseBfhIvnRNS 6u0LgWw55L27d IHdpZHRoPSIxNSUiIHZhb Enlcx3cxI5hAe6+PGNvbC E6oVC0lK2nEfObGxH6MIg pG967SzTmtZMa Tylqs6kdk3hxmPz6LxOvE SXoqiPdcUtxHSH6h4BsSv 25K0EosQjvq2YoDic2uk2 6oMEvu5H4qIG9 G1VxLVPohomcjEFmwGvxB L7dKDBxwqweCNQiqM4iXR UzK5s8MbJvFhG4CPnaP8A gpvM8CBRdpXNc SWCoyEGOkK0njcsjt7ovf egaQaMhXINuVHb0NLb9UX VyoVqaSdRzOSQ5EzY2IVY 0qKShwW5qoYbi bwiesP8xEvn+TVG1kOMft DCQNL4lPzlkhOG+PHRkIH I2iMhiCLoaXPMotE4uOCC vV4l7PaNcPvZ5 KAipF0TpurP7UMNgbMNzC NDkdLIYbO8tpnmol1ubhb zpUuHmSEObVHz5LJw2YHT saWduOiBsZWZ0 RzK7MYT9jEGohM6kzLgcy nnqzS2sDdy+QmlydGggRG U3GDn6H4RhPcf7ZHUheQd fYH1vyLQcCSwy Jy5bqXqavItmLE2gMDQmb qyda362HxCxu5saMNXwhB LtZMpiKZW4T42dk7O3THF tSQNyTCX7eIO0 cL8hpIpxfiwzrVEtqYieo jPuwDppOAliZNswY746BT VjmAskPfKzENn7I3MkUno 8QMYbaQmmBV3h xCUkDAzdZe3xrYyacUfcB N9wBIFcscwzq459UlMfo2 nzUDHzrMXqQBhaELP6M36 ps5A1QGElELQf PDI0wSY1zQ0qyBwqdnrqy GVmdDsgdmVydGljYWwtYW pvV381OQDypEacWhWjsZf 8Z5GsXsf6HFDx jPaaBP4qiDTiXEemTe5hh MwurSfqWP1jSIIohzywy6 84HzChh9jiLEDksNZgGWb rBSX0A30px7M6 YBCjFSCrXZG4dBA0rJ9pl GlnbjogbGVmdDsgdmVydG vdVObqWIdiC673TURwaYp nPlBhdGllbnQg FYwqFDg2W9IrYileuFD+P C79KFUyZG69gYMqsRNuv3 xnvGx8WjIuIWNiEAL1yEx cSGjyj8QuKBAi S50zbJToz9F8FPTaoTejr XKqPeMmtXO4yW9iVKlvgn mfq6rodysrLysny0goat2 5dJ78F12tUYrf ZHRoPSIzMCUiIHZhbGlnb i7qnC7oZf9+TINezCP6uF M4kY2yOLEyXnB7YPkjV14 9InRvcCIvPjxj k1boq7wdaJy6MnQ5CNNxt nUjzDscSHR4f6OzQx94R6 9sIHdpZHRoPSIyMCUiIHZ yyAwakf9uyN0r Ii8+JYPfuCN3kRV6dW9uY rYfOnR1HSscC491DgNnwE ZpYxqhL47kI9CzkSW+PHR lGvo4MZShgFtk LR2snDWcAWfqIw7bYYP8P fUsVjAeLIgcN4PnZKQuof vxovcejUD9ABIcFIXmrK4 3Us5uyWmgCVWh aTUBuS9jtxzgi7zvwgtfU uWlSXYlDHo5STz7GCZimP pjLiJdBED2YlF8ZXF7pWG mbD8gkPywqjij wW4lN5PcVZMuxlprZl23r Q1wFrEcDnN0GEjyHme+SE hEQYutZ6hMPPoXFIRNTc3 2G7XnRax4LKCb gGkzCZ8idYUrHAezCn1ij VkzfSgpGK0xSTRpfzzrJJ MvjQ7hCWMobPOclWevHZ4 jMAMsqzord827 ZhGlOOH1SEQzvAJuJ4Doe B2jLsPyHDGwUVGsP9QkzQ MyQCfoN013LZrhUlN3LZS gkmMxF3DkOPFj oAbdNrO1a9F6Pj7rJH7qY s1bOEI8LS37PB05wPJbu2 W5qYB9Z0SyPURxfcsudcb xkMA9MGCkGKYd cM13vIGzEVwuTh4zu6C0p 330KZYeISDvvL13Bz6nyN ogMTQzrFFSuR2mfnqto7k vcjogIzAwMDAw LWd0CTs4ZMLijEzsKoOpM IF1VhE1JVB4uKWfpH4arA cupopamJ9bUzl+NjggWWV tbiO0H8UoAsp5 BPRllUtaPF0ioFEmFMxvD l5tdZgapLvaNY8oLNLtnt zxNUQwiY6tPVRpbXSewXo eGI3sMBTsnirw j794DfZhFOZ3AAOhnSFrB 5LolZ7oDaIpIGRpCPWgJ5 PzvMNxUCitX973AXzkUgA 7HZNguzHuT7Zi VLUqdAhdLgE6w9C7Zu0CQ F2GRJX8O7QiBlu7TCVduW aqAE4skRWmUXjcGz2bbWg xkXbfMC0uHJWz tzyvLRXvxT9yEHJmcNFfp ExeJQ8jLZBcmnvce387Kx QcIKR2TMPpxHNpJ9GmyT7 yOiAjMDAwMDAw X7MliWZlIVwwQ445GJgrT oR2YGOdmtJnP8UtDBHhqI scJeN1f1C6Aa6XLEdbeNQ +MK59qh84R0El BdzbSeo8BCGuTSF4tCF4e E4bWFKzIFgmo0V2gHE5O1 EdyiRnrk7vh1aaZNHhFFj yF29dpLDgp6M1 ZDWrvBH9PZEtjXwbPsZgx G93Oyc+DCZwyOqxo0CqKp ack5ude7afrSh5LhBxLJI gdmFsaWduPSJ0 k3FkUv27T25sUZovDHYfK SQaOIMnAWPjaGwkfv1qrT 9wIi8+DQAesUX5iZM7xL6 xZaEtBxT8MTat D123HoFbmYBgGygfg3ese 3dkkGn9HlWgGCBlnoZekK cqBES9x3CaHh92G6HspZa qb4TmXwv2rj86 bMKwr7X8zWN7J6DgIPNmq wlnmKOogNllOB7zYKVsnu feMMKhbU4gKZCsI7p2PaZ nMwC8CKmjN2Fg riG3KNSwoOIbSDSawNEPz B0bvnzcq6uflzbrYvXrZE GkMHs9QTz6UUTbxPvzSrY aFZS4BrT9GUZ9 rKNpxV3pfJbxvtgizL6rX yc+FTq5i4clrKPzKP6itD S4RE03SW13bZWuv7W4tZE 5S3XyVJWprjmd lrwjiQJ6UDZvRGGxnV76K g4fnIduQo0rJVHtJFR5HK BluKQpS1QqrV8eNgWkWBE zXTAaD2WdbCBo FProB367LEsdRmI4XUJgd aTwS5CkVURkuCexMxG7q0 E5Bp0NMA36BU92IL71wWI gz4M3zRE3F0Lq LCCdvrhyjlqosSC2LKZbB UEonJ69Jy0yhPzbHu3zNF MwPKA4YZKjiEKkY5PuvA7 yOiAjMDAwMDAw Q9UhhSKhOYbbO972PKjrN lI0NNJgnvBoJ2EbSMYzoZ jlFqD2n7C4Yl5IKo58IH0 6FM54pKYol9C6 yLA7P6PxEMPzwearjpsvm VB2RMXdJILyrE92Fb9hkU fzJq8gIHPhAKV9HTVjeAF iD1LimE3lKjJf TKAxKKOlS2HwoYGjYZwnT 310GOjrXyW6BXBiuwUxW3 SsUBWssTvdLhO3m0Z3Km6 ENQjrjgz8F3Bc PjwvdHI+JP60PTFaFQ06v IXauRJzi6osbUj8LcWrVG JcTJB3fYtbEWtmt1UqJGQ tK06nnUZej2O5 IGN (more content not included)... Normal [facility] URINALYSISon 10-09-2023 Bilirubin Ql (U) Negative Normal NEG [facility] Comment on above: Performed By: #### U A #### [facility] ([id number]) [address] [place] [address] 79518 BLOOD/HGB Trace Abnormal NEG [facility] Comment on above: Performed By: #### U A #### [facility] ([id number]) [address] [place] [address] 82456 Color (U) YELLOW Normal YELLOW [facility] Comment on above: Performed By: #### U A #### [facility] ([id number]) [address] [place] [address] 77330 Glucose Ql (U) Negative Normal NEG [facility] Comment on above: Performed By: #### U A #### [facility] ([id number]) [address] [place] [address] 42683 Ketones Ql (U) Negative Normal NEG [facility] Comment on above: Performed By: #### U A #### [facility] ([id number]) [address] [place] [address] 05236 Leukocyte esterase Test strip Ql (U) Large Abnormal NEG [facility] Comment on above: Performed By: #### U A #### [facility] ([id number]) [address] [place] [address] 89060 Nitrite Ql (U) Negative Normal NEG [facility] Comment on above: Performed By: #### U A #### [facility] ([id number]) [address] [place] [address] 21951 pH (U) 6.5 [pH] Normal 5.0-8.5 [facility] Comment on above: Performed By: #### U A #### [facility] ([id number]) [address] [place] [address] 36064 Protein Ql (U) Negative Normal NEG [facility] Comment on above: Performed By: #### U A #### [facility] ([id number]) [address] [place] [address] 13906 R.B.CELLS 1 /hpf Normal 0-5 [facility] Comment on above: Performed By: #### U A #### [facility] ([id number]) [address] [place] [address] 55454 Specific gravity (U) [Rel density] 1.010 Normal 1.003-1.035 [facility] Comment on above: Performed By: #### U A #### [facility] ([id number]) [address] [place] [address] 72615 SQUAMOUS EPITHELIUM 0 to 1 Normal 0-5 [facility] Comment on above: Performed By: #### U A #### [facility] ([id number]) [address] [place] [address] 25380 TURBIDITY CLEAR Normal CLEAR [facility] Comment on above: Performed By: #### U A #### [facility] ([id number]) [address] [place] [address] 56258 Urobilinogen Qn (U) 0.2 {Bro'U}/dL Normal <1.1 [facility] Comment on above: Performed By: #### U A #### [facility] ([id number]) [address] [place] [address] 19829 W.B.CELLS 6 /hpf High 0-5 [facility] Comment on above: Performed By: #### U A #### [facility] ([id number]) [address] [place] [address] 05077 URINE CULTUREon 10-09-2023 Bacteria identified Cx Nom [...] CAUTION AND CLINICAL CORRELATION IS RECOMMENDED. Normal [facility] Comment on above: Performed By: #### 6 30-4 #### [facility] ([id number]) [address] [place] [address] Provider Orderson 09-23-2023 Provider Orders [id number]#[id number] 0OTGTIFF [facility] C Urineon 09-13-2023 C Urine >100,000 cfu/ml Enterobacter cloacae , >100,000 cfu/ml Enterococcus faecalis and 50,000 cfu/ml Corynebacterium species (diptheroids) ORGANISM Sun Glez ---- SUSCEPTIBILITY --- ORGANISM ID: 1 ANTIBIOTIC [...] ID: 2 ANTIBIOTIC INTERPRETATION LAVERNE STATUS ORGANISM Nathalieeca Amox/Cla <=4/2 Verified Amp S <=2 Verified [...] Tri/Sulf <=0.5/9.5 Verified Vanc S 2 Verified [facility] Comment on above: Performed By: #### [id number] ####[facility] ([facility])[address] [place] [address] Coding Summaryon 02-18-2023 Coding Summary HTMLBase 64 NealspbgPTz9wRq+PGhlY WQ+IH4CNKMnO71hxNUkqO 8zC4GAEMvADsckERIANMi KZiBwjkEiUP7sxZTvBDXc IC8+VV8aLFPaAsmbhISjb 2K7vZA4Q43tkn7uNBwftS U8KERhJtEbebbyv5zfpMl 6IDcuNmluOyBt UZKjgL69EZD6vQ47Ej57h ZAkfKOll0nmsKc0UyPtJA EoHXI6sHodLHujg9NhXSL fD62osTNpw2B8 STCkyJxanOYyXwWgrXU5v C5iSXtqmytgs4sllojoRh u0ce75eCGar7O6sWY8K7A adhS0OXEwjKAw ZksmtNLWuO1ehdqyj4xjb hllBkPjMFJxWCa6RSn0JT ObdCapWwGzQG57BVP2WTI nduDfS8LtNROf jVahXcF7n2I5Ob9SS4OKW humD1ABBOMXROwmuCB+PC 72ct33F4FjBicrGzi1SKF sFQX3uES1xJ9c URFaAAicy4O7cND4U1Xww eTvfm3na3jiFBFaFJrkH5 0vzUJfu8P5FWXqoGT7EWH goWkeWbMitY44 Oyc+NBRuoPclf3NgGdudp 1wma8xoqHj5GnhiNALwvd KbyUkgKEX7x9QhYq6rZQP qfQN4aAI0dS3z LcTxAjM2ZUpbV111OySve JThOaxrH82wH1VhxIQ+PH AhBzu1DAJpzAiaIU4eQ7N hZGRpbmctbGVm jPpuMT0oMVMfxufhEOMff J1mDDAfV1i0EpHnSiN7QR alP8ImAIVbwtvkEd40yV3 hZrExNpF7UIqw Z9DsuaW6SZYmlERsKHopU BV4C62du6E0UMMiCPSaGT X2nRB7fQ0qrNsjuqqbaSM mdDsgdmVydGlj RQatTGvaA955RBJkpSeiW kNvZGluZyBEYXRlOiAgMD cvMjQvMjAyMzwvdGQ+PHR sGYY2qFzuJIAt xBFbMOfyWa4hlNenuLgtG W6xTLRjxkudAXPrsT4dCS CzxEDlwUklWG1qETHvido tf723EmTvOIG5 AATsnAHcQ4BuuA1bMwUxQ ZKtVPZjF9VpsVIxERsqD7 35EDgfWpG4MHDiblXoL8D sLWFsaWduOiB0 e2W9Eg1Jv6FdvsolX1Pge LGtPrEyPufjVLv3H6DmWy wvdHI+QU91YQUxUD74LYx 4TAS5jUleJCna UJKnD7VykV8cFiFqPYZmO GRkOyc+PHRhYmxlIHdpZH RoPScxMDAlJyBzdHlsZT0 lQn0fXWUuJPWu bBbgjMTqMyNjt4kwRIFoW NobNV2ylCqbQ2UooUQ4WK Oel5p0Kf83S45nK1WvwAG +ITGtaYI1oBI3 pP7uIlZnOvM7CHeiQ374L cAwvLCeNiyhy7tbg2xwhJ n2LhN8OTMdhrCujOvwYAU 6r1ZdFe27N44o IHdpZHRoPSIxNSUiIHZhb Gwuze9mxN0uZq4+PGNvbC W1wHG7rD4jEwWrMzZ9UHf nW684FwMacQJg Nyynw4rhj4vvmVm3RnHcG BVdydPuqXywXGT6m0OkCw 30H4EzySztn9TxLaa9lo0 7qXGgk4O1rBX7 Z3VoUCJljopboBMcpJwjH O1dCQCxeyhkIBGzkY5rHL WpQ4k0FeXqWhO0YEfmQ4D ngxV0TDCykPRu IXSabRGWyM2lhrjyz7gvr yekOdFpTFErKSs2HHf9LC JimKypWxSiKGY6TeL9JZR 9iZGaoB9dzLpe wppuvR6uHuq+FZR7vQCsa TMXCA8bQbiuhSN+PHRkIH K7cEcjLYzwPMVpkZ5dSXI pD7e0ApAkEaB1 JUmzU6UiikH1ZGGiuRToN GLwmPMPaA5rluies8mkrm igIvUiWAGqIIy0WDt5HPS saWduOiBsZWZ0 HmA3WKV5zTFdmQ7vrUfjh tjugD0iBzw+QmlydGggRG H8XKy7S6WbQen6AXIurPf eKC4gaSKzFMfh Ej0eyBvozRmvMC3eWNToi gugq014EaZem3qfHYDgvI ZbSGwnPQZ8J56nv4Z5WVB wRYVkLQO0jVN0 eU4tsJbarxqsvGAapJtkl uQfaPvgPBcdORoaF730HK OwfGgkNiZvIXf4G5XsApa 5ZJXqeZpjYS4l iCQkOSvwYm0cgHtvwDxvZ U0sDZHjmzdpd384DwPjf0 muJIUvxVTmXPprZUT9B77 uz2E8EBSiTAZx KRX2oVE8iO2ftOzuwwokq GVmdDsgdmVydGljYWwtYW ihG247HTTkmOuiNbZzmYn 3W4AyTgx7XZAi pThmOX1zqJOiBJxnDg6jq BsxxSfkUR8vJKWrtsftj5 94BzLwr9vlXMCrgDLkJJa fBQB8Y47za1K2 UARsSQAxSNC7iGF3eX0dz GlnbjogbGVmdDsgdmVydG beYMxyCVqgA530NYDpvOu nPlBhdGllbnQg YGiaHYc0L2KnLadmqUW+P H98WTUbNY77aQCohTGbz6 efuYo0YeDjBZMhSXC9jIm nHIwyb1VfJLHo D36xyPYbq7B7GWRneTurm CRjEqAomXV8yH2dDEhqir buz1qliwywCrzwe5kweq6 9vJ62D90sFGmb ZHRoPSIzMCUiIHZhbGlnb f4bqQ8fNd3+TVBfwFT8yM G9oV3jEMPiOnV3ZJsbH43 9InRvcCIvPjxj i3sql6ifbMf9HwL9AJXpf jKhcHmuVXB1f2RsQc48O8 9sIHdpZHRoPSIyMCUiIHZ qnWokep8ybL1d Ii8+JYEjcGY0bLQ3sZ8rM yHdLsV0DZazH573NiIszM EqBpjnL33aF8AzgXX+PHR kKru9DRNqfBvi RN8iaHKvDZinRb0qXKB9W pGlLeZuWRtvT4UaTVPbve timxijvOT6JQXrZHUpjG2 7Gs7azHkkQBJi gPNVhI1nuroqp8pslwgdC sQnXKFhIWr9PCe5VOQmrI fsYeKzVNL1PlL4FGN8kQX rtF7otSntlxlg vO9uK4UuMZMkksvpTp66h V7mWdTeLeI6NAazLjn+SE hWBYvaV7hVKFcCKXDCSs3 1A1QiLxd0POZy pIsuEO0txPLzKGlpVo0ao CwowXdpOO8sKEMpzvfqSW PgxA2qRDYdeHSfnSciBX8 vEWBszbasp143 UzSbYXB1VANarKLhW9Exm J1lSpBiMUPaARUhR9TxyO XmZXnhV087QWiwEcA7ZMD ggfQzL6HsPNMd qDjhVeB3w8W4Sh2mPB6mQ k7fDMF8QH54JN17xWGci1 A3pFJ4G2JbIDIhygczbaw lxFM0EKOmVDNg xO87sCGeOBtrYe2ep5R0t 948OJQbSLDzaM11Kp3thV skNVTpfHCHoJ4eimxvz6e vcjogIzAwMDAw UKa3DFf0LVEymIhlXlXyC NR9PrG3XHJ2wEEesJ0tpF plyuukoJ8uObt+NjcgWWV xweR4Y4McIfl0 CZCtfKskXM1naQZcXPszZ w4sjEeinAmvPG1pHHGwpq knKCIxfU4rPIRsrWOymTu jAB3gBIJxoekt m590UqIlMCY0LTNkbKAwH 9DmtT0eAoNmUWCfSRRsN3 UhqHEpXTvtG906VLkzEjS 6TDAtrnDyN1Ku HXHawIkgCaE8f3S8Aw8MP E9LYQR0Y2PtEcq8SXIvwB gwXE7lyDNlTKnkRt7yoIb iqCfbGZ5rUHZl vudnSTAdsE5oTRSexSQax EpsSS4hZPUyyupiz023Sq QdRFM9OIDlgDTiF4BbfW8 yOiAjMDAwMDAw U8AftRFzWCahQ715RPibQ nW6WIChjwLyR2VcFFSxvA pxGyU8u7T4Td8CCNohC8E kV6AcjVcdjBY+ VN34ar75E0BmOlufMrk9I VYkEJG1wMA0eG9kIEFmLV hmh7Y4qJR3C0CfmpEdiy4 oc7wtBHCrYZaj V36gxCZyx4H2FCFusXH3A GHnoArjEqRuaA40Aqt+PG KhjFias4QtHqjeh9xni3m ybGc0DcXlKSWw arJkhNnyRTT0t3SuIi40H 29sIHdpZHRoPSIzMCUiIH NkhBwkbb6egZ2bHw5+PGN fyHC8fYI7vG1e CrPfFcH0EWefS161FeDup CGtGdudz4ccg2wcyLo9Kd CdXUQhwdLhbTrwCWP9e0W jGp93K7EnpXqg f6CpNpf0if80jSEdd5C7q ET8A3WoSSBciqnfcGVyfM ijIG7tLRIxxmwpZHQwyH3 oUIVrA8h6SyFz HpM2SZizU0KulkC7WWOpk MZxICUnaXOPkR5nzsogv3 vjfqqkFyUqBZUmIXi3NBp 0LWFsaWduOiBs DYW7IaC7YUR1hDFegC4wk JothupsgE3sGun+UGh5c2 xdrKHxHZ2lnTF6IV10XS0 2gUAhc3S1kEI3 Z2EsDZTfundefikfjFU3W SVlLYDfxY45Gy5tbKpbMt 2sYMOnYKJ4EKVfqBGrE0C vcC0dKoSeGOPx KMDzX5QocJQgQWglU240Y NndEzF0HKPrpoLfP6NpUO JbfQcgMzL7k3X2Wr1IHG6 4KR17EI13iFWn z8W5dBF5A8GxVGCxblwkc kuqcBS6PUQgSBEeyK05Be 3qtZgrUo8gNMZeVWI3WFT taONmX4CbgB0x CsCeNXDtDLJnK5HcjGJoU CneE404YDgiQqE1WRWgqb PtA3UiXCOdiFahPnM4j1Z 4Le0PMf75CS95 FW48gUSky5R7mWJ2T2KuX AZxpqbqypofcNA3NVIlWW AumR88Vb5nxHnmUn3cNDN rMMB6CYLhlPBx O7JxiW5eRtCfILIlMUJzL 2VyiUNwDPsaM564YPiuAc E0VNErsrKtR0LgOWJmpDp cBoR5o9C9Xd4R WEtxdit5Y9OmMbddfSO+P N48NLEmPL38bFZcvIBer5 ozfXy5SkKvFDVmSQM5aMg zAXlub4RsEADe Y29 (more content not included)... [facility] Consent Formson 02-13-2023 Consent Forms [id number]. [id number] [facility] Provider Orderson 02-13-2023 Provider Orders [id number] .[id number] [facility] Anesthesia Noteon 02-12-2023 Anesthesia Note Patient: [...] on: 02/12/2023 12:46 EDT] Susan Gordon DO [facility] Anesthesia Note Patient: JERICA CALDWELL Age: [...] All Problems Memory loss / SNOMED CT 59906093 / Confirmed High blood cholesterol / SNOMED CT 29524260 / Confirmed Hypertension / SNOMED CT 2289493619 / Confirmed Multiple sclerosis / SNOMED CT 25935085 / Confirmed Urinary retention / SNOMED CT 993366928 / Confirmed Bladder spasms / SNOMED CT 839224440 / Confirmed Histories Family History: Entire family history is negative. Procedure history: Cystoscopy (66698117) on 08/04/2019 at 64 Years. Comments: 08/04/2019 12:06 Oneida Gillespie RN With suprapubic cath exchange Aspiration of bladder; with insertion of suprapubic catheter (71269) on 06/30/2019 at 64 Years. Vaginal hysterectomy (203451574). Colonoscopy (018619333). Esophagogastroduodeno scopy (793523806). Social History Electronic Cigarette/Vaping Assessment Electronic Cigarette [...] Charted Heart Rate Peripheral 64 bpm (FEB 12 09:20) Resp Rate 16 br/min (FEB 12 09:20) SBP H 176 mmHg (FEB 12:20) DBP H 96 mmHg (FEB 12:20) Pain assessment: Self-reports no pain. General: Alert and oriented, No acute distress. Airway: Mallampati classification: II (soft palate, fauces, uvula visible). Temporomandibular joint mobility: Good. Mouth: Teeth ( [place] ). Respiratory: Lungs are clear to auscultation. Cardiovascular: Normal rate, Regular rhythm. Neurologic: Alert, Oriented. Review / Management Laboratory Results Plan [employer]#( A) physical status classification: [...] 02/12/2023 11:21 EDT] Susan Gordon DO Normal [facility] Inpatient Patient Summaryon 02-12-2023 Inpatient Patient Summary [place] [id number] Patient Discharge Instructions Name: JERICA CALDWELL : 1955 Patient Address: [address] [place] [address] [place] [id number] Primary Care Provider: Name: SUSAN BOUCHER After you are discharged if you find you have any questions, please, call [phone] ext [phone] to speak to a nurse. Discharge Diagnosis: 1:Urinary retention Prescription Information: If you have been given a prescription for narcotics, seek immediate medical attention if you have any difficulty breathing or any sudden status changes such as confusion and sleepiness. If you or anyone you know is experiencing suicidal thoughts, mental health, alcohol and/or drug addiction problems; contact the [facility] 18/02 Crisis Hotline -Text 4HEHC uj 506812. If you received any narcotics, sedation, or [...] business decisions or sign any legal documents [facility] would like to thank you for allowing us to assist you with your healthcare needs. The following includes patient education materials and information regarding your injury/illness. BOWEN CALDWELLModesto SON has been given the following list of [...] for Disease Control and Prevention March 2014 [facility] MAGR Intraoperative Recordon 02-12-2023 MAGR Intraoperative Record MAGR Intra-Op Record Summary Primary Physician: Tj Garcia MD Finalized Date/Time: 02/12/23 12:00:55 Pt. Name: JERICA CALDWELL ADELAIDA Charles/Sex: 1955 FEMALE Med Rec #: [id number] Physician: Tj Garcia MD Financial #: [id number] Pt. Type: D Room/Bed: / Admit/Disch: 02/12/23 [...] Role Performed Surgeon - Primary Anesthesiologist of Filament Cutter Record Time In 02/12/23 11:23:00 02/12/23 11:13:00 02/12/23 11:13:00 Time Out 02/12/23 11:28:00 02/12/23 11:31:00 02/12/23 11:31:00 Procedure Catheter Insertion Catheter Insertion Catheter Insertion Suprapubic Suprapubic Suprapubic Last Modified By: Jenni Stephens RN, Barbara RN Long, Barbara RN 02/12/23 12:00:51 02/12/23 12:00:51 02/12/23 12:00:51 Entry 4 Entry 5 Case Attendee Tracy Seo RN, Brittany E CSFA CLINICAL STATISTICAL PROGRAMMER Role Performed Filament Cutter Scrub Personnel Time In 02/12/23 11:13:00 02/12/23 [...] Text: A.310 (more content not included)... [facility] MAGR Postoperative Recordon 02-12-2023 MAGR Postoperative Record MAGR Phase II Record Summary Primary Physician: Tj Garcia MD Finalized Date/Time: 02/12/23 12:58:02 Pt. Name: JERICA CALDWELL/Sex: 1955 FEMALE Med Rec #: [id number] Physician: Tj Garcia MD Financial #: [id number] Pt. Type: D Room/Bed: / Admit/Disch: 02/12/23 [...] Signed By: Blane Muir RN 02/12/23 12:58 [facility] MAGR Preoperative Recordon 0 02-12-2023 MAGR Preoperative Record MAGR Pre-Op Record Summary Primary Physician: Tj Garcia MD Finalized Date/Time: 02/12/23 11:17:43 Pt. Name: JERICA CALDWELL/Sex: 1955 FEMALE Med Rec #: [id number] Physician: Tj Garcia MD Financial #: [id number] Pt. Type: D Room/Bed: / Admit/Disch: 02/12/23 [...] consent correct. General Comments: Pt arrives to w ambualtory. PT denies cp, sob, cough or flu like symptoms. Pt denies pacemaker/defibilalto r or sleep apnea. Finalized By: Jenni Stephens RN Document Signatures Signed By: Jenni Stephens RN 02/12/23 11:17 [facility] Patient Handouton 02-12-2023 Patient Handout [facility] Progress Note - Nurseon 01-26 Progress Note - Nurse Pt's returned call and verbalized understanding of arrival time at 0915 on saturday02/12/23. Verbalized understanding of medications to take and NPO after midnight. [Electronically Signed on: 02/11/2023 13:50 EDT] Jenni Stephens RN [Verified on: 02/11/2023 13:50 EDT] Jenni Stephens RN [facility] Coding Summaryon 02-08-2023 Coding Summary [employer] 64 XpcsomujJDe4bHq+PGhlY WQ+RK9DFLEuL12sdXHrqK 7nY0CAXGyIGedhIWACTYu RXoNmjiOvYC9ybYWaOQZo IC8+RY3yJBRfZpjbbJUiu 9I8sGC7H03rtn4rSJmebB D0RPKmKbIwzolpe4uapUm 6IDcuNmluOyBt OEXrqT11NDW6sM51Ge35r PCnrDExr9rwlVr7BcXvYK LaWGI4mKrpLXvqg9GoRNY lK21diUNaq9X1 ZTApeLgnuUHkHfFrdJD5u N7aZUvluktqw7vwlzqpVc n8rn39oVPhr2Q4qOI4H9S khwB7SBJsaDCv PmdjkTNCeV4uxmjzf2hjq pbkBeVfMYJxHDg4ZYa4EE MnyQbgTkNmAK80VZC9NCV qpuCiD5KuUIUa cGvzByS1t8G4Wn6IG3LDG uwaF6BUGJYCZJhmcPR+PC 46pv54K1NvKmzgRln9JWM qCRP2hQO6mQ4k TRSgLGxyc6E6oDW7E3Rkh iJpit3yq8fwBFRaMPqkR5 5xlMRzr6V2BFKtsZC2AAU fuWdjXcSqvI71 Oyc+ONVzeYefb9WdNuolu 1rsh6arlFm2AjlyGTYuly TtgFhqUVZ9q7AjVx8qWRG twWP8kGG7nV5z BhJaHyE3MRegJ077BhQmx GQdAdyiH75xB2WytIE+PH LwTnm4AGPjyQulRR7hR2P hZGRpbmctbGVm uBwmSV0nAVIgndfyFEPaw Q7wLZCrS9f5QrQyNlQ5GG qkA7JaTWIbvzhyJz14dG7 nCrWfDpT8ZAiy C3OufiY3MYKekNOvPGevQ ZO6D28jz4E0RYAtVCSbXP F5zZY6yB6gbFbxfxhwjAH mdDsgdmVydGlj AQweHVgoA893YSDghLwfX kNvZGluZyBEYXRlOiAgMD cvMTQvMjAyMzwvdGQ+PHR tROU3kLquELMs hCYfEWihHm4eyYvqeSsbG U2lZKIkiuosGLJfeH1fXC RmsUEecBhhXN2wNFXokrq fk050WkTmJXU6 SSLaeXKeW6XseL9vLpCkK DDsUJRdP6PdoMCoEOmxL9 69JNeaCpY7OAOrtrXfF2Y sLWFsaWduOiB0 j6S3Ww2Jh2UuviyxA9Ljc DMsCjDcOqciTEi6L6RtEw wvdHI+ZQ50FGSuBJ19BQr 7UQR8iBimAZmq MRRbL3RyyC7rOjGeDQQoX GRkOyc+PHRhYmxlIHdpZH RoPScxMDAlJyBzdHlsZT0 fIx0fKSIuIKJm zXhtkFBkAhPxo7mcGBQvJ RzzWZ4ayKkgG4QkyNL9SN Ypw6o7La61C72jR1SduTX +HYDahAA8gLK3 pQ6lXeKiBxC2IQfkK627Y mDnjAAfGrszx6ary2rwiP m5YaF9JPAopmMgyZcpDND 9j0KlJa84W60x IHdpZHRoPSIxNSUiIHZhb Wuupl2ryE3fYt2+PGNvbC S8lTY5rC2qBsHbAcO5PUy xJ435KeOblZEu Isrso7yaq4cntFl5VpOyI CFiwvWleJiqGLN1l9HwAs 36V6RfkMrnt6AcHms7ow7 6hRXlj5Q8bWJ1 S4SkEMGgrjmeyDZubMijX L9dIUVfptjfWCNbjW4wFH ZzN2a3EkCgWqP8WUrcC6X ofqL3SJIycECm KKUtoPIOsB9hfcgbv0ase leqBxWpCHSmWBr4ZUm1HJ ZivXpcJyXzTYO5TxD6UDG 1uZKmyP7ynNoj lfzztF6vOcv+AOC2jZWok EHIQN7qAprjiET+PHRkIH E3tWgcHYvuZAOpuZ9nHUY pP5r9IcDrLzJ4 EGwkH8OhzjR0SIYodQYqB UPixHYPkP4fcerbd2vfeg kwWnBcBISsUJw6JFs1MIA saWduOiBsZWZ0 GvF9DDD9iFIgwY0ljYrql siysC9rAam+QmlydGggRG Z3LZy1O8HzNlh2YPNyyCy qCH2wiPAxLBbd Wo0xcLeunPvcZQ1rKAFve xdvc495CbRlx4ipEBYzjR BdLLnwHJO4T11mn4H6CFE eSSXhYKV1tYR1 sG5gzZjqhtjdbNSkeQbfo vIxrLnnTUnuJFzqP391FG KpeAusIgEcRWj9V6AhBpe 5LECcpYlhAG9p fYMfHUooSn8ojTyrxBssS Q3zHHYftxhnk150NxDeu3 nkCVSzhIMwOUheHUS0H02 ls3G8IQKwEXEh GZL2bEC8zQ7zoFixctwdu GVmdDsgdmVydGljYWwtYW toD657VWWspHkdToGnqQw 8Q8TnMbd5JNYv lTwkZY5ftGJfPPycCj2cq WnqzSzwVK0eVLJjsqftb2 53WbPrn0wmISFauOGkHZy tQVN1Z11fp1V9 CUYrMQKjOAT3wPU9gZ6yj GlnbjogbGVmdDsgdmVydG wjCGaiZTxfK859WSNvtMs nPlBhdGllbnQg VEbxHFs8S1XuZroroNZ+P X12KSPpWQ58uKYjsZOuk1 iwbMg3DjOgPFVqCAZ0ySs dRLuab9DlSPEb S63nhXJdt4P5OCZteNewc BNgVtTzdZG1tJ1oYYpqsi nho0ekjxjpOqupk6dnug3 0wY50E69bOIjg ZHRoPSIzMCUiIHZhbGlnb w8edI4tDi1+QVOwjVE9hM Y7lU9eDWTwFwW1VEeqS32 9InRvcCIvPjxj t4txb3taxDs0YzY3XFOvm rHjsAucFKR7s6XuWa32V9 9sIHdpZHRoPSIyMCUiIHZ oqArrrt7izK9d Ii8+WYXwuZR5aZK9eA6uU nEsLsP6CZmwT631QiXpqJ DaFxjqA44dE5QwlSI+PHR tHbc7LXOzrVey QS0uvJDjZYivOy0dYLP4F aNwPxVuQCujS0XgXXYomo dnhmmfaWL5LXGhHKZxpR1 7Ij6gvSizCKDl vDLNcV1ayifkf0opkmueO rXvCMHhLKc1GCn6OUMssL yzViRbYIT5SlZ5ZCV9wDZ kzQ3mpCimambj lW0fL1DtBZHtlhknNw68s V6qSaDaRoU5ZLykFwy+SE dUQYtmG5eMWAgUEGWEWf4 5Y4LhYwd9NDMy gDueWS7qhXMsUZnlXy3ni AtskAhsVP1aUHRufoerBL YqlF2fHEStmIXhrMjmAP1 jOMQvbmihz088 McFxFZH4OOUarVToC8Lqc S8lCbZmHAGaLKAtR1UvwZ LlOMhfK417OOuwRzU8SVA nssAtX3RtIZRj eHhpBqH3q2P6Mt6gPR5uD f1xDCN9XJ42WE89pRPfy5 L5gJY6E6QtPILqpkfmhyb zkUL2HVYeXZEw rO28fCNtRMtyRx0rr6O8l 364BNAqMQEwiF76Cc9ajB ezWSEcbMYDjP4zvjmxo2e vcjogIzAwMDAw SNf0PSw9SSImjIdjDrIuY RN6FlX0JYT8vNUfaT2guS vroqdhjJ2fWqp+NjcgWWV onlA6H1YaIce8 NGLcmOyuQT3btKWnFHvtY e3lxMjviTmsPI2pUHAazr hrUNNrdF9vIVVdgUJwnGx iZM6gWCWaxyfy z383ZmKkMPU6HHPtdXIlI 2DpeP2jQbXlWLUsWTQpP9 KhuPXqQHcmO356NFruYyD 1EUVmpuYfK7Ou REXrtOuaHmV6g6K8Yr3JR C3JECQ3B5HtAgk8NXVlhH fzNV3djVOiOQwwTv0gpLb coNikIU3uFISi wrqvWBUwgE1kUTUcvZIjg KhuUP8kSSAvffcqq190Lg XxXZS5SUYeoIYfK5VsaJ7 yOiAjMDAwMDAw Z8OwuJCaGAuvX322YLezX qM8GSSgddCaO9XdDMTrgL ieCqW8v4V9Lc1AETdtfFI +PA19fe29E1Dl UkylUww7FIQgAYY3pVH4w M8xSJVqWBfzt6M2zGT9G2 DcwlLykt2bn9keEJIeZHa aJ82zeRYxi5U0 NYYqaFX2RVBszPrdSrJxt G93Oyc+NHYtlHrqr2QqRs lmw8vnh9ggnHn2XoYhHUO gdmFsaWduPSJ0 a2WuUp98Z81pQIemSYPpM VRhYRHuRHGjrYreew9zoG 9wIi8+HMLxoBA7uCR4vH3 iIlLhQcS4SEfg T742LaKmwNJwDrbhc0jed 0sgqKi6QxYbZWFscfWjiX myEZF2s8KbUi51I5UnkDo db8TrOyx5ho26 oANpp9E5sQW1Y5OfKJRdu trhfZExxJvbFR6oEZZomz xaYTSijR8aHGXyH1n8EaD dOrI9ORybA1Ok xnU5ABUndZZkQBPjaUWJp D8mcdtxb1nxjgxbAqQoKL ZlPBq9OGz3ZZMuhDrrLjQ pWXU7GkK4OQC8 xWLgfE3elLlyikvqrY4iJ yc+BFv3t3lqaGEqCO4yjW L0GV53OU73jJPjb6P7tDP 5Q5MjQXKopyws ulritFQ6EKQcQAXhnC10O i8sdMkzIe3rBLBqVMR9JW IckGZqW6YkwP0cFcKeGHT tSXEvA4WikFAt XDudT716NGrcRpJ8WSAma tSlX1GwESCbsMcpUvR9p7 B8Hq2EWI26OZ27GL85jCM qw4I1xAB6P3Ve FWFclvxnvpqpaNA6YQKbS HVrsH57Od8zzFecQb2jGA MtQIQ7OCRebQKtH6HtzD4 yOiAjMDAwMDAw A0LwcLZhVTxsG305NIufQ qZ1PROrauUqL1VfMFLfbQ owNaQ2o5A9Um4NGe12YR4 0OX38hTRjw4L1 uNH2N2WkNAHwlhpsefvqn OZ1DQOoQCPjjV35Jh2dpX pjVk4pLPVmOHZ9FBFknIU lC5NmyT8lJpFz CXKxMYJmN8TqbYKjOVssW 973ULcxMaQ2XYRocwJpL8 OyHOQidNvlAtR5l1H5Va0 GNBswmid2T2Gf PjwvdHI+ZY02NIYiRR79f USkrJEmi0rgbBm9EhXhVC IaEDS2kWzmKHoxr0TcBBH mO85ehCBjm1O6 IGN (more content not included)... Normal [facility] .Auto Diff on 02-06-2023 Auto Auglaize % 10 % Normal -12 [facility] Comment on above: Performed By: #### 7 [id number], [id number], [id number] ####[facility] (DEFAULT)[address] [place] [address] 19213 Baso Abs# 0.0 x10 Normal 0.0-0.2 [facility] Comment on above: Performed By: #### 7 [id number], [id number], [id number] ####[facility] (DEFAULT)[address] [place] [address] 47523 Basophils/100 WBC (Bld) 0.9 % Normal 0.2-2.0 [facility] Comment on above: Performed By: #### 7 [id number], [id number], [id number] ####[facility] (DEFAULT)[address] [place] [address] 93727 Eos Abs# 0.4 x10 Normal 0.0-0.4 [facility] Comment on above: Performed By: #### 7 [id number], [id number], [id number] ####[facility] (DEFAULT)[address] [place] [address] 54797 Eosinophils/100 WBC (Bld) 8.7 % High 0.9-4.0 [facility] Comment on above: Performed By: #### 7 [id number], [id number], [id number] ####[facility] (DEFAULT)[address] [place] [address] 91452 Lymph Abs# 0.9 x10 Low 1.3-2.9 [facility] Comment on above: Performed By: #### 7 [id number], [id number], [id number] ####[facility] (DEFAULT)[address] [place] [address] 59327 Lymphocytes/100 WBC (Bld) 19 % Normal 14-48 [facility] Comment on above: Performed By: #### 7 [id number], [id number], [id number] ####[facility] (DEFAULT)[address] [place] [address] 90727 Auglaize Abs# 0.4 x10 Normal 0.0-0.8 [facility] Comment on above: Performed By: #### 7 [id number], [id number], [id number] ####[facility] (DEFAULT)[address] [place] [address] 77758 Neut Abs# 2.8 x10 Normal 1.5-9.2 [facility] Comment on above: Performed By: #### 7 [id number], [id number], [id number] ####[facility] (DEFAULT)[address] [place] [address] 32135 Neutrophils/100 WBC (Bld) 62 % Normal 44-88 [facility] Comment on above: Performed By: #### 7 [id number], [id number], [id number] ####[facility] (DEFAULT)[address] [place] [address] 91220 BMP Standardon 02-06-2023 eGFR Non AA 50 mL/min/1.73m2 Invalid Interpretation Code [facility] Comment on above: Performed By: #### 7 [id number], [id number], [id number] ####[facility] (DEFAULT)[address] [place] [address] 98040 eGFR AA 60 mL/min/1.73m2 Invalid Interpretation Code [facility] Comment on above: Performed By: #### 7 [id number], [id number], [id number] ####[facility] (DEFAULT)[address] [place] [address] 98510 Anion gap [Moles/Vol] 10.9 mmol/L Normal 5.0-19.0 [facility] Comment on above: Performed By: #### 7 [id number], [id number], [id number] ####[facility] (DEFAULT)[address] [place] [address] 47744 Calcium [Mass/Vol] 8.9 mg/dL Normal 8.9-10.[address] [facility] Comment on above: Performed By: #### 7 [id number], [id number], [id number] ####[facility] (DEFAULT)[address] [place] [address] 92262 Chloride [Moles/Vol] 104 mmol/L Normal 101-111 [facility] Comment on above: Performed By: #### 7 [id number], [id number], [id number] ####[facility] (DEFAULT)[address] [place] [address] 39343 CO2 [Moles/Vol] 29 mmol/L Normal 21-32 [facility] Comment on above: Performed By: #### 7 [id number], [id number], [id number] ####[facility] (DEFAULT)[address] [place] [address] 24003 Creatinine [Mass/Vol] 1.10 mg/dL Normal 0.60-1.30 [facility] Comment on above: Performed By: #### 7 [id number], [id number], [id number] ####[facility] (DEFAULT)[address] [place] [address] 85465 Glucose [Mass/Vol] 88.0 mg/dL Normal 74.0-118.[address] [facility] Comment on above: Performed By: #### 7 [id number], [id number], [id number] ####[facility] (DEFAULT)[address] [place] [address] 53398 Osmolality 279 mOsm/L Invalid Interpretation Code [facility] Comment on above: Performed By: #### 7 [id number], [id number], [id number] ####[facility] (DEFAULT)[address] [place] [address] 43334 Potassium [Moles/Vol] 4.9 mmol/L Normal 3.6-5.1 [facility] Comment on above: Performed By: #### 7 [id number], [id number], [id number] ####[facility] (DEFAULT)[address] [place] [address] 46462 Sodium [Moles/Vol] 139.0 mmol/L Normal 136.0-144.0 [facility] Comment on above: Performed By: #### 7 [id number], [id number], [id number] ####[facility] (DEFAULT)[address] [place] [address] 61176 Urea nitrogen [Mass/Vol] 18 mg/dL Normal 8-26 [facility] Comment on above: Performed By: #### 7 [id number], [id number], [id number] ####[facility] (DEFAULT)[address] [place] [address] 13102 Urea nitrogen/Creatinine [Mass ratio] 16.3 mg/mg High 4.6-16.2 [facility] Comment on above: Performed By: #### 7 [id number], [id number], [id number] ####[facility] (DEFAULT)[address] [place] [address] CBC w/ Auto Diffon 3 Erythrocyte distribution width (RBC) [Ratio] 14.4 % Normal 11.5-15.0 [facility] Comment on above: Performed By: #### 7 [id number], [id number], [id number] ####[facility] (DEFAULT)[address] [place] [address] Hematocrit (Bld) [Volume fraction] 38.4 % Normal 33.7-40.4 [facility] Comment on above: Performed By: #### 7 [id number], [id number], [id number] ####[facility] (DEFAULT)[address] [place] [address] 11915 Hemoglobin (Bld) [Mass/Vol] 12.5 g/dL Normal 11.3-15.9 [facility] Comment on above: Performed By: #### 7 [id number], [id number], [id number] ####[facility] (DEFAULT)[address] [place] [address] Man Diff? Auto Invalid Interpretation Code [facility] Comment on above: Performed By: #### 7 [id number], [id number], [id number] ####[facility] (DEFAULT)[address] [place] [address] 99118 MCH (RBC) [Entitic mass] 28 pg Normal 24-34 [facility] Comment on above: Performed By: #### 7 [id number], [id number], [id number] ####[facility] (DEFAULT)[address] [place] [address] 75525 MCHC (RBC) [Mass/Vol] 33 g/dL Normal 26-37 [facility] Comment on above: Performed By: #### 7 [id number], [id number], [id number] ####[facility] (DEFAULT)[address] [place] [address] 64764 MCV (RBC) [Entitic vol] 87 fL Normal 81-100 [facility] Comment on above: Performed By: #### 7 [id number], [id number], [id number] ####[facility] (DEFAULT)[address] [place] [address] 20875 Platelet 330 x10 Normal 138-427 [facility] Comment on above: Performed By: #### 7 [id number], [id number], [id number] ####[facility] (DEFAULT)[address] [place] [address] 60903 Platelet mean volume (Bld) [Entitic vol] 9.3 fL Normal 6.3-10.2 [facility] Comment on above: Performed By: #### 7 [id number], [id number], [id number] ####[facility] (DEFAULT)[address] [place] [address] 10152 RBC 4.40 x10 Normal 3.70-5.30 [facility] Comment on above: Performed By: #### 7 [id number], [id number], [id number] ####[facility] (DEFAULT)[address] [place] [address] WBC 4.6 x10 Normal 3.5-10.5 [facility] Comment on above: Performed By: #### 7 [id number], [id number], [id number] ####[facility] (DEFAULT)[address] [place] [address] Vital Signs Date Time Vital Sign Value Performing Clinician Facility 05-19-2024 15:16-0400 Diastolic blood pressure 70 mm[Hg] Susan Boucher MD Work Phone: [facility] 05-19-2024 15:16-0400 Heart rate 80 /min Susan Boucher MD Work Phone: [facility] 05-19-2024 15:16-0400 Respiratory rate 16 /min Susan Boucher MD Work Phone: [facility] 05-19-2024 15:16-0400 Systolic blood pressure 126 mm[Hg] Susan Boucher MD Work Phone: [facility] 04-23-2024 14:58-0400 Body height 170.2 cm Hermes Reed DPM Work Phone: [facility] 04-23-2024 14:58-0400 Body mass index (BMI) [Ratio] 22.71 kg/m2 Hermes Reed DPM Work Phone: [facility] 04-23-2024 14:58-0400 Body weight 65.77 kg Hermes Reed DPM Work Phone: [facility] 08-23-2023 10:09-0500 Diastolic blood pressure 110 mm[Hg] Pfpf Nurse [facility] 08-23-2023 10:09-0500 Heart rate 72 /min Pfpf Nurse [facility] 08-23-2023 10:09-0500 Systolic blood pressure 166 mm[Hg] Pfpf Nurse [facility] 08-12-2023 13:56-0500 Diastolic blood pressure 90 mm[Hg] Susan Boucher MD Work Phone: [facility] 08-12-2023 13:56-0500 Heart rate 80 /min Susan Boucher MD Work Phone: [facility] 08-12-2023 13:56-0500 Respiratory rate 16 /min Susan Boucher MD Work Phone: [facility] 08-12-2023 13:56-0500 Systolic blood pressure 166 mm[Hg] Susan Boucher MD Work Phone: [facility] 08-07-2023 13:36-0500 Diastolic blood pressure 90 mm[Hg] Susan Boucher MD Work Phone: [facility] 08-07-2023 13:36-0500 Heart rate 80 /min Susan Boucher MD Work Phone: [facility] 08-07-2023 13:36-0500 Respiratory rate 16 /min Susan Boucher MD Work Phone: [facility] 08-07-2023 [id number] Systolic blood pressure 160 mm[Hg] Susan Boucher MD Work Phone: [facility] Encounters Encounter Date Encounter Type Care Provider Facility Start: 07-06-2024 End: 07-06-2024 Refill Susan Boucher MD Work Phone: [facility] Start: 06-30-2024 ambulatory SUSAN [facility] Start: 06-29-2024 ambulatory [facility] Start: 06-27-2024 End: 07-02-2024 Emergency department patient visit [facility] Start: 06-23-2024 End: 06-23-2024 ambulatory HERMES MCBRIDE Not Available Start: 06-23-2024 End: 06-23-2024 Bamboo flowsheet Hermes Mcbride DPM Work Phone: [facility] Start: 06-23-2024 End: 06-23-2024 Bamboo flowsheet Hermes Mcbride DPM Work Phone: [facility] Start: 06-23-2024 End: 06-23-2024 Office outpatient visit 25 minutes Hermes Mcbride DPM Work Phone: [facility] Comment on above: 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); Multiple sclerosis (CMS/HCC) Start: 06-22-2024 End: 06-22-2024 Telephone encounter Loretta Davis [facility] Comment on above: Er Follow-up Start: 06-21-2024 End: 06-21-2024 Emergency department patient visit [facility] Start: 06-18-2024 End: 06-18-2024 Orders Only Susan Boucher MD [facility] Start: 06-16-2024 End: 06-16-2024 ambulatory [facility] Start: 06-11-2024 End: 06-11-2024 Orders Only Susan Boucher MD Work Phone: [facility] Start: 06-10-2024 End: 06-11-2024 Telephone encounter Janet Lee [facility] Start: 06-09-2024 End: 06-09-2024 Telephone encounter Janet Lee [facility] Start: 06-05-2024 End: 06-08-2024 Telephone encounter Mary Samuel [facility] Comment on above: sooner appointment Start: 06-03-2024 End: 06-04-2024 Telephone encounter Ewa Hudson [facility] Comment on above: Care Navigation Start: 05-27-2024 End: 05-27-2024 Telephone encounter Ewa Hudson [facility] Start: 05-20-2024 End: 05-20-2024 Orders Only Susan Boucher MD Work Phone: [facility] Start: 05-19-2024 End: 05-19-2024 ambulatory SUSAN [facility] Start: 05-19-2024 End: 05-19-2024 Office outpatient visit 15 minutes Susan Boucher MD Work Phone: [facility] Comment on above: Chronic pain of righ t knee (Primary Dx); MS (multiple sclerosis) ([facility]) Start: 05-19-2024 End: 05-19-2024 ambulatory [facility] Start: 05-14-2024 End: 05-14-2024 Refill Susan Boucher MD Work Phone: [facility] Start: 04-23-2024 End: 04-23-2024 Patient encounter procedure Hermes Mcbride DPM Work Phone: [facility] Comment on above: Dermatophytosis of n ail (Primary Dx); Dystrophic nail; Pain around toenail, right foot; Pain around toenail, left foot Start: 04-23-2024 End: 04-23-2024 ambulatory HERMES MCBRIDE Not Available Start: 04-23-2024 End: 04-23-2024 Bamboo flowsheet Hermes Mcbride DPM Work Phone: [facility] Start: 04-23-2024 End: 04-23-2024 Bamboo flowsheet Hermes Mcbride DPM Work Phone: [facility] Start: 04-15-2024 End: 04-15-2024 ambulatory [facility] Start: 04-01-2024 End: 04-01-2024 ambulatory [facility] Start: 04-01-2024 Encounter for genera l adult medical examination without abnormal findings [facility] Start: 01-07-2024 End: 01-07-2024 ambulatory HERMES MCBRIDE Not Available Start: 12-25-2023 End: 12-28-2023 ambulatory [facility] Start: 12-19-2023 End: 12-28-2023 ambulatory [facility] Start: 12-03-2023 End: 12-03-2023 ambulatory [facility] Start: 11-06-2023 End: 11-06-2023 ambulatory [facility] Start: 10-22-2023 End: 11-27-2023 ambulatory [facility] Start: 10-10-2023 Telephone encounter [facility] Start: 10-09-2023 End: 10-09-2023 ambulatory TJ Parisi [facility] Start: 10-07-2023 Refill Lis win [facility] Start: 09-27-2023 Refill Janet melissa [facility] Start: 09-24-2023 End: 09-24-2023 ambulatory HERMES MCBRIDE Not Available Start: 09-23-2023 Telephone encounter Anya valiente RN Work Phone: [facility] Start: 09-10-2023 End: 09-11-2023 ambulatory Tj Garcia Facility:[facility] Start: 09-03-2023 Refill Janet melissa [facility] Comment on above: Call Back; terifluno mide (AUBAGIO) 14 mg tablet Start: 09-02-2023 Refill Duyen Nunez CMA [facility] Comment on above: Multiple sclerosis ( [facility]) Start: 08-29-2023 Orders Only Erica Jenkins MD Work Phone: [facility] Comment on above: Multiple sclerosis ( [facility]) Start: 08-26-2023 Telephone encounter Janet [facility] Start: 08-26-2023 End: 08-26-2023 ambulatory ERICA JENKINS [facility] Start: 08-23-2023 End: 08-23-2023 Clinical Support [facility] Sander [facility] Comment on above: BP check (Primary Dx ) Start: 08-23-2023 End: 08-23-2023 Patient encounter status [facility] Start: 08-20-2023 Refill Lis win [facility] Start: 08-12-2023 End: 08-12-2023 Office outpatient visit 15 minutes Susan Boucher MD Work Phone: [facility] Comment on above: Hypertension, unspec ified type (Primary Dx); MS (multiple sclerosis) ([facility]) Start: 08-12-2023 Telephone encounter Susan Dias MD Work Phone: [facility] Comment on above: Er Follow-up Start: 08-12-2023 End: 08-12-2023 ambulatory SUSAN Matute [facility] Start: 08-11-2023 End: 08-11-2023 Emergency department [facility] Start: 08-07-2023 End: 08-07-2023 ambulatory ALTHEIMER Tania [facility] Start: 08-07-2023 End: 08-07-2023 Office outpatient visit 25 minutes Susan Boucher MD Work Phone: [facility] Comment on above: MS (multiple scleros is) ([facility]) (Primary Dx); Suprapubic catheter ([facility]); Other hyperlipidemia; Primary hypertension Start: 07-26-2023 Refill Susan sandra MD Work Phone: [facility] Start: 02-12-2023 End: 02-12-2023 ambulatory SUSAN BOUCHER Facility:[facility] Start: 02-06-2023 End: 02-07-2023 ambulatory SUSAN BOUCHER Facility:[facility] Procedures Date Procedure Procedure Detail Performing Clinician Start: 05-19-2024 Adult depression scr eening assessment Susan Boucher MD Work Phone: Start: 04-15-2024 Mammography Hermes greene DPM Work Phone: Start: 04-01-2024 Adult depression scr [...] Adult BMI Screening Adult BMI Screen ing [facility] Start: 06-21-2025 Tobacco Screening Tobacco Screening [facility] Start: 05-19-2025 Depression Screening Depression Scre ening [facility] Start: 05-19-2025 Fall Risk Screening Fall Risk Screen ing [facility] Start: 05-19-2025 Tobacco Screening Tobacco Screening [facility] Start: 04-15-2025 Adult BMI Screening Adult BMI Screen ing [facility] Start: 04-15-2025 Screening for malign ant neoplasm of breast Mammogram [facility] Start: 04-02-2025 End: 04-02-2025 Patient encounter procedure 04/02/2025 3:00 PM EDT Office Visit [facility] [address] [place] [address] [facility] Start: 04-01-2025 Depression Screening Depression Scre ening [facility] Start: 04-01-2025 Fall Risk Screening Fall Risk Screen ing [facility] Start: 04-01-2025 Medicare Annual Well ness Visit Medicare Annual Wellness Visit [facility] Start: 04-01-2025 Tobacco Screening Tobacco Screening [facility] Start: 10-21-2024 End: 10-21-2024 Patient encounter procedure 10/21/2024 3:15 PM EDT Procedure Visit [facility] [address] [place] [id number] Hermes Mcbride DPM [address] [place] [address] [facility] Start: 09-15-2024 End: 09-15-2024 Patient encounter procedure 09/15/2024 10:30 AM EST Office Visit [place] [facility] [address] [place] [address] Erica Jenkins MD [address] [place] [address] [facility] Start: 08-26-2024 Tobacco Screening Tobacco Screening [facility] Start: 08-12-2024 Depression Screening Depression Scre ening [facility] Start: 08-12-2024 Fall Risk Screening Fall Risk Screen ing [facility] Start: 08-12-2024 Tobacco Screening Tobacco Screening [facility] Start: 08-11-2024 Tobacco Screening Tobacco Screening [facility] Start: 08-07-2024 Depression Screening Depression Scre ening [facility] Start: 08-07-2024 Fall Risk Screening Fall Risk Screen ing [facility] Start: 08-07-2024 Tobacco Screening Tobacco Screening [facility] Start: 06-23-2024 End: 06-23-2024 Patient encounter procedure 06/23/2024 2:15 PM EST Office Visit [facility] [address] [place] [address] Erica Jenkins MD [address] [place] [address] [facility] Start: 05-16-2024 Depression Screening Depression Scre ening [facility] Start: 05-16-2024 Fall Risk Screening Fall Risk Screen ing [facility] Start: 05-16-2024 Tobacco Screening Tobacco Screening [facility] Start: 04-23-2024 End: 04-23-2024 Patient encounter procedure 04/23/2024 3:15 PM EDT Procedure Visit [facility] [address] [place] [id number] Hermes Mcbride, DPDinah [address] [place] [address] Arrived [facility] Comment on above: Arrived Start: 03-29-2024 COVID-19 Vaccine ( season) COVID-19 Vaccine ( season) [facility] Start: 03-29-2024 COVID-19 Vaccine ( season) COVID-19 Vaccine ( season) [facility] Start: 03-29-2024 Influenza vaccination [facility] Start: 03-10-2024 End: 03-10-2024 Patient encounter procedure 03/10/2024 11:00 AM EDT Office Visit [facility] [address] [place] [address] Erica Jenkins MD [address] [place] [address] [facility] Start: 02-22-2024 Adult BMI Screening Adult BMI Screen ing [facility] Start: 02-22-2024 Screening for malign ant neoplasm of breast Mammogram [facility] Start: 02-10-2024 End: 02-10-2024 Patient encounter procedure 02/10/2024 1:00 PM EDT Office Visit [facility] [address] [place] [phone] Susan Boucher MD [address] [place], [place] [id number] [facility] Start: 02-05-2024 Medicare Annual Well ness Visit Medicare Annual Wellness Visit [facility] Start: 09-09-2023 End: 09-09-2023 Patient encounter procedure 09/09/2023 1:45 PM EST Office Visit [facility] [address] [place] [phone] Susan Boucher MD [address] [place], [place] [phone] [facility] Start: 08-26-2023 End: 08-26-2023 Patient encounter procedure 08/26/2023 11:30 AM EST [facility] [address] [place] [address] Erica Jenkins MD [address] [place] [address] [facility] Start: 08-23-2023 End: 08-23-2023 Clinical Support 08/23/2023 10:00 AM EST Clinical Support [facility] [address] [place] [phone] [facility] Start: 08-12-2023 End: 08-12-2023 Patient encounter procedure 08/12/2023 2:00 PM EST Office Visit [facility] [address] [place] [address] Suasn Boucher MD [address] [place], [place] [phone] [facility] Start: 08-07-2023 End: 08-07-2023 Patient encounter procedure 08/07/2023 1:30 PM EST Office Visit [facility] [address] [place] [phone] Susan Boucher MD [address] [place] [address] [facility] Start: 07-30-2023 Administration of varicella zoster vaccine Zoster (Shingles) Vaccine (2 of 2) [facility] Start: 03-29-2023 COVID-19 Vaccine ( season) COVID-19 Vaccine ( season) [facility] Start: 03-29-2023 Influenza vaccination Influenza Vacc ine [facility] Start: 2020 Pneumococcal Vaccine : 65+ Years (1 of 1 - PCV) Pneumococcal Vaccine: 65+ Years (1 of 1 - PCV) [facility] Start: 2005 Administration of varicella zoster vaccine Zoster (Shingles) Vaccine (1 of 2) [facility] Start: 1974 DTaP,Tdap and Td Vac cines (1 - Tdap) DTaP,Tdap and Td Vaccines (1 - Tdap) [facility] Start: 1955 Screening for malign ant neoplasm of colon [facility] End: 06-09-2025 Bacteria identified in Urine by Culture Urine Culture Microbiology Routine MS (multiple sclerosis) ([facility]) Weakness 1 Occurrences starting 06/09/2024 until 06/09/2025 [facility] Work Phone: Comment on above: 1 Occurrences starti ng 06/09/2024 until 06/09/2025 End: 06-09-2025 Urinalysis Urinalysis (clean catch) Lab Routine MS (multiple sclerosis) ([facility]) 1 Occurrences starting 06/09/2024 until 06/09/2025 [facility] Comment on above: 1 Occurrences starti ng 06/09/2024 until 06/09/2025 Immunizations Immunization Date Immunization Notes Care Provider Fa luly 06-04-2023 Influenza Vaccine, Quadrivalent, Adjuvanted Susan Boucher MD Work Phone: [facility] 06-04-2023 zoster vaccine recombinant Susan Boucher MD Work Phone: [facility] 06-04-2023 influenza virus vaccine, unspecified formulation Hermes Mcbride DPM Work Phone: [facility] 06-04-2023 zoster vaccine, unspecified formulation Susan Boucher MD Work Phone: [facility] 05-22-2022 Influenza Vaccine, Quadrivalent, Adjuvanted Susan Boucher MD Work Phone: [facility] 05-22-2022 influenza virus vaccine, unspecified formulation Susan Boucher MD Work Phone: [facility] 10-08-2020 COVID-19, mRNA, LNP- S, PF, 30mcg/0.3mL Dose Susan Boucher MD Work Phone: [facility] 09-17-2020 COVID-19, mRNA, LNP- S, PF, 30mcg/0.3mL Dose Susan Boucher MD Work Phone: [facility] Payers Date Payer Category Payer Managed Care Other (unspecified) [facility] [id number] 2020 Unknown [id number] [facility] [id number] 5 2020 Unknown [id number] 1.13.424 .[id number] 2020 Unknown [id number] 2005 Medicare [id number] [id number] .[id number] 2005 Medicare [id number] 1955 Unknown [id number] 2.16.840.1.261005.3.579 .2. 1955 Unknown [id number] 2.16.840.1.207002.3.579 .2. 1955 Unknown [id number] 2.16.840.1.697049.3.579 .2. 1955 Unknown [id number] 2.16.840.1.457838.3.579 .2.1285 1955 Unknown [id number] 2.16.840.1.748122.3.579 .2.1285 1955 Unknown [id number] 2.16.840.1.712064.3.579 .2.1286 1955 Unknown [id number] 2.16.840.1.190758.3.579 .2.1285 1955 Unknown [id number] 2.16.840.1.132604.3.579 .2.128 1955 Unknown [id number] 2.16.840.1.023611.3.579 .2.1285 1955 Unknown [id number] 2.16.840.1.476395.3.579 .2.128 1955 Unknown [id number] 2.16840.1.036321.3.579 .2.1285 1955 Unknown [id number] 2.16840.1.383427.3.579 .2.1285 1955 Unknown [id number] 2.840.1.770842.3.579 .2.1285 1955 Unknown [id number] 2.840.1.780678.3.579 .2.1258 1955 Unknown [id number] 2.840.1.795433.3.579 .2.1258 1955 Unknown [id number] 2.16840.1.058440.3.579 .2.1258 1955 Unknown [id number] 2.840.1.452313.3.579 .2.125 1955 Unknown [id number] 2.16840.1.795807.3.579 .2.128 1955 Unknown [id number] 2.16840.1.706380.3.579 .2.1285 1955 Unknown [id number] 2.16840.1.591704.3.579 .2.128 1955 Unknown [id number] 2.16840.1.841058.3.579 .2.128 1955 Unknown [id number] 2.16.840.1.053713.3.579 .2.1286 1955 Unknown [id number] 2.16.840.1.577166.3.579 .2.1286 1955 Unknown [id number] 2.16.840.1.330822.3.579 .2.1286 1955 Unknown [id number] 2.16.840.1.479307.3.579 .2.1286 1955 Unknown [id number] 2.16.840.1.145312.3.579 .2.128 1955 Unknown [id number] 2.16.840.1.064747.3.579 .2.1286 1955 Unknown [id number] 2.16.840.1.041253.3.579 .2.1285 1955 Unknown [id number] 2.16.840.1.244622.3.579 .2.1286 Social History Date Type Detail Facility Start: 02-04-2023 End: 02-13-2023 Tobacco smoking status NHIS Never smoked tobacco [facility] Start: 02-04-2023 Tobacco use and exposure Smokeless tobacco non-user [facility] Start: 05-16-2023 End: 06-21-2024 Alcohol intake Current non-drinker of alcohol (finding) [facility] Start: 05-16-2023 End: 04-23-2024 History of Social function [facility] Start: 05-16-2023 End: 04-23-2024 Tobacco use panel [facility] Adolescent depressio n screening assessment 0 [facility] Start: 1955 Sex Assigned At Not on file [facility] Start: 03-03-2015 Sex Female (finding) [facility] Start: 01-07-2024 End: 04-23-2024 Alcoholic beverage intake Lifetime non-drinker (finding) [facility] Clinical Notes 02-12-2023 to 06-23-2024 Hermes Mcbride [facility] - 06/23/2024 11:15 AM ESTPatient InstructionsTelephone Encounter - Loretta Davis, [facility] - 06/22/2024 8:04 AM ESTTelephone Encounter - Loretta Davis, [facility] - 06/22/2024 8:04 AM EST Note Date & Type Note Facility 06-23-2024 History of Present illness Narrative Images from the original note were not included. Subjective Patient ID: Jerica Caldwell is a 69 y.o. female who presents for No chief complaint on file.. HPI Chief complaint: Recently discovered decubitus ulceration of the left heel. Patient presented to [facility] ED within the past week or [...] Hermes Mcbride DPM documented in this encounter [facility] 06-23-2024 Instructions Hermes Mcbride DPM - 06/23/2024 11:15 AM EST Wound care measures as noted documented in this encounter [facility] 06-22-2024 Miscellaneous Notes ED Outreach This documentation is being used for Transition of Care purposes: Yes/No: Yes ED Outreach Date: June 22, 2024 ED Outreach Method: COMMUNICATION METHOD: Telephone ED Outreach Attempt: first ED Outreach Outcome: Contacted Patient Name of ED Facility: [facility] Date of ED Discharge: 06/21/2024 Discharge Diagnosis: [...] with additional concerns. documented in this encounter [facility] 06-22-2024 Telephone encounter Note ED Outreach This documentation is being used for Transition of Care purposes: Yes/No: Yes ED Outreach Date: June 22, 2024 ED Outreach Method: COMMUNICATION METHOD: Telephone ED Outreach Attempt: first ED Outreach Outcome: Contacted Patient Name of ED Facility: [facility] Date of ED Discharge: 06/21/2024 Discharge Diagnosis: [...] will contact the office with additional concerns. [facility] 06-18-2024 Miscellaneous Notes Almas requesting refill of Lisinopril 10mg to [facility] documented in this encounter [facility] 06-18-2024 Telephone encounter Note Almas requesting refill of Lisinopril 10mg to [facility] 06-11-2024 History of Present illness Narrative Please decrease lisinopril to 10mg , 1/2 of 20mg a day and if rx for 10mg is needed let us know Serial home BP checks as well documented in this encounter [facility] 06-10-2024 Miscellaneous Notes spoke with neurology regarding patient falling more and neurology is suggesting for PCP should possibly adjust BP medications. Please advise Please decrease lisinopril in half to 10mg a day , if pt needs new rx let us know and please do serial bp checks advised documented in this encounter [facility] 06-10-2024 Telephone encounter Note spoke with neurology regarding patient falling more and neurology is suggesting for PCP should possibly adjust BP medications. Please advise [facility] 06-10-2024 Telephone encounter Note Please decrease lisinopril in half to 10mg a day , if pt needs new rx let us know and please do serial bp checks [facility] 06-10-2024 Telephone encounter Note advised [facility] 06-09-2024 Miscellaneous Notes Patient has been falling more often per Home health. Asking for recommendations. Please have HH contact her neurologist about the weakness and I will order UA C&S, can HH collect this? Annmarie advised, they are awaiting a call back from neuro. Will have nurse go out and collect urine. [facility] Telephone encounter Note Patient has been falling more often per Home health. Asking for recommendations. [facility] 06-09-2024 Telephone encounter Note Please have HH contact her neurologist about the weakness and I will order UA C&S, can HH collect this? [facility] 06-09-2024 Telephone encounter Note Annmarie advised, they are awaiting a call back from neuro. Will have nurse go out and collect urine. [facility] 06-05-2024 Miscellaneous Notes Patient Almas called requesting if patient should be seen sooner than upcoming appointment 06/23/2024 due to patient falling 3 times a day . Almas also stated patient will be starting PT 3 times a week also. Please advise Can she come in tomorrow SaturdayJune 09 for an 8:45 a.m. or 9:15 a.m. appointment? Summary: Called patient Per Dr. Jenkins, Left a voice mail, Can she come in tomorrow SaturdayJune 09 for an 8:45 a.m. or 9:15 a.m. appointment? Martha RODRIGUEZ documented in this encounter [facility] 06-05-2024 Telephone encounter Note Patient Almas called requesting if patient should be seen sooner than upcoming appointment 06/23/2024 due to patient falling 3 times a day . Almas also stated patient will be starting PT 3 times a week also. Please advise [facility] 06-05-2024 Telephone encounter Note Can she come in tomorrow SaturdayJune 09 for an 8:45 a.m. or 9:15 a.m. appointment? [facility] 06-05-2024 Telephone encounter Note Summary: Called patient Per Dr. Jenkins, Left a voice mail, Can she come in tomorrow SaturdayJune 09 for an 8:45 a.m. or 9:15 a.m. appointment? Martha PSC [facility] 06-05-2024 Miscellaneous Notes Erica casas [facility] called to let you know that [...] back from them documented in this encounter [facility] 06-05-2024 Telephone encounter Note Erica prince yung [facility] called to let you know that [...] so you can call the pt's family [facility] 06-05-2024 Telephone encounter Note Please call pt and offer f/u for next week if they wish but we definitely would recommend f/u MS [facility] 06-05-2024 Telephone encounter Note has a call out to Neurology to see if they can get Johanne in sooner than 06/23/24. He will call us back once he hears back from them [facility] 06-03-2024 Miscellaneous Notes Contact Type: General Care Coordination Activity Documents sent to [facility]: order, F2F, med list. Your fax has been successfully sent to [phone] at [phone]. referral Jerica Caldwell 8.22.55 From: .[employer] Spoke with Hoda from [facility] and patient is current with them for monthly catheter changes and therapy will be added. documented in this encounter [facility] 06-03-2024 Telephone encounter Note Contact Type: General Care Coordination Activity Documents sent to [facility]: order, F2F, med list. Your fax has been successfully sent to [phone] at [phone]. referral Jerica Caldwell 8.22.55 From: [email or web address] Work Phone: 06-03-2024 Telephone encounter Note Spoke with Hoda from [facility] and patient is current with them for monthly catheter changes and therapy will be added. [facility] 06-03-2024 Miscellaneous Notes Almas is asking if Home health PT can be ordered for weakness and multiple falls. [facility] Esthela Yes , can Anya reach out to them as well and I have placed that order, please arrange notified and Anya will fax order to Kim Proctor documented in this encounter [facility] 06-03-2024 Telephone encounter Note Almas is asking if Home health PT can be ordered for weakness and multiple falls. [facility] Proctor [facility] 06-03-2024 Telephone encounter Note Yes , can Anya reach out to them as well and I have placed that order, please arrange [facility] 06-03-2024 Telephone encounter Note notified and Anya will fax [facility] to [facility] 05-27-2024 Miscellaneous Notes left voicemail stating Johanne has fallen a couple time today and he would like to go ahead with a MRI. I reviewed her recent xray and DTD recommended a referral to ortho not MRI. Left message on vm to call our office. documented [facility] this encounter [facility] 05-27-2024 Telephone encounter Note left voicemail stating Johanne has fallen a couple time today and he would like to go ahead with a MRI. I reviewed her recent xray and DTD recommended a referral to ortho not MRI. Left message on vm to call our office. [facility] 05-19-2024 History of Present illness Narrative Images from the original note were not included. [address] [facility] [id number] SUBJECTIVE: Patient ID: Jerica Caldwell is a [...] right 3 views; Future MS (multiple sclerosis) ([facility]) Follow-up: Xray of knee right trial sleeve documented in this encounter [facility] 05-14-2024 Miscellaneous Notes Patti requesting refill of Loperamide and Potassium documented in this encounter [facility] 05-14-2024 Telephone encounter Note Patti requesting refill of Loperamide and Potassium [facility] 04-23-2024 History of Present illness Narrative Images from the original note were not included. Subjective Patient ID: Jerica Caldwell is a 69 y.o. female who presents for Toenail Care. HPI Chief complaint: Thickened, discolored and deformed toenails involving all digits. Chronic toenail deformity of multiple years duration, gradually progressive course. Relates mild-moderate pressure discomfort, impacting her ability to wear shoes comfortably. Also complains of catching and snagging on clothing, bedsheets etc. Denies bleeding or drainage. Self-care is difficult, ineffective and not practical; increasing risk exposure. Her spouse is unable to provide effective care. Palliative care measures provide favorable transient symptom relief. Risk factors: Medical comorbidities. MS. Mobility and [...] noted. All digits: None are spared: Toenail dystrophy, thickening, discoloration, clubbing, crumbly texture, pincer deformity, subtotal detachment, periungual hyperkeratosis, without drainage. TDO deformity multiple digits. Web space areas are clean, dry, non-inflamed. Moderate, Non-inflamed xerosis bilateral; with a superficial fissure lateral surface of the left heel, without ulceration or drainage. Orthopedic: diffuse weakness of the lower extremities without focal deficit. Maintains functional passive ankle, subtalar and first MTP joint range of motion. No distinct forefoot or digital deformities are noted. Radiology: Assessment/Plan Symptomatic onychodystrophy/mycosis multiple digits as described. MS Moderate non-inflame xerosis bilateral; well-controlled Plan: conservative and palliative care measures are preferred, understood and indicated; patient and her spouse expressing no interest in oral therapy. Discussed topical care measures for consideration; advised as to limited efficacy. Encourage AmLactin therapy daily. Hygiene and skin care measures discussed Procedure: Toenail debridement: Aseptic technique: Hand and power instrumentation: Onychodebridement in length and thickness, with curettage of any cryptotic margins, all periungual debris; providing effective symptom and pressure relief; reducing shoe and digital trauma. This note was created with the assistance of a speech recognition program. While intending to generate a timely document that accurately reflects the content of the visit, no guarantee can be provided that every grammatical or spelling mistake has been or will be identified or corrected. Thank you for your understanding. Hermes Mcbride DPM documented in this encounter [facility] 04-23-2024 Instructions Hermes Mcbride DPM - 04/23/2024 3:15 PM EDT As noted documented in this encounter [facility] 10-10-2023 Miscellaneous Notes asking if PT can be ordered for patient. States he feels like patient is having muscle weakness in her neck. Please advise. Ptx ordered please arrange documented in this encounter [facility] 10-10-2023 Telephone encounter Note asking if PT can be ordered for patient. States he feels like patient is having muscle weakness in her neck. Please advise. [facility] 10-10-2023 Telephone encounter Note Ptx ordered please arrange [facility] 10-07-2023 Miscellaneous Notes Almas requesting refill of Metoprolol to [facility] documented in this encounter [facility] 10-07-2023 Telephone encounter Note Almas requesting refill of Metoprolol to [facility] 09-27-2023 Miscellaneous Notes [facility]rolol [facility]mg to [facility]. documented in this encounter [facility] 09-27-2023 Telephone encounter Note [facility]oprolol [facility]mg to [facility]. [facility] 09-23-2023 Miscellaneous Notes [facility] completed recert visit Saturday09/20/23. Nursing to come monthly and 3 prn for cath management. BP is wnl today. +2 pitting EDEMA to RLE documented in this encounter [facility] 09-23-2023 Telephone encounter Note [facility] completed recert visit Saturday09/20/23. Nursing to come monthly and 3 prn for cath management. BP is wnl today. +2 pitting EDEMA to RLE [facility] Work Phone: 09-03-2023 Miscellaneous Notes Please see [employer] Message 08/31/23 Almas Caldwell,patient's spouse, states that teriflunomide (AUBAGIO) 14 mg tablet script has not been received by [id number]. Caller states that he would like to know what pharmacy script was sent to and who at the pharmacy Duyen spoke to? Almas has requested a call back. Crochet Beader spoke with Rocío at [facility] and clarified that the script was at [...] that the pharmacy would contact the patient. Cro[employer] B[employer]er left a voicemail for the patients , Almas to call the office for clarification and per patients request. documented in this encounter [facility] 09-03-2023 Telephone encounter Note Please see [employer] Message 08/31/23 Almas Kinga,patient's spouse, states that teriflunomide (AUBAGIO) 14 mg tablet script has not been received by [facility]. Caller states that he would like to know what pharmacy script was sent to and who at the pharmacy Duyen spoke to? Almas has requested a call back. [facility]-03-[facility]23 Telephone encounter Note Crochet Beader spoke with Rocío at [facility] and clarified that the script was at [...] that the pharmacy would contact the patient. [employer] left a voicemail for the patients , Almas to call the office for clarification and per patients request. [facility] 09-03-2023 Miscellaneous Notes Resend to DDM documented in this encounter [facility] 09-03-2023 Telephone encounter Note Resend to DDM [facility] 09-02-2023 History of Present illness Narrative PA initiated in epic for Teriflunomide. documented in this encounter [facility] 08-26-2023 Miscellaneous Notes states pt BP continues to be 157/97 this morning. 142/89 on Saturday 144/91 on Saturday By adding 50mg of metoprolol bid to the 100mg bid we could help lower the bp, is pt agreeable and to what pharm? Left message for to call office. Patient and agreeable to add 50mg send to [facility] documented in this encounter [facility] 08-26-2023 Telephone encounter Note states pt BP continues to be 157/97 this morning. 142/89 on Saturday 144/91 on Saturday [facility] Telephone encounter Note By adding 50mg of metoprolol bid to the 100mg bid we could help lower the bp, is pt agreeable and to what pharm? [facility] Telephone encounter Note Left message for to call office. [facility] Telephone encounter Note Patient and agreeable to add 50mg send to [facility] 08-23-2023 History of Present illness Narrative BP check completed, Increase Lisinopril 20mg to 1 bid, continue Metoprolol 100mg 1 bid and Triamterene/HCTZ 1 qd, monitor BP at home and call next week with readings per v.o. Dr. Boucher and patient and verbalizes understanding. documented in this encounter [facility] 08-20-2023 Miscellaneous Notes Dyazide Rx sent to [facility] documented in this encounter [facility] 08-20-2023 Telephone encounter Note Dyazide Rx sent to [facility] 08-20-2023 Miscellaneous Notes Telecom with regarding BP-still elevated 170/100's. He has increased her Lisinopril to twice a day. Dr. Boucher notified. Add Dyazide 1 a day, continue Lisinopril 20mg 1 bid and Metoprolol 100mg 1 bid and recheck BP in the office on Saturday per v.o. Dr. Boucher and Almas verbalizes understanding. documented in this encounter [facility] 08-20-2023 Telephone encounter Note Telecom with regarding BP-still elevated 170/100's. He has increased her Lisinopril to twice a day. Dr. Boucher notified. Add Dyazide 1 a day, continue Lisinopril 20mg 1 bid and Metoprolol 100mg 1 bid and recheck BP in the office on Saturday per v.o. Dr. Hua verbalizes understanding. [facility] 08-12-2023 History of Present illness Narrative Images from the original note were not included. [address] [facility] [address] SUBJECTIVE: Patient ID: Jerica Caldwell [...] visit: Hypertension, unspecified type MS (multiple sclerosis) ([facility]) Other orders - lisinopriL (PRINIVIL,ZESTRIL) 20 mg tablet; Take 1 tablet (20 mg total) by mouth in the morning. Follow-up: Lisinopril 20mg 1 qd Recheck in 28d documented in this encounter [facility] 08-12-2023 Miscellaneous Notes ED Outreach This documentation is being used for Transition of Care purposes: Yes/No: Yes ED Outreach Date: August 12, 2023 ED Outreach Method: COMMUNICATION METHOD: Telephone ED Outreach Attempt: second ED Outreach Outcome: No Answer/Busy Name of ED Facility: [facility] Date of ED Discharge: 08/11/2023 Discharge [...] follow up needs. documented in this encounter [facility] 08-12-2023 Telephone encounter Note ED Outreach This documentation is being used for Transition of Care purposes: Yes/No: Yes ED Outreach Date: August 12, 2023 ED Outreach Method: COMMUNICATION METHOD: Telephone ED Outreach Attempt: second ED Outreach Outcome: No Answer/Busy Name of ED Facility: [facility] Date of ED Discharge: 08/11/2023 Discharge [...] the office with any follow up needs. [facility] 08-12-2023 Miscellaneous Notes Pt needs ER f/u- hypertension Scheduled. documented in this encounter [facility] 08-12-2023 Telephone encounter Note Pt needs ER f/u- hypertension [facility] 08-12-2023 Telephone encounter Note Scheduled. [facility] History of Present illness Narrative Images from the original note were not included. [address] [place] [address] SUBJECTIVE: Patient ID: Jerica Caldwell is a [...] orders for this visit: MS (multiple sclerosis) ([facility]) Suprapubic catheter ([facility]) Other hyperlipidemia Primary hypertension Follow-up: Labs reviewed Meds reviewed Recheck in6m documented in this encounter [facility] 02-13-2023 Note [id number] [facility] 02-12-2023 Note [facility] SURGERY Clinical Discharge Summary PERSON INFORMATION Name JERICA CALDWELL Age 67 Years 1955 Sex FEMALE Language Turkmen PCP SUSAN BOUCHER Marital Status [facility] Service Ambulatory Surgery Acct# Arrival 02/12/2023 08:55:44 Visit Reason SURGERY - CYSTO SP TUBE PLACEMENT Acuity LOS 011 02:57 Address: [facility] [place] [address] Comment: PROVIDER INFORMATION VITALS INFORMATION Vital Sign [...] DIAGNOSIS 1:Urinary retention Comment: PHYS DOC NOTES [facility] Evaluation note Diagnosis MS (multiple sclerosis) (CMS-HCC)- Primary Multiple sclerosis Suprapubic catheter (CMS-HCC) Other cystostomy status Other hyperlipidemia Primary hypertension Unspecified essential hypertension documented in this encounter [facility]* Diagnosis Hypertension, unspecified type- Primary MS (multiple sclerosis) (CMS-HCC) Multiple sclerosis documented in [facility] encounter [facility]* Diagnosis BP check- Primary Screening for hypertension documented in this encounter [facility]* Diagnosis Multiple sclerosis (CMS-HCC) Multiple sclerosis documented in this encounter [facility]* Diagnosis Multiple sclerosis (CMS-HCC) Multiple sclerosis [facility] Diagnosis Multiple sclerosis (CMS-HCC) Multiple sclerosis documented in this encounter [facility]* Diagnosis MS (multiple sclerosis) (CMS-HCC)- Primary Multiple sclerosis [facility] Diagnosis Chronic pain of right knee- Primary MS (multiple sclerosis) (CMS-HCC) Multiple sclerosis Chronic pain of right knee documented in this encounter [facility]* Diagnosis MS (multiple sclerosis) (CMS-HCC)- Primary Multiple sclerosis [facility] Diagnosis MS (multiple sclerosis) (CMS-HCC)- Primary Multiple sclerosis Weakness Other malaise and fatigue documented [facility] encounter [facility]* Diagnosis 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 * Multiple Sclerosis Discharge Instructions, Adult (Turkmen) [facility]* Attachments The following attachments cannot be sent through Care Everywhere. * High blood pressure in adults (Turkmen) [facility] Fract[facility] SystemInstructionsNot on file documented in this encounterProRegional Medical CenterClipboard SystemInstructionsNot on file documented in this encounterProRegional Medical CenterClipboard SystemInstructionsNot on file documented in this encounterProRegional Medical CenterClipboard SystemInstructionsNot on file documented in this encounterProRegional Medical CenterClipboard SystemInstructionsNot on file documented in this encounterProRegional Medical CenterClipboard SystemInstructionsNot on file documented in this encounterProRegional Medical CenterClipboard SystemInstructionsNot on file documented in this encounterProRegional Medical CenterClipboard SystemInstructionsNot on file documented in this encounterCentervilleClipboard SystemReason for referral (narrative)* Consultation (Routine) - Authorized Specialty Diagnoses / Procedures Referred By Martha matute Referred To Contact Rehabilitation Diagnoses MS (multiple sclerosis) ([facility]) Susan Boucher MD [address] [facility] [place] [address] [facility] [address] [place] [address] Referral ID Status Reason Start Date Expiration Date Visits Requested Visits Authorized [id number] Authorized Specialty Services Required 10/10/2023 10/09/2024 1 1 Scheduling Instructions Eval an dtx MS weakness every other day x 2-6 weeks and recommend a home exercise program [facility] Advance Directives Latest Code Status on File Code Status [...] matute Referred To Contact Diagnoses Multiple sclerosis ([facility]) Erica Jenkins MD [address] [facility] , [facility] [address] [place] [address] Referral ID Status Reason Start Date Expiration Date V isits Requested Visits Authorized [id number] Authorized 1 1 Summary Purpose Family History [...] Reason Onset Date Comments Er Follow-up 06/22/2024 Reason Comments Toenail Care Care Teams (unrecognized sec tion and content) Urology Surgeon Relationship Specialty Start Date End Date Susan Boucher MD [address] [place] [address] PCP - General Family Medicine 05/14/17 Urology Surgeon Relationship Specialty Start Date End Date Susan Boucher MD [address] [place] [address] PCP - General Family Medicine 05/14/17 Urology Surgeon Relationship Specialty Start Date End Date Susan Boucher MD [address] [place] [address] PCP - General Family Medicine 05/14/17 Urology Surgeon Relationship Specialty Start Date End Date Susan Boucher MD [address] [place] [address] PCP - General Family Medicine 05/14/17 Urology Surgeon Relationship Specialty Start Date End Date Susan Boucher MD [address] [place] [address] PCP - General Family Medicine 05/14/17 Urology Surgeon Relationship Specialty Start Date End Date Susan Boucher MD [address] [place] [address] PCP - General Family Medicine 05/14/17 Urology Surgeon Relationship Specialty Start Date End Date Susan Boucher MD [address] [place] [address] PCP - General Family Medicine 05/14/17 Urology Surgeon Relationship Specialty Start Date End Date Susan Boucher MD [address] [place] [address] PCP - General Family [facility] 05/14/17 Urology Surgeon Relationship Specialty Start Date End Date Susan Boucher MD [address] [place] [address] PCP - [facility] 05/14/17 Urology Surgeon Relationship Specialty Start Date End Date Susan Boucher MD [address] [place] [address] PCP - [facility] 05/14/17 Urology Surgeon Relationship Specialty Start Date End Date Susan Boucher MD [address] [place] [address] PCP - [facility] 05/14/17 Urology Surgeon Relationship Specialty Start Date End Date Susan Boucher MD [address] [place] [address] PCP - [facility] Family [facility] 05/14/17 Urology Surgeon Relationship Specialty Start Date End Date Susan Boucher MD [address] [place] [address] PCP - General Family Medicine 05/14/17 Lizabeth Campbell RN [facility] Nurse - [employer] 12/18/23 Urology Surgeon Relationship Specialty Start Date End Date Susan Boucher MD [address] [place] [address] PCP - General Family Medicine 05/14/17 Lizabeth Campbell RN [facility] Nurse - [employer] 5/22/24 Urology Surgeon Relationship Specialty Start Date End Date Defrance, Susan T, MD [address] [place] [address] PCP - General Family Medicine 05/14/17 Lizabeth Campbell RN [facility] Nurse - [employer] 12/18/23 Urology Surgeon Relationship Specialty Start Date End Date Susan Boucher MD [address] [place] [address] PCP - General Family Medicine 05/14/17 Lizabeth Campbell RN [facility] Nurse - [employer] 12/18/23 Urology Surgeon Relationship Specialty Start Date End Date Susan Boucher MD [address] [place] [address] PCP - General Family Medicine 05/14/17 Lizabeth Campbell RN [facility] Nurse - [employer] 12/18/23 Urology Surgeon Relationship Specialty Start Date End Date Susan Boucher MD [address] [place] [address] PCP - General Family Medicine 05/14/17 Lizabeth Campbell RN [facility] Nurse - [employer] 12/18/23 Urology Surgeon Relationship Specialty Start Date End Date Susan Boucher MD [address] [place] [address] PCP - General Family Medicine 05/14/17 Lizabeth Campbell RN [facility] Nurse - [employer] 12/18/23 Urology Surgeon Relationship Specialty Start Date End Date Susan Boucher MD [address] [place] [address] PCP - General Family Medicine 05/14/17 Lizabeth Campbell RN [facility] Nurse - [employer] 12/18/23 Urology Surgeon Relationship Specialty Start Date End Date Susan Boucher MD [address] [place] [address] PCP - General Family Medicine 06/21/24 Lizabeth Campbell RN [facility] 12/18/23 Urology Surgeon Relationship Specialty Start Date End Date Susan Boucher MD [address] [place] [address] PCP - General Family [facility] 02/13/23 Urology Surgeon Relationship Specialty Start Date End Date Susan Boucher MD [address] [place] [address] PCP - [facility] 02/13/23 Urology Surgeon Relationship Specialty Start Date End Date Susan Boucher MD [address] [place] [address] PCP - General Family [facility] 06/21/24 Lizabeth Campbell RN [facility] 12/18/23 Urology Surgeon Relationship Specialty Start Date End Date Susan Boucher MD [address] [place] [address] PCP - General [facility] 02/13/23 INFORMATION SOURCE (unrecogn ized section and content) DATE CREATED AUTHOR 10/25/2023 [facility] DATE CREATED AUTHOR AUTHOR'S ORGANIZ ATION 06/23/2024 [facility] DATE CREATED AUTHOR AUTHOR'S ORGANIZ ATION 06/26/2024 [facility] DATE CREATED AUTHOR AUTHOR'S ORGANIZ ATION 07/08/2024 [facility] [employer] FOR RECORDS PERTAINING TO PATIENTS WHO ARE [...] BE BASED ON THE PRIMARY CLINICAL RECORDS. [facility]. provides no warranty or guarantee of the accuracy or completeness of information in this document.
[2024-08-19 06:21] LABS: Basophils Absolute Auto 0.1 10^3/uL (0.0-0.1); Basophils Percent Auto 0.7 % (0.2-2.0); Eosinophils Absolute Auto 0.3 10^3/uL (0.0-0.7); Hematocrit 33.3 % (36.0-48.0); Hemoglobin 10.4 g/dL (12.0-16.0); Immature Granulocytes Abs Auto 0.06 10^3/uL (0.00-0.03); Immature Granulocytes Pct Auto 0.5 % (0.0-0.5); Lymphocytes Absolute Auto 0.5 10^3/uL (1.2-3.8); Lymphocytes Percent Auto 3.7 % (20.5-60.0); Mean Corpuscular HGB Conc 31.2 g/dL (29.9-35.2); Mean Corpuscular Hemoglobin 29.1 pg (26.7-34.0); Mean Platelet Volume 10.7 fL (9.5-13.5); Monocytes Absolute Auto 1.2 10^3/uL (0.3-0.8); Monocytes Percent Auto 9.6 % (1.7-12.0); Neutrophils Absolute Auto 10.6 10^3/uL (1.4-6.5); Neutrophils Percent Auto 83.5 % (43.0-75.0); Platelet Count 283 10^3/uL (150-450); Red Blood Count 3.58 10^6/uL (4.20-5.40); Red Cell Distribution Width 16.3 % (11.0-15.0); White Blood Count 12.6 10^3/uL (4.0-11.0)
[2024-08-19 06:37] LABS: Alanine Aminotransferase 17 U/L (14-59); Albumin Globulin Ratio 0.8; Albumin Level 2.7 g/dL (3.4-5.0); Alkaline Phosphatase 101 U/L (46-116); Anion Gap 11.3; Aspartate Amino Transferase 33 U/L (15-37); BUN Creatinine Ratio 18.7; Bilirubin Total 0.6 mg/dL (0.2-1.0); Calcium 8.6 mg/dL (8.5-10.1); Carbon Dioxide 28.3 mmol/L (21.0-32.0); Chloride 107 mmol/L (98-107); Estimated GFR (African America >60 (>=60 mL/min/1.73m^2); Estimated GFR (Non-African Ame 51 (>=60 mL/min/1.73m^2); Globulin 3.2 g/dL; Glucose 90 mg/dL (74-106); Potassium 4.6 mmol/L (3.5-5.1); Sodium 142 mmol/L (136-145); Total Protein 5.9 g/dL (6.4-8.2)
[2024-08-19] MEDS: LOPERAMIDE HCL 2 MG CAPSULE PO ×2 (09:07→21:35)
[2024-08-19] MEDS: METOPROLOL TARTRATE 50 MG TABLET PO ×2 (09:07→21:35)
[2024-08-19] MEDS: DONEPEZIL HCL 10 MG TABLET PO (09:07)
[2024-08-19] MEDS: LISINOPRIL 10 MG TABLET PO ×2 (09:07→21:36)
[2024-08-19] MEDS: ASPIRIN 81 MG TABLET.DR PO (09:07)
[2024-08-19] MEDS: POTASSIUM CHLORIDE 10 MEQ ER TABLET PO ×2 (09:07→21:35)
[2024-08-19] MEDS: MEMANTINE HCL 28 MG CAP XR PO (09:07)
--- NOTE | 2024-08-19 10:13 | SWNOTE1 ---
Updates sent to Nathan at [facility]. Updates included demographic sheet, ED note, H&P, labs, vitals, OT note, and med list.
[2024-08-19] MEDS: Teriflunomide 14 mg tablet 14 EACH PO (10:18)
--- NOTE | 2024-08-19 10:20 | PM.IMPN1 ---
Progress Note: A&P Assessment and Plan (1) Sepsis: Assessment and Plan: Hemodynamically stable. Blood cultures positive for E coli. On IV Rocephin. E coli bacteremia likely from UTI. F/u urine cx. Qualifiers: Sepsis type: Escherichia coli Sepsis acute organ dysfunction status: with acute organ dysfunction Severe sepsis acute organ dysfunction type: encephalopathy Severe sepsis shock status: without septic shock Qualified Code(s): A41.51 - Sepsis due to Escherichia coli [E. coli]; R65.20 - Severe sepsis without septic shock; G93.41 - Metabolic encephalopathy (2) E coli bacteremia: Assessment and Plan: On IV rocephin. Will need IV abx for atleast 2-3 days due to sepsis/bacteremia. Awaiting sensitivity. (3) Metabolic encephalopathy: Assessment and Plan: Resolved. Due to sepsis/UTI. (4) UTI (urinary tract infection): Assessment and Plan: likely due to Ecoli as blood culture is positive for E coli On IV rocephin. C/w same. Qualifiers: Urinary tract infection type: catheter-associated UTI Indwelling urinary catheter type: cystostomy catheter Encounter type: subsequent encounter Qualified Code(s): T83.510D - Infection and inflammatory reaction due to cystostomy catheter, subsequent encounter; N39.0 - Urinary tract infection, site not specified (5) Multiple sclerosis: Assessment and Plan: At baseline. Monitor. (6) Hypertension: Assessment and Plan: BP stable. C/w lisinopril/lopressor Qualifiers: Hypertension type: primary hypertension Qualified Code(s): I10 - Essential (primary) hypertension (7) Hyperlipidemia: Assessment and Plan: c/w statin Qualifiers: Hyperlipidemia type: unspecified Qualified Code(s): E78.5 - Hyperlipidemia, unspecified Plan Changed to inpatient as patient's blood culture is positive - will need treatment with IV abx for Bacteremia/sepsis for atleast 2-3 days and thus, patient expected to stay over 2-3 midnights for inpatient treatment/monitoring. Internal Medicine - PN: Subj Subjective Interval history: Seen and examined. Feeling much better today. Confusion resolved. Denies active complaints. Exam Constitutional Vital Signs, click to edit/add: Last Vital Signs Temp 98.6 F 08/19/24 07:43 Pulse 92 H 08/19/24 08:22 Resp 14 08/19/24 08:22 BP 115/70 08/19/24 07:43 Pulse Ox 93 L 08/19/24 07:43 O2 Del Method Room Air 08/19/24 07:43 Documenting provider has reviewed patient's vital signs: yes Common normals: no apparent distress General appearance: cooperative Respiratory Common normals: normal respiratory effort and clear to auscultation bilaterally Effort & inspection: able to speak in complete sentences Auscultation: clear to auscultation bilaterally Cardio Common normals: regular rate, S1 normal heart sound and S2 normal heart sound Rate: regular rate Heart sounds: S1 normal and S2 normal GI Common normals: soft to palpation, non-tender and no hepatosplenomegaly Palpation: soft and no hepatosplenomegaly Other: Suprapubic catheter in place Neuro Common normals: oriented x3 and moves all extremities Other: B/l LE weakness - power is only about 3/5 RLE, LLE power is 4/5. No rigidity, muscle tone appears decreased. No weakness on UE b/l Psych Common normals: mental status grossly normal, thought process normal, denies homicidal ideation and denies suicidal ideation Internal Medicine - PN: Obj Da Labs Labs: Laboratory Results - last 24 hr 08/18/24 08/18/24 08/18/24 11:22 11:26 11:35 WBC 14.2 H RBC 3.77 L Hgb 10.9 L Hct 35.4 L MCV 93.9 MCH 28.9 MCHC 30.8 RDW 15.9 H Plt Count 370 MPV 10.2 Neut % (Auto) 88.3 H Lymph % (Auto) 2.7 L [place] % (Auto) 5.5 Eos % (Auto) 2.3 Baso % (Auto) 0.8 Neut # (Auto) 12.6 H Lymph # (Auto) 0.4 L [place] # (Auto) 0.8 Eos # (Auto) 0.3 Baso # (Auto) 0.1 Abs Immat Gran (auto) 0.06 H Imm/Tot Granulo (auto) 0.4 PT 11.1 INR 1.05 Sodium 144 Potassium 4.9 Chloride 106 Carbon Dioxide 27.8 Anion Gap 15.1 BUN 25.0 H Creatinine 1.07 H Est GFR ( Amer) >60 Est GFR (Non-Af Amer) 51 L BUN/Creatinine Ratio 23.4 Glucose 97 Lactate 1.2 Calcium 8.7 Magnesium 1.6 L Total Bilirubin 0.7 AST 23 ALT 16 Alkaline Phosphatase 95 Troponin I High Sens 31.0 Total Protein 6.4 Albumin 3.1 L Globulin 3.3 Albumin/Globulin Ratio 0.9 Urine Color Lt. yellow Urine Clarity Cloudy A Urine pH 6.5 Ur Specific [place] 1.015 Urine Protein Trace Urine Glucose (UA) >=1000 A Urine Ketones Negative Urine Occult Blood Moderate A Urine Nitrite Positive A Urine Bilirubin Negative Urine Urobilinogen 0.2 Ur Leukocyte Esterase Moderate A Urine RBC 5-10 A Urine WBC >100 A Ur Squamous Epith Cells Few A Urine Bacteria Large A Urine Mucus Small A Ur Culture Indicated? Yes Specimen Source A.calcoaceticus-baumannii cmplx PCR Bacteroides fragilis Carina albicans (PCR) Carina auris (PCR) C. glabrata (PCR) C. krusei (PCR) C. parapsilosis (PCR) C. tropicalis (PCR) C. neoform/gattii (PCR) Enterobacterales (PCR) E. cloacae complex PCR Enterococc faecalis PCR Enterococc faecium PCR E. coli (PCR) H. influenzae (PCR) Influenza Type A Ag Influenza Type B Ag Klebsiella aerogenes (PCR) Klebsiella oxytoca PCR K. pneumoniae group (PCR) List. monocytogenes PCR N. meningitidis (PCR) Proteus spp. (copies/mL) RSV Antigen Salmonella spp. (PCR) SARS-CoV-2 Ag (CV2AG) Serratia marcescens PCR Staphylococcus sp PCR Staph aureus (PCR) mecA/C & MREJ Resist Gene mecA/C-Methicil Resis Gene mcr-1 Colistin Res Gene PCR Staph epidermidis (PCR) Staph lugdunensis (TEM-PCR) S. maltophilia (PCR) Streptococcus sp PCR Strep agalactiae (PCR) Strep pneumoniae (PCR) S. pyogenes (PCR) P. aeruginosa (PCR) Kellee/B-Vanco Res Genes blaIMP Car res Gene PCR KPC (blaKPC) Detect PCR NDM (blaNDM) Detect PCR OXA-48 Carbapenem Resis Gene (PCR) blaVIM Car Res Gene PCR CTX-M ESBL (PCR) POC Glucose 64 L 08/18/24 08/18/24 08/18/24 11:37 11:41 12:00 WBC RBC Hgb Hct MCV MCH MCHC RDW Plt Count MPV Neut % (Auto) Lymph % (Auto) [place] % (Auto) Eos % (Auto) Baso % (Auto) Neut # (Auto) Lymph # (Auto) [place] # (Auto) Eos # (Auto) Baso # (Auto) Abs Immat Gran (auto) Imm/Tot Granulo (auto) PT INR Sodium Potassium Chloride Carbon Dioxide Anion Gap BUN Creatinine Est GFR ( Amer) Est GFR (Non-Af Amer) BUN/Creatinine Ratio Glucose Lactate Calcium Magnesium Total Bilirubin AST ALT Alkaline Phosphatase Troponin I High Sens Total Protein Albumin Globulin Albumin/Globulin Ratio Urine Color Urine Clarity Urine pH Ur Specific [place] Urine Protein Urine Glucose (UA) Urine Ketones Urine Occult Blood Urine Nitrite Urine Bilirubin Urine Urobilinogen Ur Leukocyte Esterase Urine RBC Urine WBC Ur Squamous Epith Cells Urine Bacteria Urine Mucus Ur Culture Indicated? Specimen Source A.calcoaceticus-baumannii cmplx PCR Bacteroides fragilis Carina albicans (PCR) Carina auris (PCR) C. glabrata (PCR) C. krusei (PCR) C. parapsilosis (PCR) C. tropicalis (PCR) C. neoform/gattii (PCR) Enterobacterales (PCR) E. cloacae complex PCR Enterococc faecalis PCR Enterococc faecium PCR E. coli (PCR) H. influenzae (PCR) Influenza Type A Ag Negative Influenza Type B Ag Negative Klebsiella aerogenes (PCR) Klebsiella oxytoca PCR K. pneumoniae group (PCR) List. monocytogenes PCR N. meningitidis (PCR) Proteus spp. (copies/mL) RSV Antigen Not detected Salmonella spp. (PCR) SARS-CoV-2 Ag (CV2AG) Negative Serratia marcescens PCR Staphylococcus sp PCR Staph aureus (PCR) mecA/C & MREJ Resist Gene mecA/C-Methicil Resis Gene mcr-1 Colistin Res Gene PCR Staph epidermidis (PCR) Staph lugdunensis (TEM-PCR) S. maltophilia (PCR) Streptococcus sp PCR Strep agalactiae (PCR) Strep pneumoniae (PCR) S. pyogenes (PCR) P. aeruginosa (PCR) Kellee/B-Vanco Res Genes blaIMP Car res Gene PCR KPC (blaKPC) Detect PCR NDM (blaNDM) Detect PCR OXA-48 Carbapenem Resis Gene (PCR) blaVIM Car Res Gene PCR CTX-M ESBL (PCR) POC Glucose 168 H 08/18/24 08/19/24 12:40 05:41 WBC 12.6 H RBC 3.58 L Hgb 10.4 L Hct 33.3 L MCV 93.0 MCH 29.1 MCHC 31.2 RDW 16.3 H Plt Count 283 MPV 10.7 Neut % (Auto) 83.5 H Lymph % (Auto) 3.7 L [place] % (Auto) 9.6 Eos % (Auto) 2.0 Baso % (Auto) 0.7 Neut # (Auto) 10.6 H Lymph # (Auto) 0.5 L [place] # (Auto) 1.2 H Eos # (Auto) 0.3 Baso # (Auto) 0.1 Abs Immat Gran (auto) 0.06 H Imm/Tot Granulo (auto) 0.5 PT INR Sodium 142 Potassium 4.6 Chloride 107 Carbon Dioxide 28.3 Anion Gap 11.3 BUN 20.0 H Creatinine 1.07 H Est GFR ( Amer) >60 Est GFR (Non-Af Amer) 51 L BUN/Creatinine Ratio 18.7 Glucose 90 Lactate Calcium 8.6 Magnesium Total Bilirubin 0.6 AST 33 ALT 17 Alkaline Phosphatase 101 Troponin I High Sens Total Protein 5.9 L Albumin 2.7 L Globulin 3.2 Albumin/Globulin Ratio 0.8 Urine Color Urine Clarity Urine pH Ur Specific [place] Urine Protein Urine Glucose (UA) Urine Ketones Urine Occult Blood Urine Nitrite Urine Bilirubin Urine Urobilinogen Ur Leukocyte Esterase Urine RBC Urine WBC Ur Squamous Epith Cells Urine Bacteria Urine Mucus Ur Culture Indicated? Specimen Source Blood A.calcoaceticus-baumannii cmplx PCR Not detected Bacteroides fragilis Not detected Carina albicans (PCR) Not detected Carina auris (PCR) Not detected C. glabrata (PCR) Not detected C. krusei (PCR) Not detected C. parapsilosis (PCR) Not detected C. tropicalis (PCR) Not detected C. neoform/gattii (PCR) Not detected Enterobacterales (PCR) Detected A* E. cloacae complex PCR Not detected Enterococc faecalis PCR Not detected Enterococc faecium PCR Not detected E. coli (PCR) Detected A* H. influenzae (PCR) Not detected Influenza Type A Ag Influenza Type B Ag Klebsiella aerogenes (PCR) Not detected Klebsiella oxytoca PCR Not detected K. pneumoniae group (PCR) Not detected List. monocytogenes PCR Not detected N. meningitidis (PCR) Not detected Proteus spp. (copies/mL) Not detected RSV Antigen Salmonella spp. (PCR) Not detected SARS-CoV-2 Ag (CV2AG) Serratia marcescens PCR Not detected Staphylococcus sp PCR Not detected Staph aureus (PCR) Not detected mecA/C & MREJ Resist Gene Not applicable mecA/C-Methicil Resis Gene Not applicable mcr-1 Colistin Res Gene PCR Not detected Staph epidermidis (PCR) Not detected Staph lugdunensis (TEM-PCR) Not detected S. maltophilia (PCR) Not detected Streptococcus sp PCR Not detected Strep agalactiae (PCR) Not detected Strep pneumoniae (PCR) Not detected S. pyogenes (PCR) Not detected P. aeruginosa (PCR) Not detected Kellee/B-Vanco Res Genes Not applicable blaIMP Car res Gene PCR Not detected KPC (blaKPC) Detect PCR Not detected NDM (blaNDM) Detect PCR Not detected OXA-48 Carbapenem Resis Gene (PCR) Not detected blaVIM Car Res Gene PCR Not detected CTX-M ESBL (PCR) Detected A* POC Glucose Urinary Catheter Management Urinary Catheter Management Suprapubic: Cath placed during this visit: no
--- NOTE | 2024-08-19 10:58 | CM.NOTE ---
Rounds made with Dr. Woodall, no discharge today. Discussed with pt about positive blood cultures and need for another day of IV antibiotics.
--- NOTE | 2024-08-19 11:58 | CM.NOTE ---
Important Message From medicare discussed with pt, pt verbalizes understanding and signs paper. Original given to pt and copy placed in pt's chart.
[2024-08-19] MEDS: CEFTRIAXONE 1,000 MG in 0.9 % SODIUM CHLORIDE 50 ML 100 MG IV (13:17)
--- NOTE | 2024-08-19 16:14 | SWNOTE1 ---
TAYE spoke with pt and she voiced she is happy at the [facility]. She stated she wishes she could go home, but she knows she needs therapy to get stronger. Pt wants to return to [facility] at discharge. SW called and left voicemail for to confirm as well, waiting for call back. TAYE did reach out to [facility] and confirmed they will be ready for pt once she is stable, [facility] did confirm and the family is paying to hold the bed.
[2024-08-19] MEDS: ONDANSETRON PF 4 MG/2 ML VIAL IV (17:59)
[2024-08-19] MEDS: ATORVASTATIN CALCIUM 10 MG TABLET PO (21:35)
[2024-08-19] MEDS: ENOXAPARIN SODIUM 40 MG/0.4 ML SYRINGE SUBQ (21:35)
[2024-08-20] VITALS (7 sets, daily range): BP systolic 121–148; BP diastolic 71–96; PULSE 76–92; TEMP 36.4–37.8; O2SAT 93–94
[2024-08-20] MEDS: HYOSCYAMINE SULFATE 0.125 MG TAB.SUBL PO (06:00)
[2024-08-20] MEDS: OMEPRAZOLE 40 MG CAPSULE.DR PO (06:00)
[2024-08-20 06:24] LABS: Basophils Absolute Auto 0.1 10^3/uL (0.0-0.1); Basophils Percent Auto 1.1 % (0.2-2.0); Eosinophils Absolute Auto 0.2 10^3/uL (0.0-0.7); Eosinophils Percent Auto 2.4 % (0.9-7.0); Hematocrit 28.6 % (36.0-48.0); Hemoglobin 8.7 g/dL (12.0-16.0); Immature Granulocytes Abs Auto 0.06 10^3/uL (0.00-0.03); Lymphocytes Absolute Auto 0.7 10^3/uL (1.2-3.8); Lymphocytes Percent Auto 11.5 % (20.5-60.0); Mean Corpuscular HGB Conc 30.4 g/dL (29.9-35.2); Mean Corpuscular Hemoglobin 28.2 pg (26.7-34.0); Mean Corpuscular Volume 92.9 fL (81.0-99.0); Mean Platelet Volume 11.5 fL (9.5-13.5); Monocytes Absolute Auto 0.7 10^3/uL (0.3-0.8); Neutrophils Absolute Auto 4.5 10^3/uL (1.4-6.5); Platelet Count 262 10^3/uL (150-450); Red Blood Count 3.08 10^6/uL (4.20-5.40); Red Cell Distribution Width 16.3 % (11.0-15.0); White Blood Count 6.2 10^3/uL (4.0-11.0)
[2024-08-20 06:34] LABS: Alanine Aminotransferase 20 U/L (14-59); Albumin Globulin Ratio 0.7; Albumin Level 2.1 g/dL (3.4-5.0); Alkaline Phosphatase 92 U/L (46-116); Anion Gap 12.5; Aspartate Amino Transferase 23 U/L (15-37); BUN Creatinine Ratio 16.4; Bilirubin Total 0.3 mg/dL (0.2-1.0); Calcium 8.2 mg/dL (8.5-10.1); Carbon Dioxide 25.7 mmol/L (21.0-32.0); Chloride 107 mmol/L (98-107); Estimated GFR (African America 60 (>=60 mL/min/1.73m^2); Estimated GFR (Non-African Ame 49 (>=60 mL/min/1.73m^2); Glucose 83 mg/dL (74-106); Potassium 4.2 mmol/L (3.5-5.1); Sodium 141 mmol/L (136-145); Total Protein 5.1 g/dL (6.4-8.2)
[2024-08-20] MEDS: DONEPEZIL HCL 10 MG TABLET PO (08:55)
[2024-08-20] MEDS: LISINOPRIL 10 MG TABLET PO (08:55)
[2024-08-20] MEDS: ASPIRIN 81 MG TABLET.DR PO (08:55)
[2024-08-20] MEDS: MEMANTINE HCL 28 MG CAP XR PO (08:56)
[2024-08-20] MEDS: METOPROLOL TARTRATE 50 MG TABLET PO (08:56)
[2024-08-20] MEDS: POTASSIUM CHLORIDE 10 MEQ ER TABLET PO (08:57)
[2024-08-20] MEDS: Teriflunomide 14 mg tablet 14 EACH PO (08:58)
[2024-08-20] MEDS: DOCUSATE SODIUM 100 MG CAPSULE PO (08:58)
[2024-08-20] MEDS: ERTAPENEM SODIUM 1 GM in 0.9 % SODIUM CHLORIDE 50 ML IV (09:21)
--- NOTE | 2024-08-20 10:33 | CM.NOTE ---
Rounds made with Dr. Woodall, discussed with pt about need for pressure controller IV antibiotics and PICC line placement. Pt will go to [facility] when medically stable for discharge.
--- NOTE | 2024-08-20 10:43 | SWNOTE1 ---
TAYE spoke to pt and pt's in room. lost his phone and that is why he did not answer phone yesterday. He voiced he is happy with [facility] and wants her to return. Plan is for pt to return to [facility] today, but will need PICC line placed first.
--- NOTE | 2024-08-20 11:34 | P.DS_ITS ---
DS: Providers Provider Date of admission: 08/19/24 10:26 Primary care physician: MICHELLE MICHEL DO Admitting clinician: Shaikh Jose C Attending physician on admission: Shaikh Jose C Consults: 08/18/24 13:51 Occupational Therapy Eval and Treat Routine Reason for consultation: Ambulatory dysfunction/weakness Physical Therapy Eval and Treat Routine Reason for consultation: Ambulatory dysfunction/weakness Attending physician on discharge: Shaikh Jose C Discharging clinician: Shaikh Jose C Anticipated date of discharge: 08/20/24 DS: Diagnosis Discharge Diagnosis (1) Sepsis: Qualifiers: Sepsis type: Escherichia coli Sepsis acute organ dysfunction status: with acute organ dysfunction Severe sepsis acute organ dysfunction type: encephalopathy Severe sepsis shock status: without septic shock Qualified Code(s): A41.51 - Sepsis due to Escherichia coli [E. coli]; R65.20 - Severe sepsis without septic shock; G93.41 - Metabolic encephalopathy (2) E coli bacteremia: (3) Metabolic encephalopathy: (4) UTI (urinary tract infection): Qualifiers: Urinary tract infection type: catheter-associated UTI Indwelling urinary catheter type: cystostomy catheter Encounter type: subsequent encounter Qualified Code(s): T83.510D - Infection and inflammatory reaction due to cystostomy catheter, subsequent encounter; N39.0 - Urinary tract infection, site not specified (5) Multiple sclerosis: (6) Hypertension: Qualifiers: Hypertension type: primary hypertension Qualified Code(s): I10 - Essential (primary) hypertension (7) Hyperlipidemia: Qualifiers: Hyperlipidemia type: unspecified Qualified Code(s): E78.5 - Hyperlipidemia, unspecified DS: Summary Hospital Course Hospital Course: 69-year-old female with history of multiple sclerosis presented to ER with swanson ge in mental status/confusion and slurred speech. She was brought over from [facility] where she is getting rehab. Workup in ER was consistent with metabolic encephalopathy and sepsis secondary to urinary tract infection. She had a CT head that did not reveal any acute intracranial finding. She was admitted for IV hydration and IV antibiotics. Patient clinically improved during the course of admission. She returned to her baseline. Her blood cultures came back positive for ESBL Ecoli likely from ESBL UTI. She was initially being treated with Rocpehin, switched to IV Invanz. She will need PICC line placed and IV Invanz for 14 days. Unfortunately, there is no appropriate abx for ESBL Bacteremia. Patient stable for discharge. Will be discharged to [facility] on IV Invanz once daily for 14 days. Status at Discharge Functional status at discharge: uses cane/walker Overall status at discharge: patient is progressing back to baseline Time Spent with Patient Time attestation: Total time spent providing and/or coordinating discharge services: Time spent: greater than 30 minutes Exam Constitutional Vital Signs, click to edit/add: Last Vital Signs Temp 98.4 F 08/20/24 11:06 Pulse 92 H 08/20/24 11:06 Resp 17 08/20/24 11:06 BP 148/86 H 08/20/24 11:06 Pulse Ox 94 L 08/20/24 11:18 O2 Del Method Room Air 08/20/24 11:18 Documenting provider has reviewed patient's vital signs: yes Common normals: no apparent distress General appearance: cooperative Respiratory Common normals: normal respiratory effort and clear to auscultation bilaterally Effort & inspection: able to speak in complete sentences Auscultation: clear to auscultation bilaterally Cardio Common normals: regular rate, S1 normal heart sound and S2 normal heart sound Rate: regular rate Heart sounds: S1 normal and S2 normal GI Common normals: soft to palpation, non-tender and no hepatosplenomegaly Palpation: soft and no hepatosplenomegaly Other: Suprapubic catheter in place Neuro Common normals: oriented x3 and moves all extremities Other: B/l LE weakness - power is only about 3/5 RLE, LLE power is 4/5. No rigidity, muscle tone appears decreased. No weakness on UE b/l Psych Common normals: mental status grossly normal, thought process normal, denies homicidal ideation and denies suicidal ideation DS: Data Data Completed and Pending Labs on day of discharge: Labs from last 24 hours 08/20/24 05:11 WBC 6.2 RBC 3.08 L Hgb 8.7 L Hct 28.6 L MCV 92.9 MCH 28.2 MCHC 30.4 RDW 16.3 H Plt Count 262 MPV 11.5 Neut % (Auto) 73.0 Lymph % (Auto) 11.5 L [place] % (Auto) 11.0 Eos % (Auto) 2.4 Baso % (Auto) 1.1 Neut # (Auto) 4.5 Lymph # (Auto) 0.7 L [place] # (Auto) 0.7 Eos # (Auto) 0.2 Baso # (Auto) 0.1 Abs Immat Gran (auto) 0.06 H Imm/Tot Granulo (auto) 1.0 H Sodium 141 Potassium 4.2 Chloride 107 Carbon Dioxide 25.7 Anion Gap 12.5 BUN 18.0 Creatinine 1.10 H Est GFR ( Amer) 60 Est GFR (Non-Af Amer) 49 L BUN/Creatinine Ratio 16.4 Glucose 83 Calcium 8.2 L Total Bilirubin 0.3 AST 23 ALT 20 Alkaline Phosphatase 92 Total Protein 5.1 L Albumin 2.1 L Globulin 3.0 Albumin/Globulin Ratio 0.7 Preliminary micro results at discharge 08/18/24 11:35 Urine Culture - Preliminary Urine,Clean Catch Gram negative yvonne Gram negative yvonne#2 Discharge Plan Discharge Disposition: Xfer SNF Discharge Medications: New ertapenem 1 gram recon soln 1 g IV DAILY 14 Days Qty: 14 0RF Continued metoprolol tartrate 100 mg tablet 100 mg PO Q12H metoprolol tartrate 50 mg tablet 50 mg PO Q12H loperamide 2 mg capsule 2 mg PO Q12H potassium chloride 10 mEq capsule, extended release 10 meq PO BID lisinopril 10 mg tablet 10 mg PO BID hyoscyamine sulfate 0.125 mg tablet 0.125 mg PO TID pantoprazole 40 mg tablet,delayed release (DR/EC) 40 mg PO DAILY teriflunomide 14 mg tablet 14 mg PO QAM aspirin [Adult Low Dose Aspirin] 81 mg tablet,delayed release (DR/EC) 81 mg PO DAILY memantine 28 mg capsule,sprinkle,ER 24hr 28 mg PO DAILY donepezil 10 mg tablet 10 mg PO DAILY atorvastatin 10 mg tablet 10 mg PO .QHS triamterene-hydrochlorothiazid 37.5-25 mg capsule 1 cap PO DAILY Print Language: Bengali Continuous Absorption Process Operator/Manager Change Instructions: Discharge to [facility]. Forms: Portal Instructions Follow Up Appointments: F/u with PCP in one week
--- NOTE | 2024-08-20 11:45 | REH.PTDLY ---
Physical Therapy Daily Note PT Daily Note/Assess Start: 08/20/24 11:37 Freq: Status: Active Protocol: Document 08/20/24 11:37 KSTEINILEANA (Rec: 08/20/24 11:45 KSTEINLE [id number]) Physical Therapy Daily Note/Assessment Time In 11:17 Time Out 11:33 Subjective Pt up in chair upon arrival. Agreeable to therapy. States having PICC line placed later today and then going back to the [facility]. Therapeutic Exercise 6 Minutes (minutes) Therapeutic Exercise 0 Units Therapeutic Exercise Instructed in B LE exs with legs elevated in recliner Treatment 10x ea with AA of SLR, heel slides, and hip abd. Pt also performs AP and QS 10x ea for improved strength. Therapeutic Activity 9 Minutes (minutes) Therapeutic Activity 1 Units Therapeutic Activity Sit to stand transfers Min A with blocking of R foot to Comments prevent sliding. Pt steadies herself on feet and states she feels ok to ambulate. Gait training with RW Min A 5 feet and then requires Mod A with moving RW to turn to ambulate back to chair. Pt starts to lean back and holler out as she feels like she is falling. Max A to hold pt upright. enters room and assists in keep pt balanced while bed is rolled behind pt. Pt sits back on bed to rest. Once rested Pt stands again with Min A and cues to side step along side of bed 3 feet and then pt pivots into chair. Mod A to prevent pt from sitting too soon. Pt stays up in chair with call light at hand and chair alarm on. Total Therapy 15 Minutes Total Physical 1 Therapy Units Daily Note Summary Pt fatigues easily with gait and struggles with turning due to R foot not advancing as easily as L foot. Pt requires Max A as she fatigues and is unable to regain footing underneath her with bed being moved behind pt. Pt will continue to need SNF stay at [facility] and plan is for pt to return to the [facility].
--- NOTE | 2024-08-20 12:51 | DIETREC ---
Pt was admitted 08/18/24 w/dx UTI, sepsis, metabolic encephalopathy. PO intakes are fair-poor, 25-50%. Recommend 237 mL Ensure Original BID. Will follow PRN.
--- NOTE | 2024-08-20 13:54 | SWNOTE1 ---
Pt's PICC line placed. SW sent dc orders and dc summary to [facility]. Pt is returning skilled. SW called trips and they do not have any openings. TAYE called [facility] and they will be over to pick pt up. TAYE notified nurse, pt, and pt's in room.
--- NOTE | 2024-08-20 15:31 | CM.NOTE ---
Addendum entered by Jessica Munguia 08/20/24 15:33: Time stamp incorrect- late entry- time 08:30 Original Note: 2nd Important Message From Medicare discussed with pt, pt denies any questions or concerns.
== END 2024-08-20 14:11 | DRG 871 ==
LOC: ER 12:27 → MS 08-19 06:05
PROVIDERS: Admitting Provider Internal Medicine; Emergency Provider Emergency Medicine; PCP Family Medicine; Visit Provider Internal Medicine
DX: A41.51 Sepsis due to Escherichia coli [E. coli] (principal); G93.41 Metabolic encephalopathy; N39.0 Urinary tract infection, site not specified; T83.510A Infection and inflammatory reaction due to cystostomy catheter, initial encounter; Z16.12 Extended spectrum beta lactamase (ESBL) resistance; R65.20 Severe sepsis without septic shock; E78.5 Hyperlipidemia, unspecified; E83.42 Hypomagnesemia; G35 Multiple sclerosis; I10 Essential (primary) hypertension; Z93.51 Cutaneous-vesicostomy status; Z79.82 Long term (current) use of aspirin; Z79.899 Other long term (current) drug therapy; Z88.1 Allergy status to other antibiotic agents; Z11.52 Encounter for screening for COVID-19
CPT/HCPCS: 36415; 36569; 36593; 70450; 71045; 80053; 81001; 83605; 83735; 84484; 85025; 85610; 87040; 87086; 87150; 87186; 87420; 87804; 87811; 93005; 94761; 96365; 96368; 96375; 97161; 97165; 97530; 97535; 99285; C1887; G0378; J0360; J0696; J1335; J1650; J2405; J3475